=== PATIENT | female | born 1955 | race African-American/Black ===

== ENCOUNTER 2018-04-16 09:30 | Inpatient (IN) ==
[2018-04-16] MEDS ORDERED: 0.9 % SODIUM CHLORIDE 1,000 ML IV ONE ×3 (09:37→15:12)
[2018-04-16] MEDS ORDERED: ONDANSETRON 4 MG/2 ML VIAL IV ONE (10:03)
[2018-04-16] MEDS ORDERED: DIPH,PERTUSS(ACELL),TET VAC/PF 0.5 ML SYRINGE IM ONE (10:03)
--- NOTE | 2018-04-16 10:11 | Emergency Department Note ---
Fall HPI - General Chief Complaint: Fall Stated Complaint: Fall out of bed yesterday morning Time Seen by Provider: 04/16/18 10:03 Source: EMS Mode of arrival: EMS - History of Present Illness HPI Narrative: 62-year-old female presents to ED via ambulance after being picked up from the floor of her residence at. She had apparently fallen yesterday afternoon, laid on the floor all afternoon and all night. She usually has in-home care that visits with her for about an hour or 2 every day, she still lives in her own home. She needs some assistance with shopping and groceries, she is mobile within her own home and does not need a walker normally. Apparently she had fallen yesterday, was complaining of back pain in the ambulance had been called yesterday times one. She refused transport at that time. Apparently she had gone back to bed but then fell getting out of bed on her way to the bathroom. She was laying on the floor, the caregiver as well as the sheriff's officer's office who had to break into the home this morning found her laying face down on the floor. She has significant abrasions to her left elbow, right elbow as well as well as both kneecaps from attempting to crawl to get some help. Caregiver today states it was 50 in the home when they found her. She is complaining mainly of low back pain, denies any hip pain, there is no deformity of her hips noticeable, denies chest pain, denies shortness of breath and she is not hypoxic, not tachycardic, she did soil herself with stool and urine. MD Complaint: fall - Related Data Home Medications Medication Instructions Recorded Confirmed blood-glucose meter See Dose Instructions .ROUTE 09/14/14 03/19/18 .MEDSUPPLY Atorvastatin [Lipitor] 20 mg PO DAILY 04/16/18 04/16/18 LORazepam [Ativan] 1 mg PO DAILYP PRN 04/16/18 04/16/18 Pioglitazone HCl 45 mg PO QDAY 04/16/18 04/16/18 Ziprasidone HCl [Geodon] 60 mg PO DAILY 04/16/18 04/16/18 Previous Rx's Medication Instructions Recorded blood sugar diagnostic strips See Dose Instructions .ROUTE 04/28/15 .MEDSUPPLY #100 each trazodone 50 mg tablet 50 mg PO QHS #30 tab 03/21/17 omeprazole 40 mg capsule,delayed 40 mg PO QAM #90 cap 05/03/17 release memantine 10 mg tablet 10 mg PO BID #60 tab 05/23/17 divalproex 250 mg tablet,delayed 250 mg PO BID #60 tab 05/27/17 release sitagliptin 100 mg tablet 100 mg PO QDAY #90 tab 09/18/17 duloxetine 60 mg capsule,delayed 60 mg PO QDAY #30 cap 10/24/17 release amlodipine 5 mg tablet 5 mg PO QDAY #30 tab 12/31/17 lisinopril 20 mg tablet 20 mg PO QDAY #30 tab 01/06/18 Allergies Allergy/AdvReac Type Severity Reaction Status Date / Time No Known Drug Allergies Allergy Verified 04/16/18 09:30 Review of Systems All systems ED: reviewed and negative except as stated. Constitutional: Reports: weakness. Denies: fever, chills ENT ED: Denies: ear pain, throat pain Cardiovascular: Denies: chest pain, dyspnea on exertion Respiratory: Denies: shortness of breath, cough Gastrointestinal: Denies: abdominal pain, nausea, vomiting Genitourinary: Reports: incontinence Musculoskeletal: Reports: back pain Neurological: Reports: headache, other (slight headache also slight degree of neck pain, she does have a history of cervical spondylosis) Endocrine: Reports: fatigue Fall PMH - Past Medical History Attestation: Yes: The following information was validated with the patient. Medical history: Reports: DM, hyperlipidemia, hypertension, osteoporosis, other Surgical history ED: Reports: non-contributory - Social History smoking status: Current every day smoker Physical Exam Limitations: no limitations General appearance: alert, other (very weak appearing, shivering also rectal temperature of 92.) Head: atraumatic Eye: Present: normal appearance, PERRL ENT: normal exam, normal oropharynx, mucous membranes moist, TM's normal bilaterally, normal external ear exam Neck: Present: trachea midline, tenderness, other (decreased range of motion of the cervical spine.). Absent: meningismus, lymphadenopathy Chest: Present: normal inspection, symmetric chest wall rise. Absent: tenderness Respiratory: Present: normal lung sounds bilaterally. Absent: respiratory distress, rales/crackles, accessory muscle use Cardiovascular: Present: regular rate, normal rhythm, normal heart sounds Abdominal: Present: soft, hypoactive bowel sounds. Absent: distention, t enderness, guarding, hernia Rectal: Present: decreased rectal tone, other (incontinent of stool) External: Present: normal external exam Extremities: Present: full ROM, other (symmetric hips knees and ankles without obvious joint swelling. There is a grinding noise in the right knee which appears to be from [id number], not associated with pain but decreased range of motion and stiffness in both hips and knees. Both lower extremities are symmetrical. She does have abrasions to both elbow regions without obvious defo rmity.). Absent: joint swelling Back: Present: normal inspection, tenderness, L-S tenderness, muscle spasm, paraspinal tenderness, spinous process tenderness, vertebral tenderness. Absent: CVA tenderness (R), CVA tenderness (L), straight leg raise (R), straight leg raise (L) Neurological: Present: alert, oriented X3, other (generalized weakness all throughout.). Absent: motor sensory deficit Psychiatric: Present: normal affect Skin: Present: cyanosis, pallor, mottled, cool. Absent: rash Course - Reevaluation(s) Reevaluation #1: X-rays not showing any acute fracture. She does have moderate atrophy on CT scan the head. Degenerative changes of the C-spine. Also she has a mild degree of mastoiditis on her head CT. Given her white blood cell count was elevated we'll start her on antibiotics for mastoiditis. Her total CK was elevated thus she is at risk for rhabdomyolysis. Given her back pain and other comorbid con ditions she will need to be at admitted to the hospital. Final diagnosis is prolonged downtime, history of low back pain, acute low back pain secondary to fall, rhabdomyolysis Vital Signs Temperature 95.9 F L 04/16/18 09:30 Pulse Rate 87 04/16/18 09:30 Respiratory Rate 16 04/16/18 09:30 Blood Pressure 133/98 04/16/18 09:30 Pulse Oximetry (%) 97 04/16/18 09:30 Temperature 95.1 F L 04/16/18 11:46 Pulse Rate 95 H 04/16/18 13:08 Respiratory Rate 14 04/16/18 13:08 Blood Pressure 102/50 04/16/18 11:46 Pulse Oximetry (%) 96 04/16/18 13:08 Fall - MDM Narrative Medical decision making narrative: Impressions rhabdomyolysis, no acute EKG findings to suspect acute coronary syndrome. Troponin elevated and we will repeat her troponin up. Second troponin was about the same. Twelve-lead EKG not showing any acute ST elevation or suspicion of acute coronary syndrome up. She is not having any chest pain, no shortness of breath main complaint was low back pain. Sodium was elevated, at this point her total CK was over 15,000, she was putting out urine, at least 200 cc here in the ED and this was sent for urinalysis. White blood cell count elevated, she was started on antibiotics and to concerns of mastoiditis on the head CT scan. Discussed hospital admission with Dr. Delgado - Lab Data Result diagrams: 04/16/18 11:03 04/16/18 11:03 Lab Results 04/16/18 04/16/18 04/16/18 Range/Units 11:03 11:03 11:03 WBC 20.4 H (4.5-11.0) K/mcL RBC 4.48 (4.00-5.20) M/mcL Hgb 13.5 (12.0-15.0) g/dL Hct 42.3 (36.0-48.0) % MCV 94.5 (80.0-100.0) fL MCH 30.2 (26.0-34.0) pg MCHC 32.0 (31.0-36.0) g/dL RDW 15.0 H (11.5-14.5) % Plt Count 258 (140-440) K/mcL MPV 9.4 (7.4-10.4) fL Gran % 78.6 H (38.0-78.0) % Lymph % (Auto) 11.4 L (15.5-49.0) % Ford % (Auto) 9.8 (1.0-12.0) % Eos % (Auto) 0 (0.0-7.0) % Baso % (Auto) 0.2 (0.0-2.0) % Gran # 16.0 H (1.8-8.0) K/mcL Lymph # (Auto) 2.3 (1.5-4.8) K/mcL Ford # (Auto) 2.0 H (0.1-0.9) K/mcL Eos # (Auto) 0 (0.0-0.7) K/mcL Baso # (Auto) 0 (0.0-0.3) K/mcL PT 14.9 H (11.9-14.5) sec INR 1.2 H (0.9-1.1) ABG Methemoglobin (0.4-1.5) % VBG pH (7.32-7.42) U VBG pCO2 (41.0-51.0) mmHg VBG pO2 (25-40) mmHg VBG HCO3 (24.0-28.0) mmol/L VBG Total CO2 (25.0-29.0) mmol/L VBG O2 Saturation (40.0-70.0) % VBG Base Excess (-2.0-2.0) VBG Lactic Acid (0.5-2.0) mmol/L Carboxyhemoglobin (0.0-1.5) % THgb Total Hemoglobin (12.0-15.0) gm/dL O2 Delivery Level Sodium 154 H (133-145) mmol/L Potassium 3.3 (3.3-5.1) mmol/L Chloride 112 H (96-108) mmol/L Carbon Dioxide 17 L (22-30) mmol/L Anion Gap 25.0 H (8-16) BUN 35 H (8-23) mg/dl Creatinine 0.6 (0.6-1.1) mg/dl GFR Calculation 96 Glucose 103 (70-105) mg/dL Calcium 9.2 (8.6-10.4) mg/dl Total Bilirubin 0.3 (0.0-1.0) mg/dL AST 484 H (0-37) U/l ALT 137 H (0-40) U/l Alkaline Phosphatase 63 (39-117) U/L Total Creatine Kinase (24-170) IU/L Troponin T (0-0.03) ng/ml C-Reactive Protein (0.0-0.8) mg/dl NT-Pro-B Natriuret Pep (0-125) pg/ml Total Protein 6.0 (5.9-8.4) gm/dL Albumin 3.7 (3.2-5.2) gm/dL Globulin 2.3 (2.2-3.7) gm/dL Albumin/Globulin Ratio 1.6 (1.0-2.3) Procalcitonin (<0.10) ng/mL TSH 1.76 (0.27-5.01) uIU/ml Urine Color Urine Appearance Urine pH (5.0-9.0) Ur Specific [place] (1.000-1.035) Urine Protein (NEG) mg/dL Urine Glucose (UA) (NEG) mg/dL Urine Ketones (NEG) mg/dL Urine Occult Blood (<0.03) mg/dL Urine Nitrate (NEG) Urine Bilirubin (NEG) mg/dL Urine Urobilinogen (NEG) mg/dL Ur Leukocyte Esterase (NEG) /uL Urine RBC (0-1) /hpf Urine WBC (0-4) /hpf Ur Squamous Epith Cells (0-4) /hpf Urine Bacteria (0) /hpf Hyaline Casts (0-2) /lpf Urine Mucus (0) /hpf Ur Culture Indicated? 04/16/18 04/16/18 04/16/18 Range/Units 11:03 11:03 11:03 WBC (4.5-11.0) K/mcL RBC (4.00-5.20) M/mcL Hgb (12.0-15.0) g/dL Hct (36.0-48.0) % MCV (80.0-100.0) fL MCH (26.0-34.0) pg MCHC (31.0-36.0) g/dL RDW (11.5-14.5) % Plt Count (140-440) K/mcL MPV (7.4-10.4) fL Gran % (38.0-78.0) % Lymph % (Auto) (15.5-49.0) % Ford % (Auto) (1.0-12.0) % Eos % (Auto) (0.0-7.0) % Baso % (Auto) (0.0-2.0) % Gran # (1.8-8.0) K/mcL Lymph # (Auto) (1.5-4.8) K/mcL [place] # (Auto) (0.1-0.9) K/mcL Eos # (Auto) (0.0-0.7) K/mcL Baso # (Auto) (0.0-0.3) K/mcL PT (11.9-14.5) sec INR (0.9-1.1) ABG Methemoglobin (0.4-1.5) % VBG pH (7.32-7.42) U VBG pCO2 (41.0-51.0) mmHg VBG pO2 (25-40) mmHg VBG HCO3 (24.0-28.0) mmol/L VBG Total CO2 (25.0-29.0) mmol/L VBG O2 Saturation (40.0-70.0) % VBG Base Excess (-2.0-2.0) VBG Lactic Acid 1.8 (0.5-2.0) mmol/L Carboxyhemoglobin (0.0-1.5) % THgb Total Hemoglobin (12.0-15.0) gm/dL O2 Delivery Level Sodium (133-145) mmol/L Potassium (3.3-5.1) mmol/L Chloride (96-108) mmol/L Carbon Dioxide (22-30) mmol/L Anion Gap (8-16) BUN (8-23) mg/dl Creatinine (0.6-1.1) mg/dl GFR Calculation Glucose (70-105) mg/dL Calcium (8.6-10.4) mg/dl Total Bilirubin (0.0-1.0) mg/dL AST (0-37) U/l ALT (0-40) U/l Alkaline Phosphatase (39-117) U/L Total Creatine Kinase 25381 H (24-170) IU/L Troponin T 0.32 H* (0-0.03) ng/ml C-Reactive Protein (0.0-0.8) mg/dl NT-Pro-B Natriuret Pep (0-125) pg/ml Total Protein (5.9-8.4) gm/dL Albumin (3.2-5.2) gm/dL Globulin (2.2-3.7) gm/dL Albumin/Globulin Ratio (1.0-2.3) Procalcitonin (<0.10) ng/mL TSH (0.27-5.01) uIU/ml Urine Color Urine Appearance Urine pH (5.0-9.0) Ur Specific [place] (1.000-1.035) Urine Protein (NEG) mg/dL Urine Glucose (UA) (NEG) mg/dL Urine Ketones (NEG) mg/dL Urine Occult Blood (<0.03) mg/dL Urine Nitrate (NEG) Urine Bilirubin (NEG) mg/dL Urine Urobilinogen (NEG) mg/dL Ur Leukocyte Esterase (NEG) /uL Urine RBC (0-1) /hpf Urine WBC (0-4) /hpf Ur Squamous Epith Cells (0-4) /hpf Urine Bacteria (0) /hpf Hyaline Casts (0-2) /lpf Urine Mucus (0) /hpf Ur Culture Indicated? 04/16/18 04/16/18 04/16/18 Range/Units 11:03 11:04 12:47 WBC (4.5-11.0) K/mcL RBC (4.00-5.20) M/mcL Hgb (12.0-15.0) g/dL Hct (36.0-48.0) % MCV (80.0-100.0) fL MCH (26.0-34.0) pg MCHC (31.0-36.0) g/dL RDW (11.5-14.5) % Plt Count (140-440) K/mcL MPV (7.4-10.4) fL Gran % (38.0-78.0) % Lymph % (Auto) (15.5-49.0) % Ford % (Auto) (1.0-12.0) % Eos % (Auto) (0.0-7.0) % Baso % (Auto) (0.0-2.0) % Gran # (1.8-8.0) K/mcL Lymph # (Auto) (1.5-4.8) K/mcL [place] # (Auto) (0.1-0.9) K/mcL Eos # (Auto) (0.0-0.7) K/mcL Baso # (Auto) (0.0-0.3) K/mcL PT (11.9-14.5) sec INR (0.9-1.1) ABG Methemoglobin 0.3 L (0.4-1.5) % VBG pH 7.26 L (7.32-7.42) U VBG pCO2 38.0 L (41.0-51.0) mmHg VBG pO2 57 H (25-40) mmHg VBG HCO3 16.7 L (24.0-28.0) mmol/L VBG Total CO2 17.8 L (25.0-29.0) mmol/L VBG O2 Saturation 79.3 H (40.0-70.0) % VBG Base Excess -9.7 L (-2.0-2.0) VBG Lactic Acid 1.3 (0.5-2.0) mmol/L Carboxyhemoglobin 2.5 H (0.0-1.5) % THgb Total Hemoglobin 12.8 (12.0-15.0) gm/dL O2 Delivery Level Not Reportable Sodium (133-145) mmol/L Potassium (3.3-5.1) mmol/L Chloride (96-108) mmol/L Carbon Dioxide (22-30) mmol/L Anion Gap (8-16) BUN (8-23) mg/dl Creatinine (0.6-1.1) mg/dl GFR Calculation Glucose (70-105) mg/dL Calcium (8.6-10.4) mg/dl Total Bilirubin (0.0-1.0) mg/dL AST (0-37) U/l ALT (0-40) U/l Alkaline Phosphatase (39-117) U/L Total Creatine Kinase (24-170) IU/L Troponin T (0-0.03) ng/ml C-Reactive Protein (0.0-0.8) mg/dl NT-Pro-B Natriuret Pep (0-125) pg/ml Total Protein (5.9-8.4) gm/dL Albumin (3.2-5.2) gm/dL Globulin (2.2-3.7) gm/dL Albumin/Globulin Ratio (1.0-2.3) Procalcitonin (<0.10) ng/mL TSH (0.27-5.01) uIU/ml Urine Color Yellow Urine Appearance Hazy Urine pH 5.0 (5.0-9.0) Ur Specific [place] 1.022 (1.000-1.035) Urine Protein Neg (NEG) mg/dL Urine Glucose (UA) >=500 A (NEG) mg/dL Urine Ketones 80 A (NEG) mg/dL Urine Occult Blood 0.03 A (<0.03) mg/dL Urine Nitrate Neg (NEG) Urine Bilirubin Neg (NEG) mg/dL Urine Urobilinogen Neg (NEG) mg/dL Ur Leukocyte Esterase Neg (NEG) /uL Urine RBC < 1 (0-1) /hpf Urine WBC 1 (0-4) /hpf Ur Squamous Epith Cells 0 (0-4) /hpf Urine Bacteria 0 (0) /hpf Hyaline Casts 12 H (0-2) /lpf Urine Mucus Few (0) /hpf Ur Culture Indicated? No 04/16/18 04/16/18 04/16/18 Range/Units 12:47 12:47 12:47 WBC (4.5-11.0) K/mcL RBC (4.00-5.20) M/mcL Hgb (12.0-15.0) g/dL Hct (36.0-48.0) % MCV (80.0-100.0) fL MCH (26.0-34.0) pg MCHC (31.0-36.0) g/dL RDW (11.5-14.5) % Plt Count (140-440) K/mcL MPV (7.4-10.4) fL Gran % (38.0-78.0) % Lymph % (Auto) (15.5-49.0) % [place] % (Auto) (1.0-12.0) % Eos % (Auto) (0.0-7.0) % Baso % (Auto) (0.0-2.0) % Gran # (1.8-8.0) K/mcL Lymph # (Auto) (1.5-4.8) K/mcL [place] # (Auto) (0.1-0.9) K/mcL Eos # (Auto) (0.0-0.7) K/mcL Baso # (Auto) (0.0-0.3) K/mcL PT (11.9-14.5) sec INR (0.9-1.1) ABG Methemoglobin (0.4-1.5) % VBG pH (7.32-7.42) U VBG pCO2 (41.0-51.0) mmHg VBG pO2 (25-40) mmHg VBG HCO3 (24.0-28.0) mmol/L VBG Total CO2 (25.0-29.0) mmol/L VBG O2 Saturation (40.0-70.0) % VBG Base Excess (-2.0-2.0) VBG Lactic Acid (0.5-2.0) mmol/L Carboxyhemoglobin (0.0-1.5) % THgb Total Hemoglobin (12.0-15.0) gm/dL O2 Delivery Level Sodium (133-145) mmol/L Potassium (3.3-5.1) mmol/L Chloride (96-108) mmol/L Carbon Dioxide (22-30) mmol/L Anion Gap (8-16) BUN (8-23) mg/dl Creatinine (0.6-1.1) mg/dl GFR Calculation Glucose (70-105) mg/dL Calcium (8.6-10.4) mg/dl Total Bilirubin (0.0-1.0) mg/dL AST (0-37) U/l ALT (0-40) U/l Alkaline Phosphatase (39-117) U/L Total Creatine Kinase (24-170) IU/L Troponin T 0.37 H* (0-0.03) ng/ml C-Reactive Protein (0.0-0.8) mg/dl NT-Pro-B Natriuret Pep 6811.0 H (0-125) pg/ml Total Protein (5.9-8.4) gm/dL Albumin (3.2-5.2) gm/dL Globulin (2.2-3.7) gm/dL Albumin/Globulin Ratio (1.0-2.3) Procalcitonin 0.59 (<0.10) ng/mL TSH (0.27-5.01) uIU/ml Urine Color Urine Appearance Urine pH (5.0-9.0) Ur Specific [place] (1.000-1.035) Urine Protein (NEG) mg/dL Urine Glucose (UA) (NEG) mg/dL Urine Ketones (NEG) mg/dL Urine Occult Blood (<0.03) mg/dL Urine Nitrate (NEG) Urine Bilirubin (NEG) mg/dL Urine Urobilinogen (NEG) mg/dL Ur Leukocyte Esterase (NEG) /uL Urine RBC (0-1) /hpf Urine WBC (0-4) /hpf Ur Squamous Epith Cells (0-4) /hpf Urine Bacteria (0) /hpf Hyaline Casts (0-2) /lpf Urine Mucus (0) /hpf Ur Culture Indicated? 04/16/18 Range/Units 12:47 WBC (4.5-11.0) K/mcL RBC (4.00-5.20) M/mcL Hgb (12.0-15.0) g/dL Hct (36.0-48.0) % MCV (80.0-100.0) fL MCH (26.0-34.0) pg MCHC (31.0-36.0) g/dL RDW (11.5-14.5) % Plt Count (140-440) K/mcL MPV (7.4-10.4) fL Gran % (38.0-78.0) % Lymph % (Auto) (15.5-49.0) % [place] % (Auto) (1.0-12.0) % Eos % (Auto) (0.0-7.0) % Baso % (Auto) (0.0-2.0) % Gran # (1.8-8.0) K/mcL Lymph # (Auto) (1.5-4.8) K/mcL [place] # (Auto) (0.1-0.9) K/mcL Eos # (Auto) (0.0-0.7) K/mcL Baso # (Auto) (0.0-0.3) K/mcL PT (11.9-14.5) sec INR (0.9-1.1) ABG Methemoglobin (0.4-1.5) % VBG pH (7.32-7.42) U VBG pCO2 (41.0-51.0) mmHg VBG pO2 (25-40) mmHg VBG HCO3 (24.0-28.0) mmol/L VBG Total CO2 (25.0-29.0) mmol/L VBG O2 Saturation (40.0-70.0) % VBG Base Excess (-2.0-2.0) VBG Lactic Acid (0.5-2.0) mmol/L Carboxyhemoglobin (0.0-1.5) % THgb Total Hemoglobin (12.0-15.0) gm/dL O2 Delivery Level Sodium (133-145) mmol/L Potassium (3.3-5.1) mmol/L Chloride (96-108) mmol/L Carbon Dioxide (22-30) mmol/L Anion Gap (8-16) BUN (8-23) mg/dl Creatinine (0.6-1.1) mg/dl GFR Calculation Glucose (70-105) mg/dL Calcium (8.6-10.4) mg/dl Total Bilirubin (0.0-1.0) mg/dL AST (0-37) U/l ALT (0-40) U/l Alkaline Phosphatase (39-117) U/L Total Creatine Kinase (24-170) IU/L Troponin T (0-0.03) ng/ml C-Reactive Protein 1.3 H (0.0-0.8) mg/dl NT-Pro-B Natriuret Pep (0-125) pg/ml Total Protein (5.9-8.4) gm/dL Albumin (3.2-5.2) gm/dL Globulin (2.2-3.7) gm/dL Albumin/Globulin Ratio (1.0-2.3) Procalcitonin (<0.10) ng/mL TSH (0.27-5.01) uIU/ml Urine Color Urine Appearance Urine pH (5.0-9.0) Ur Specific [place] (1.000-1.035) Urine Protein (NEG) mg/dL Urine Glucose (UA) (NEG) mg/dL Urine Ketones (NEG) mg/dL Urine Occult Blood (<0.03) mg/dL Urine Nitrate (NEG) Urine Bilirubin (NEG) mg/dL Urine Urobilinogen (NEG) mg/dL Ur Leukocyte Esterase (NEG) /uL Urine RBC (0-1) /hpf Urine WBC (0-4) /hpf Ur Squamous Epith Cells (0-4) /hpf Urine Bacteria (0) /hpf Hyaline Casts (0-2) /lpf Urine Mucus (0) /hpf Ur Culture Indicated? Disposition Pt seen by [facility] ARCHITECT/PA only: No Clinical Impression: Rhabdomyolysis, Diabetes mellitus, type II, Dehydration Disposition: Xfer As Inpt ([facility]) Condition: Fair Referrals: Manuel Philip MD [Primary Care Provider] -
[2018-04-16 11:27] LABS: ABG Methemoglobin 0.3 % (0.4-1.5); VBG Base Excess -9.7 (-2.0-2.0); VBG HCO3 16.7 mmol/L (24.0-28.0); VBG Oxygen Saturation 79.3 % (40.0-70.0); VBG PH 7.26 U (7.32-7.42); VBG PO2 57 mmHg (25-40); VBG Total CO2 17.8 mmol/L (25.0-29.0)
[2018-04-16 11:36] LABS: Basophils # (Auto) 0 K/mcL (0.0-0.3); Basophils % (Auto) 0.2 % (0.0-2.0); Eosinophils # (Auto) 0 K/mcL (0.0-0.7); Eosinophils % (Auto) 0 % (0.0-7.0); Granulocytes % (Auto) 78.6 % (38.0-78.0); Lymphocytes # (Auto) 2.3 K/mcL (1.5-4.8); Lymphocytes % (Auto) 11.4 % (15.5-49.0); Mean Cell Volume 94.5 fL (80.0-100.0); Monocytes % (Auto) 9.8 % (1.0-12.0); Platelet Count 258 K/mcL (140-440); RBC 4.48 M/mcL (4.00-5.20)
[2018-04-16 12:03] LABS: Appearance,Urine HAZY; Bacteria,Urine 0 /hpf (0); Bilirubin,Urine NEG (NEG); Color,Urine YELLOW; Glucose,Urine (UA) >=500 mg/dL (NEG); Leukocyte Esterase,Urine NEG /uL (NEG); Mucus,Urine FEW /hpf (0); Protein,Urine NEG (NEG); Specific Gravity,Urine 1.022 (1.000-1.035); Urine Blood 0.03 mg/dL (<0.03); Urine Hyaline Cast 12 /lpf (0-2); Urine RBC < 1 /hpf (0-1); Urine Squamous Epithelial Cell 0 /hpf (0-4); Urine WBC 1 /hpf (0-4); Urobilinogen,Urine NEG (NEG)
[2018-04-16 12:08] LABS: ALT/SGPT 137 U/l (0-40); Albumin 3.7 gm/dL (3.2-5.2); Albumin/Globulin Ratio 1.6 (1.0-2.3); Alkaline Phosphatase 63 U/L (39-117); Blood Urea Nitrogen 35 mg/dl (8-23)
--- NOTE | 2018-04-16 12:27 | Cat Scan Report ---
CLINICAL INFORMATION: Trauma COMPARISON: None. TECHNIQUE: 2.5 mm helical slices were obtained in the skull base to vertex. Following reconstruction, axial reformatted images were reviewed at bone and parenchymal windows. The exam was performed using radiation dose optimization techniques including, but not limited to, automated exposure control, adjustment of the mA and/or kV according to patient size and use of iterative reconstruction technique. FINDINGS: The ventricles, sulci, fissures, and cisterns are symmetrically enlarged well mild age-related atrophy - no subdural hemorrhage or extra-axial fluid collection appreciated. Minimal patchy chronic ischemic changes of the inferior white matter shows slight progression. There is no intracerebral hemorrhage, mass effect, edema or other acute posttraumatic change. Two tiny remote lacunar infarcts in the basal ganglia noted. Bone windows show no fracture or other osseous abnormality. IMPRESSION: Moderate atrophy and patchy chronic ischemic changes in the deep cerebral white matter - slightly more than is typically seen in this age group and progressing since 2015. No acute disease Interpreted and Authenticated by: Nicholas Irvin 04/16/18
--- NOTE | 2018-04-16 12:30 | XRay Report ---
CLINICAL INFORMATION: FALL COMPARISON: None. FINDINGS: The lumbar spine is normal in curvature and alignment. No evidence of lumbar fracture. Moderate L2-3 degenerative disc disease noted - the remaining disc are normal. Mild degenerative changes in the SI joints. Soft tissues normal. IMPRESSION: Degenerative change. No fracture or other posttraumatic change change Interpreted and Authenticated by: Nicholas Irvin 04/16/18
--- NOTE | 2018-04-16 12:39 | Cat Scan Report ---
CLINICAL INFORMATION: Trauma COMPARISON: None. TECHNIQUE: 2.5 mm helical slices were obtained from the skull base through the superior T2 end plate. Following reconstruction, 2.5 mm sagittal, coronal and axial reformations , with and without disc space angling, were processed. The exam was reviewed at bone and soft tissue windows. The exam was performed using radiation dose optimization techniques including, but not limited to, automated exposure control, adjustment of the mA and/or kV according to patient size and use of iterative reconstruction technique. FINDINGS: Sagittal and coronal reformatted images show the cervical spine to be anatomically aligned. There is no fracture. Both C2-3 facets are congenitally fused - no other osseous abnormality The cervical cord is normal in contour and caliber without focal lesion. The soft tissues are normal. The C2-3 disc level is normal. At C3-4, mild broad disc spur complex left-sided asymmetry results in mild left lateral recess narrowing. At C4-5, moderate broad disc spur complex results in mild central canal and mild right lateral recess/IV foraminal narrowing. At C5-6, moderate broad disc spur complex with left-sided asymmetry results in mild central canal and mild left lateral recess/IV foraminal narrowing At C6-7, mild broad disc spur complex minimally impinges the thecal sac resulting in mild left lateral recess/IV foraminal narrowing. At C7-T1, the disc level is normal IMPRESSION: 1. No fracture or posttraumatic change 2. Mild multilevel degeneration 3. 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 Fluid in the medial left mastoid air cells compatible with mild mastoiditis 5. Mild degenerative change both TMJs Interpreted and Authenticated by: Nicholas Irvin 04/16/18
--- NOTE | 2018-04-16 12:40 | XRay Report ---
CLINICAL INFORMATION: fall COMPARISON: None. FINDINGS: Thoracic spine is normal in curvature alignment. There is minimal chronic wedging of the mid and lower thoracic vertebral bodies from T5 to T12. No acute fracture appreciated. Mild degenerative disease each level. Soft tissues are normal. IMPRESSION: No acute posttraumatic change - chronic findings as described Interpreted and Authenticated by: Nicholas Irvin 04/16/18
[2018-04-16] MEDS ORDERED: cefTRIAXone 1 GM VIAL IV ONE (12:41)
--- NOTE | 2018-04-16 12:42 | XRay Report ---
CLINICAL INFORMATION: Pelvis pain - trauma COMPARISON: None. FINDINGS: No fracture identified. 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 A 3 cm calcification in the left true pelvis is likely a calcified fibroid. Olmos catheter overlies urinary bladder. Soft tissues are normal. IMPRESSION: No fracture identified. Chronic findings as described Interpreted and Authenticated by: Nicholas Irvin 04/16/18
--- NOTE | 2018-04-16 12:47 | XRay Report ---
CLINICAL INFORMATION: Trauma - fall COMPARISON: 08/02/2014 FINDINGS: The heart size, mediastinum and pulmonary vessels are unremarkable. The lungs are clear. There are no effusions. The bones and soft tissues are within normal limits. IMPRESSION: Normal chest. Interpreted and Authenticated by: Nicholas Irvin 04/16/18
[2018-04-16 14:03] LABS: C-Reactive Protein 1.3 mg/dl (0.0-0.8)
[2018-04-16] MEDS: 0.45 % SODIUM CHLORIDE 1,000 ML IV SCH ×3 (15:22→17:55)
[2018-04-16 16:17] LABS: Amphetamine Screen,Urine NONE DETECTED (NONDETECTED); Benzodiazepines Screen,Urine NONE DETECTED (NONDETECTED); Cocaine Screen,Urine NONE DETECTED (NONDETECTED); Opiate Screen,Urine NONE DETECTED (NONDETECTED); Oxycodone, Urine Screen NONE DETECTED (NONDETECTED)
--- NOTE | 2018-04-16 16:17 | Internal Med History&Physical ---
Medical - H&P: HPI Patient information: Note initiated : 04/16/18 at 4:13 pm Service Date, if different from initiated Date: [] Patient: Chelsea Edwards a 62 y/o F admitted on for Fall Out Of Bed Yesterday Morning. Chief Complaint: [] History of present illness: Ms. Edwards is a 62 year old F Who presents to the ER secondary to severe weakness fall and pain. Patient reports that she was in her normal state of health when she went to bed several nights ago yesterday morning while getting out of bed at 6 she tripped and fell out of bed and landed on the floor. She had a back pain which is acute on chronic and other generalized pains and was unable to get up. Her health care worker came in around 8:00 and helped her into a chair and did some other care prior to leaving at 1030. Patient attempted to get up later in the day was unable to walk so she decided to call. She crawled to her bed and was unable to get up into her bed so she just remained on the floor and slept there that night. I different coworker found her this morning on the floor and found the house to be cold at 50 degrees. Patient is brought to the ED and found to be severely dehydrated with rhabdomyolysis. She had no chest pain coughing or shortness of breath no urinary tract infection symptoms. She felt weak and had pain back pain. She had x-ray of her C-spine and L-spine and T-spine which were all unremarkable. She had a CT brain which showed no acute but moderate atrophy is previously previously known. Chest x-ray was unremarkable. An EKG showed no acute concerning signs. Sodium was 154. And urinalysis showed ketones hyaline casts and glucose. Because her white blood cell count was 20,000 she was given some antibiotics in the ER as well as her pro-calcitonin was elevated. He was afebrile. She denies any recent illnesses no upper respiratory infections no coughing shortness of breath no abdominal pain she did have diarrhea yesterday but does not report any today. She is been a [place] [facility] in the past she has been seen by neurology in the past for dementia and pseudoseizures. She had a history of substance abuse last admitted in 2014 and noted at that time that she had used methamphetamine that year. But denies any recently. Patient is weak denies any fevers or chills. Her headache Review of Systems: Pertinent positives as above. Denies headache/fever/chills/nausea/vomiting/chest or abdominal pain/cough/dyspnea. Remaining 10 point review of systems reviewed negative Medical - H&P: PMH Medical history: Past medical history: Dementia, pseudoseizures, history of possible conversion disorder, diabetes, fatty liver and hepatitis C has followed with outpatient GI in the past, depression, history of substance abuse with methamphetamines 2015 last noted, hypertension, GERD, tobacco abuse Past surgical history: Tonsillectomy breast biopsy Family history: She does not no apparent medical history Social history: Patient smokes half pack per day denies alcohol use or drug use no methamphetamines past few years. She is been in a nursing facility in the past but has been most recently at home with caregivers daily. She states she is able to ambulate without the aid of a walker or a cane in her house. Medical - H&P: Meds Home Medications Medication Instructions Recorded Confirmed Type blood-glucose meter See Dose Instructions .ROUTE 09/14/14 03/19/18 History .MEDSUPPLY blood sugar diagnostic strips See Dose Instructions .ROUTE 04/28/15 03/19/18 Rx .MEDSUPPLY #100 each trazodone 50 mg tablet 50 mg PO QHS #30 tab 03/21/17 04/16/18 Rx omeprazole 40 mg capsule,delayed 40 mg PO QAM #90 cap 05/03/17 04/16/18 Rx release memantine 10 mg tablet 10 mg PO BID #60 tab 05/23/17 04/16/18 Rx divalproex 250 mg tablet,delayed 250 mg PO BID #60 tab 05/27/17 04/16/18 Rx release sitagliptin 100 mg tablet 100 mg PO QDAY #90 tab 09/18/17 04/16/18 Rx duloxetine 60 mg capsule,delayed 60 mg PO QDAY #30 cap 10/24/17 04/16/18 Rx release amlodipine 5 mg tablet 5 mg PO QDAY #30 tab 12/31/17 04/16/18 Rx lisinopril 20 mg tablet 20 mg PO QDAY #30 tab 01/06/18 04/16/18 Rx Atorvastatin [Lipitor] 20 mg PO DAILY 04/16/18 04/16/18 History LORazepam [Ativan] 1 mg PO DAILYP PRN 04/16/18 04/16/18 History Pioglitazone HCl 45 mg PO QDAY 04/16/18 04/16/18 History Ziprasidone HCl [Geodon] 60 mg PO DAILY 04/16/18 04/16/18 History Allergies Allergy/AdvReac Type Severity Reaction Status Date / Time No Known Drug Allergies Allergy Verified 04/16/18 09:30 Medical - H&P: Exam - Constitutional Vitals: Temp Pulse Resp BP Pulse Ox 95.1 F L 96 H 17 102/50 96 04/16/18 11:46 04/16/18 16:10 04/16/18 16:10 04/16/18 11:46 04/16/18 16:10 Exam: General: Alert, Awake, No acute Distress Eyes/N/T: EOMI, PEERL, DMM Head/Neck: neck supple, normocephalic atraumatic CV: RRR, No murmurs, normal s1/s2 Pulm: Clear b/l, no wheezing/rhonchi/rales Abd: soft, nontender, +BS x4 Ext: no clubbing/cyanosis/edema Neuro: Alert, no focal deficits, moves all extremities, CN 2-12 grossly intact, symmetrical strength b/l upper/lower, sensations intact b/l upper/lower Skin: warm/dry Medical - H&P: Reslt - Labs CBC & Chem 7: 04/16/18 11:03 04/16/18 11:03 Labs: Short CBC 04/16/18 Range/Units 11:03 WBC 20.4 H (4.5-11.0) K/mcL Hgb 13.5 (12.0-15.0) g/dL Hct 42.3 (36.0-48.0) % Plt Count 258 (140-440) K/mcL BMP 04/16/18 11:03 Sodium 154 H Potassium 3.3 Chloride 112 H Carbon Dioxide 17 L BUN 35 H Creatinine 0.6 Glucose 103 Calcium 9.2 Cardiac Enzymes 04/16/18 04/16/18 04/16/18 Range/Units 11:03 11:03 12:47 Total Creatine Kinase 19925 H (24-170) IU/L Troponin T 0.32 H* 0.37 H* (0-0.03) ng/ml Liver Function 04/16/18 Range/Units 11:03 Total Bilirubin 0.3 (0.0-1.0) mg/dL AST 484 H (0-37) U/l ALT 137 H (0-40) U/l Alkaline Phosphatase 63 (39-117) U/L Albumin 3.7 (3.2-5.2) gm/dL Urine 04/16/18 Range/Units 11:04 Urine Color Yellow Urine Appearance Hazy Urine pH 5.0 (5.0-9.0) Ur Specific [place] 1.022 (1.000-1.035) Urine Protein Neg (NEG) mg/dL Urine Glucose (UA) >=500 A (NEG) mg/dL - ABG Interpretation ABG results: 04/16/18 11:03 ABG Methemoglobin 0.3 L VBG pH 7.26 L VBG pCO2 38.0 L VBG pO2 57 H VBG HCO3 16.7 L VBG Total CO2 17.8 L VBG O2 Saturation 79.3 H VBG Base Excess -9.7 L - Impressions Chest x-ray no acute pathology X-rays of the C-spine and L-spine and T-spine no acute fractures CT of the brain shows moderate atrophy and patchy chronic ischemic changes slightly more pronounced than 2015 imaging Medical - H&P: A/P - Narrative A/P Narrative: A: *Hyponatremia/dehydration: *Generalized weakness/fall out of bed/Deconditioning: *Rhabdomyolysis: *Leukocytosis: With the mildly elevated pro-calcitonin, afebrile, unable to immediately identify any obvious source of infection, -CXR/UA unrevealing *Anion gap metabolic acidosis: Secondary to Rhabdo/uremia/starvation ketosis *Transaminitis/Fatty Liver/Hep C: Secondary to above + PMH and has seen GI in past regarding hep c *Dementia: *Depression: *Diabetes: *HTN: *Tobacco Abuse: *GERD: *h/o substance abuse P: -IV fluid hydration with hypotonic solution at this time -Follow-up sodium level -Follow-up UA pH, and monitor renal function & CK -Empiric antibiotics, pending BC and f/u PCT -SSI -pt/ot, CM for placement -ppx: heparin
[2018-04-16 16:26] LABS: Band Neutrophils % 4 % (0-10); Basophils % (Manual) 1 % (0-2); Lymphocytes % 16 % (15-49); Monocytes % (Manual) 7 % (1-12); Platelet Estimate NORMAL (NORMAL); RBC Morphology ABNORMAL (NORMAL); Segmented Neutrophils % 72 % (38-78)
[2018-04-16 17:05] LABS: Valproic Acid (Depakene) Test 12.6 ug/mL
[2018-04-16] MEDS ORDERED: PROCHLORPERAZINE 10 MG TABLET PO PRN (17:19)
[2018-04-16] MEDS ORDERED: DEXTROSE 31 GM ORAL.SUSP PO PRN (17:19)
[2018-04-16] MEDS ORDERED: ONDANSETRON 4 MG/2 ML VIAL IV PRN (17:19)
[2018-04-16] MEDS ORDERED: PROCHLORPERAZINE 10 MG/2 ML VIAL IV PRN (17:19)
[2018-04-16] MEDS ORDERED: HEPARIN 5,000 UNIT/ML VIAL SQ ONE (17:19)
[2018-04-16] MEDS ORDERED: SENNOSIDES 1 TABLET PO PRN (17:19)
[2018-04-16] MEDS ORDERED: POTASSIUM CHLORIDE 40 MEQ in DEXTROSE 5% IN WATER 500 ML IV PRN (17:19)
[2018-04-16] MEDS ORDERED: POLYETHYLENE GLYCOL 3350 17 GM PACKET PO PRN (17:19)
[2018-04-16] MEDS ORDERED: LACTULOSE 20 GM/30 ML ORAL.SOL PO PRN (17:19)
[2018-04-16] MEDS ORDERED: DEXTROSE 50% 50 ML VIAL IV PRN (17:19)
[2018-04-16] MEDS ORDERED: IPRATROPIUM/ALBUTEROL 3 ML AMPUL.NEB NEB PRN (17:19)
[2018-04-16] MEDS ORDERED: POTASSIUM CHLORIDE 20 MEQ TABLET PO PRN ×2 (17:19)
[2018-04-16] MEDS ORDERED: LORazepam 1 MG TABLET PO PRN (17:19)
[2018-04-16] MEDS ORDERED: MAGNESIUM SULFATE 2 GM/50 ML BAG IV PRN (17:19)
[2018-04-16 17:51] LABS: Blood Urea Nitrogen 36 mg/dl (8-23)
[2018-04-16] MEDS: PIPERACILLIN SODIUM/TAZOBACTAM 3.375 GM in DEXTROSE 5% IN WATER 50 ML IV SCH (17:56)
[2018-04-16] MEDS: INSULIN LISPRO 1 UNIT/0.01 ML UNIT SQ SCH ×2 (17:58→20:16)
[2018-04-16] MEDS: oxyCODONE HCL 5 MG TABLET PO PRN (19:09)
[2018-04-16] MEDS: DIVALPROEX 125 MG CAP.SPRINK PO SCH (20:06)
[2018-04-16] MEDS: FAMOTIDINE 20 MG TABLET PO SCH (20:06)
[2018-04-16] MEDS: traZODone HCL 50 MG TABLET PO SCH (20:06)
[2018-04-16] MEDS: ATORVASTATIN 20 MG TABLET PO SCH (20:06)
[2018-04-16] MEDS: DOCUSATE SODIUM 100 MG CAPSULE PO SCH (20:06)
[2018-04-16] MEDS ORDERED: MEMANTINE 10 MG TABLET PO SCH (21:00)
[2018-04-16] MEDS ORDERED: 0.9 % SODIUM CHLORIDE 500 ML IV ONE (22:02)
[2018-04-16] MEDS ORDERED: LACTATED RINGERS 1,000 ML IV ONE (23:29)
[2018-04-16] MEDS: 0.9 % SODIUM CHLORIDE 10 ML SYRINGE IV SCH (23:53)
[2018-04-17] MEDS: PIPERACILLIN SODIUM/TAZOBACTAM 3.375 GM in DEXTROSE 5% IN WATER 50 ML IV SCH ×4 (00:22→17:18)
[2018-04-17] MEDS: oxyCODONE HCL 5 MG TABLET PO PRN ×5 (00:34→19:43)
[2018-04-17] MEDS ORDERED: NOREPINEPHRINE BITARTRATE 4 MG/4 ML VIAL IV ONE (00:44)
[2018-04-17] MEDS: 0.9 % SODIUM CHLORIDE 250 ML IV SCH ×2 (01:05→14:18)
[2018-04-17] MEDS: NOREPINEPHRINE BITARTRATE 16 MG in 0.9 % SODIUM CHLORIDE 234 ML IV SCH (01:06)
[2018-04-17] MEDS ORDERED: 0.45 % SODIUM CHLORIDE 1,000 ML IV SCH (01:45)
[2018-04-17] MEDS: 0.45 % SODIUM CHLORIDE 1,000 ML IV SCH (01:46)
[2018-04-17 05:01] LABS: Basophils # (Auto) 0.2 K/mcL (0.0-0.3); Basophils % (Auto) 0.7 % (0.0-2.0); Eosinophils # (Auto) 0 K/mcL (0.0-0.7); Eosinophils % (Auto) 0.1 % (0.0-7.0); Granulocytes % (Auto) 77.8 % (38.0-78.0); Lymphocytes # (Auto) 4.3 K/mcL (1.5-4.8); Lymphocytes % (Auto) 18.3 % (15.5-49.0); Mean Cell Volume 94.2 fL (80.0-100.0); Mean Corpuscular HGB Conc 32.4 g/dL (31.0-36.0); Monocytes # (Auto) 0.7 K/mcL (0.1-0.9); Monocytes % (Auto) 3.1 % (1.0-12.0); Platelet Count 275 K/mcL (140-440); RBC 4.02 M/mcL (4.00-5.20); Red Cell Distribution Width 14.9 % (11.5-14.5)
[2018-04-17 05:14] LABS: ALT/SGPT 142 U/l (0-40); Albumin 3.3 gm/dL (3.2-5.2); Albumin/Globulin Ratio 1.3 (1.0-2.3); Alkaline Phosphatase 63 U/L (39-117); Bilirubin,Direct < 0.2 mg/dL (0.0-0.3); Blood Urea Nitrogen 34 mg/dl (8-23); C-Reactive Protein 0.7 mg/dl (0.0-0.8); Gamma Glutamyl Transpeptidase 120 U/L (5-36); Uric Acid 7.1 mg/dL (2.5-8.0)
[2018-04-17] MEDS: 0.9 % SODIUM CHLORIDE 10 ML SYRINGE IV SCH ×3 (05:36→21:14)
[2018-04-17 05:37] LABS: Creatine Kinase 10657 IU/L (24-170)
[2018-04-17] MEDS ORDERED: VANCOMYCIN PER PHARMACY IV SCH (06:08)
--- NOTE | 2018-04-17 06:24 | Internal Med Progress Note ---
Medical - PN: Subj Patient information: Note initiated : 04/17/18 at 6:06 am Service Date, if different from initiated Date: [] Patient: Chelsea Edwards 62 y/o F admitted on 04/16/18 for Fall Out Of Bed Yesterday Morning. Chief Complaint: [] Interval history: Ms. Edwards is a 62 year old F Who presents to the ER secondary to severe weakness fall and pain. Patient reports that she was in her normal state of health when she went to bed several nights ago yesterday morning while getting out of bed at 6 she tripped a nd fell out of bed and landed on the floor. She had a back pain which is acute on chronic and other generalized pains and was unable to get up. Her health care worker came in around 8:00 and helped her into a chair and did some other care prior to leaving at 1030. Patient attempted to get up later in the day was unable to walk so she decided to call. She crawled to her bed and was unable to get up into her bed so she just remained on the floor and slept there that night. I different coworker found her this morning on the floor and found the house to be cold at 50 degrees. Patient is brought to the ED and found to be severely dehydrated with rhabdomyolysis. She had no chest pain coughing or shortness of breath no urinary tract infection symptoms. She felt weak and had pain back pain. She had x-ray of her C-spine and L-spine and T-spine which were all unremarkable. She had a CT brain which showed no acute but moderate atrophy is previously previously known. Chest x-ray was unremarkable. An EKG showed no acute concerning signs. Sodium was 154. And urinalysis showed ketones hyaline casts and glucose. Because her white blood cell count was 20,000 she was given some antibiotics in the ER as well as her pro-calcitonin was elevated. He was afebrile. She denies any recent illnesses no upper respiratory infections no coughing shortness of breath no abdominal pain she did have diarrhea yesterday but does not report any today. She is been a custodial in the past she has been seen by neurology in the past for dementia and pseudoseizures. She had a history of substance abuse last admitted in 2014 and noted at that time that she had used methamphetamine that year. But denies any recently. Patient is weak denies any fevers or chills. Her headache 04/17 Poor sleep because of interruptions, has occasional headache, tired, has mild stomachache this morning. Otherwise no complaints. No chest pain shortness of breath or coughing. On 5 mics per minute of Levophed. Blood pressure low 100s. Review of Systems: denies headache/fever/chills/nausea/vomiting/chest pain/cough/dyspnea/diarrhea. Otherwise see above. - Constitutional Vitals: Vital Signs Temp Pulse Resp BP Pulse Ox 98.9 F 83 10 L 121/48 100 04/17/18 06:01 04/17/18 06:01 04/17/18 06:01 04/17/18 06:01 04/17/18 06:01 Period Temp Pulse Resp BP Sys/Farris Pulse Ox Last 24 Hr 92.5 F-99.0 F 68-106 6-20 78-149/38-114 94-100 Intake and Output 04/16/18 04/17/18 04/17/18 21:59 05:59 13:59 Intake Total 1323 / 6730 3407 / 6730 Output Total 310 / 663 353 / 663 Balance 1013 / 6067 3054 / 6067 Weight 56.608 kg Intake & Output: Intake & Output 04/16/18 04/17/18 04/17/18 21:59 05:59 13:59 Intake Total 1323 / 6730 3407 / 6730 Output Total 310 / 663 353 / 663 Balance 1013 / 6067 3054 / 6067 Weight 56.608 kg Intake: IV 1083 / 5690 2607 / 5690 Sodium Chloride 0.45% 1,000 ml 1000 / 2000 1000 / 2000 @ 150 mls/hr IV .Q6H40M [facility] Rx# :[id number] Sodium Chloride 0.9% 1,000 ml @ 33 / 33 250 mls/hr IV .Q4H ONE Rx#: [id number] Sodium Chloride 0.9% 500 ml @ 500 / 500 Wide Open IV BOLUS ONE Rx#: [id number] Lactated Ringers 1,000 ml @ 1000 / 1000 Wide Open IV BOLUS ONE Rx#: [id number] Levophed 16 mg In Sodium 57 / 57 Chloride 0.9% 234 ml @ 10 MCG/ MIN 9.38 mls/hr IV Q24H [facility] Rx# :[id number] Zosyn 3.375 gm In Dextrose 5% 50 / 100 50 / 100 in Water 50 ml @ 100 mls/hr IV Q6H [facility] Rx#:[id number] Oral 240 / 1040 800 / 1040 Output: Urine Catheter Amount 310 / 663 353 / 663 Other: Meal Dinner Percent of Meal Consumed snack Feeding Ability Independent Urine Appearance Clear Clear Temp probe [place] Clear Urine Color Straw Straw Temp probe [place] Bright Yellow Exam: General: Alert, Awake, No acute Distress Eyes/N/T: EOMI, Head/Neck: neck supple, CV: RRR, No murmurs, Pulm: Clear b/l, no wheezing/rhonchi/rales Abd: soft, nontender, +BS x4 Ext: no clubbing/cyanosis/edema Neuro: Alert, no focal deficits, moves all extremities, Skin: warm/dry Medical - PN: Obj Da - Labs CBC & Chem 7: 04/17/18 04:04 04/17/18 04:04 Labs: Abnormal Lab Results 04/17/18 04/17/18 04/16/18 04:04 04:04 16:23 WBC 23.3 H RDW 14.9 H Gran % Lymph % (Auto) Gran # 18.1 H Nelson # (Auto) Polychromasia PT INR ABG Methemoglobin VBG pH VBG pCO2 VBG pO2 VBG HCO3 VBG Total CO2 VBG O2 Saturation VBG Base Excess Carboxyhemoglobin Sodium 151 H Potassium 3.2 L Chloride 109 H Carbon Dioxide 19 L 13 L Anion Gap 20.0 H 29.0 H BUN 34 H 36 H Glucose 181 H 122 H Calcium 8.3 L Phosphorus 5.5 H GGT 120 H AST 416 H ALT 142 H Lactate Dehydrogenase 539 H Total Creatine Kinase 36482 H Troponin T C-Reactive Protein NT-Pro-B Natriuret Pep Triglycerides 203 H Urine Glucose (UA) Urine Ketones Urine Occult Blood Hyaline Casts 04/16/18 04/16/18 04/16/18 12:47 12:47 12:47 WBC RDW Gran % Lymph % (Auto) Gran # Nelson # (Auto) Polychromasia PT INR ABG Methemoglobin VBG pH VBG pCO2 VBG pO2 VBG HCO3 VBG Total CO2 VBG O2 Saturation VBG Base Excess Carboxyhemoglobin Sodium Potassium Chloride Carbon Dioxide Anion Gap BUN Glucose Calcium Phosphorus GGT AST ALT Lactate Dehydrogenase Total Creatine Kinase Troponin T 0.37 H* C-Reactive Protein 1.3 H NT-Pro-B Natriuret Pep 6811.0 H Triglycerides Urine Glucose (UA) Urine Ketones Urine Occult Blood Hyaline Casts 04/16/18 04/16/18 04/16/18 11:04 11:03 11:03 WBC RDW Gran % Lymph % (Auto) Gran # Nelson # (Auto) Polychromasia PT INR ABG Methemoglobin 0.3 L VBG pH 7.26 L VBG pCO2 38.0 L VBG pO2 57 H VBG HCO3 16.7 L VBG Total CO2 17.8 L VBG O2 Saturation 79.3 H VBG Base Excess -9.7 L Carboxyhemoglobin 2.5 H Sodium Potassium Chloride Carbon Dioxide Anion Gap BUN Glucose Calcium Phosphorus GGT AST ALT Lactate Dehydrogenase Total Creatine Kinase Troponin T 0.32 H* C-Reactive Protein NT-Pro-B Natriuret Pep Triglycerides Urine Glucose (UA) >=500 A Urine Ketones 80 A Urine Occult Blood 0.03 A Hyaline Casts 12 H 04/16/18 04/16/18 04/16/18 11:03 11:03 11:03 WBC RDW Gran % Lymph % (Auto) Gran # Nelson # (Auto) Polychromasia PT 14.9 H INR 1.2 H ABG Methemoglobin VBG pH VBG pCO2 VBG pO2 VBG HCO3 VBG Total CO2 VBG O2 Saturation VBG Base Excess Carboxyhemoglobin Sodium 154 H Potassium Chloride 112 H Carbon Dioxide 17 L Anion Gap 25.0 H BUN 35 H Glucose Calcium Phosphorus GGT AST 484 H ALT 137 H Lactate Dehydrogenase Total Creatine Kinase 95820 H Troponin T C-Reactive Protein NT-Pro-B Natriuret Pep Triglycerides Urine Glucose (UA) Urine Ketones Urine Occult Blood Hyaline Casts 04/16/18 04/16/18 11:03 10:23 WBC 20.4 H RDW 15.0 H Gran % 78.6 H Lymph % (Auto) 11.4 L Gran # 16.0 H Nelson # (Auto) 2.0 H Polychromasia Rare A PT INR ABG Methemoglobin VBG pH VBG pCO2 VBG pO2 VBG HCO3 VBG Total CO2 VBG O2 Saturation VBG Base Excess Carboxyhemoglobin Sodium Potassium Chloride Carbon Dioxide Anion Gap BUN Glucose Calcium Phosphorus GGT AST ALT Lactate Dehydrogenase Total Creatine Kinase Troponin T C-Reactive Protein NT-Pro-B Natriuret Pep Triglycerides Urine Glucose (UA) Urine Ketones Urine Occult Blood Hyaline Casts Meds: Medications Albuterol/Ipratropium (Duoneb) 3 ml NEB Q4HP PRN PRN Reason: Shortness Of Breath Amlodipine Besylate (Norvasc) 5 mg PO QDAY [facility] Atorvastatin Calcium (Lipitor) 20 mg PO HS [facility] Last Admin: 04/16/18 20:06 Dose: 20 mg Documented by: Dextrose (Dextrose 50%) 0 ml IV UD PRN PRN Reason: Hypoglycemia Diagnostic Test (Pha) (Accu-Chek) 1 each FS ACHS [facility] Last Admin: 04/16/18 20:14 Dose: 1 each Documented by: Divalproex Sodium (Depakote Sprinkles) 250 mg PO BID [facility] Last Admin: 04/16/18 20:06 Dose: 250 mg Documented by: Docusate Sodium (Colace) 100 mg PO BID [facility] Last Admin: 04/16/18 20:06 Dose: 100 mg Documented by: Duloxetine HCl (Cymbalta) 60 mg PO DAILY [facility] Famotidine (Pepcid) 20 mg PO BID [facility] Last Admin: 04/16/18 20:06 Dose: 20 mg Documented by: Glucose (Insta-Glucose) 15 gm PO PRN PRN PRN Reason: Hypoglycemia Heparin Sodium (Porcine) (Heparin) 5,000 unit SQ Q12 [facility] Potassium Chloride 40 meq/ (Dextrose) 520 mls @ 130 mls/hr IV ONCE PRN PRN Reason: Potassium < 3 Magnesium Sulfate (Magnesium Sulfate) 2 gm in 50 mls @ 50 mls/hr IV ONCE PRN PRN Reason: Magnesium </= 1.6 Piperacillin Sod/Tazobactam (Sod 3.375 gm/ Dextrose) 50 mls @ 100 mls/hr IV Q6H [facility] Last Admin: 04/17/18 05:35 Dose: 100 mls/hr Documented by: Sodium Chloride (Sodium Chloride 0.9%) 500 mls @ 0 mls/hr IV BOLUS ONE Stop: 04/16/18 22:03 Last Infusion: 04/17/18 00:34 Dose: Infused Documented by: Lactated Ringer's (Lactated Ringers) 1,000 mls @ 0 mls/hr IV BOLUS ONE Stop: 04/16/18 23:30 Last Infusion: 04/17/18 01:17 Dose: Infused Documented by: Norepinephrine Bitartrate 16 (mg/ Sodium Chloride) 250 mls @ 9.38 mls/hr IV Q24H [facility]; Protocol Last Titration: 04/17/18 05:00 Dose: 15 mcg/min, 14.06 mls/hr Documented by: Sodium Chloride (Sodium Chloride 0.9%) 250 mls @ 20 mls/hr IV .[id number] [facility] Last Admin: 04/17/18 01:05 Dose: 20 mls/hr Documented by: Sodium Chloride (Sodium Chloride 0.45%) 1,000 mls @ 100 mls/hr IV .Q10H [facility] Last Admin: 04/17/18 01:45 Dose: 100 mls/hr Documented by: Insulin Human Lispro (Humalog) 0 unit SQ ACHS [facility]; Protocol Last Admin: 04/16/18 20:16 Dose: 6 units Documented by: Lactulose (Cephulac) 10 gm PO DAILYP PRN PRN Reason: Constipation Lorazepam (Ativan) 1 mg PO DAILYP PRN PRN Reason: Anxiety Memantine (Namenda) 10 mg PO BID [facility] Last Admin: 04/16/18 20:06 Dose: 10 mg Documented by: Ondansetron HCl (Zofran) 4 mg IV Q4HP PRN PRN Reason: Nausea And Vomiting Oxycodone HCl (Roxicodone) 5 mg PO Q4-6HP PRN PRN Reason: PAIN LEVEL 3-6 Last Admin: 04/17/18 05:46 Dose: 5 mg Documented by: Ziprasidone Hcl [ (Geodon] 60 Mg Tab) 1 dose PO DAILY [facility] Polyethylene Glycol (Miralax) 17 gm PO DAILYP PRN PRN Reason: Constipation Potassium Chloride (Kdur) 40 meq PO ONCE PRN PRN Reason: Potssium is 3-3.5 Last Admin: 04/17/18 05:33 Dose: 40 meq Documented by: Potassium Chloride (Kdur) 40 meq PO ONCE PRN PRN Reason: Potassium < 3 Prochlorperazine (Compazine) 10 mg PO Q6HP PRN PRN Reason: Nausea And Vomiting Prochlorperazine (Compazine) 10 mg IV Q6HP PRN PRN Reason: Nausea And Vomiting Senna (Senokot) 2 tab PO HSP PRN PRN Reason: Constipation Sodium Chloride (Saline Flush) 10 ml IV Q8 [facility] Last Admin: 04/17/18 05:36 Dose: 10 ml Documented by: Trazodone HCl (Desyrel) 50 mg PO QHS [facility] Last Admin: 04/16/18 20:06 Dose: 50 mg Documented by: - ABG Interpretation ABG results: 04/16/18 11:03 ABG Methemoglobin 0.3 L VBG pH 7.26 L VBG pCO2 38.0 L VBG pO2 57 H VBG HCO3 16.7 L VBG Total CO2 17.8 L VBG O2 Saturation 79.3 H VBG Base Excess -9.7 L Medical - PN: A/P - Time Spent With Patient Total time spent is greater than 50% in coordination of care (as documented) at patient's floor/unit and/or counseling patient: - Narrative A/P Narrative: A: *Rhabdomyolysis: improving *Hyponatremia/dehydration: improved *Hypovolemic shock vs ?septic: required temporary vasopressors. no lactic acidosis, afebrile *Generalized weakness/fall out of bed/Deconditioning: *Leukocytosis: With the mildly elevated PCT (but his could be from rhabdo), afebrile, unable to immediately identify any obvious source of infection, -CXR/UA unrevealing - *Anion gap metabolic acidosis: Secondary to Rhabdo/uremia/starvation ketosis. improving *Transaminitis/Fatty Liver/Hep C: Secondary to above + PMH and has seen GI in past regarding hep c *Dementia: *Depression: *Diabetes: *HTN: *Tobacco Abuse: *GERD: *h/o substance abuse P: -wean off vasopressors -IV fluid hydration -monitor electrolytes, -Follow-up UA pH, and monitor renal function & CK -Empiric antibiotics, pending BC and trend PCT -SSI -pt/ot, CM for placement -ppx: heparin Medical - PN: Qual - VTE Deep Vein Thrombosis/Pulmonary Embolism Present on Admission: No
[2018-04-17 06:30] LABS: Band Neutrophils % 8 % (0-10); Lymphocytes % 12 % (15-49); Monocytes % (Manual) 10 % (1-12); Platelet Estimate NORMAL (NORMAL); RBC Morphology NORMAL (NORMAL); Segmented Neutrophils % 70 % (38-78)
[2018-04-17] MEDS ORDERED: SODIUM BICARBONATE ADULT 50 MEQ/50 ML SYRINGE IV SCH (06:30)
[2018-04-17] MEDS ORDERED: SODIUM BICARBONATE VIAL 150 MEQ in WATER FOR INJECTION,STERILE 1,000 ML IV ONE (07:15)
[2018-04-17 08:57] LABS: Appearance,Urine CLEAR; Bacteria,Urine 0 /hpf (0); Bilirubin,Urine NEG (NEG); Color,Urine STRAW; Glucose,Urine (UA) >=500 mg/dL (NEG); Leukocyte Esterase,Urine NEG /uL (NEG); Protein,Urine NEG (NEG); Specific Gravity,Urine 1.025 (1.000-1.035); Urine Blood 0.2 mg/dL (<0.03); Urine Budding Yeast FEW /hpf (0); Urine RBC 1 /hpf (0-1); Urine Squamous Epithelial Cell 0 /hpf (0-4); Urine WBC 1 /hpf (0-4); Urobilinogen,Urine NEG (NEG)
[2018-04-17] MEDS ORDERED: ZIPRASIDONE HCL 60 MG PO SCH (09:00)
[2018-04-17] MEDS: INSULIN LISPRO 1 UNIT/0.01 ML UNIT SQ SCH ×4 (09:09→21:13)
[2018-04-17] MEDS: amLODIPine 5 MG TABLET PO SCH (09:10)
[2018-04-17] MEDS: DOCUSATE SODIUM 100 MG CAPSULE PO SCH ×2 (09:36→21:13)
[2018-04-17] MEDS: FAMOTIDINE 20 MG TABLET PO SCH ×2 (09:36→21:12)
[2018-04-17] MEDS: MEMANTINE 10 MG TABLET PO SCH (09:36)
[2018-04-17] MEDS: HEPARIN 5,000 UNIT/ML VIAL SQ SCH ×2 (09:37→21:12)
[2018-04-17] MEDS: DIVALPROEX 125 MG CAP.SPRINK PO SCH ×2 (09:37→21:12)
[2018-04-17] MEDS: DULoxetine 30 MG CAPSULE PO SCH (09:37)
[2018-04-17] MEDS: VANCOMYCIN 1,000 MG in 0.9 % SODIUM CHLORIDE 250 ML IV SCH (09:40)
[2018-04-17] MEDS: SODIUM BICARBONATE VIAL 150 MEQ in WATER FOR INJECTION,STERILE 1,000 ML IV SCH ×3 (12:00→18:01)
[2018-04-17] MEDS: ZIPRASIDONE HCL 60 MG PO SCH (12:04)
[2018-04-17] MEDS: traZODone HCL 50 MG TABLET PO SCH (21:12)
[2018-04-17] MEDS: NICOTINE 14 MG PATCH TOPICAL SCH (21:12)
[2018-04-17] MEDS: ATORVASTATIN 20 MG TABLET PO SCH (21:13)
[2018-04-18] MEDS: oxyCODONE HCL 5 MG TABLET PO PRN ×4 (00:33→19:09)
[2018-04-18] MEDS: PIPERACILLIN SODIUM/TAZOBACTAM 3.375 GM in DEXTROSE 5% IN WATER 50 ML IV SCH ×5 (00:33→23:39)
[2018-04-18] MEDS: SODIUM BICARBONATE VIAL 150 MEQ in WATER FOR INJECTION,STERILE 1,000 ML IV SCH ×2 (02:11→14:19)
[2018-04-18] MEDS: 0.9 % SODIUM CHLORIDE 250 ML IV SCH ×2 (04:32→13:03)
[2018-04-18] MEDS: 0.9 % SODIUM CHLORIDE 10 ML SYRINGE IV SCH ×3 (05:45→23:39)
[2018-04-18 06:10] LABS: Mean Cell Volume 92.9 fL (80.0-100.0); Mean Corpuscular HGB Conc 33.5 g/dL (31.0-36.0); Platelet Count 195 K/mcL (140-440); RBC 3.73 M/mcL (4.00-5.20); Red Cell Distribution Width 15.1 % (11.5-14.5)
[2018-04-18 06:18] LABS: ALT/SGPT 128 U/l (0-40); Albumin 2.8 gm/dL (3.2-5.2); Alkaline Phosphatase 62 U/L (39-117); Bilirubin,Direct < 0.2 mg/dL (0.0-0.3); Blood Urea Nitrogen 16 mg/dl (8-23); Gamma Glutamyl Transpeptidase 105 U/L (5-36)
[2018-04-18 06:24] LABS: Creatine Kinase 8218 IU/L (24-170)
[2018-04-18] MEDS ORDERED: POTASSIUM CHLORIDE 20 MEQ in DEXTROSE 5% IN WATER 250 ML IV ONE (07:17)
[2018-04-18] MEDS ORDERED: POTASSIUM CHLORIDE 20 MEQ TABLET PO ONE ×2 (07:17→08:00)
--- NOTE | 2018-04-18 07:21 | Internal Med Progress Note ---
Medical - PN: Subj Patient information: Note initiated : 04/18/18 at 7:11 am Service Date, if different from initiated Date: [] Patient: Chelsea Edwards 62 y/o F admitted on 04/16/18 for Fall Out Of Bed Yesterday Morning. Chief Complaint: [] Interval history: Ms. Edwards is a 62 year old F Who presents to the ER secondary to severe weakness fall and pain. Patient reports that she was in her normal state of health when she went to bed several nights ago yesterday morning while getting out of bed at 6 she tripped a nd fell out of bed and landed on the floor. She had a back pain which is acute on chronic and other generalized pains and was unable to get up. Her health care worker came in around 8:00 and helped her into a chair and did some other care prior to leaving at 1030. Patient attempted to get up later in the day was unable to walk so she decided to call. She crawled to her bed and was unable to get up into her bed so she just remained on the floor and slept there that night. I different coworker found her this morning on the floor and found the house to be cold at 50 degrees. Patient is brought to the ED and found to be severely dehydrated with rhabdomyolysis. She had no chest pain coughing or shortness of breath no urinary tract infection symptoms. She felt weak and had pain back pain. She had x-ray of her C-spine and L-spine and T-spine which were all unremarkable. She had a CT brain which showed no acute but moderate atrophy is previously previously known. Chest x-ray was unremarkable. An EKG showed no acute concerning signs. Sodium was 154. And urinalysis showed ketones hyaline casts and glucose. Because her white blood cell count was 20,000 she was given some antibiotics in the ER as well as her pro-calcitonin was elevated. He was afebrile. She denies any recent illnesses no upper respiratory infections no coughing shortness of breath no abdominal pain she did have diarrhea yesterday but does not report any today. She is been a fci in the past she has been seen by neurology in the past for dementia and pseudoseizures. She had a history of substance abuse last admitted in 2014 and noted at that time that she had used methamphetamine that year. But denies any recently. Patient is weak denies any fevers or chills. Her headache 04/17 Poor sleep because of interruptions, has occasional headache, tired, has mild stomachache this morning. Otherwise no complaints. No chest pain shortness of breath or coughing. On 5 mics per minute of Levophed. Blood pressure low 100s. 04/18 Sitting up in bed eating breakfast. Feeling better. Levophed been off since 645 this morning. Good urine output and blood pressure stable. No new complaints except for a little bit of nausea from time to time. Review of Systems: denies headache/fever/chills/vomiting/chest pain/cough/dyspnea/diarrhea. Otherwise see above. - Constitutional Vitals: Vital Signs Temp Pulse Resp BP Pulse Ox 98.8 F 81 12 115/59 94 04/18/18 06:00 04/18/18 06:00 04/18/18 06:00 04/18/18 06:00 04/18/18 06:00 Period Temp Pulse Resp BP Sys/Farris Pulse Ox Last 24 Hr 98.8 F-100.2 F 60-104 7-20 85-130/41-99 92-100 Intake and Output 04/17/18 04/18/18 04/18/18 21:59 05:59 13:59 Intake Total 1428 / 4451 1563 / 4451 2 / 2 Output Total 960 / 2290 690 / 2290 Balance 468 / 2161 873 / 2161 2 / 2 Weight 63.185 kg Intake & Output: Intake & Output 04/17/18 04/18/18 04/18/18 21:59 05:59 13:59 Intake Total 1428 / 4451 1563 / 4451 2 / 2 Output Total 960 / 2290 690 / 2290 Balance 468 / 2161 873 / 2161 2 / 2 Weight 63.185 kg Intake: IV 338 / 2474 1163 / 2474 2 / 2 Sodium Chloride 0.9% 250 ml @ 250 / 500 250 / 500 20 mls/hr IV .[id number] [facility] Rx#: [id number] Levophed 16 mg In Sodium 38 / 125 46 / 125 2 / 2 Chloride 0.9% 234 ml @ 10 MCG/ MIN 9.38 mls/hr IV Q24H [facility] Rx# :[id number] Zosyn 3.375 gm In Dextrose 5% 50 / 200 50 / 200 in Water 50 ml @ 100 mls/hr IV Q6H [facility] Rx#:[id number] Sodium Bicarbonate Vial 150 Meq 817 / 817 In Water 1,000 ml @ 100 mls/hr IV .[id number] [facility] Rx#:[id number] Oral 1090 / 1450 GI Tube Flush 400 / 400 Output: Urine Catheter Amount 960 / 2290 690 / 2290 Other: Meal Nourishment/Supplement Percent of Meal Consumed 100% Feeding Ability Needs Supervision Urine Appearance Clear Clear Temp probe [place] Clear Clear Urine Color Pale Pale Temp probe [place] Bright Yellow Bright Yellow Exam: General: Alert, Awake, No acute Distress Eyes/N/T: EOMI, Head/Neck: neck supple, CV: RRR, No murmurs, Pulm: Clear b/l, no wheezing/rhonchi/rales Abd: soft, nontender, +BS x4 Ext: no clubbing/cyanosis/edema Neuro: Alert, no focal deficits, moves all extremities, Skin: warm/dry Medical - PN: Obj Da - Labs CBC & Chem 7: 04/18/18 04:05 04/18/18 04:05 Labs: Abnormal Lab Results 04/18/18 04/18/18 04/18/18 04:05 04:05 04:05 WBC RBC 3.73 L Hgb 11.6 L Hct 34.6 L RDW 15.1 H Gran % Lymph % (Auto) Gran # [place] # (Auto) Lymphocytes % Polychromasia PT INR ABG Methemoglobin VBG pH VBG pCO2 VBG pO2 VBG HCO3 VBG Total CO2 VBG O2 Saturation VBG Base Excess Carboxyhemoglobin Sodium Potassium 2.9 L* Chloride Carbon Dioxide 32 H Anion Gap BUN Glucose 154 H Calcium 8.4 L Phosphorus 2.3 L GGT 105 H AST 367 H ALT 128 H Lactate Dehydrogenase 500 H Total Creatine Kinase 8218 H Troponin T 0.27 H* C-Reactive Protein NT-Pro-B Natriuret Pep Total Protein 5.5 L Albumin 2.8 L Triglycerides 204 H Urine Glucose (UA) Urine Ketones Urine Occult Blood Hyaline Casts Urine Yeast (Budding) 04/17/18 04/17/18 04/17/18 08:12 04:04 04:04 WBC RBC Hgb Hct RDW Gran % Lymph % (Auto) Gran # [place] # (Auto) Lymphocytes % 12 L Polychromasia PT INR ABG Methemoglobin VBG pH VBG pCO2 VBG pO2 VBG HCO3 VBG Total CO2 VBG O2 Saturation VBG Base Excess Carboxyhemoglobin Sodium Potassium Chloride Carbon Dioxide Anion Gap BUN Glucose Calcium Phosphorus GGT AST ALT Lactate Dehydrogenase Total Creatine Kinase Troponin T 0.32 H* C-Reactive Protein NT-Pro-B Natriuret Pep Total Protein Albumin Triglycerides Urine Glucose (UA) >=500 A Urine Ketones 20 A Urine Occult Blood 0.2 A Hyaline Casts Urine Yeast (Budding) Few A 04/17/18 04/17/18 04/16/18 04:04 04:04 16:23 WBC 23.3 H RBC Hgb Hct RDW 14.9 H Gran % Lymph % (Auto) Gran # 18.1 H [place] # (Auto) Lymphocytes % Polychromasia PT INR ABG Methemoglobin VBG pH VBG pCO2 VBG pO2 VBG HCO3 VBG Total CO2 VBG O2 Saturation VBG Base Excess Carboxyhemoglobin Sodium 151 H Potassium 3.2 L Chloride 109 H Carbon Dioxide 19 L 13 L Anion Gap 20.0 H 29.0 H BUN 34 H 36 H Glucose 181 H 122 H Calcium 8.3 L Phosphorus 5.5 H GGT 120 H AST 416 H ALT 142 H Lactate Dehydrogenase 539 H Total Creatine Kinase 69932 H Troponin T C-Reactive Protein NT-Pro-B Natriuret Pep Total Protein Albumin Triglycerides 203 H Urine Glucose (UA) Urine Ketones Urine Occult Blood Hyaline Casts Urine Yeast (Budding) 04/16/18 04/16/18 04/16/18 12:47 12:47 12:47 WBC RBC Hgb Hct RDW Gran % Lymph % (Auto) Gran # [place] # (Auto) Lymphocytes % Polychromasia PT INR ABG Methemoglobin VBG pH VBG pCO2 VBG pO2 VBG HCO3 VBG Total CO2 VBG O2 Saturation VBG Base Excess Carboxyhemoglobin Sodium Potassium Chloride Carbon Dioxide Anion Gap BUN Glucose Calcium Phosphorus GGT AST ALT Lactate Dehydrogenase Total Creatine Kinase Troponin T 0.37 H* C-Reactive Protein 1.3 H NT-Pro-B Natriuret Pep 6811.0 H Total Protein Albumin Triglycerides Urine Glucose (UA) Urine Ketones Urine Occult Blood Hyaline Casts Urine Yeast (Budding) 04/16/18 04/16/18 04/16/18 11:04 11:03 11:03 WBC RBC Hgb Hct RDW Gran % Lymph % (Auto) Gran # [place] # (Auto) Lymphocytes % Polychromasia PT INR ABG Methemoglobin 0.3 L VBG pH 7.26 L VBG pCO2 38.0 L VBG pO2 57 H VBG HCO3 16.7 L VBG Total CO2 17.8 L VBG O2 Saturation 79.3 H VBG Base Excess -9.7 L Carboxyhemoglobin 2.5 H Sodium Potassium Chloride Carbon Dioxide Anion Gap BUN Glucose Calcium Phosphorus GGT AST ALT Lactate Dehydrogenase Total Creatine Kinase Troponin T 0.32 H* C-Reactive Protein NT-Pro-B Natriuret Pep Total Protein Albumin Triglycerides Urine Glucose (UA) >=500 A Urine Ketones 80 A Urine Occult Blood 0.03 A Hyaline Casts 12 H Urine Yeast (Budding) 04/16/18 04/16/18 04/16/18 11:03 11:03 11:03 WBC RBC Hgb Hct RDW Gran % Lymph % (Auto) Gran # [place] # (Auto) Lymphocytes % Polychromasia PT 14.9 H INR 1.2 H ABG Methemoglobin VBG pH VBG pCO2 VBG pO2 VBG HCO3 VBG Total CO2 VBG O2 Saturation VBG Base Excess Carboxyhemoglobin Sodium 154 H Potassium Chloride 112 H Carbon Dioxide 17 L Anion Gap 25.0 H BUN 35 H Glucose Calcium Phosphorus GGT AST 484 H ALT 137 H Lactate Dehydrogenase Total Creatine Kinase 40247 H Troponin T C-Reactive Protein NT-Pro-B Natriuret Pep Total Protein Albumin Triglycerides Urine Glucose (UA) Urine Ketones Urine Occult Blood Hyaline Casts Urine Yeast (Budding) 04/16/18 04/16/18 11:03 10:23 WBC 20.4 H RBC Hgb Hct RDW 15.0 H Gran % 78.6 H Lymph % (Auto) 11.4 L Gran # 16.0 H [place] # (Auto) 2.0 H Lymphocytes % Polychromasia Rare A PT INR ABG Methemoglobin VBG pH VBG pCO2 VBG pO2 VBG HCO3 VBG Total CO2 VBG O2 Saturation VBG Base Excess Carboxyhemoglobin Sodium Potassium Chloride Carbon Dioxide Anion Gap BUN Glucose Calcium Phosphorus GGT AST ALT Lactate Dehydrogenase Total Creatine Kinase Troponin T C-Reactive Protein NT-Pro-B Natriuret Pep Total Protein Albumin Triglycerides Urine Glucose (UA) Urine Ketones Urine Occult Blood Hyaline Casts Urine Yeast (Budding) Meds: Medications Albuterol/Ipratropium (Duoneb) 3 ml NEB Q4HP PRN PRN Reason: Shortness Of Breath Amlodipine Besylate (Norvasc) 5 mg PO QDAY [facility] Last Admin: 04/17/18 09:10 Dose: Not Given Documented by: Atorvastatin Calcium (Lipitor) 20 mg PO HS [facility] Last Admin: 04/17/18 21:13 Dose: 20 mg Documented by: Dextrose (Dextrose 50%) 0 ml IV UD PRN PRN Reason: Hypoglycemia Diagnostic Test (Pha) (Accu-Chek) 1 each FS ACHS [facility] Last Admin: 04/17/18 21:13 Dose: 1 each Documented by: Divalproex Sodium (Depakote Sprinkles) 250 mg PO BID [facility] Last Admin: 04/17/18 21:12 Dose: 250 mg Documented by: Docusate Sodium (Colace) 100 mg PO BID [facility] Last Admin: 04/17/18 21:13 Dose: 100 mg Documented by: Duloxetine HCl (Cymbalta) 60 mg PO DAILY [facility] Last Admin: 04/17/18 09:37 Dose: 60 mg Documented by: Famotidine (Pepcid) 20 mg PO BID [facility] Last Admin: 04/17/18 21:12 Dose: 20 mg Documented by: Glucose (Insta-Glucose) 15 gm PO PRN PRN PRN Reason: Hypoglycemia Heparin Sodium (Porcine) (Heparin) 5,000 unit SQ Q12 [facility] Last Admin: 04/17/18 21:12 Dose: 5,000 unit Documented by: Potassium Chloride 40 meq/ (Dextrose) 520 mls @ 130 mls/hr IV ONCE PRN PRN Reason: Potassium < 3 Magnesium Sulfate (Magnesium Sulfate) 2 gm in 50 mls @ 50 mls/hr IV ONCE PRN PRN Reason: Magnesium </= 1.6 Piperacillin Sod/Tazobactam (Sod 3.375 gm/ Dextrose) 50 mls @ 100 mls/hr IV Q6H [facility] Last Admin: 04/18/18 05:46 Dose: 100 mls/hr Documented by: Norepinephrine Bitartrate 16 (mg/ Sodium Chloride) 250 mls @ 9.38 mls/hr IV Q24H [facility]; Protocol Last Titration: 04/18/18 06:58 Dose: 0 mcg/min, 0 mls/hr Documented by: Sodium Chloride (Sodium Chloride 0.9%) 250 mls @ 20 mls/hr IV .[id number] [facility] Last Admin: 04/18/18 04:32 Dose: 20 mls/hr Documented by: Vancomycin HCl 1,000 mg/ (Sodium Chloride) 250 mls @ 250 mls/hr IV Q24H [facility] Last Infusion: 04/17/18 10:50 Dose: Infused Documented by: Sodium Bicarbonate 150 meq/ (Sterile Water) 1,150 mls @ 100 mls/hr IV .[id number] [facility] Last Admin: 04/18/18 02:11 Dose: 100 mls/hr Documented by: Insulin Human Lispro (Humalog) 0 unit SQ ACHS [facility]; Protocol Last Admin: 04/17/18 21:13 Dose: 6 units Documented by: Lactulose (Cephulac) 10 gm PO DAILYP PRN PRN Reason: Constipation Lorazepam (Ativan) 1 mg PO DAILYP PRN PRN Reason: Anxiety Memantine (Namenda) 5 mg PO DAILY [facility] Last Admin: 04/17/18 09:36 Dose: 5 mg Documented by: Nicotine (Nicoderm) 14 mg TOPICAL DAILY@1000 [facility] Last Admin: 04/17/18 21:12 Dose: 14 mg Documented by: Ziprasidone Hcl [ (Geodon] 60 Mg Cap) 1 dose PO DAILY [facility] Last Admin: 04/17/18 12:04 Dose: 1 dose Documented by: Ondansetron HCl (Zofran) 4 mg IV Q4HP PRN PRN Reason: Nausea And Vomiting Oxycodone HCl (Roxicodone) 5 mg PO Q4-6HP PRN PRN Reason: PAIN LEVEL 3-6 Last Admin: 04/18/18 04:34 Dose: 5 mg Documented by: Polyethylene Glycol (Miralax) 17 gm PO DAILYP PRN PRN Reason: Constipation Potassium Chloride (Kdur) 40 meq PO ONCE PRN PRN Reason: Potssium is 3-3.5 Last Admin: 04/17/18 05:33 Dose: 40 meq Documented by: Potassium Chloride (Kdur) 40 meq PO ONCE PRN PRN Reason: Potassium < 3 Prochlorperazine (Compazine) 10 mg PO Q6HP PRN PRN Reason: Nausea And Vomiting Prochlorperazine (Compazine) 10 mg IV Q6HP PRN PRN Reason: Nausea And Vomiting Senna (Senokot) 2 tab PO HSP PRN PRN Reason: Constipation Sodium Chloride (Saline Flush) 10 ml IV Q8 [facility] Last Admin: 04/18/18 05:45 Dose: Not Given Documented by: Trazodone HCl (Desyrel) 50 mg PO QHS [facility] Last Admin: 04/17/18 21:12 Dose: 50 mg Documented by: Vancomycin HCl (Vancomycin Per Pharmacy) 1 order IV UD [facility] - ABG Interpretation ABG results: 04/16/18 11:03 ABG Methemoglobin 0.3 L VBG pH 7.26 L VBG pCO2 38.0 L VBG pO2 57 H VBG HCO3 16.7 L VBG Total CO2 17.8 L VBG O2 Saturation 79.3 H VBG Base Excess -9.7 L Medical - PN: A/P - Time Spent With Patient Total time spent is greater than 50% in coordination of care (as documented) at patient's floor/unit and/or counseling patient: - Narrative A/P Narrative: A: *Rhabdomyolysis: improving *Hyponatremia/dehydration: resolved *Hypovolemic shock vs ?septic: levophed at low rate o/n and now off, no lactic acidosis, afebrile *Generalized weakness/fall out of bed/Deconditioning: *Leukocytosis: With the mildly elevated PCT (but his could be from rhabdo), afebrile, unable to immediately identify any obvious source of infection, -CXR/UA unrevealing -REsolved *Anion gap metabolic acidosis: Secondary to Rhabdo/uremia/starvation ketosis. improving *Transaminitis/Fatty Liver/Hep C: Secondary to above + PMH and has seen GI in past regarding hep c *troponinemia, mild and trending down: no chest pain/ekg changes, 2/2 above, not sure why it was ordered initially *Dementia: *Depression: *Diabetes: *HTN: *Tobacco Abuse: *GERD: *h/o substance abuse *Hypokalemia P: -vasopressors weaned off -bicarb gtt changed to NS -monitor electrolytes, -Follow-up UA pH, and monitor renal function & CK -Empiric antibiotics, pending BC and trend PCT -monitor and replace electrolytes -SSI -pt/ot, CM for placement -ppx: heparin Medical - PN: Qual - VTE Deep Vein Thrombosis/Pulmonary Embolism Present on Admission: No
[2018-04-18] MEDS ORDERED: POTASSIUM CHLORIDE 20 MEQ in 0.9 % SODIUM CHLORIDE 1,000 ML IV SCH (07:30)
[2018-04-18 07:56] LABS: Basophils % (Manual) 1 % (0-2); Lymphocytes % 34 % (15-49); Monocytes % (Manual) 9 % (1-12); Platelet Estimate NORMAL (NORMAL); RBC Morphology NORMAL (NORMAL); Segmented Neutrophils % 56 % (38-78)
[2018-04-18 08:00] LABS: Cortisol,AM 11.7 ug/dl (6.2-19.4)
[2018-04-18] MEDS ORDERED: NACL 0.9% W/KCL 20MEQ 1,000 ML IV SCH (08:00)
[2018-04-18] MEDS: INSULIN LISPRO 1 UNIT/0.01 ML UNIT SQ SCH ×4 (08:22→20:42)
[2018-04-18] MEDS ORDERED: NOREPINEPHRINE BITARTRATE 16 MG in 0.9 % SODIUM CHLORIDE 234 ML IV PRN (09:00)
[2018-04-18 09:05] LABS: Appearance,Urine CLEAR; Bacteria,Urine 0 /hpf (0); Bilirubin,Urine NEG (NEG); Color,Urine YELLOW; Glucose,Urine (UA) >=500 mg/dL (NEG); Leukocyte Esterase,Urine 25 /uL (NEG); Protein,Urine 30 mg/dL (NEG); Specific Gravity,Urine 1.033 (1.000-1.035); Urine Blood 0.2 mg/dL (<0.03); Urine Budding Yeast FEW /hpf (0); Urine RBC 25 /hpf (0-1); Urine Squamous Epithelial Cell 0 /hpf (0-4); Urine Transitional Epi Cells < 1 /hpf (0-2); Urine WBC 20 /hpf (0-4); Urobilinogen,Urine NEG (NEG)
[2018-04-18] MEDS: NICOTINE 14 MG PATCH TOPICAL SCH (09:20)
[2018-04-18] MEDS: HEPARIN 5,000 UNIT/ML VIAL SQ SCH ×2 (09:20→20:23)
[2018-04-18] MEDS: ZIPRASIDONE HCL 60 MG PO SCH (09:20)
[2018-04-18] MEDS: FAMOTIDINE 20 MG TABLET PO SCH ×2 (09:20→20:23)
[2018-04-18] MEDS: DIVALPROEX 125 MG CAP.SPRINK PO SCH ×2 (09:20→20:27)
[2018-04-18] MEDS: DULoxetine 30 MG CAPSULE PO SCH (09:20)
[2018-04-18] MEDS: DOCUSATE SODIUM 100 MG CAPSULE PO SCH ×2 (09:21→20:28)
[2018-04-18] MEDS: VANCOMYCIN 1,000 MG in 0.9 % SODIUM CHLORIDE 250 ML IV SCH (09:21)
[2018-04-18] MEDS: MEMANTINE 10 MG TABLET PO SCH (09:21)
[2018-04-18] MEDS: amLODIPine 5 MG TABLET PO SCH (09:21)
--- NOTE | 2018-04-18 11:11 | Discharge Summary ---
Medical - DS: Prov Patient information: Note initiated : 04/18/18 at 11:09 am Service Date, if different from initiated Date: [] Patient: Chelsea Edwards 62 y/o F admitted on 04/16/18 for Fall Out Of Bed Yesterday Morning. Chief Complaint: [] Date of admission: 04/16/18 17:10 Discharge date: 04/20/18 Primary care physician: Manuel Philip Consults: 04/16/18 15:10 Consult to Physician [CONS] Stat Comment: Consulting Provider: Mauri Ladd Reason For Exam: Physician to Consult Medical - DS: Meds - Discharge Medications Active and Home Medications: Home Medications blood-glucose meter See Dose Instructions .ROUTE .MEDSUPPLY 09/14/14 [History Confirmed 03/19/18 Last Taken Unknown] blood sugar diagnostic strips See Dose Instructions .ROUTE .MEDSUPPLY #100 each 04/28/15 [Rx Confirmed 03/19/18 Last Taken Unknown] trazodone 50 mg tablet 50 mg PO QHS #30 tab 03/21/17 [Rx Confirmed 04/16/18 Last Taken Unknown] omeprazole 40 mg capsule,delayed release 40 mg PO QAM #90 cap 05/03/17 [Rx Confirmed 04/16/18 Last Taken Unknown] memantine 10 mg tablet 10 mg PO BID #60 tab 05/23/17 [Rx Confirmed 04/16/18 Last Taken Unknown] divalproex 250 mg tablet,delayed release 250 mg PO BID #60 tab 05/27/17 [Rx Confirmed 04/16/18 Last Taken Unknown] sitagliptin 100 mg tablet 100 mg PO QDAY #90 tab 09/18/17 [Rx Confirmed 04/16/18 Last Taken Unknown] duloxetine 60 mg capsule,delayed release 60 mg PO QDAY #30 cap 10/24/17 [Rx Confirmed 04/16/18 Last Taken Unknown] amlodipine 5 mg tablet 5 mg PO QDAY #30 tab 12/31/17 [Rx Confirmed 04/16/18 Last Taken Unknown] lisinopril 20 mg tablet 20 mg PO QDAY #30 tab 01/06/18 [Rx Confirmed 04/16/18 Last Taken Unknown] Atorvastatin [Lipitor] 20 mg PO DAILY 04/16/18 [History Confirmed 04/16/18 Last Taken Unknown] LORazepam [Ativan] 1 mg PO DAILYP PRN 04/16/18 [History Confirmed 04/16/18 Last Taken Unknown] Pioglitazone HCl 45 mg PO QDAY 04/16/18 [History Confirmed 04/16/18 Last Taken Unknown] Ziprasidone HCl [Geodon] 60 mg PO DAILY 04/16/18 [History Confirmed 04/16/18 Last Taken Unknown] Medical - DS: Hosp Hospital course: Ms. Edwards is a 62 year old F Who presents to the ER secondary to severe weakness fall and pain. Patient reports that she was in her normal state of health when she went to bed several nights ago yesterday morning while getting out of bed at 6 she tripped and fell out of bed and landed on the floor. She had a back pain which is acute on chronic and other generalized pains and was unable to get up. Her health care worker came in around 8:00 and helped her into a chair and did some other care prior to leaving at 1030. Patient attempted to get up later in the day was unable to walk so she decided to call. She crawled to her bed and was unable to get up into her bed so she just remained on the floor and slept there that night. I different coworker found her this morning on the floor and found the house to be cold at 50 degrees. Patient is brought to the ED and found to be severely dehydrated with rhabdomyolysis. She had no chest pain coughing or shortness of breath no urinary tract infection symptoms. She felt weak and had pain back pain. She had x-ray of her C-spine and L-spine and T-spine which were all unremarkable. She had a CT brain which showed no acute but moderate atrophy is previously previously known. Chest x-ray was unremarkable. An EKG showed no acute concerning signs. Sodium was 154. And urinalysis showed ketones hyaline casts and glucose. Because her white blood cell count was 20,000 she was given some antibiotics in the ER as well as her pro-calcitonin was elevated. He was afebrile. She denies any recent illnesses no upper respiratory infections no coughing shortness of breath no abdominal pain she did have diarrhea yesterday but does not report any today. She is been a long-term in the past she has been seen by neurology in the past for dementia and pseudoseizures. She had a history of substance abuse last admitted in 2014 and noted at that time that she had used methamphetamine that year. But denies any recently. Patient is weak denies any fevers or chills. Her headache 04/17 Poor sleep because of interruptions, has occasional headache, tired, has mild stomachache this morning. Otherwise no complaints. No chest pain shortness of breath or coughing. On 5 mics per minute of Levophed. Blood pressure low 100s. 04/18 Sitting up in bed eating breakfast. Feeling better. Levophed been off since 645 this morning. Good urine output and blood pressure stable. No new complaints except for a little bit of nausea from time to time. 04/19 New complaints continues to feel improved. Good blood pressures and urinary output. She did well with physical therapy today walked around the unit. 04/20 Doing well no overnight events. And walking in the halls. Stable for discharge Discharge diagnosis: Rhabdomyolysis, debility deconditioning, hypovolemic shock, hypernatremia Secondary discharge diagnosis: Transaminitis dementia depression diabetes hypertension tobacco abuse GERD - Time Spent with Patient Total time spent providing and/or coordinating discharge services: Greater than 30 minutes Medical - DS: Exam - Constitutional Vitals: Vital Signs Temp Pulse Resp BP Pulse Ox 04/18/18 08:01 98.7 F 11 L 112/50 94 04/18/18 07:46 96 04/18/18 07:32 98.8 F 87 7 L 93 04/18/18 07:16 99.0 F 88 11 L 121/52 95 04/18/18 07:01 99.0 F 80 9 L 112/46 95 04/18/18 06:46 99.0 F 77 12 125/50 96 04/18/18 06:31 98.9 F 76 14 118/57 96 04/18/18 06:16 98.9 F 83 12 121/56 97 04/18/18 06:01 98.8 F 88 16 115/59 96 04/18/18 06:00 98.8 F 81 12 115/59 94 04/18/18 05:46 98.9 F 84 12 94/52 96 04/18/18 05:31 98.9 F 83 106/48 95 04/18/18 05:30 98.9 F 79 14 93 04/18/18 05:16 99.0 F 78 103/50 92 04/18/18 05:01 99.0 F 78 20 117/55 96 01/18/19 04:54 99.0 F 76 10 L 95 04/18/18 04:46 99.0 F 78 15 118/54 96 04/18/18 04:31 99.0 F 82 10 L 119/52 95 04/18/18 04:16 99.0 F 60 14 113/79 100 04/18/18 04:01 99.0 F 11 L 124/51 04/18/18 03:46 99.1 F H 83 15 120/49 97 04/18/18 03:31 99.1 F H 85 11 L 107/45 92 04/18/18 03:18 99.1 F H 84 12 94 04/18/18 03:01 99.0 F 15 114/54 04/18/18 02:31 99.1 F H 84 14 124/48 95 04/18/18 02:04 99.2 F H 77 12 94 04/18/18 02:01 99.2 F H 72 11 L 120/48 95 04/18/18 01:31 99.1 F H 80 12 118/47 94 04/18/18 01:12 99.0 F 86 14 94 04/18/18 01:01 99.0 F 91 H 19 115/53 94 04/18/18 00:34 99.2 F H 88 13 96 04/18/18 00:33 99.2 F H 93 H 15 118/59 98 04/18/18 00:31 99.2 F H 89 12 97 04/18/18 00:01 99.3 F H 77 8 L 106/48 96 04/17/18 23:31 99.6 F H 77 8 L 103/44 96 04/17/18 23:01 99.8 F H 81 10 L 105/44 96 04/17/18 22:31 99.9 F H 75 16 108/47 95 04/17/18 22:01 100.0 F H 66 10 L 109/47 95 04/17/18 21:31 99.9 F H 86 13 124/52 94 04/17/18 21:03 100.1 F H 91 H 16 95 04/17/18 21:01 100.2 F H 93 H 16 113/74 96 04/17/18 20:31 100.1 F H 78 9 L 113/48 94 04/17/18 20:01 99.8 F H 9 L 94/72 94 04/17/18 19:48 99.8 F H 18 04/17/18 19:31 99.9 F H 14 112/51 04/17/18 19:01 99.8 F H 87 103/46 92 04/17/18 18:31 99.6 F H 79 9 L 106/45 92 04/17/18 18:01 99.8 F H 93 H 9 L 108/99 93 04/17/18 17:31 99.8 F H 72 7 L 104/46 92 04/17/18 17:01 99.7 F H 82 9 L 104/50 95 04/17/18 16:31 99.7 F H 84 14 91/44 95 04/17/18 16:01 99.5 F H 80 14 91/43 94 04/17/18 15:31 99.4 F H 94 H 13 108/46 96 04/17/18 15:01 99.3 F H 89 16 108/51 97 04/17/18 15:00 99.3 F H 96 H 10 L 92/62 96 04/17/18 14:31 99.3 F H 77 9 L 95/47 96 04/17/18 14:12 99.5 F H 77 18 89/47 96 04/17/18 14:01 99.5 F H 75 16 85/46 95 04/17/18 13:35 99.3 F H 80 14 103/46 98 04/17/18 13:31 99.4 F H 77 12 87/46 95 04/17/18 13:01 99.3 F H 95 H 15 99/47 96 04/17/18 12:31 99.3 F H 99 H 15 102/52 95 04/17/18 12:01 99.3 F H 84 14 93/48 95 04/17/18 11:31 99.2 F H 79 12 94/47 94 04/17/18 11:11 99.3 F H 98 H 14 89/55 98 Intake and Output 04/17/18 04/18/18 04/18/18 21:59 05:59 13:59 Intake Total 1428 / 4451 1563 / 4451 589 / 589 Output Total 960 / 2290 690 / 2290 140 / 140 Balance 468 / 2161 873 / 2161 449 / 449 Intake: IV 338 / 2474 1163 / 2474 149 / 149 Sodium Chloride 0.9% 250 ml @ 250 / 500 250 / 500 97 / 97 20 mls/hr IV .[id number] [facility] Rx#: [id number] Levophed 16 mg In Sodium 38 / 125 46 / 125 2 / 2 Chloride 0.9% 234 ml @ 10 MCG/ MIN 9.38 mls/hr IV Q24H [facility] Rx# :[id number] Zosyn 3.375 gm In Dextrose 5% 50 / 200 50 / 200 50 / 50 in Water 50 ml @ 100 mls/hr IV Q6H [facility] Rx#:[id number] Sodium Bicarbonate Vial 150 Meq 817 / 817 In Water 1,000 ml @ 100 mls/hr IV .[id number] [facility] Rx#:[id number] Oral 1090 / 1450 440 / 440 GI Tube Flush 400 / 400 Output: Urine Catheter Amount 960 / 2290 690 / 2290 140 / 140 Other: Meal Nourishment/Supplement Nourishment/Supplement Percent of Meal Consumed 100% 100% Feeding Ability Needs Supervision Independent Urine Appearance Clear Clear Clear Temp probe [place] Clear Clear Clear Urine Color Pale Pale Pale Temp probe [place] Bright Yellow Bright Yellow Pale Weight 63.185 kg Medical - DS: Data Labs on day of discharge: Labs from last 24 hours 04/18/18 04/18/18 04/18/18 08:16 04:05 04:05 WBC RBC Hgb Hct MCV MCH MCHC RDW Plt Count MPV Total Counted Seg Neutrophils % Band Neutrophils % Lymphocytes % Monocytes % (Manual) Basophils % (Manual) Platelet Estimate RBC Morphology Sodium Potassium Chloride Carbon Dioxide Anion Gap BUN Creatinine GFR Calculation Glucose Uric Acid Calcium Phosphorus Magnesium Total Bilirubin Direct Bilirubin GGT AST ALT Alkaline Phosphatase Lactate Dehydrogenase Total Creatine Kinase Troponin T Total Protein Albumin Globulin Albumin/Globulin Ratio Triglycerides Procalcitonin 0.56 Cortisol AM Sample 11.7 Urine Color Yellow Urine Appearance Clear Urine pH 6.0 Ur Specific [place] 1.033 Urine Protein 30 A Urine Glucose (UA) >=500 A Urine Ketones 20 A Urine Occult Blood 0.2 A Urine Nitrate Neg Urine Bilirubin Neg Urine Urobilinogen Neg Ur Leukocyte Esterase 25 A Urine RBC 25 H Urine WBC 20 H Ur Squamous Epith Cells 0 Ur Transition Epith Cell < 1 Urine Bacteria 0 Urine Yeast (Budding) Few A Ur Culture Indicated? Yes 04/18/18 04/18/18 04/18/18 04:05 04:05 04:05 WBC 10.4 RBC 3.73 L Hgb 11.6 L Hct 34.6 L MCV 92.9 MCH 31.1 MCHC 33.5 RDW 15.1 H Plt Count 195 MPV 9.3 Total Counted 100 Seg Neutrophils % 56 Band Neutrophils % Not Reportable Lymphocytes % 34 Monocytes % (Manual) 9 Basophils % (Manual) 1 Platelet Estimate Normal RBC Morphology Normal Sodium 141 Potassium 2.9 L* Chloride 97 Carbon Dioxide 32 H Anion Gap 12.0 BUN 16 Creatinine 0.6 GFR Calculation 96 Glucose 154 H Uric Acid 4.0 Calcium 8.4 L Phosphorus 2.3 L Magnesium 2.0 Total Bilirubin 0.4 Direct Bilirubin < 0.2 GGT 105 H AST 367 H ALT 128 H Alkaline Phosphatase 62 Lactate Dehydrogenase 500 H Total Creatine Kinase 8218 H Troponin T 0.27 H* Total Protein 5.5 L Albumin 2.8 L Globulin 2.7 Albumin/Globulin Ratio 1.0 Triglycerides 204 H Procalcitonin Cortisol AM Sample Urine Color Urine Appearance Urine pH Ur Specific [place] Urine Protein Urine Glucose (UA) Urine Ketones Urine Occult Blood Urine Nitrate Urine Bilirubin Urine Urobilinogen Ur Leukocyte Esterase Urine RBC Urine WBC Ur Squamous Epith Cells Ur Transition Epith Cell Urine Bacteria Urine Yeast (Budding) Ur Culture Indicated? Preliminary micro results at discharge 04/16/18 12:59 Blood Culture - Preliminary Blood 04/16/18 12:47 Blood Culture - Preliminary Blood Medical - DS: A/P - Patient/Caregiver Discharge Instructions Activity: as per physical therapy, increase activity as tolerated Diet: Consistent Carbohydrate - Follow up Plan Follow up with: Manuel Philip MD [Primary Care Provider] - Disposition: Home Health Service Prognosis: Fair Rehab Potential: Fair Overall status at discharge: patient is progressing back to baseline Medical - DS: Qual - VTE Deep Vein Thrombosis/Pulmonary Embolism Present on Admission: No
[2018-04-18] MEDS ORDERED: 0.9 % SODIUM CHLORIDE 500 ML IV ONE (13:01)
[2018-04-18] MEDS: NOREPINEPHRINE BITARTRATE 16 MG in 0.9 % SODIUM CHLORIDE 234 ML IV SCH (14:20)
[2018-04-18] MEDS: traZODone HCL 50 MG TABLET PO SCH (20:23)
[2018-04-18] MEDS: ATORVASTATIN 20 MG TABLET PO SCH (20:27)
[2018-04-19] MEDS: 0.9 % SODIUM CHLORIDE 250 ML IV SCH ×7 (01:38→20:53)
[2018-04-19] MEDS: oxyCODONE HCL 5 MG TABLET PO PRN ×4 (03:19→22:22)
[2018-04-19] MEDS: PIPERACILLIN SODIUM/TAZOBACTAM 3.375 GM in DEXTROSE 5% IN WATER 50 ML IV SCH ×3 (05:18→17:34)
[2018-04-19] MEDS: 0.9 % SODIUM CHLORIDE 10 ML SYRINGE IV SCH ×3 (05:19→20:51)
[2018-04-19 05:33] LABS: Basophils # (Auto) 0 K/mcL (0.0-0.3); Basophils % (Auto) 0.4 % (0.0-2.0); Eosinophils # (Auto) 0.1 K/mcL (0.0-0.7); Eosinophils % (Auto) 0.7 % (0.0-7.0); Granulocytes % (Auto) 57.4 % (38.0-78.0); Lymphocytes % (Auto) 29.4 % (15.5-49.0); Mean Cell Volume 93.7 fL (80.0-100.0); Mean Corpuscular HGB Conc 32.8 g/dL (31.0-36.0); Monocytes # (Auto) 0.8 K/mcL (0.1-0.9); Monocytes % (Auto) 12.1 % (1.0-12.0); Platelet Count 182 K/mcL (140-440); RBC 3.81 M/mcL (4.00-5.20); Red Cell Distribution Width 14.9 % (11.5-14.5)
[2018-04-19 06:16] LABS: ALT/SGPT 116 U/l (0-40); Albumin 2.8 gm/dL (3.2-5.2); Albumin/Globulin Ratio 1.1 (1.0-2.3); Alkaline Phosphatase 62 U/L (39-117); Bilirubin,Direct < 0.2 mg/dL (0.0-0.3); Blood Urea Nitrogen 11 mg/dl (8-23); Gamma Glutamyl Transpeptidase 101 U/L (5-36); Uric Acid 2.7 mg/dL (2.5-8.0)
[2018-04-19 06:20] LABS: Creatine Kinase 5615 IU/L (24-170)
--- NOTE | 2018-04-19 07:31 | Internal Med Progress Note ---
Medical - PN: Subj Patient information: Note initiated : 04/19/18 at 7:25 am Service Date, if different from initiated Date: [] Patient: Chelsea Edwards 62 y/o F admitted on 04/16/18 for Fall Out Of Bed Yesterday Morning. Chief Complaint: [] Interval history: Ms. Edwards is a 62 year old F Who presents to the ER secondary to severe weakness fall and pain. Patient reports that she was in her normal state of health when she went to bed several nights ago yesterday morning while getting out of bed at 6 she tripped a nd fell out of bed and landed on the floor. She had a back pain which is acute on chronic and other generalized pains and was unable to get up. Her health care worker came in around 8:00 and helped her into a chair and did some other care prior to leaving at 1030. Patient attempted to get up later in the day was unable to walk so she decided to call. She crawled to her bed and was unable to get up into her bed so she just remained on the floor and slept there that night. I different coworker found her this morning on the floor and found the house to be cold at 50 degrees. Patient is brought to the ED and found to be severely dehydrated with rhabdomyolysis. She had no chest pain coughing or shortness of breath no urinary tract infection symptoms. She felt weak and had pain back pain. She had x-ray of her C-spine and L-spine and T-spine which were all unremarkable. She had a CT brain which showed no acute but moderate atrophy is previously previously known. Chest x-ray was unremarkable. An EKG showed no acute concerning signs. Sodium was 154. And urinalysis showed ketones hyaline casts and glucose. Because her white blood cell count was 20,000 she was given some antibiotics in the ER as well as her pro-calcitonin was elevated. He was afebrile. She denies any recent illnesses no upper respiratory infections no coughing shortness of breath no abdominal pain she did have diarrhea yesterday but does not report any today. She is been a snf in the past she has been seen by neurology in the past for dementia and pseudoseizures. She had a history of substance abuse last admitted in 2014 and noted at that time that she had used methamphetamine that year. But denies any recently. Patient is weak denies any fevers or chills. Her headache 04/17 Poor sleep because of interruptions, has occasional headache, tired, has mild stomachache this morning. Otherwise no complaints. No chest pain shortness of breath or coughing. On 5 mics per minute of Levophed. Blood pressure low 100s. 04/18 Sitting up in bed eating breakfast. Feeling better. Levophed been off since 645 this morning. Good urine output and blood pressure stable. No new complaints except for a little bit of nausea from time to time. 04/19 New complaints continues to feel improved. Good blood pressures and urinary output. She did well with physical therapy today walked around the unit. Review of Systems: denies headache/fever/chills/vomiting/chest pain/cough/dyspnea. Otherwise see above. - Constitutional Vitals: Vital Signs Temp Pulse Resp BP Pulse Ox 98.7 F 87 27 H 134/66 98 04/19/18 06:59 04/19/18 06:07 04/19/18 06:59 04/19/18 06:59 04/19/18 06:59 Period Temp Pulse Resp BP Sys/Farris Pulse Ox Last 24 Hr 98.3 F-99.6 F 83-98 7-27 97-134/46-84 93-98 Intake and Output 04/18/18 04/19/18 04/19/18 21:59 05:59 13:59 Intake Total 290 910 Output Total 542 495 Balance -252 415 Weight 65.589 kg Intake & Output: Intake & Output 04/18/18 04/19/18 04/19/18 21:59 05:59 13:59 Intake Total 290 910 Output Total 542 495 Balance -252 415 Weight 65.589 kg Intake: IV 50 550 Zosyn 3.375 gm In Dextrose 5% 50 50 in Water 50 ml @ 100 mls/hr IV Q6H [facility] Rx#:[id number] Oral 240 360 Output: Urine Catheter Amount 542 495 Other: Meal Dinner snack Percent of Meal Consumed 75% 50% Feeding Ability Assist with Tray Set Up Urine Appearance Clear Clear Temp probe austin Clear Urine Color Bright Yellow Bright Yellow Temp probe austin Pale Stool Size Moderate Large Stool Color Brown Brown Stool Consistency Soft Soft # Bowel Movements 1 # of times incontinent of 1 Bowels Exam: General: Alert, Awake, No acute Distress Eyes/N/T: EOMI, Head/Neck: neck supple, CV: RRR, No murmurs, Pulm: Clear b/l, no wheezing/rhonchi/rales Abd: soft, nontender, +BS x4 Ext: no clubbing/cyanosis, 1+ RLE edema Neuro: Alert, no focal deficits, moves all extremities, Skin: warm/dry Medical - PN: Obj Da - Labs CBC & Chem 7: 04/19/18 04:10 04/19/18 04:10 Labs: Abnormal Lab Results 04/19/18 04/19/18 04/18/18 04:10 04:10 08:16 WBC RBC 3.81 L Hgb 11.7 L Hct 35.7 L RDW 14.9 H Gran % Lymph % (Auto) Parker % (Auto) 12.1 H Gran # Parker # (Auto) Lymphocytes % Polychromasia PT INR ABG Methemoglobin VBG pH VBG pCO2 VBG pO2 VBG HCO3 VBG Total CO2 VBG O2 Saturation VBG Base Excess Carboxyhemoglobin Sodium Potassium Chloride Carbon Dioxide 31 H Anion Gap BUN Creatinine 0.5 L Glucose 190 H Calcium Phosphorus 2.0 L GGT 101 H AST 298 H ALT 116 H Lactate Dehydrogenase 462 H Total Creatine Kinase 5615 H Troponin T C-Reactive Protein NT-Pro-B Natriuret Pep Total Protein 5.3 L Albumin 2.8 L Triglycerides 167 H Urine Protein 30 A Urine Glucose (UA) >=500 A Urine Ketones 20 A Urine Occult Blood 0.2 A Ur Leukocyte Esterase 25 A Urine RBC 25 H Urine WBC 20 H Hyaline Casts Urine Yeast (Budding) Few A 04/18/18 04/18/18 04/18/18 04:05 04:05 04:05 WBC RBC 3.73 L Hgb 11.6 L Hct 34.6 L RDW 15.1 H Gran % Lymph % (Auto) Parker % (Auto) Gran # Parker # (Auto) Lymphocytes % Polychromasia PT INR ABG Methemoglobin VBG pH VBG pCO2 VBG pO2 VBG HCO3 VBG Total CO2 VBG O2 Saturation VBG Base Excess Carboxyhemoglobin Sodium Potassium 2.9 L* Chloride Carbon Dioxide 32 H Anion Gap BUN Creatinine Glucose 154 H Calcium 8.4 L Phosphorus 2.3 L GGT 105 H AST 367 H ALT 128 H Lactate Dehydrogenase 500 H Total Creatine Kinase 8218 H Troponin T 0.27 H* C-Reactive Protein NT-Pro-B Natriuret Pep Total Protein 5.5 L Albumin 2.8 L Triglycerides 204 H Urine Protein Urine Glucose (UA) Urine Ketones Urine Occult Blood Ur Leukocyte Esterase Urine RBC Urine WBC Hyaline Casts Urine Yeast (Budding) 04/17/18 04/17/18 04/17/18 08:12 04:04 04:04 WBC RBC Hgb Hct RDW Gran % Lymph % (Auto) Parker % (Auto) Gran # Parker # (Auto) Lymphocytes % 12 L Polychromasia PT INR ABG Methemoglobin VBG pH VBG pCO2 VBG pO2 VBG HCO3 VBG Total CO2 VBG O2 Saturation VBG Base Excess Carboxyhemoglobin Sodium Potassium Chloride Carbon Dioxide Anion Gap BUN Creatinine Glucose Calcium Phosphorus GGT AST ALT Lactate Dehydrogenase Total Creatine Kinase Troponin T 0.32 H* C-Reactive Protein NT-Pro-B Natriuret Pep Total Protein Albumin Triglycerides Urine Protein Urine Glucose (UA) >=500 A Urine Ketones 20 A Urine Occult Blood 0.2 A Ur Leukocyte Esterase Urine RBC Urine WBC Hyaline Casts Urine Yeast (Budding) Few A 04/17/18 04/17/18 04/16/18 04:04 04:04 16:23 WBC 23.3 H RBC Hgb Hct RDW 14.9 H Gran % Lymph % (Auto) Parker % (Auto) Gran # 18.1 H Parker # (Auto) Lymphocytes % Polychromasia PT INR ABG Methemoglobin VBG pH VBG pCO2 VBG pO2 VBG HCO3 VBG Total CO2 VBG O2 Saturation VBG Base Excess Carboxyhemoglobin Sodium 151 H Potassium 3.2 L Chloride 109 H Carbon Dioxide 19 L 13 L Anion Gap 20.0 H 29.0 H BUN 34 H 36 H Creatinine Glucose 181 H 122 H Calcium 8.3 L Phosphorus 5.5 H GGT 120 H AST 416 H ALT 142 H Lactate Dehydrogenase 539 H Total Creatine Kinase 50565 H Troponin T C-Reactive Protein NT-Pro-B Natriuret Pep Total Protein Albumin Triglycerides 203 H Urine Protein Urine Glucose (UA) Urine Ketones Urine Occult Blood Ur Leukocyte Esterase Urine RBC Urine WBC Hyaline Casts Urine Yeast (Budding) 04/16/18 04/16/18 04/16/18 12:47 12:47 12:47 WBC RBC Hgb Hct RDW Gran % Lymph % (Auto) Parker % (Auto) Gran # Parker # (Auto) Lymphocytes % Polychromasia PT INR ABG Methemoglobin VBG pH VBG pCO2 VBG pO2 VBG HCO3 VBG Total CO2 VBG O2 Saturation VBG Base Excess Carboxyhemoglobin Sodium Potassium Chloride Carbon Dioxide Anion Gap BUN Creatinine Glucose Calcium Phosphorus GGT AST ALT Lactate Dehydrogenase Total Creatine Kinase Troponin T 0.37 H* C-Reactive Protein 1.3 H NT-Pro-B Natriuret Pep 6811.0 H Total Protein Albumin Triglycerides Urine Protein Urine Glucose (UA) Urine Ketones Urine Occult Blood Ur Leukocyte Esterase Urine RBC Urine WBC Hyaline Casts Urine Yeast (Budding) 04/16/18 04/16/18 04/16/18 11:04 11:03 11:03 WBC RBC Hgb Hct RDW Gran % Lymph % (Auto) Parker % (Auto) Gran # Parker # (Auto) Lymphocytes % Polychromasia PT INR ABG Methemoglobin 0.3 L VBG pH 7.26 L VBG pCO2 38.0 L VBG pO2 57 H VBG HCO3 16.7 L VBG Total CO2 17.8 L VBG O2 Saturation 79.3 H VBG Base Excess -9.7 L Carboxyhemoglobin 2.5 H Sodium Potassium Chloride Carbon Dioxide Anion Gap BUN Creatinine Glucose Calcium Phosphorus GGT AST ALT Lactate Dehydrogenase Total Creatine Kinase Troponin T 0.32 H* C-Reactive Protein NT-Pro-B Natriuret Pep Total Protein Albumin Triglycerides Urine Protein Urine Glucose (UA) >=500 A Urine Ketones 80 A Urine Occult Blood 0.03 A Ur Leukocyte Esterase Urine RBC Urine WBC Hyaline Casts 12 H Urine Yeast (Budding) 04/16/18 04/16/18 04/16/18 11:03 11:03 11:03 WBC RBC Hgb Hct RDW Gran % Lymph % (Auto) Parker % (Auto) Gran # Parker # (Auto) Lymphocytes % Polychromasia PT 14.9 H INR 1.2 H ABG Methemoglobin VBG pH VBG pCO2 VBG pO2 VBG HCO3 VBG Total CO2 VBG O2 Saturation VBG Base Excess Carboxyhemoglobin Sodium 154 H Potassium Chloride 112 H Carbon Dioxide 17 L Anion Gap 25.0 H BUN 35 H Creatinine Glucose Calcium Phosphorus GGT AST 484 H ALT 137 H Lactate Dehydrogenase Total Creatine Kinase 75110 H Troponin T C-Reactive Protein NT-Pro-B Natriuret Pep Total Protein Albumin Triglycerides Urine Protein Urine Glucose (UA) Urine Ketones Urine Occult Blood Ur Leukocyte Esterase Urine RBC Urine WBC Hyaline Casts Urine Yeast (Budding) 04/16/18 04/16/18 11:03 10:23 WBC 20.4 H RBC Hgb Hct RDW 15.0 H Gran % 78.6 H Lymph % (Auto) 11.4 L Parker % (Auto) Gran # 16.0 H Parker # (Auto) 2.0 H Lymphocytes % Polychromasia Rare A PT INR ABG Methemoglobin VBG pH VBG pCO2 VBG pO2 VBG HCO3 VBG Total CO2 VBG O2 Saturation VBG Base Excess Carboxyhemoglobin Sodium Potassium Chloride Carbon Dioxide Anion Gap BUN Creatinine Glucose Calcium Phosphorus GGT AST ALT Lactate Dehydrogenase Total Creatine Kinase Troponin T C-Reactive Protein NT-Pro-B Natriuret Pep Total Protein Albumin Triglycerides Urine Protein Urine Glucose (UA) Urine Ketones Urine Occult Blood Ur Leukocyte Esterase Urine RBC Urine WBC Hyaline Casts Urine Yeast (Budding) Meds: Medications Albuterol/Ipratropium (Duoneb) 3 ml NEB Q4HP PRN PRN Reason: Shortness Of Breath Amlodipine Besylate (Norvasc) 5 mg PO QDAY [facility] Last Admin: 04/18/18 09:21 Dose: Not Given Documented by: Atorvastatin Calcium (Lipitor) 20 mg PO HS [facility] Last Admin: 04/18/18 20:27 Dose: 20 mg Documented by: Dextrose (Dextrose 50%) 0 ml IV UD PRN PRN Reason: Hypoglycemia Diagnostic Test (Pha) (Accu-Chek) 1 each FS ACHS [facility] Last Admin: 04/18/18 20:42 Dose: 1 each Documented by: Divalproex Sodium (Depakote Sprinkles) 250 mg PO BID [facility] Last Admin: 04/18/18 20:27 Dose: 250 mg Documented by: Docusate Sodium (Colace) 100 mg PO BID [facility] Last Admin: 04/18/18 20:28 Dose: Not Given Documented by: Duloxetine HCl (Cymbalta) 60 mg PO DAILY [facility] Last Admin: 04/18/18 09:20 Dose: 60 mg Documented by: Famotidine (Pepcid) 20 mg PO BID [facility] Last Admin: 04/18/18 20:23 Dose: 20 mg Documented by: Glucose (Insta-Glucose) 15 gm PO PRN PRN PRN Reason: Hypoglycemia Heparin Sodium (Porcine) (Heparin) 5,000 unit SQ Q12 [facility] Last Admin: 04/18/18 20:23 Dose: 5,000 unit Documented by: Potassium Chloride 40 meq/ (Dextrose) 520 mls @ 130 mls/hr IV ONCE PRN PRN Reason: Potassium < 3 Last Infusion: 04/18/18 13:03 Dose: Infused Documented by: Magnesium Sulfate (Magnesium Sulfate) 2 gm in 50 mls @ 50 mls/hr IV ONCE PRN PRN Reason: Magnesium </= 1.6 Piperacillin Sod/Tazobactam (Sod 3.375 gm/ Dextrose) 50 mls @ 100 mls/hr IV Q6H [facility] Last Admin: 04/19/18 05:18 Dose: 100 mls/hr Documented by: Sodium Chloride (Sodium Chloride 0.9%) 250 mls @ 20 mls/hr IV .[id number] [facility] Last Admin: 04/19/18 01:38 Dose: Not Given Documented by: Vancomycin HCl 1,000 mg/ (Sodium Chloride) 250 mls @ 250 mls/hr IV Q24H [facility] Last Infusion: 04/18/18 13:03 Dose: Infused Documented by: Norepinephrine Bitartrate 16 (mg/ Sodium Chloride) 250 mls @ 9.38 mls/hr IV Q24HP PRN; Protocol PRN Reason: TITRATE TO KEEP MAP > 65 Insulin Human Lispro (Humalog) 0 unit SQ ACHS [facility]; Protocol Last Admin: 04/18/18 20:42 Dose: 4 units Documented by: Lactulose (Cephulac) 10 gm PO DAILYP PRN PRN Reason: Constipation Lorazepam (Ativan) 1 mg PO DAILYP PRN PRN Reason: Anxiety Last Admin: 04/18/18 20:23 Dose: 1 mg Documented by: Memantine (Namenda) 5 mg PO DAILY [facility] Last Admin: 04/18/18 09:21 Dose: 5 mg Documented by: Nicotine (Nicoderm) 14 mg TOPICAL DAILY@1000 [facility] Last Admin: 04/18/18 09:20 Dose: 14 mg Documented by: Ziprasidone Hcl [ (Geodon] 60 Mg Cap) 1 dose PO DAILY [facility] Last Admin: 04/18/18 09:20 Dose: 1 dose Documented by: Ondansetron HCl (Zofran) 4 mg IV Q4HP PRN PRN Reason: Nausea And Vomiting Oxycodone HCl (Roxicodone) 5 mg PO Q4-6HP PRN PRN Reason: PAIN LEVEL 3-6 Last Admin: 04/19/18 03:19 Dose: 5 mg Documented by: Polyethylene Glycol (Miralax) 17 gm PO DAILYP PRN PRN Reason: Constipation Potassium Chloride (Kdur) 40 meq PO ONCE PRN PRN Reason: Potssium is 3-3.5 Last Admin: 04/17/18 05:33 Dose: 40 meq Documented by: Potassium Chloride (Kdur) 40 meq PO ONCE PRN PRN Reason: Potassium < 3 Prochlorperazine (Compazine) 10 mg PO Q6HP PRN PRN Reason: Nausea And Vomiting Prochlorperazine (Compazine) 10 mg IV Q6HP PRN PRN Reason: Nausea And Vomiting Senna (Senokot) 2 tab PO HSP PRN PRN Reason: Constipation Sodium Chloride (Saline Flush) 10 ml IV Q8 [facility] Last Admin: 04/19/18 05:19 Dose: 10 ml Documented by: Trazodone HCl (Desyrel) 50 mg PO QHS [facility] Last Admin: 04/18/18 20:23 Dose: 50 mg Documented by: Vancomycin HCl (Vancomycin Per Pharmacy) 1 order IV UD [facility] - ABG Interpretation ABG results: 04/16/18 11:03 ABG Methemoglobin 0.3 L VBG pH 7.26 L VBG pCO2 38.0 L VBG pO2 57 H VBG HCO3 16.7 L VBG Total CO2 17.8 L VBG O2 Saturation 79.3 H VBG Base Excess -9.7 L Medical - PN: A/P - Time Spent With Patient Total time spent is greater than 50% in coordination of care (as documented) at patient's floor/unit and/or counseling patient: - Narrative A/P Narrative: A: *Rhabdomyolysis: improving *Hypernatremia/dehydration: resolved *Hypovolemic shock vs ?septic: levophed at low rate o/n and now off, no lactic acidosis, afebrile *Generalized weakness/fall out of bed/Deconditioning: *Leukocytosis: With the mildly elevated PCT (but his could be from rhabdo), afebrile, unable to immediately identify any obvious source of infection, -CXR/UA unrevealing -REsolved -BC/UC no growth *Anion gap metabolic acidosis: Secondary to Rhabdo/uremia/starvation ketosis. improving *Transaminitis/Fatty Liver/Hep C: Secondary to above + PMH and has seen GI in past regarding hep c *troponinemia, mild and trending down: no chest pain/ekg changes, 2/2 above, not sure why it was ordered initially *Dementia: *Depression: *Diabetes: *HTN: *Tobacco Abuse: *GERD: *h/o substance abuse *Hypokalemia P: -f/u CK - -monitor electrolytes, - -Empiric antibiotics, deescalate - -SSI -pt/ot, CM for placement -ppx: heparin Medical - PN: Qual - VTE Deep Vein Thrombosis/Pulmonary Embolism Present on Admission: No
[2018-04-19] MEDS: INSULIN LISPRO 1 UNIT/0.01 ML UNIT SQ SCH ×4 (08:05→20:50)
[2018-04-19] MEDS: HEPARIN 5,000 UNIT/ML VIAL SQ SCH ×2 (08:11→20:50)
[2018-04-19] MEDS: FAMOTIDINE 20 MG TABLET PO SCH ×2 (08:11→20:51)
[2018-04-19] MEDS: DIVALPROEX 125 MG CAP.SPRINK PO SCH ×2 (08:12→20:49)
[2018-04-19] MEDS: DULoxetine 30 MG CAPSULE PO SCH (08:12)
[2018-04-19] MEDS: MEMANTINE 10 MG TABLET PO SCH (08:12)
[2018-04-19] MEDS: ZIPRASIDONE HCL 60 MG PO SCH (08:13)
[2018-04-19] MEDS: DOCUSATE SODIUM 100 MG CAPSULE PO SCH ×2 (08:13→20:49)
[2018-04-19] MEDS: amLODIPine 5 MG TABLET PO SCH (08:14)
[2018-04-19] MEDS: NICOTINE 14 MG PATCH TOPICAL SCH (08:16)
[2018-04-19] MEDS ORDERED: FUROSEMIDE 20 MG/2 ML VIAL IV ONE (08:46)
[2018-04-19] MEDS ORDERED: 0.9 % SODIUM CHLORIDE 250 ML IV ONE (08:46)
[2018-04-19] MEDS: VANCOMYCIN 1,000 MG in 0.9 % SODIUM CHLORIDE 250 ML IV SCH ×3 (09:55→20:51)
[2018-04-19] MEDS ORDERED: ONDANSETRON 4 MG/2 ML VIAL IV PRN (10:11)
[2018-04-19] MEDS ORDERED: LACTULOSE 20 GM/30 ML ORAL.SOL PO PRN (10:11)
[2018-04-19] MEDS ORDERED: DEXTROSE 31 GM ORAL.SUSP PO PRN (10:11)
[2018-04-19] MEDS ORDERED: SENNOSIDES 1 TABLET PO PRN (10:11)
[2018-04-19] MEDS ORDERED: LORazepam 1 MG TABLET PO PRN (10:11)
[2018-04-19] MEDS ORDERED: DEXTROSE 50% 50 ML VIAL IV PRN (10:11)
[2018-04-19] MEDS ORDERED: PROCHLORPERAZINE 10 MG TABLET PO PRN (10:11)
[2018-04-19] MEDS ORDERED: POTASSIUM CHLORIDE 40 MEQ in DEXTROSE 5% IN WATER 500 ML IV PRN (10:11)
[2018-04-19] MEDS ORDERED: IPRATROPIUM/ALBUTEROL 3 ML AMPUL.NEB NEB PRN (10:11)
[2018-04-19] MEDS ORDERED: MAGNESIUM SULFATE 2 GM/50 ML BAG IV PRN (10:11)
[2018-04-19] MEDS ORDERED: POTASSIUM CHLORIDE 20 MEQ in DEXTROSE 5% IN WATER 250 ML IV ONE (10:11)
[2018-04-19] MEDS ORDERED: POTASSIUM CHLORIDE 20 MEQ TABLET PO PRN ×2 (10:11)
[2018-04-19] MEDS ORDERED: VANCOMYCIN PER PHARMACY IV SCH (10:11)
[2018-04-19] MEDS ORDERED: PROCHLORPERAZINE 10 MG/2 ML VIAL IV PRN (10:11)
[2018-04-19] MEDS ORDERED: POLYETHYLENE GLYCOL 3350 17 GM PACKET PO PRN (10:11)
[2018-04-19] MEDS: traZODone HCL 50 MG TABLET PO SCH (20:49)
[2018-04-19] MEDS: ATORVASTATIN 20 MG TABLET PO SCH (20:51)
[2018-04-20] MEDS: PIPERACILLIN SODIUM/TAZOBACTAM 3.375 GM in DEXTROSE 5% IN WATER 50 ML IV SCH ×3 (00:19→12:27)
[2018-04-20] MEDS: 0.9 % SODIUM CHLORIDE 10 ML SYRINGE IV SCH ×3 (05:51→22:00)
[2018-04-20] MEDS: oxyCODONE HCL 5 MG TABLET PO PRN ×3 (05:57→19:05)
[2018-04-20 05:58] LABS: Blood Urea Nitrogen 9 mg/dl (8-23)
[2018-04-20 06:20] LABS: Creatine Kinase 2670 IU/L (24-170)
[2018-04-20] MEDS ORDERED: POTASSIUM CHLORIDE 20 MEQ TABLET PO ONE (06:47)
--- NOTE | 2018-04-20 06:49 | Internal Med Progress Note ---
Medical - PN: Subj Patient information: Note initiated : 04/20/18 at 6:46 am Service Date, if different from initiated Date: [] Patient: Chelsea Edwards 62 y/o F admitted on 04/16/18 for Fall Out Of Bed Yesterday Morning. Chief Complaint: [] Interval history: Ms. Edwards is a 62 year old F Who presents to the ER secondary to severe weakness fall and pain. Patient reports that she was in her normal state of health when she went to bed several nights ago yesterday morning while getting out of bed at 6 she tripped a nd fell out of bed and landed on the floor. She had a back pain which is acute on chronic and other generalized pains and was unable to get up. Her health care worker came in around 8:00 and helped her into a chair and did some other care prior to leaving at 1030. Patient attempted to get up later in the day was unable to walk so she decided to call. She crawled to her bed and was unable to get up into her bed so she just remained on the floor and slept there that night. I different coworker found her this morning on the floor and found the house to be cold at 50 degrees. Patient is brought to the ED and found to be severely dehydrated with rhabdomyolysis. She had no chest pain coughing or shortness of breath no urinary tract infection symptoms. She felt weak and had pain back pain. She had x-ray of her C-spine and L-spine and T-spine which were all unremarkable. She had a CT brain which showed no acute but moderate atrophy is previously previously known. Chest x-ray was unremarkable. An EKG showed no acute concerning signs. Sodium was 154. And urinalysis showed ketones hyaline casts and glucose. Because her white blood cell count was 20,000 she was given some antibiotics in the ER as well as her pro-calcitonin was elevated. He was afebrile. She denies any recent illnesses no upper respiratory infections no coughing shortness of breath no abdominal pain she did have diarrhea yesterday but does not report any today. She is been a [facility]p in the past she has been seen by neurology in the past for dementia and pseudoseizures. She had a history of substance abuse last admitted in 2014 and noted at that time that she had used methamphetamine that year. But denies any recently. Patient is weak denies any fevers or chills. Her headache 04/17 Poor sleep because of interruptions, has occasional headache, tired, has mild stomachache this morning. Otherwise no complaints. No chest pain shortness of breath or coughing. On 5 mics per minute of Levophed. Blood pressure low 100s. 04/18 Sitting up in bed eating breakfast. Feeling better. Levophed been off since 645 this morning. Good urine output and blood pressure stable. No new complaints except for a little bit of nausea from time to time. 04/19 New complaints continues to feel improved. Good blood pressures and urinary output. She did well with physical therapy today walked around the unit. 04/20 Feeling stronger. Walked in [place] today but still feels weak on her feet. No other new complaints or overnight events. Review of Systems: denies headache/fever/chills/vomiting/chest pain/cough/dyspnea. Otherwise see above. - Constitutional Vitals: Vital Signs Temp Pulse Resp BP Pulse Ox 98.6 F 86 18 118/60 94 04/20/18 03:25 04/20/18 03:25 04/20/18 03:25 04/20/18 03:25 04/20/18 03:25 Period Temp Pulse Resp BP Sys/Farris Pulse Ox Last 24 Hr 98.2 F-99.4 F 83-87 16-27 112-157/49-72 94-99 Intake and Output 04/19/18 04/20/18 04/20/18 21:59 05:59 13:59 Intake Total 2830 230 Output Total 825 600 Balance 2004 Weight 66.678 kg Intake & Output: Intake & Output 04/19/18 04/20/18 04/20/18 21:59 05:59 13:59 Intake Total 2830 230 Output Total 825 600 Balance 2004 Weight 66.678 kg Intake: IV 650 50 Zosyn 3.375 gm In Dextrose 5% 100 50 in Water 50 ml @ 100 mls/hr IV Q6H [facility] Rx#:[id number] Vancomycin 1,000 mg In Sodium 250 Chloride 0.9% 250 ml @ 250 mls/ hr IV Q12H [facility] Rx#:[id number] Oral 2180 180 Output: Urine Catheter Amount 825 600 Other: Meal Dinner Percent of Meal Consumed 75% Urine Appearance Cloudy Temp probe austin Cloudy Urine Color Dark Yellow Temp probe austin Dark Yellow Urine Odor Normal Stool Size Moderate Stool Color Brown Stool Consistency Soft Liquid # Bowel Movements 1 # of times incontinent of 1 Bowels Exam: General: Alert, Awake, No acute Distress Eyes/N/T: EOMI, Head/Neck: neck supple, CV: RRR, No murmurs, Pulm: Clear b/l, no wheezing/rhonchi/rales Abd: soft, nontender, +BS x4 Ext: no clubbing/cyanosis, mild LE edema Neuro: Alert, no focal deficits, moves all extremities, Skin: warm/dry Medical - PN: Obj Da - Labs CBC & Chem 7: 04/19/18 04:10 04/20/18 04:32 Labs: Abnormal Lab Results 04/20/18 04/19/18 04/19/18 04:32 04:10 04:10 RBC 3.81 L Hgb 11.7 L Hct 35.7 L RDW 14.9 H [place] % (Auto) 12.1 H Potassium 3.2 L Carbon Dioxide 31 H Creatinine 0.5 L 0.5 L Glucose 166 H 190 H Calcium Phosphorus 2.0 L GGT 101 H AST 298 H ALT 116 H Lactate Dehydrogenase 462 H Total Creatine Kinase 2670 H 5615 H Troponin T Total Protein 5.3 L Albumin 2.8 L Triglycerides 167 H Urine Protein Urine Glucose (UA) Urine Ketones Urine Occult Blood Ur Leukocyte Esterase Urine RBC Urine WBC Urine Yeast (Budding) 04/18/18 04/18/18 04/18/18 08:16 04:05 04:05 RBC Hgb Hct RDW [place] % (Auto) Potassium 2.9 L* Carbon Dioxide 32 H Creatinine Glucose 154 H Calcium 8.4 L Phosphorus 2.3 L GGT 105 H AST 367 H ALT 128 H Lactate Dehydrogenase 500 H Total Creatine Kinase 8218 H Troponin T 0.27 H* Total Protein 5.5 L Albumin 2.8 L Triglycerides 204 H Urine Protein 30 A Urine Glucose (UA) >=500 A Urine Ketones 20 A Urine Occult Blood 0.2 A Ur Leukocyte Esterase 25 A Urine RBC 25 H Urine WBC 20 H Urine Yeast (Budding) Few A 04/18/18 04/17/18 04/17/18 04:05 08:12 04:04 RBC 3.73 L Hgb 11.6 L Hct 34.6 L RDW 15.1 H [place] % (Auto) Potassium Carbon Dioxide Creatinine Glucose Calcium Phosphorus GGT AST ALT Lactate Dehydrogenase Total Creatine Kinase Troponin T 0.32 H* Total Protein Albumin Triglycerides Urine Protein Urine Glucose (UA) >=500 A Urine Ketones 20 A Urine Occult Blood 0.2 A Ur Leukocyte Esterase Urine RBC Urine WBC Urine Yeast (Budding) Few A Meds: Medications Albuterol/Ipratropium (Duoneb) 3 ml NEB Q4HP PRN PRN Reason: Shortness Of Breath Amlodipine Besylate (Norvasc) 5 mg PO QDAY [facility] Atorvastatin Calcium (Lipitor) 20 mg PO HS [facility] Last Admin: 04/19/18 20:51 Dose: 20 mg Documented by: Dextrose (Dextrose 50%) 0 ml IV UD PRN PRN Reason: Hypoglycemia Diagnostic Test (Pha) (Accu-Chek) 1 each FS ACHS [facility] Last Admin: 04/19/18 20:39 Dose: 1 each Documented by: Divalproex Sodium (Depakote Sprinkles) 250 mg PO BID [facility] Last Admin: 04/19/18 20:49 Dose: 250 mg Documented by: Docusate Sodium (Colace) 100 mg PO BID [facility] Last Admin: 04/19/18 20:49 Dose: 100 mg Documented by: Duloxetine HCl (Cymbalta) 60 mg PO DAILY [facility] Famotidine (Pepcid) 20 mg PO BID [facility] Last Admin: 04/19/18 20:51 Dose: 20 mg Documented by: Glucose (Insta-Glucose) 15 gm PO PRN PRN PRN Reason: Hypoglycemia Heparin Sodium (Porcine) (Heparin) 5,000 unit SQ Q12 [facility] Last Admin: 04/19/18 20:50 Dose: 5,000 unit Documented by: Vancomycin HCl 1,000 mg/ (Sodium Chloride) 250 mls @ 250 mls/hr IV Q12H [facility] Last Admin: 04/19/18 20:51 Dose: 250 mls/hr Documented by: Potassium Chloride 40 meq/ (Dextrose) 520 mls @ 130 mls/hr IV ONCE PRN PRN Reason: Potassium < 3 Magnesium Sulfate (Magnesium Sulfate) 2 gm in 50 mls @ 50 mls/hr IV ONCE PRN PRN Reason: Magnesium </= 1.6 Sodium Chloride (Sodium Chloride 0.9%) 250 mls @ 20 mls/hr IV .[id number] [facility] Last Admin: 04/19/18 20:53 Dose: 20 mls/hr Documented by: Piperacillin Sod/Tazobactam (Sod 3.375 gm/ Dextrose) 50 mls @ 100 mls/hr IV Q6H [facility] Last Admin: 04/20/18 05:50 Dose: 100 mls/hr Documented by: Insulin Human Lispro (Humalog) 0 unit SQ ACHS [facility]; Protocol Last Admin: 04/19/18 20:50 Dose: 6 unit Documented by: Lactulose (Cephulac) 10 gm PO DAILYP PRN PRN Reason: Constipation Lorazepam (Ativan) 1 mg PO DAILYP PRN PRN Reason: Anxiety Memantine (Namenda) 5 mg PO DAILY [facility] Nicotine (Nicoderm) 14 mg TOPICAL DAILY@1000 [facility] Ziprasidone Hcl [ (Geodon] 60 Mg Cap) 1 dose PO DAILY [facility] Ondansetron HCl (Zofran) 4 mg IV Q4HP PRN PRN Reason: Nausea And Vomiting Oxycodone HCl (Roxicodone) 5 mg PO Q4-6HP PRN PRN Reason: PAIN LEVEL 3-6 Last Admin: 04/20/18 05:57 Dose: 5 mg Documented by: Polyethylene Glycol (Miralax) 17 gm PO DAILYP PRN PRN Reason: Constipation Potassium Chloride (Kdur) 40 meq PO ONCE PRN PRN Reason: Potssium is 3-3.5 Potassium Chloride (Kdur) 40 meq PO ONCE PRN PRN Reason: Potassium < 3 Prochlorperazine (Compazine) 10 mg PO Q6HP PRN PRN Reason: Nausea And Vomiting Prochlorperazine (Compazine) 10 mg IV Q6HP PRN PRN Reason: Nausea And Vomiting Senna (Senokot) 2 tab PO HSP PRN PRN Reason: Constipation Sodium Chloride (Saline Flush) 10 ml IV Q8 [facility] Last Admin: 04/20/18 05:51 Dose: Not Given Documented by: Trazodone HCl (Desyrel) 50 mg PO QHS [facility] Last Admin: 04/19/18 20:49 Dose: 50 mg Documented by: Vancomycin HCl (Vancomycin Per Pharmacy) 1 order IV UD [facility] - ABG Interpretation ABG results: 04/16/18 11:03 ABG Methemoglobin 0.3 L VBG pH 7.26 L VBG pCO2 38.0 L VBG pO2 57 H VBG HCO3 16.7 L VBG Total CO2 17.8 L VBG O2 Saturation 79.3 H VBG Base Excess -9.7 L Medical - PN: A/P - Time Spent With Patient Total time spent is greater than 50% in coordination of care (as documented) at patient's floor/unit and/or counseling patient: - Narrative A/P Narrative: A: *Rhabdomyolysis: improving *Hypernatremia/dehydration: resolved *Hypovolemic shock vs ?septic: levophed at low rate o/n and now off, no lactic acidosis, afebrile *Generalized weakness/fall out of bed/Deconditioning: improving *Leukocytosis: With the mildly elevated PCT (but his could be from rhabdo), afebrile, unable to immediately identify any obvious source of infection, -CXR/UA unrevealing -REsolved -BC/UC no growth *Anion gap metabolic acidosis: Secondary to Rhabdo/uremia/starvation ketosis. improving *Transaminitis/Fatty Liver/Hep C: Secondary to above + PMH and has seen GI in past regarding hep c *troponinemia, mild and trending down: no chest pain/ekg changes, 2/2 above, not sure why it was ordered initially *Dementia: *Depression: *Diabetes: *HTN: *Tobacco Abuse: *GERD: *h/o substance abuse *Hypokalemia P: -f/u CK -monitor electrolytes and replace -Empiric antibiotics, stop - -SSI -pt/ot, CM for placement -ppx: heparin d/c planning [facility] vs SNF Medical - PN: Qual - VTE Deep Vein Thrombosis/Pulmonary Embolism Present on Admission: No
[2018-04-20] MEDS: INSULIN LISPRO 1 UNIT/0.01 ML UNIT SQ SCH ×4 (08:10→21:41)
[2018-04-20] MEDS: DULoxetine 30 MG CAPSULE PO SCH (09:17)
[2018-04-20] MEDS: ZIPRASIDONE HCL 60 MG PO SCH (09:17)
[2018-04-20] MEDS: DIVALPROEX 125 MG CAP.SPRINK PO SCH ×2 (09:17→21:41)
[2018-04-20] MEDS: FAMOTIDINE 20 MG TABLET PO SCH ×2 (09:18→21:41)
[2018-04-20] MEDS: MEMANTINE 10 MG TABLET PO SCH (09:18)
[2018-04-20] MEDS: HEPARIN 5,000 UNIT/ML VIAL SQ SCH ×2 (09:19→21:41)
[2018-04-20] MEDS: DOCUSATE SODIUM 100 MG CAPSULE PO SCH (09:19)
[2018-04-20] MEDS: amLODIPine 5 MG TABLET PO SCH (09:19)
[2018-04-20] MEDS: NICOTINE 14 MG PATCH TOPICAL SCH (11:32)
[2018-04-20] MEDS: 0.9 % SODIUM CHLORIDE 250 ML IV SCH (12:27)
[2018-04-20] MEDS: ATORVASTATIN 20 MG TABLET PO SCH (21:41)
[2018-04-20] MEDS: traZODone HCL 50 MG TABLET PO SCH (21:41)
[2018-04-21 06:10] LABS: Basophils # (Auto) 0 K/mcL (0.0-0.3); Basophils % (Auto) 0.4 % (0.0-2.0); Eosinophils # (Auto) 0.2 K/mcL (0.0-0.7); Eosinophils % (Auto) 1.9 % (0.0-7.0); Granulocytes % (Auto) 55.8 % (38.0-78.0); Lymphocytes # (Auto) 2.3 K/mcL (1.5-4.8); Lymphocytes % (Auto) 23.6 % (15.5-49.0); Mean Cell Volume 93.2 fL (80.0-100.0); Mean Corpuscular HGB Conc 33.4 g/dL (31.0-36.0); Monocytes # (Auto) 1.8 K/mcL (0.1-0.9); Monocytes % (Auto) 18.3 % (1.0-12.0); Platelet Count 192 K/mcL (140-440); RBC 3.58 M/mcL (4.00-5.20); Red Cell Distribution Width 15.1 % (11.5-14.5)
[2018-04-21 06:41] LABS: ALT/SGPT 93 U/l (0-40); Albumin 2.7 gm/dL (3.2-5.2); Albumin/Globulin Ratio 1.1 (1.0-2.3); Alkaline Phosphatase 64 U/L (39-117); Bilirubin,Direct < 0.2 mg/dL (0.0-0.3); Blood Urea Nitrogen 9 mg/dl (8-23); Gamma Glutamyl Transpeptidase 129 U/L (5-36)
[2018-04-21] MEDS: oxyCODONE HCL 5 MG TABLET PO PRN ×3 (06:55→20:55)
[2018-04-21] MEDS: INSULIN LISPRO 1 UNIT/0.01 ML UNIT SQ SCH ×4 (07:21→20:52)
[2018-04-21] MEDS: 0.9 % SODIUM CHLORIDE 10 ML SYRINGE IV SCH ×3 (07:22→20:56)
[2018-04-21] MEDS: HEPARIN 5,000 UNIT/ML VIAL SQ SCH ×2 (09:10→20:54)
[2018-04-21] MEDS: ZIPRASIDONE HCL 60 MG PO SCH (09:10)
[2018-04-21] MEDS: amLODIPine 5 MG TABLET PO SCH (09:11)
[2018-04-21] MEDS: FAMOTIDINE 20 MG TABLET PO SCH ×2 (09:11→20:55)
[2018-04-21] MEDS: DIVALPROEX 125 MG CAP.SPRINK PO SCH ×2 (09:11→20:54)
[2018-04-21] MEDS: DULoxetine 30 MG CAPSULE PO SCH (09:11)
[2018-04-21] MEDS: MEMANTINE 10 MG TABLET PO SCH (09:11)
[2018-04-21] MEDS: 0.9 % SODIUM CHLORIDE 250 ML IV SCH ×2 (10:01→14:31)
[2018-04-21] MEDS: NICOTINE 14 MG PATCH TOPICAL SCH (10:37)
--- NOTE | 2018-04-21 17:23 | Internal Med Progress Note ---
Medical - PN: Subj Patient information: Note initiated : 04/21/18 at 5:21 pm Service Date, if different from initiated Date: [] Patient: Chelsea Edwards a 62 y/o F admitted on 04/16/18 for Fall Out Of Bed Yesterday Morning. Chief Complaint: [] Interval history: Ms. Edwards is a 62 year old F Who presents to the ER secondary to severe weakness fall and pain. Patient reports that she was in her normal state of health when she went to bed several nights ago yesterday morning while getting out of bed at 6 she tripped and fell out of bed and landed on the floor. She had a back pain which is acute on chronic and other generalized pains and was unable to get up. Her health care worker came in around 8:00 and helped her into a chair and did some other care prior to leaving at 1030. Patient attempted to get up later in the day was unable to walk so she decided to call. She crawled to her bed and was unable to get up into her bed so she just remained on the floor and slept there that night. I different coworker found her this morning on the floor and found the house to be cold at 50 degrees. Patient is brought to the ED and found to be severely dehydrated with rhabdomyolysis. She had no chest pain coughing or shortness of breath no urinary tract infection symptoms. She felt weak and had pain back pain. She had x-ray of her C-spine and L-spine and T-spine which were all unremarkable. She had a CT brain which showed no acute but moderate atrophy is previously previously known. Chest x-ray was unremarkable. An EKG showed no acute concerning signs. Sodium was 154. And urinalysis showed ketones hyaline casts and glucose. Because her white blood cell count was 20,000 she was given some antibiotics in the ER as well as her pro-calcitonin was elevated. He was afebrile. She denies any recent illnesses no upper respiratory infections no coughing shortness of breath no abdominal pain she did have diarrhea yesterday but does not report any today. She is been a [facility] in the past she has been seen by neurology in the past for dementia and pseudoseizures. She had a history of substance abuse last admitted in 2014 and noted at that time that she had used methamphetamine that year. But denies any recently. Patient is weak denies any fevers or chills. Her headache 04/17 Poor sleep because of interruptions, has occasional headache, tired, has mild stomachache this morning. Otherwise no complaints. No chest pain shortness of breath or coughing. On 5 mics per minute of Levophed. Blood pressure low 100s. 04/18 Sitting up in bed eating breakfast. Feeling better. Levophed been off since 645 this morning. Good urine output and blood pressure stable. No new complaints except for a little bit of nausea from time to time. 04/19 New complaints continues to feel improved. Good blood pressures and urinary output. She did well with physical therapy today walked around the unit. 04/20 Feeling stronger. Walked in [place] today but still feels weak on her feet. No other new complaints or overnight events. 04/21 Patient seen examined, no acute overnight events. Feels strong wants to go home. CK is 1500, continue to monitor for now if continues to trend down will discharge home tomorrow. continue with rehab Pertinent ROS: Denies headache, dizziness Denies chest pain, palpitations Denies cough or shortness of breath Denies abdominal pain, nausea or vomiting. - Constitutional Vitals: Vital Signs Temp Pulse Resp BP Pulse Ox 97.9 F 94 H 18 131/72 96 04/21/18 15:18 04/21/18 15:18 04/21/18 15:18 04/21/18 15:18 04/21/18 15:18 Period Temp Pulse Resp BP Sys/Farris Pulse Ox Last 24 Hr 96.5 F-99.5 F 93-101 16-18 121-144/62-76 92-97 Intake and Output 04/21/18 04/21/18 04/21/18 05:59 13:59 21:59 Intake Total 819 765 2966 Output Total 3 276 Balance 497 -26 1320 Intake & Output: Intake & Output 04/21/18 04/21/18 04/21/18 05:59 13:59 21:59 Intake Total 671 775 8976 Output Total 3 276 Balance 497 -26 1320 Intake: IV 250 Sodium Chloride 0.9% 250 ml @ 250 20 mls/hr IV .[id number] [facility] Rx#: [id number] Oral 500 1320 Output: Void Amount 275 # of times incontinent of urine 3 1 Other: Meal Lunch Percent of Meal Consumed 100% Feeding Ability Assist with Tray Set Up Stool Size Small Small Stool Color Brown Brown Stool Consistency Formed Loose # of times incontinent of 3 Bowels Exam: Constitutional; Afebrile, cooperative, alert, not in distress. RS air entry equal on both sides, No crackles or wheezing, no rhonchi. CVS- Rate rhythm regular, S1,S2 heard, no gallop, no rub. Abdomen- Soft nontender abdomen, no organomegaly, no tenderness, no guarding or rigidity, [employer]- AOOx3, moving all extremities, no gross focal deficit noted. Medical - PN: Obj Da - Labs CBC & Chem 7: 04/21/18 04:23 04/21/18 04:23 Labs: Abnormal Lab Results 04/21/18 04/21/18 04/21/18 04:23 04:23 04:23 RBC 3.58 L Hgb 11.1 L Hct 33.4 L RDW 15.1 H [place] % (Auto) 18.3 H [place] # (Auto) 1.8 H Potassium Carbon Dioxide Creatinine 0.4 L Glucose 153 H Phosphorus GGT 129 H AST 156 H ALT 93 H Lactate Dehydrogenase 423 H Total Creatine Kinase 1572 H Total Protein 5.1 L Albumin 2.7 L Triglycerides 187 H 04/20/18 04/19/18 04/19/18 04:32 04:10 04:10 RBC 3.81 L Hgb 11.7 L Hct 35.7 L RDW 14.9 H [place] % (Auto) 12.1 H [place] # (Auto) Potassium 3.2 L Carbon Dioxide 31 H Creatinine 0.5 L 0.5 L Glucose 166 H 190 H Phosphorus 2.0 L GGT 101 H AST 298 H ALT 116 H Lactate Dehydrogenase 462 H Total Creatine Kinase 2670 H 5615 H Total Protein 5.3 L Albumin 2.8 L Triglycerides 167 H Meds: Medications Albuterol/Ipratropium (Duoneb) 3 ml NEB Q4HP PRN PRN Reason: Shortness Of Breath Amlodipine Besylate (Norvasc) 5 mg PO QDAY [facility] Last Admin: 04/21/18 09:11 Dose: 5 mg Documented by: Atorvastatin Calcium (Lipitor) 20 mg PO [facility] Last Admin: 04/20/18 21:41 Dose: 20 mg Documented by: Dextrose (Dextrose 50%) 0 ml IV UD PRN PRN Reason: Hypoglycemia Diagnostic Test (Pha) (Accu-Chek) 1 each FS ACHS [facility] Last Admin: 04/21/18 17:05 Dose: 1 each Documented by: Divalproex Sodium (Depakote Sprinkles) 250 mg PO BID [facility] Last Admin: 04/21/18 09:11 Dose: 250 mg Documented by: Duloxetine HCl (Cymbalta) 60 mg PO DAILY [facility] Last Admin: 04/21/18 09:11 Dose: 60 mg Documented by: Famotidine (Pepcid) 20 mg PO BID [facility] Last Admin: 04/21/18 09:11 Dose: 20 mg Documented by: Glucose (Insta-Glucose) 15 gm PO PRN PRN PRN Reason: Hypoglycemia Heparin Sodium (Porcine) (Heparin) 5,000 unit SQ Q12 [facility] Last Admin: 04/21/18 09:10 Dose: 5,000 unit Documented by: Potassium Chloride 40 meq/ (Dextrose) 520 mls @ 130 mls/hr IV ONCE PRN PRN Reason: Potassium < 3 Magnesium Sulfate (Magnesium Sulfate) 2 gm in 50 mls @ 50 mls/hr IV ONCE PRN PRN Reason: Magnesium </= 1.6 Sodium Chloride (Sodium Chloride 0.9%) 250 mls @ 20 mls/hr IV .[id number] [facility] Last Admin: 04/21/18 14:31 Dose: Not Given Documented by: Insulin Human Lispro (Humalog) 0 unit SQ [facility]; Protocol Last Admin: 04/21/18 17:12 Dose: 2 unit Documented by: Lactulose (Cephulac) 10 gm PO DAILYP PRN PRN Reason: Constipation Lorazepam (Ativan) 1 mg PO DAILYP PRN PRN Reason: Anxiety Memantine (Namenda) 5 mg PO DAILY [facility] Last Admin: 04/21/18 09:11 Dose: 5 mg Documented by: Nicotine (Nicoderm) 14 mg TOPICAL DAILY@1000 [facility] Last Admin: 04/21/18 10:37 Dose: 14 mg Documented by: Ziprasidone Hcl [ (Geodon] 60 Mg Cap) 1 dose PO DAILY [facility] Last Admin: 04/21/18 09:10 Dose: 1 dose Documented by: Ondansetron HCl (Zofran) 4 mg IV Q4HP PRN PRN Reason: Nausea And Vomiting Oxycodone HCl (Roxicodone) 5 mg PO Q4-6HP PRN PRN Reason: PAIN LEVEL 3-6 Last Admin: 04/21/18 16:25 Dose: 5 mg Documented by: Polyethylene Glycol (Miralax) 17 gm PO DAILYP PRN PRN Reason: Constipation Potassium Chloride (Kdur) 40 meq PO ONCE PRN PRN Reason: Potssium is 3-3.5 Potassium Chloride (Kdur) 40 meq PO ONCE PRN PRN Reason: Potassium < 3 Prochlorperazine (Compazine) 10 mg PO Q6HP PRN PRN Reason: Nausea And Vomiting Prochlorperazine (Compazine) 10 mg IV Q6HP PRN PRN Reason: Nausea And Vomiting Senna (Senokot) 2 tab PO HSP PRN PRN Reason: Constipation Sodium Chloride (Saline Flush) 10 ml IV Q8 [facility] Last Admin: 04/21/18 16:26 Dose: 10 ml Documented by: Trazodone HCl (Desyrel) 50 mg PO QHS [facility] Last Admin: 04/20/18 21:41 Dose: 50 mg Documented by: - ABG Interpretation ABG results: 04/16/18 11:03 ABG Methemoglobin 0.3 L VBG pH 7.26 L VBG pCO2 38.0 L VBG pO2 57 H VBG HCO3 16.7 L VBG Total CO2 17.8 L VBG O2 Saturation 79.3 H VBG Base Excess -9.7 L Medical - PN: A/P - Time Spent With Patient Total time spent is greater than 50% in coordination of care (as documented) at patient's floor/unit and/or counseling patient: - Narrative A/P Narrative: A: *Rhabdomyolysis: improving *Hypernatremia/dehydration: resolved *Hypovolemic shock vs ?septic: levophed at low rate o/n and now off, no lactic acidosis, afebrile *Generalized weakness/fall out of bed/Deconditioning: improving *Leukocytosis: With the mildly elevated PCT (but his could be from rhabdo), afebrile, unable to immediately identify any obvious source of infection, -CXR/UA unrevealing -REsolved -BC/UC no growth *Anion gap metabolic acidosis: Secondary to Rhabdo/uremia/starvation ketosis. improving *Transaminitis/Fatty Liver/Hep C: Secondary to above + PMH and has seen GI in past regarding hep c *troponinemia, mild and trending down: no chest pain/ekg changes, 2/2 above, not sure why it was ordered initially *Dementia: *Depression: *Diabetes: *HTN: *Tobacco Abuse: *GERD: *h/o substance abuse *Hypokalemia P: -f/u CK, trend one more day -monitor electrolytes and replace -Empiric antibiotics, stoped - -SSI -pt/ot, CM for placement -ppx: heparin anticipate d/c home in AM Medical - PN: Qual - VTE Deep Vein Thrombosis/Pulmonary Embolism Present on Admission: No
[2018-04-21] MEDS: traZODone HCL 50 MG TABLET PO SCH (20:54)
[2018-04-21] MEDS: ATORVASTATIN 20 MG TABLET PO SCH (20:54)
[2018-04-22] MEDS: 0.9 % SODIUM CHLORIDE 250 ML IV SCH (01:04)
[2018-04-22] MEDS: oxyCODONE HCL 5 MG TABLET PO PRN ×3 (05:32→13:49)
[2018-04-22] MEDS: 0.9 % SODIUM CHLORIDE 10 ML SYRINGE IV SCH (05:33)
[2018-04-22 06:52] LABS: ALT/SGPT 90 U/l (0-40); Albumin 2.9 gm/dL (3.2-5.2); Albumin/Globulin Ratio 1.1 (1.0-2.3); Alkaline Phosphatase 84 U/L (39-117); Bilirubin,Direct < 0.2 mg/dL (0.0-0.3); Blood Urea Nitrogen 8 mg/dl (8-23); Gamma Glutamyl Transpeptidase 211 U/L (5-36); Uric Acid 3.9 mg/dL (2.5-8.0)
[2018-04-22 08:03] LABS: Basophils # (Auto) 0 K/mcL (0.0-0.3); Basophils % (Auto) 0.3 % (0.0-2.0); Eosinophils # (Auto) 0.2 K/mcL (0.0-0.7); Eosinophils % (Auto) 1.6 % (0.0-7.0); Granulocytes % (Auto) 51.3 % (38.0-78.0); Lymphocytes # (Auto) 2.6 K/mcL (1.5-4.8); Lymphocytes % (Auto) 26.7 % (15.5-49.0); Mean Cell Volume 93.5 fL (80.0-100.0); Mean Corpuscular HGB Conc 33.1 g/dL (31.0-36.0); Monocytes % (Auto) 20.1 % (1.0-12.0); Platelet Count 210 K/mcL (140-440); RBC 3.63 M/mcL (4.00-5.20); Red Cell Distribution Width 15.4 % (11.5-14.5)
[2018-04-22] MEDS: INSULIN LISPRO 1 UNIT/0.01 ML UNIT SQ SCH ×2 (08:03→11:53)
[2018-04-22] MEDS: DIVALPROEX 125 MG CAP.SPRINK PO SCH (09:20)
[2018-04-22] MEDS: MEMANTINE 10 MG TABLET PO SCH (09:20)
[2018-04-22] MEDS: FAMOTIDINE 20 MG TABLET PO SCH (09:20)
[2018-04-22] MEDS: amLODIPine 5 MG TABLET PO SCH (09:20)
[2018-04-22] MEDS: ZIPRASIDONE HCL 60 MG PO SCH (09:21)
[2018-04-22] MEDS: DULoxetine 30 MG CAPSULE PO SCH (09:21)
[2018-04-22] MEDS: HEPARIN 5,000 UNIT/ML VIAL SQ SCH (09:21)
[2018-04-22] MEDS: NICOTINE 14 MG PATCH TOPICAL SCH (09:22)
--- NOTE | 2018-04-22 12:07 | Discharge Summary ---
Medical - DS: Prov Patient information: Note initiated : 04/22/18 at 12:05 pm Service Date, if different from initiated Date: [] Patient: Chelsea Edwards 62 y/o F admitted on 04/16/18 for Fall Out Of Bed Yesterday Morning. Chief Complaint: [] Date of admission: 04/16/18 17:10 Discharge date: 04/22/18 Primary care physician: Manuel Philip Consults: 04/16/18 15:10 Consult to Physician [CONS] Stat Comment: Consulting Provider: Mauri Ladd Reason For Exam: Physician to Consult Discharging clinician: Minh Ramos Medical - DS: Meds - Discharge Medications Active and Home Medications: Home Medications blood-glucose meter See Dose Instructions .ROUTE .MEDSUPPLY 09/14/14 [History Confirmed 03/19/18 Last Taken Unknown] blood sugar diagnostic strips See Dose Instructions .ROUTE .MEDSUPPLY #100 each 04/28/15 [Rx Confirmed 03/19/18 Last Taken Unknown] trazodone 50 mg tablet 50 mg PO QHS #30 tab 03/21/17 [Rx Confirmed 04/16/18 Last Taken Unknown] omeprazole 40 mg capsule,delayed release 40 mg PO QAM #90 cap 05/03/17 [Rx Confirmed 04/16/18 Last Taken Unknown] memantine 10 mg tablet 10 mg PO BID #60 tab 05/23/17 [Rx Confirmed 04/16/18 Last Taken Unknown] divalproex 250 mg tablet,delayed release 250 mg PO BID #60 tab 05/27/17 [Rx Confirmed 04/16/18 Last Taken Unknown] sitagliptin 100 mg tablet 100 mg PO QDAY #90 tab 09/18/17 [Rx Confirmed 04/16/18 Last Taken Unknown] duloxetine 60 mg capsule,delayed release 60 mg PO QDAY #30 cap 10/24/17 [Rx Confirmed 04/16/18 Last Taken Unknown] amlodipine 5 mg tablet 5 mg PO QDAY #30 tab 12/31/17 [Rx Confirmed 04/16/18 Last Taken Unknown] lisinopril 20 mg tablet 20 mg PO QDAY #30 tab 01/06/18 [Rx Confirmed 04/16/18 Last Taken Unknown] Atorvastatin [Lipitor] 20 mg PO DAILY 04/16/18 [History Confirmed 04/16/18 Last Taken Unknown] LORazepam [Ativan] 1 mg PO DAILYP PRN 04/16/18 [History Confirmed 04/16/18 Last Taken Unknown] Pioglitazone HCl 45 mg PO QDAY 04/16/18 [History Confirmed 04/16/18 Last Taken Unknown] Ziprasidone HCl [Geodon] 60 mg PO DAILY 04/16/18 [History Confirmed 04/16/18 Last Taken Unknown] Medical - DS: Hosp Hospital course: Ms. Edwards is a 62 year old F Who presents to the ER secondary to severe weakness fall and pain. Patient reports that she was in her normal state of health when she went to bed several nights ago yesterday morning while getting out of bed at 6 she tripped and fell out of bed and landed on the floor. She had a back pain which is acute on chronic and other generalized pains and was unable to get up. Her health care worker came in around 8:00 and helped her into a chair and did some other care prior to leaving at 1030. Patient attempted to get up later in the day was unable to walk so she decided to call. She crawled to her bed and was unable to get up into her bed so she just remained on the floor and slept there that night. I different coworker found her this morning on the floor and found the house to be cold at 50 degrees. Patient is brought to the ED and found to be severely dehydrated with rhabdomyolysis. She had no chest pain coughing or shortness of breath no urinary tract infection symptoms. She felt weak and had pain back pain. She had x-ray of her C-spine and L-spine and T-spine which were all unremarkable. She had a CT brain which showed no acute but moderate atrophy is previously previously known. Chest x-ray was unremarkable. An EKG showed no acute concerning signs. Sodium was 154. And urinalysis showed ketones hyaline casts and glucose. Because her white blood cell count was 20,000 she was given some antibiotics in the ER as well as her pro-calcitonin was elevated. He was afebrile. She denies any recent illnesses no upper respiratory infections no coughing shortness of breath no abdominal pain she did have diarrhea yesterday but does not report any today. She is been a long-term in the past she has been seen by neurology in the past for dementia and pseudoseizures. She had a history of substance abuse last admitted in 2014 and noted at that time that she had used methamphetamine that year. But denies any recently. Patient is weak denies any fevers or chills. Her headache 04/17 Poor sleep because of interruptions, has occasional headache, tired, has mild stomachache this morning. Otherwise no complaints. No chest pain shortness of breath or coughing. On 5 mics per minute of Levophed. Blood pressure low 100s. 04/18 Sitting up in bed eating breakfast. Feeling better. Levophed been off since 645 this morning. Good urine output and blood pressure stable. No new complaints except for a little bit of nausea from time to time. 04/19 New complaints continues to feel improved. Good blood pressures and urinary output. She did well with physical therapy today walked around the unit. 04/20 Feeling stronger. Walked in condon today but still feels weak on her feet. No other new complaints or overnight events. 04/21 Patient seen examined, no acute overnight events. Feels strong wants to go home. CK is 1500, continue to monitor for now if continues to trend down will discharge home tomorrow. continue with rehab 04/22 Pt seen examined, not a candidate for SNF, doing well with PT, CK now less than 1000, pt able to tolerate po diet well will be discharged home with home health Discharge diagnosis: Rhabdomyolysis - Time Spent with Patient Total time spent providing and/or coordinating discharge services: Less than 30 minutes Medical - DS: Exam - Constitutional Vitals: Vital Signs Temp Pulse Resp BP Pulse Ox 04/22/18 08:00 99.7 F H 93 H 12 135/59 96 04/22/18 04:27 98.8 F 102 H 12 131/63 97 04/21/18 23:57 98.5 F 99 H 12 129/65 97 04/21/18 19:05 99.2 F H 102 H 12 133/62 96 04/21/18 15:18 97.9 F 94 H 18 131/72 96 Intake and Output 04/21/18 04/22/18 04/22/18 21:59 05:59 13:59 Intake Total 1680 150 Output Total 201 1 450 Balance 1479 149 -450 Intake: Oral 1680 150 Output: Void Amount 200 450 # of times incontinent of urine 1 1 Other: Meal Dinner Percent of Meal Consumed 100% Feeding Ability Independent Urine Appearance Clear Urine Color Pale Urine Odor Normal Stool Size Moderate Smear Moderate Stool Color Brown Stool Consistency Soft # Voids 1 1 2 # Bowel Movements 1 1 1 Weight 148 lb Additional comments: Constitutional; Afebrile, cooperative, alert, not in distress. Eyes- No icterus, , No periorbital swelling Ears- Ext ear normal, hearing normal to conversation. Neck- Midline trachea, supple Respiratory system: Air Entry equal on both sides, No crackles or wheezing, no rhonchi. CVS- Rate rhythm regular, S1,S2 heard, no gallop, no rub. Abdomen- Soft nontender abdomen, no organomegaly, no tenderness, no guarding or rigidity, TWISTER TENDER- AOOx3, moving all extremities, no gross focal deficit noted. Medical - DS: Data Labs on day of discharge: Labs from last 24 hours 04/22/18 04/22/18 04/22/18 05:20 05:20 05:20 WBC 9.7 RBC 3.63 L Hgb 11.3 L Hct 34.0 L MCV 93.5 MCH 31.0 MCHC 33.1 RDW 15.4 H Plt Count 210 MPV 8.9 Gran % 51.3 Lymph % (Auto) 26.7 [place] % (Auto) 20.1 H Eos % (Auto) 1.6 Baso % (Auto) 0.3 Gran # 5.0 Lymph # (Auto) 2.6 [place] # (Auto) 2.0 H Eos # (Auto) 0.2 Baso # (Auto) 0 Differential Comment Rare nrbcs on scan Sodium 142 Potassium 3.4 Chloride 102 Carbon Dioxide 26 Anion Gap 14.0 BUN 8 Creatinine 0.4 L GFR Calculation 110 Glucose 158 H Uric Acid 3.9 Calcium 8.7 Phosphorus 4.0 Magnesium 1.6 Total Bilirubin 0.3 Direct Bilirubin < 0.2 GGT 211 H AST 123 H ALT 90 H Alkaline Phosphatase 84 Lactate Dehydrogenase 382 H Total Creatine Kinase 975 H Total Protein 5.5 L Albumin 2.9 L Globulin 2.6 Albumin/Globulin Ratio 1.1 Triglycerides 154 H Medical - DS: A/P - Patient/Caregiver Discharge Instructions Activity: increase activity as tolerated Diet: Consistent Carbohydrate Additional Instructions: Wound Care: If wounds to elbows and knees do not continue to heal, call wound center at [phone] and make appt. No physician referral will be needed. Continue with Rehab / Home health Follow up with PCP in 1 week go to the ER if fever, chest magan, - Follow up Plan Follow up with: Manuel Philip MD [Primary Care Provider] - Disposition: Home Health Service Prognosis: Fair Rehab Potential: Fair I certify that the patient requires SNF services: No Overall status at discharge: patient is progressing back to baseline Medical - DS: Qual - VTE Deep Vein Thrombosis/Pulmonary Embolism Present on Admission: No
== END 2018-04-22 14:27 | disposition home health service (06) | DRG 557 ==
LOC: ED 09:30 → ICU 17:10 → MEDSUR 04-19 16:00
PROVIDERS: ADMIT Internal Medicine; ATTEND Internal Medicine

== ENCOUNTER 2018-04-24 13:04 | Inpatient (IN) ==
[2018-04-24] MEDS ORDERED: 0.9 % SODIUM CHLORIDE 1,000 ML IV ONE ×2 (13:18→13:37)
--- NOTE | 2018-04-24 13:43 | Emergency Department Note ---
Fall HPI - General Chief Complaint: Fall Stated Complaint: FALL Time Seen by Provider: 04/24/18 13:17 Source: patient, family, old records reviewed Mode of arrival: EMS Limitations: altered mental status - History of Present Illness HPI Narrative: Somnolent week 62-year-old female is brought in by EMS because she fell out of bed twice. Currently she had episode of large amount of bowel incontinence as well as possible bladder incontinence. This morning her caregiver found her on the floor and then when her caregiver left her [id number] found her again on the floor. There were feces smeared all over the bathroom as well as on her sheets etc. Low blood pressure 94/46. She has known chronic dementia as well as multiple other medical problems and has daily caregivers. Apparently she was in the hospital here from 04/15/2018 to 04/22/2018 for similar episode with complications of rhabdomyolysis - Related Data Home Medications Medication Instructions Recorded Confirmed blood-glucose meter See Dose Instructions .ROUTE 09/14/14 03/19/18 .MEDSUPPLY Atorvastatin [Lipitor] 20 mg PO DAILY 04/16/18 04/24/18 LORazepam [Ativan] 1 mg PO DAILYP PRN 04/16/18 04/24/18 Pioglitazone HCl 45 mg PO QDAY 04/16/18 04/24/18 Ziprasidone HCl [Geodon] 60 mg PO DAILY 04/16/18 04/24/18 Canagliflozin/Metformin HCl 1 each PO BID 04/24/18 04/24/18 [Invokamet 150-1,000 mg Tablet] Previous Rx's Medication Instructions Recorded blood sugar diagnostic strips See Dose Instructions .ROUTE 04/28/15 .MEDSUPPLY #100 each trazodone 50 mg tablet 50 mg PO QHS #30 tab 03/21/17 omeprazole 40 mg capsule,delayed 40 mg PO QAM #90 cap 05/03/17 release memantine 10 mg tablet 10 mg PO BID #60 tab 05/23/17 divalproex 250 mg tablet,delayed 250 mg PO BID #60 tab 05/27/17 release sitagliptin 100 mg tablet 100 mg PO QDAY #90 tab 09/18/17 duloxetine 60 mg capsule,delayed 60 mg PO QDAY #30 cap 10/24/17 release amlodipine 5 mg tablet 5 mg PO QDAY #30 tab 10/02/18 lisinopril 20 mg tablet 20 mg PO QDAY #30 tab 01/06/18 Allergies Allergy/AdvReac Type Severity Reaction Status Date / Time No Known Drug Allergies Allergy Verified 04/24/18 13:08 Review of Systems Limitations: ROS unobtainable due to patients medical condition Fall PMH - Past Medical History [facility] Narrative: Family History (Last Reviewed 12/21/16 @ 10:17 by Manuel Philip MD) Brother Primary malignant neoplasm of bone marrow, Onset Age: 56 Father Type 2 diabetes mellitus Grandmother (paternal) Family history of malignant neoplasm of breast Sister Hyperthyroidism Medical History (Last Reviewed 12/21/16 @ 10:17 by Maneul Philip MD) Cervical radiculopathy at C6 (Acute) Diabetes mellitus (Chronic) Encounter for Health Maintenance Examination in Adult (Chronic) Osteopenia (Chronic) Opioid type drug dependence (Chronic) Diabetes mellitus, type II (Chronic) Depressive disorder (Chronic) Chronic hepatitis C (Chronic) Past Surgical History (Last Updated 05/30/17 @ 10:25 by Selena Giraldo) History of colonoscopy (Chronic 05/23/17) History of left breast biopsy (Resolved) History of right breast biopsy (Resolved) History of tonsillectomy (Resolved) Medical history: Reports: DM, hyperlipidemia, hypertension, osteoporosis, other - Social History smoking status: Current every day smoker Physical Exam Patient is somnolent and globally weak. Not moving around much or really even answering questions except very short and direct ones. She is unable to give me much in the way of history or review of systems I have to continue to arouse her. She cannot even sit up so I can listen to her heart and lungs. She is normocephalic atraumatic. Conjunctive are clear sclerae nonicteric. No nasal discharge or congestion. Oropharynx is pink and moist. Neck is supple without lymphadenopathy or thyromegaly. Heart is regular rate and rhythm no murmur appreciated. Lungs are clear to auscultation bilaterally without wheezes rales rhonchi or respiratory distress. Abdomen soft nontender nondistended. No pedal edema. +2 radial pulse. Skin exam shows healing wounds on bilateral elbows and knees. None of them appear to be festering purulent or draining anything but there is certainly mildly edematous and erythematous Limitations: no limitations Course Vital Signs Temperature 98.0 F 04/24/18 13:05 Pulse Rate 97 H 04/24/18 13:05 Respiratory Rate 15 04/24/18 13:05 Blood Pressure 117/56 04/24/18 13:05 Pulse Oximetry (%) 98 04/24/18 13:05 Temperature 98.0 F 04/24/18 13:05 Pulse Rate 97 H 04/24/18 19:22 Respiratory Rate 20 04/24/18 19:22 Blood Pressure 122/51 04/24/18 19:16 Pulse Oximetry (%) 98 04/24/18 19:22 Fall - Lab Data Result diagrams: 04/24/18 13:20 04/24/18 13:20 Lab Results 04/24/18 04/24/18 04/24/18 Range/Units 13:20 13:20 13:20 WBC 13.6 H (4.5-11.0) K/mcL RBC 3.84 L (4.00-5.20) M/mcL Hgb 12.0 (12.0-15.0) g/dL Hct 36.2 (36.0-48.0) % MCV 94.3 (80.0-100.0) fL MCH 31.2 (26.0-34.0) pg MCHC 33.1 (31.0-36.0) g/dL RDW 15.3 H (11.5-14.5) % Plt Count 283 (140-440) K/mcL MPV 8.4 (7.4-10.4) fL Gran % 64.6 (38.0-78.0) % Lymph % (Auto) 18.7 (15.5-49.0) % [place] % (Auto) 15.6 H (1.0-12.0) % Eos % (Auto) 1.0 (0.0-7.0) % Baso % (Auto) 0.1 (0.0-2.0) % Gran # 8.8 H (1.8-8.0) K/mcL Lymph # (Auto) 2.5 (1.5-4.8) K/mcL [place] # (Auto) 2.1 H (0.1-0.9) K/mcL Eos # (Auto) 0.1 (0.0-0.7) K/mcL Baso # (Auto) 0 (0.0-0.3) K/mcL VBG Lactic Acid (0.5-2.0) mmol/L Sodium 142 (133-145) mmol/L Potassium 3.5 (3.3-5.1) mmol/L Chloride 102 (96-108) mmol/L Carbon Dioxide 25 (22-30) mmol/L Anion Gap 15.0 (8-16) BUN 8 (8-23) mg/dl Creatinine 0.7 (0.6-1.1) mg/dl GFR Calculation 92 Glucose 120 H (70-105) mg/dL Calcium 9.9 (8.6-10.4) mg/dl Magnesium 1.6 (1.6-2.5) mg/dL Total Bilirubin 0.3 (0.0-1.0) mg/dL AST 101 H (0-37) U/l ALT 95 H (0-40) U/l Alkaline Phosphatase 108 (39-117) U/L Ammonia Total Creatine Kinase 598 H (24-170) IU/L Total Protein 6.6 (5.9-8.4) gm/dL Albumin 3.6 (3.2-5.2) gm/dL Globulin 3.0 (2.2-3.7) gm/dL Albumin/Globulin Ratio 1.2 (1.0-2.3) Urine Color Urine Appearance Urine pH (5.0-9.0) Ur Specific [place] (1.000-1.035) Urine Protein (NEG) mg/dL Urine Glucose (UA) (NEG) mg/dL Urine Ketones (NEG) mg/dL Urine Occult Blood (<0.03) mg/dL Urine Nitrate (NEG) Urine Bilirubin (NEG) mg/dL Urine Urobilinogen (NEG) mg/dL Ur Leukocyte Esterase (NEG) /uL Urine RBC (0-1) /hpf Urine WBC (0-4) /hpf Ur Squamous Epith Cells (0-4) /hpf Urine Bacteria (0) /hpf Ur Culture Indicated? Urine Opiates Screen (NONDETECTED) Ur Oxycodone Screen (NONDETECTED) Urine Methadone Screen (NONDETECTED) Ur Barbiturates Screen (NONDETECTED) Ur Phencyclidine Scrn (NONDETECTED) Ur Amphetamines Screen (NONDETECTED) U Benzodiazepines Scrn (NONDETECTED) Urine Cocaine Screen (NONDETECTED) U Marijuana (THC) Screen (NONDETECTED) 04/24/18 04/24/18 04/24/18 Range/Units 13:20 14:04 14:48 WBC (4.5-11.0) K/mcL RBC (4.00-5.20) M/mcL Hgb (12.0-15.0) g/dL Hct (36.0-48.0) % MCV (80.0-100.0) fL MCH (26.0-34.0) pg MCHC (31.0-36.0) g/dL RDW (11.5-14.5) % Plt Count (140-440) K/mcL MPV (7.4-10.4) fL Gran % (38.0-78.0) % Lymph % (Auto) (15.5-49.0) % [place] % (Auto) (1.0-12.0) % Eos % (Auto) (0.0-7.0) % Baso % (Auto) (0.0-2.0) % Gran # (1.8-8.0) K/mcL Lymph # (Auto) (1.5-4.8) K/mcL [place] # (Auto) (0.1-0.9) K/mcL Eos # (Auto) (0.0-0.7) K/mcL Baso # (Auto) (0.0-0.3) K/mcL VBG Lactic Acid 2.8 H (0.5-2.0) mmol/L Sodium (133-145) mmol/L Potassium (3.3-5.1) mmol/L Chloride (96-108) mmol/L Carbon Dioxide (22-30) mmol/L Anion Gap (8-16) BUN (8-23) mg/dl Creatinine (0.6-1.1) mg/dl GFR Calculation Glucose (70-105) mg/dL Calcium (8.6-10.4) mg/dl Magnesium (1.6-2.5) mg/dL Total Bilirubin (0.0-1.0) mg/dL AST (0-37) U/l ALT (0-40) U/l Alkaline Phosphatase (39-117) U/L Ammonia TNP 27 Total Creatine Kinase (24-170) IU/L Total Protein (5.9-8.4) gm/dL Albumin (3.2-5.2) gm/dL Globulin (2.2-3.7) gm/dL Albumin/Globulin Ratio (1.0-2.3) Urine Color Urine Appearance Urine pH (5.0-9.0) Ur Specific [place] (1.000-1.035) Urine Protein (NEG) mg/dL Urine Glucose (UA) (NEG) mg/dL Urine Ketones (NEG) mg/dL Urine Occult Blood (<0.03) mg/dL Urine Nitrate (NEG) Urine Bilirubin (NEG) mg/dL Urine Urobilinogen (NEG) mg/dL Ur Leukocyte Esterase (NEG) /uL Urine RBC (0-1) /hpf Urine WBC (0-4) /hpf Ur Squamous Epith Cells (0-4) /hpf Urine Bacteria (0) /hpf Ur Culture Indicated? Urine Opiates Screen (NONDETECTED) Ur Oxycodone Screen (NONDETECTED) Urine Methadone Screen (NONDETECTED) Ur Barbiturates Screen (NONDETECTED) Ur Phencyclidine Scrn (NONDETECTED) Ur Amphetamines Screen (NONDETECTED) U Benzodiazepines Scrn (NONDETECTED) Urine Cocaine Screen (NONDETECTED) U Marijuana (THC) Screen (NONDETECTED) 04/24/18 04/24/18 Range/Units 15:05 15:05 WBC (4.5-11.0) K/mcL RBC (4.00-5.20) M/mcL Hgb (12.0-15.0) g/dL Hct (36.0-48.0) % MCV (80.0-100.0) fL MCH (26.0-34.0) pg MCHC (31.0-36.0) g/dL RDW (11.5-14.5) % Plt Count (140-440) K/mcL MPV (7.4-10.4) fL Gran % (38.0-78.0) % Lymph % (Auto) (15.5-49.0) % [place] % (Auto) (1.0-12.0) % Eos % (Auto) (0.0-7.0) % Baso % (Auto) (0.0-2.0) % Gran # (1.8-8.0) K/mcL Lymph # (Auto) (1.5-4.8) K/mcL [place] # (Auto) (0.1-0.9) K/mcL Eos # (Auto) (0.0-0.7) K/mcL Baso # (Auto) (0.0-0.3) K/mcL VBG Lactic Acid (0.5-2.0) mmol/L Sodium (133-145) mmol/L Potassium (3.3-5.1) mmol/L Chloride (96-108) mmol/L Carbon Dioxide (22-30) mmol/L Anion Gap (8-16) BUN (8-23) mg/dl Creatinine (0.6-1.1) mg/dl GFR Calculation Glucose (70-105) mg/dL Calcium (8.6-10.4) mg/dl Magnesium (1.6-2.5) mg/dL Total Bilirubin (0.0-1.0) mg/dL AST (0-37) U/l ALT (0-40) U/l Alkaline Phosphatase (39-117) U/L Ammonia Total Creatine Kinase (24-170) IU/L Total Protein (5.9-8.4) gm/dL Albumin (3.2-5.2) gm/dL Globulin (2.2-3.7) gm/dL Albumin/Globulin Ratio (1.0-2.3) Urine Color Straw Urine Appearance Hazy Urine pH 6.0 (5.0-9.0) Ur Specific [place] 1.013 (1.000-1.035) Urine Protein Neg (NEG) mg/dL Urine Glucose (UA) >=500 A (NEG) mg/dL Urine Ketones 5/tr A (NEG) mg/dL Urine Occult Blood Neg (<0.03) mg/dL Urine Nitrate Neg (NEG) Urine Bilirubin Neg (NEG) mg/dL Urine Urobilinogen Neg (NEG) mg/dL Ur Leukocyte Esterase Neg (NEG) /uL Urine RBC 2 H (0-1) /hpf Urine WBC 5 H (0-4) /hpf Ur Squamous Epith Cells < 1 (0-4) /hpf Urine Bacteria 0 (0) /hpf Ur Culture Indicated? Yes Urine Opiates Screen None detected (NONDETECTED) Ur Oxycodone Screen None detected (NONDETECTED) Urine Methadone Screen None detected (NONDETECTED) Ur Barbiturates Screen None detected (NONDETECTED) Ur Phencyclidine Scrn None detected (NONDETECTED) Ur Amphetamines Screen None detected (NONDETECTED) U Benzodiazepines Scrn None detected (NONDETECTED) Urine Cocaine Screen None detected (NONDETECTED) U Marijuana (THC) Screen None detected (NONDETECTED) Blood gas shows a pH of 7.45 PCO2 of 39 PO2 of 73 on room air - Radiology Data Radiology results reviewed: Yes I reviewed the patient's radiology results. Chest x-ray is read as normal. CT of the head shows no acute changes-no acute infarct Disposition Pt seen by [facility]/PA only: No Clinical Impression: Weakness Altered mental status Qualifiers: Altered mental status type: somnolence Qualified Code(s): R40.0 - Somnolence Fall at home Qualifiers: Encounter type: initial encounter Qualified Code(s): W19.XXXA - Unspecified fall, initial encounter UTI (urinary tract infection) Qualifiers: Urinary tract infection type: acute cystitis Hematuria presence: with hematuria Qualified Code(s): N30.01 - Acute cystitis with hematuria Summary: Workup ordered with laboratory CT of the head x-ray of the chest. Imaging is unremarkable Laboratory shows elevated white blood cell count and lactic acid. ABG was close to normal Rocephin was given for likely UTI on urinalysis On reevaluating the patient she was still generally weak. She does not know if she can go home and take care of herself. She has already fallen twice today. While her mentation improved her overall condition did not Discussed case with Dr. Mauri Ladd, he accepted patient for further care and evaluation in the hospital Disposition: Xfer As Inpt ([facility]) Condition: Fair Referrals: Manuel Philip MD [Primary Care Provider] -
[2018-04-24 13:59] LABS: Basophils # (Auto) 0 K/mcL (0.0-0.3); Basophils % (Auto) 0.1 % (0.0-2.0); Eosinophils # (Auto) 0.1 K/mcL (0.0-0.7); Granulocytes % (Auto) 64.6 % (38.0-78.0); Lymphocytes # (Auto) 2.5 K/mcL (1.5-4.8); Lymphocytes % (Auto) 18.7 % (15.5-49.0); Mean Cell Volume 94.3 fL (80.0-100.0); Mean Corpuscular HGB Conc 33.1 g/dL (31.0-36.0); Monocytes # (Auto) 2.1 K/mcL (0.1-0.9); Monocytes % (Auto) 15.6 % (1.0-12.0); Platelet Count 283 K/mcL (140-440); RBC 3.84 M/mcL (4.00-5.20); Red Cell Distribution Width 15.3 % (11.5-14.5)
--- NOTE | 2018-04-24 14:06 | XRay Report ---
HISTORY: Fell and chest injury FINDINGS: The lungs are clear and well expanded. There is no pneumothorax or pleural effusion. The heart size mediastinum and kyree are normal. No fracture is identified. There has been no significant change since 04/16/18. IMPRESSION: Normal chest Interpreted and Authenticated by: Mario Gaines 04/24/18
[2018-04-24 14:15] LABS: ALT/SGPT 95 U/l (0-40); Albumin 3.6 gm/dL (3.2-5.2); Albumin/Globulin Ratio 1.2 (1.0-2.3); Alkaline Phosphatase 108 U/L (39-117); Blood Urea Nitrogen 8 mg/dl (8-23)
[2018-04-24 15:47] LABS: Appearance,Urine HAZY; Bacteria,Urine 0 /hpf (0); Bilirubin,Urine NEG (NEG); Color,Urine STRAW; Glucose,Urine (UA) >=500 mg/dL (NEG); Leukocyte Esterase,Urine NEG /uL (NEG); Protein,Urine NEG (NEG); Specific Gravity,Urine 1.013 (1.000-1.035); Urine Blood NEG mg/dL (<0.03); Urine RBC 2 /hpf (0-1); Urine Squamous Epithelial Cell < 1 /hpf (0-4); Urine WBC 5 /hpf (0-4); Urobilinogen,Urine NEG (NEG)
[2018-04-24] MEDS ORDERED: cefTRIAXone 1 GM VIAL IV ONE (17:49)
[2018-04-24 19:10] LABS: Amphetamine Screen,Urine NONE DETECTED (NONDETECTED); Benzodiazepines Screen,Urine NONE DETECTED (NONDETECTED); Cocaine Screen,Urine NONE DETECTED (NONDETECTED); Opiate Screen,Urine NONE DETECTED (NONDETECTED); Oxycodone, Urine Screen NONE DETECTED (NONDETECTED)
--- NOTE | 2018-04-24 20:02 | Internal Med History&Physical ---
Medical - H&P: HPI Patient information: Note initiated : 04/24/18 at 7:57 pm Service Date, if different from initiated Date: [] Patient: Chelsea Edwards a 62 y/o F admitted on for fall. Chief Complaint: [] History of present illness: Ms. Edwards is a 62 year old F Who was recently admitted for generalized weakness inability to care for self falling out of bed with rhabdomyolysis and was subsequently discharged several days ago. She states she had been doing fine and that she was able to make herself or microwave dinners as usual and that she sleeps on the floor by her bed because her jenn-size bed is too high to get into. However the report given when she first arrived to the ED was that of her falling out of bed and also she was covered in urine and feces. The caregiver found her on the floor and thought she had fallen out of the bed and then later on her [id number] found her on the floor. There was feces in the bathroom. Blood pressure was 94/46 patient brought to the ED. In the ED workup included a CT brain and chest x-ray both unremarkable. She was seemed to be still quite somnolent and an ABG was ordered which had a normal pH normal CO2 oxygen which is little low 73. Labs were unimpressive except for a white blood cell count was little elevated at 13 and lactate was 2.8. By the time I saw the patient she was more awake and she was sitting in bed eating. When asked her how she was doing when she left she says as previously mentioned that she felt like she was doing fine but very tired still. And then reported that she slept on the floor by her bed purposefully. She denies any respiratory symptoms. No fevers or chills no chest pain or abdominal pain coughing or shortness of breath. Urinalysis with some ketones, only 5 WBCs and no nitrates or leukocyte esterase. She does report, however, to be having diarrhea, she says last episode was today. Review of Systems: Pertinent positives as above. Denies headache/fever/chills/nausea/vomiting/chest or abdominal pain/cough/dyspnea. Remaining 10 point review of system review negative Medical - H&P: PMH Medical history: Past medical history: Dementia, pseudoseizures, history of possible conversion disorder, diabetes, fatty liver and hepatitis C has followed with outpatient GI in the past, depression, history of substance abuse with methamphetamines 2015 last noted, hypertension, GERD, tobacco abuse Past surgical history: Tonsillectomy breast biopsy Family history: She does not no apparent medical history Social history: Patient smokes half pack per day denies alcohol use or drug use no methamphetamines past few years. She is been in a nursing facility in the past but has been most recently at home with caregivers daily. She states she is able to ambulate without the aid of a walker or a cane in her house. Medical - H&P: Meds Home Medications Medication Instructions Recorded Confirmed Type blood-glucose meter See Dose Instructions .ROUTE 09/14/14 03/19/18 History .MEDSUPPLY blood sugar diagnostic strips See Dose Instructions .ROUTE 04/28/15 03/19/18 Rx .MEDSUPPLY #100 each trazodone 50 mg tablet 50 mg PO QHS #30 tab 03/21/17 04/24/18 Rx omeprazole 40 mg capsule,delayed 40 mg PO QAM #90 cap 05/03/17 04/24/18 Rx release memantine 10 mg tablet 10 mg PO BID #60 tab 05/23/17 04/24/18 Rx divalproex 250 mg tablet,delayed 250 mg PO BID #60 tab 05/27/17 04/24/18 Rx release sitagliptin 100 mg tablet 100 mg PO QDAY #90 tab 09/18/17 04/24/18 Rx duloxetine 60 mg capsule,delayed 60 mg PO QDAY #30 cap 10/24/17 04/24/18 Rx release amlodipine 5 mg tablet 5 mg PO QDAY #30 tab 12/31/17 04/24/18 Rx lisinopril 20 mg tablet 20 mg PO QDAY #30 tab 01/06/18 04/24/18 Rx Atorvastatin [Lipitor] 20 mg PO DAILY 04/16/18 04/24/18 History LORazepam [Ativan] 1 mg PO DAILYP PRN 04/16/18 04/24/18 History Pioglitazone HCl 45 mg PO QDAY 04/16/18 04/24/18 History Ziprasidone HCl [Geodon] 60 mg PO DAILY 04/16/18 04/24/18 History Canagliflozin/Metformin HCl 1 each PO BID 04/24/18 04/24/18 History [Invokamet 150-1,000 mg Tablet] Allergies Allergy/AdvReac Type Severity Reaction Status Date / Time No Known Drug Allergies Allergy Verified 04/24/18 13:08 Medical - H&P: Exam - Constitutional Vitals: Temp Pulse Resp BP Pulse Ox 98.0 F 97 H 20 122/51 98 04/24/18 13:05 04/24/18 19:22 04/24/18 19:22 04/24/18 19:16 04/24/18 19:22 Exam: General: Alert, Awake, No acute Distress Eyes/N/T: EOMI, PEERL, DMM Head/Neck: neck supple, normocephalic atraumatic CV: RRR, No murmurs, normal s1/s2 Pulm: Clear b/l, no wheezing/rhonchi/rales Abd: soft, nontender, +BS x4 Ext: no clubbing/cyanosis, 2+ b/l LE edema Neuro: Alert, no focal deficits, moves all extremities, CN 2-12 grossly intact, symmetrical strength b/l upper/lower, sensations intact b/l upper/lower Skin: warm/dry Medical - H&P: Reslt - Labs CBC & Chem 7: 04/24/18 13:20 04/24/18 13:20 Labs: Short CBC 04/24/18 Range/Units 13:20 WBC 13.6 H (4.5-11.0) K/mcL Hgb 12.0 (12.0-15.0) g/dL Hct 36.2 (36.0-48.0) % Plt Count 283 (140-440) K/mcL BMP 04/24/18 13:20 Sodium 142 Potassium 3.5 Chloride 102 Carbon Dioxide 25 BUN 8 Creatinine 0.7 Glucose 120 H Calcium 9.9 Cardiac Enzymes 04/24/18 Range/Units 13:20 Total Creatine Kinase 598 H (24-170) IU/L Liver Function 04/24/18 Range/Units 13:20 Total Bilirubin 0.3 (0.0-1.0) mg/dL AST 101 H (0-37) U/l ALT 95 H (0-40) U/l Alkaline Phosphatase 108 (39-117) U/L Albumin 3.6 (3.2-5.2) gm/dL Urine 04/24/18 Range/Units 15:05 Urine Color Straw Urine Appearance Hazy Urine pH 6.0 (5.0-9.0) Ur Specific [place] 1.013 (1.000-1.035) Urine Protein Neg (NEG) mg/dL Urine Glucose (UA) >=500 A (NEG) mg/dL - Impressions Chest x-ray and CT brain unremarkable for acute pathology Medical - H&P: A/P - Narrative A/P Narrative: A: *AMS (decrease LOC), acute on chronic: -CT brain and ABG unremarkable *Diarrhea: *Generalized weakness//Deconditioning: *Elevated lactate: afebrile, UA/CXR unremarkable no source of infection found at this time *mild leukocytosis: ?reactive -see above *mild Transaminitis 2/2 to Fatty Liver/Hep C: Secondary to above + PMH and has seen GI in past regarding hep c -improved from last admit *Dementia: *Depression: *Diabetes: *HTN: *Tobacco Abuse: *GERD: *h/o substance abuse P: -IVF -f/u lactate -check PCT and BC -stool studies -SSI -pt/ot, CM for placement to SNF -ppx: [facility]
[2018-04-24] MEDS ORDERED: IPRATROPIUM/ALBUTEROL 3 ML AMPUL.NEB NEB PRN (21:26)
[2018-04-24] MEDS ORDERED: POTASSIUM CHLORIDE 40 MEQ in DEXTROSE 5% IN WATER 500 ML IV PRN (21:26)
[2018-04-24] MEDS ORDERED: MAGNESIUM SULFATE 2 GM/50 ML BAG IV PRN (21:26)
[2018-04-24] MEDS ORDERED: ONDANSETRON 4 MG/2 ML VIAL IV PRN (21:26)
[2018-04-24] MEDS ORDERED: PROCHLORPERAZINE 10 MG/2 ML VIAL IV PRN (21:26)
[2018-04-24] MEDS ORDERED: POTASSIUM CHLORIDE 20 MEQ TABLET PO PRN ×2 (21:26)
[2018-04-24 22:11] LABS: Eosinophils % (Manual) 2 % (0-7); Lymphocytes % 20 % (15-49); Monocytes % (Manual) 11 % (1-12); Platelet Estimate NORMAL (NORMAL); RBC Morphology ABNORM (NORMAL); Segmented Neutrophils % 67 % (38-78)
[2018-04-24] MEDS: ACETAMINOPHEN 325 MG TABLET PO PRN (22:51)
[2018-04-24] MEDS: FAMOTIDINE 20 MG TABLET PO SCH (22:52)
[2018-04-24] MEDS: LORazepam 1 MG TABLET PO PRN (22:52)
[2018-04-24] MEDS: MEMANTINE 10 MG TABLET PO SCH (22:52)
[2018-04-24] MEDS: 0.9 % SODIUM CHLORIDE 10 ML SYRINGE IV SCH (22:54)
[2018-04-25 06:40] LABS: Basophils # (Auto) 0 K/mcL (0.0-0.3); Basophils % (Auto) 0.4 % (0.0-2.0); Eosinophils # (Auto) 0.1 K/mcL (0.0-0.7); Granulocytes % (Auto) 61.1 % (38.0-78.0); Lymphocytes # (Auto) 2.2 K/mcL (1.5-4.8); Lymphocytes % (Auto) 21.3 % (15.5-49.0); Mean Cell Volume 95.4 fL (80.0-100.0); Mean Corpuscular HGB Conc 32.8 g/dL (31.0-36.0); Monocytes # (Auto) 1.6 K/mcL (0.1-0.9); Monocytes % (Auto) 16.2 % (1.0-12.0); Platelet Count 263 K/mcL (140-440); RBC 3.55 M/mcL (4.00-5.20); Red Cell Distribution Width 15.4 % (11.5-14.5)
[2018-04-25 07:01] LABS: ALT/SGPT 71 U/l (0-40); Albumin/Globulin Ratio 1.2 (1.0-2.3); Alkaline Phosphatase 105 U/L (39-117); Bilirubin,Direct < 0.2 mg/dL (0.0-0.3); Blood Urea Nitrogen 8 mg/dl (8-23); Gamma Glutamyl Transpeptidase 226 U/L (5-36); Uric Acid 5.1 mg/dL (2.5-8.0)
[2018-04-25] MEDS ORDERED: LOPERAMIDE 2 MG CAPSULE PO PRN (08:15)
--- NOTE | 2018-04-25 08:17 | Internal Med Progress Note ---
Medical - PN: Subj Patient information: Note initiated : 04/25/18 at 8:13 am Service Date, if different from initiated Date: [] Patient: Chelsea Edwards 62 y/o F admitted on 04/24/18 for fall. Chief Complaint: [] Interval history: Ms. Edwards is a 62 year old F Who was recently admitted for generalized weakness inability to care for self falling out of bed with rhabdomyolysis and was subsequently discharged several days ago. She states she had been doing fine and that she was able to make herself or microwave dinners as usual and that she sleeps on the floor by her bed because her jenn-size bed is too high to get into. However the report given when she first arrived to the ED was that of her falling out of bed and also she was covered in urine and feces. The caregiver found her on the floor and thought she had fallen out of the bed and then later on her [id number] found her on the floor. There was feces in the bathroom. Blood pressure was 94/46 patient brought to the ED. In the ED workup included a CT brain and chest x-ray both unremarkable. She was seemed to be still quite somnolent and an ABG was ordered which had a normal pH normal CO2 oxygen which is little low 73. Labs were unimpressive except for a white blood cell count was little elevated at 13 and lactate was 2.8. By the time I saw the patient she was more awake and she was sitting in bed eating. When asked her how she was doing when she left she says as previously mentioned that she felt like she was doing fine but very tired still. And then reported that she slept on the floor by her bed purposefully. She denies any respiratory symptoms. No fevers or chills no chest pain or abdominal pain coughing or shortness of breath. Urinalysis with some ketones, only 5 WBCs and no nitrates or leukocyte esterase. She does report, however, to be having diarrhea, she says last episode was today. 04/25 Left okay, no overnight events. No reports of diarrhea overnight. Review of Systems: denies headache/fever/chills/nausea/vomiting/chest or abdominal pain/cough/dyspnea. Otherwise see above. - Constitutional Vitals: Vital Signs Temp Pulse Resp BP Pulse Ox 97.6 F 106 H 18 116/60 96 04/25/18 06:47 04/25/18 04:00 04/25/18 06:47 04/25/18 06:47 04/25/18 06:47 Period Temp Pulse Resp BP Sys/Farris Pulse Ox Last 24 Hr 97.4 F-98.8 F 16-108 15-20 94-136/39-93 92-100 Intake and Output 04/24/18 04/25/18 04/25/18 21:59 05:59 13:59 Intake Total 1700 100 Output Total 875 Balance 1700 -775 Weight 63.503 kg Intake & Output: Intake & Output 04/24/18 04/25/18 04/25/18 21:59 05:59 13:59 Intake Total 1700 100 Output Total 875 Balance 1700 -775 Weight 63.503 kg Intake: IV 1700 Sodium Chloride 0.9% 1,000 ml @ 1700 Wide Open IV BOLUS ONE Rx#: [id number] Oral 100 Output: Urine Catheter Amount 875 Other: Urine Appearance [place] ([place]) Clear Urine Color Uretheral ([place]) Bright Yellow Exam: General: Alert, Awake, No acute Distress Eyes/N/T: EOMI, Head/Neck: neck supple, CV: RRR, No murmurs, Pulm: Clear b/l, no wheezing/rhonchi/rales Abd: soft, nontender, +BS x4 Ext: no clubbing/cyanosis, 2+ b/l LE edema Neuro: Alert, no focal deficits, moves all extremities, Skin: warm/dry Medical - PN: Obj Da - Labs CBC & Chem 7: 04/25/18 04:20 04/25/18 04:20 Labs: Abnormal Lab Results 04/25/18 04/25/18 04/24/18 04:20 04:20 20:36 WBC RBC 3.55 L Hgb 11.1 L Hct 33.9 L RDW 15.4 H [place] % (Auto) 16.2 H Gran # [place] # (Auto) 1.6 H RBC Morphology Polychromasia VBG Lactic Acid 2.6 H Glucose 143 H GGT 226 H AST 64 H ALT 71 H Lactate Dehydrogenase 327 H Total Creatine Kinase Total Protein 5.6 L Albumin 3.0 L Triglycerides 165 H Urine Glucose (UA) Urine Ketones Urine RBC Urine WBC 01/04/24/18 04/24/18 20:36 15:05 13:20 WBC RBC Hgb Hct RDW [place] % (Auto) Gran # [place] # (Auto) RBC Morphology Abnorm A Polychromasia 1+ A VBG Lactic Acid 2.8 H Glucose GGT AST ALT Lactate Dehydrogenase Total Creatine Kinase Total Protein Albumin Triglycerides Urine Glucose (UA) >=500 A Urine Ketones 5/tr A Urine RBC 2 H Urine WBC 5 H 04/24/18 04/24/18 04/24/18 13:20 13:20 13:20 WBC 13.6 H RBC 3.84 L Hgb Hct RDW 15.3 H [place] % (Auto) 15.6 H Gran # 8.8 H [place] # (Auto) 2.1 H RBC Morphology Polychromasia VBG Lactic Acid Glucose 120 H GGT AST 101 H ALT 95 H Lactate Dehydrogenase Total Creatine Kinase 598 H Total Protein Albumin Triglycerides Urine Glucose (UA) Urine Ketones Urine RBC Urine WBC Meds: Medications Acetaminophen (Tylenol) 650 mg PO Q8HP PRN PRN Reason: PAIN/FEVER > 101 Last Admin: 04/24/18 22:51 Dose: 650 mg Documented by: Albuterol/Ipratropium (Duoneb) 3 ml NEB Q4HP PRN PRN Reason: Shortness Of Breath Amlodipine Besylate (Norvasc) 5 mg PO QDAY [facility] Atorvastatin Calcium (Lipitor) 20 mg PO DAILY [facility] Divalproex Sodium (Depakote Sprinkles) 250 mg PO BID [facility] Duloxetine HCl (Cymbalta) 60 mg PO DAILY [facility] Enoxaparin Sodium (Lovenox) 40 mg SQ DAILY [facility] Famotidine (Pepcid) 20 mg PO BID [facility] Last Admin: 04/24/18 22:52 Dose: 20 mg Documented by: Potassium Chloride 40 meq/ (Dextrose) 520 mls @ 130 mls/hr IV ONCE PRN PRN Reason: Potassium < 3 Magnesium Sulfate (Magnesium Sulfate) 2 gm in 50 mls @ 50 mls/hr IV ONCE PRN PRN Reason: Magnesium </= 1.6 Lisinopril (Zestril) 20 mg PO QDAY [facility] Lorazepam (Ativan) 1 mg PO DAILYP PRN PRN Reason: Anxiety Last Admin: 04/24/18 22:52 Dose: 1 mg Documented by: Memantine (Namenda) 10 mg PO BID [facility] Last Admin: 04/24/18 22:52 Dose: 10 mg Documented by: Ziprasidone Hcl [ (Geodon] 60 Mg Cap) 60 mg PO DAILY [facility] Ondansetron HCl (Zofran) 4 mg IV Q4HP PRN PRN Reason: Nausea And Vomiting Potassium Chloride (Kdur) 40 meq PO ONCE PRN PRN Reason: Potssium is 3-3.5 Potassium Chloride (Kdur) 40 meq PO ONCE PRN PRN Reason: Potassium < 3 Prochlorperazine (Compazine) 10 mg IV Q6HP PRN PRN Reason: Nausea And Vomiting Sodium Chloride (Saline Flush) 10 ml IV Q8 [facility] Last Admin: 04/24/18 22:54 Dose: 10 ml Documented by: Trazodone HCl (Desyrel) 50 mg PO QHS [facility] Medical - PN: A/P - Time Spent With Patient Total time spent is greater than 50% in coordination of care (as documented) at patient's floor/unit and/or counseling patient: - Narrative A/P Narrative: A: *AMS (decrease LOC), acute on chronic: improved -CT brain and ABG unremarkable -UDS neg *Diarrhea: c. diff neg, no fecal WBC *Generalized weakness//Deconditioning: *Elevated lactate: afebrile, UA/CXR unremarkable no source of infection found at this time *mild leukocytosis: ?reactive -see above -Resolved *mild Transaminitis 2/2 to Fatty Liver/Hep C: Secondary to above + PMH and has seen GI in past regarding hep c -improved from last admit *Dementia: *Depression: *Diabetes: *HTN: *Tobacco Abuse: *GERD: *h/o substance abuse P: -IVF -f/u lactate -pending final stool studies -imodium -SSI -pt/ot -CM for placement to SNF -ppx: [facility] Medical - PN: Qual - Stroke Symptom Onset Unknown: No - VTE Deep Vein Thrombosis/Pulmonary Embolism Present on Admission: No
[2018-04-25] MEDS: 0.9 % SODIUM CHLORIDE 10 ML SYRINGE IV SCH ×3 (09:13→21:08)
[2018-04-25] MEDS: ZIPRASIDONE HCL 60 MG PO SCH (09:13)
[2018-04-25] MEDS: ATORVASTATIN 20 MG TABLET PO SCH (09:14)
[2018-04-25] MEDS: ENOXAPARIN 40 MG/0.4 ML SYRINGE SQ SCH (09:14)
[2018-04-25] MEDS: MEMANTINE 10 MG TABLET PO SCH ×2 (09:14→21:08)
[2018-04-25] MEDS: FAMOTIDINE 20 MG TABLET PO SCH ×2 (09:14→21:08)
[2018-04-25] MEDS: LISINOPRIL 20 MG TABLET PO SCH (09:14)
[2018-04-25] MEDS: DIVALPROEX 125 MG CAP.SPRINK PO SCH ×2 (09:14→21:08)
[2018-04-25] MEDS: DULoxetine 30 MG CAPSULE PO SCH (09:14)
[2018-04-25] MEDS: amLODIPine 5 MG TABLET PO SCH (09:14)
[2018-04-25] MEDS: ACETAMINOPHEN 325 MG TABLET PO PRN ×2 (10:04→17:46)
[2018-04-25] MEDS: traZODone HCL 50 MG TABLET PO SCH (21:07)
[2018-04-26] MEDS: ACETAMINOPHEN 325 MG TABLET PO PRN ×2 (06:49→21:30)
--- NOTE | 2018-04-26 08:00 | Internal Med Progress Note ---
Medical - PN: Subj Patient information: Note initiated : 04/26/18 at 7:56 am Service Date, if different from initiated Date: [] Patient: Chelsea Edwards 62 y/o F admitted on 04/24/18 for fall. Chief Complaint: [] Interval history: Ms. Edwards is a 62 year old F Who was recently admitted for generalized weakness inability to care for self falling out of bed with rhabdomyolysis and was subsequently discharged several days ago. She states she had been doing fine and that she was able to make herself or microwave dinners as usual and that she sleeps on the floor by her bed because her jenn-size bed is too high to get into. However the report given when she first arrived to the ED was that of her falling out of bed and also she was covered in urine and feces. The caregiver found her on the floor and thought she had fallen out of the bed and then later on her [id number] found her on the floor. There was feces in the bathroom. Blood pressure was 94/46 patient brought to the ED. In the ED workup included a CT brain and chest x-ray both unremarkable. She was seemed to be still quite somnolent and an ABG was ordered which had a normal pH normal CO2 oxygen which is little low 73. Labs were unimpressive except for a white blood cell count was little elevated at 13 and lactate was 2.8. By the time I saw the patient she was more awake and she was sitting in bed eating. When asked her how she was doing when she left she says as previously mentioned that she felt like she was doing fine but very tired still. And then reported that she slept on the floor by her bed purposefully. She denies any respiratory symptoms. No fevers or chills no chest pain or abdominal pain coughing or shortness of breath. Urinalysis with some ketones, only 5 WBCs and no nitrates or leukocyte esterase. She does report, however, to be having diarrhea, she says last episode was today. 04/25 Left okay, no overnight events. No reports of diarrhea overnight. 04/26 Slept well and denies diarrhea last night, feeling better. Good appetite this morning. Review of Systems: denies headache/fever/chills/nausea/vomiting/chest or abdominal pain/cough/dyspnea. Otherwise see above. - Constitutional Vitals: Vital Signs Temp Pulse Resp BP Pulse Ox 98.1 F 92 H 16 121/61 94 04/26/18 07:44 04/26/18 04:00 04/26/18 07:44 04/26/18 07:44 04/26/18 07:44 Period Temp Pulse Resp BP Sys/Farris Pulse Ox Last 24 Hr 98.0 F-99.3 F 60-97 12-18 107-132/50-64 94-96 Intake and Output 04/25/18 04/26/18 04/26/18 21:59 05:59 13:59 Intake Total 1630 600 Output Total 1525 500 Balance 105 100 Weight 63.957 kg Intake & Output: Intake & Output 04/25/18 04/26/18 04/26/18 21:59 05:59 13:59 Intake Total 1630 600 Output Total 1525 500 Balance 105 100 Weight 63.957 kg Intake: Oral 1630 600 Output: Urine Catheter Amount 1275 Void Amount 250 500 Other: Meal Dinner Percent of Meal Consumed 100% Feeding Ability Independent Urine Appearance Clear Urine Color Light Michelle Urine Odor Normal Stool Size Small Stool Color Brown Stool Consistency Loose # Voids 1 # Bowel Movements 1 Exam: General: Alert, Awake, No acute Distress Eyes/N/T: EOMI, Head/Neck: neck supple, CV: RRR, No murmurs, Pulm: Clear b/l, no wheezing/rhonchi/rales Abd: soft, nontender, +BS x4 Ext: no clubbing/cyanosis, 1-2+ b/l LE edema Neuro: Alert, no focal deficits, moves all extremities, Skin: warm/dry Medical - PN: Obj Da - Labs CBC & Chem 7: 04/25/18 04:20 04/25/18 04:20 Labs: Abnormal Lab Results 04/25/18 04/25/18 04/25/18 08:35 04:20 04:20 WBC RBC 3.55 L Hgb 11.1 L Hct 33.9 L RDW 15.4 H [place] % (Auto) 16.2 H Gran # [place] # (Auto) 1.6 H RBC Morphology Polychromasia VBG Lactic Acid 2.3 H Glucose 143 H GGT 226 H AST 64 H ALT 71 H Lactate Dehydrogenase 327 H Total Creatine Kinase Total Protein 5.6 L Albumin 3.0 L Triglycerides 165 H Urine Glucose (UA) Urine Ketones Urine RBC Urine WBC 04/24/18 04/24/18 04/24/18 20:36 20:36 15:05 WBC RBC Hgb Hct RDW [place] % (Auto) Gran # [place] # (Auto) RBC Morphology Abnorm A Polychromasia 1+ A VBG Lactic Acid 2.6 H Glucose GGT AST ALT Lactate Dehydrogenase Total Creatine Kinase Total Protein Albumin Triglycerides Urine Glucose (UA) >=500 A Urine Ketones 5/tr A Urine RBC 2 H Urine WBC 5 H 04/24/18 04/24/18 04/24/18 13:20 13:20 13:20 WBC RBC Hgb Hct RDW [place] % (Auto) Gran # [place] # (Auto) RBC Morphology Polychromasia VBG Lactic Acid 2.8 H Glucose 120 H GGT AST 101 H ALT 95 H Lactate Dehydrogenase Total Creatine Kinase 598 H Total Protein Albumin Triglycerides Urine Glucose (UA) Urine Ketones Urine RBC Urine WBC 04/24/18 13:20 WBC 13.6 H RBC 3.84 L Hgb Hct RDW 15.3 H [place] % (Auto) 15.6 H Gran # 8.8 H [place] # (Auto) 2.1 H RBC Morphology Polychromasia VBG Lactic Acid Glucose GGT AST ALT Lactate Dehydrogenase Total Creatine Kinase Total Protein Albumin Triglycerides Urine Glucose (UA) Urine Ketones Urine RBC Urine WBC Meds: Medications Acetaminophen (Tylenol) 650 mg PO Q8HP PRN PRN Reason: PAIN/FEVER > 101 Last Admin: 04/26/18 06:49 Dose: 650 mg Documented by: Albuterol/Ipratropium (Duoneb) 3 ml NEB Q4HP PRN PRN Reason: Shortness Of Breath Amlodipine Besylate (Norvasc) 5 mg PO QDAY [facility] Last Admin: 04/25/18 09:14 Dose: 5 mg Documented by: Atorvastatin Calcium (Lipitor) 20 mg PO DAILY [facility] Last Admin: 04/25/18 09:14 Dose: 20 mg Documented by: Divalproex Sodium (Depakote Sprinkles) 250 mg PO BID [facility] Last Admin: 04/25/18 21:08 Dose: 250 mg Documented by: Duloxetine HCl (Cymbalta) 60 mg PO DAILY [facility] Last Admin: 04/25/18 09:14 Dose: 60 mg Documented by: Enoxaparin Sodium (Lovenox) 40 mg SQ DAILY [facility] Last Admin: 04/25/18 09:14 Dose: 40 mg Documented by: Famotidine (Pepcid) 20 mg PO BID [facility] Last Admin: 04/25/18 21:08 Dose: 20 mg Documented by: Potassium Chloride 40 meq/ (Dextrose) 520 mls @ 130 mls/hr IV ONCE PRN PRN Reason: Potassium < 3 Magnesium Sulfate (Magnesium Sulfate) 2 gm in 50 mls @ 50 mls/hr IV ONCE PRN PRN Reason: Magnesium </= 1.6 Lisinopril (Zestril) 20 mg PO QDAY [facility] Last Admin: 04/25/18 09:14 Dose: 20 mg Documented by: Loperamide HCl (Imodium) 2 mg PO PRN PRN PRN Reason: Diarrhea Last Admin: 04/25/18 10:29 Dose: 2 mg Documented by: Lorazepam (Ativan) 1 mg PO DAILYP PRN PRN Reason: Anxiety Last Admin: 04/24/18 22:52 Dose: 1 mg Documented by: Memantine (Namenda) 10 mg PO BID [facility] Last Admin: 04/25/18 21:08 Dose: 10 mg Documented by: Ziprasidone Hcl [ (Geodon] 60 Mg Cap) 60 mg PO DAILY [facility] Last Admin: 04/25/18 09:13 Dose: 60 mg Documented by: Ondansetron HCl (Zofran) 4 mg IV Q4HP PRN PRN Reason: Nausea And Vomiting Potassium Chloride (Kdur) 40 meq PO ONCE PRN PRN Reason: Potssium is 3-3.5 Potassium Chloride (Kdur) 40 meq PO ONCE PRN PRN Reason: Potassium < 3 Prochlorperazine (Compazine) 10 mg IV Q6HP PRN PRN Reason: Nausea And Vomiting Sodium Chloride (Saline Flush) 10 ml IV Q8 [facility] Last Admin: 04/25/18 21:08 Dose: 10 ml Documented by: Trazodone HCl (Desyrel) 50 mg PO QHS [facility] Last Admin: 04/25/18 21:07 Dose: 50 mg Documented by: Medical - PN: A/P - Time Spent With Patient Total time spent is greater than 50% in coordination of care (as documented) at patient's floor/unit and/or counseling patient: - Narrative A/P Narrative: A: *AMS (decrease LOC), acute on chronic: improved -CT brain and ABG unremarkable -UDS neg *Diarrhea: c. diff neg, no fecal WBC *Generalized weakness//Deconditioning: *Elevated lactate: afebrile, UA/CXR unremarkable no source of infection found at this time. REsolved *mild leukocytosis: ?reactive, no source of infection unless viral gastroenteritis culprit -see above -Resolved *mild Transaminitis 2/2 to Fatty Liver/Hep C: Secondary to above + PMH and has seen GI in past regarding hep c -improved from last admit *Dementia: *Depression: *Diabetes: *HTN: home ACEI/CCB *Tobacco Abuse: *GERD: *h/o substance abuse P: - -pending final stool studies -[facility] -SSI -pt/ot -CM for placement to SNF -ppx: [facility] Medical - PN: Qual - Stroke Symptom Onset Unknown: No - VTE Deep Vein Thrombosis/Pulmonary Embolism Present on Admission: No
[2018-04-26] MEDS: ZIPRASIDONE HCL 60 MG PO SCH (10:14)
[2018-04-26] MEDS: DULoxetine 30 MG CAPSULE PO SCH (10:14)
[2018-04-26] MEDS: ATORVASTATIN 20 MG TABLET PO SCH (10:15)
[2018-04-26] MEDS: ENOXAPARIN 40 MG/0.4 ML SYRINGE SQ SCH (10:15)
[2018-04-26] MEDS: DIVALPROEX 125 MG CAP.SPRINK PO SCH ×2 (10:15→21:31)
[2018-04-26] MEDS: amLODIPine 5 MG TABLET PO SCH (10:15)
[2018-04-26] MEDS: MEMANTINE 10 MG TABLET PO SCH ×2 (10:15→21:31)
[2018-04-26] MEDS: LISINOPRIL 20 MG TABLET PO SCH (10:15)
[2018-04-26] MEDS: 0.9 % SODIUM CHLORIDE 10 ML SYRINGE IV SCH ×3 (10:26→21:37)
[2018-04-26] MEDS: FAMOTIDINE 20 MG TABLET PO SCH ×2 (10:26→21:31)
[2018-04-26] MEDS: INSULIN LISPRO 1 UNIT/0.01 ML UNIT SQ SCH (21:29)
[2018-04-26] MEDS: traZODone HCL 50 MG TABLET PO SCH (21:31)
--- NOTE | 2018-04-27 07:58 | Internal Med Progress Note ---
Medical - PN: Subj Patient information: Note initiated : 04/27/18 at 7:56 am Service Date, if different from initiated Date: [] Patient: Chelsea Edwards 62 y/o F admitted on 04/24/18 for fall. Chief Complaint: [] Interval history: Ms. Edwards is a 62 year old F Who was recently admitted for generalized weakness inability to care for self falling out of bed with rhabdomyolysis and was subsequently discharged several days ago. She states she had been doing fine and that she was able to make herself or microwave dinners as usual and that she sleeps on the floor by her bed because her jenn-size bed is too high to get into. However the report given when she first arrived to the ED was that of her falling out of bed and also she was covered in urine and feces. The caregiver found her on the floor and thought she had fallen out of the bed and then later on her [id number] found her on the floor. There was feces in the bathroom. Blood pressure was 94/46 patient brought to the ED. In the ED workup included a CT brain and chest x-ray both unremarkable. She was seemed to be still quite somnolent and an ABG was ordered which had a normal pH normal CO2 oxygen which is little low 73. Labs were unimpressive except for a white blood cell count was little elevated at 13 and lactate was 2.8. By the time I saw the patient she was more awake and she was sitting in bed eating. When asked her how she was doing when she left she says as previously mentioned that she felt like she was doing fine but very tired still. And then reported that she slept on the floor by her bed purposefully. She denies any respiratory symptoms. No fevers or chills no chest pain or abdominal pain coughing or shortness of breath. Urinalysis with some ketones, only 5 WBCs and no nitrates or leukocyte esterase. She does report, however, to be having diarrhea, she says last episode was today. 04/25 Left okay, no overnight events. No reports of diarrhea overnight. 04/26 Slept well and denies diarrhea last night, feeling better. Good appetite this morning. 04/27 States has headache this morning. Otherwise improving regarding weakness. She said she had diarrhea this morning, nurses notes report formed stool this morning. Review of Systems: denies fever/chills/nausea/vomiting/chest or abdominal pain/cough/dyspnea. Otherwise see above. - Constitutional Vitals: Vital Signs Temp Pulse Resp BP Pulse Ox 98.1 F 89 20 128/68 98 04/27/18 07:22 04/27/18 04:00 04/27/18 07:22 04/27/18 07:22 04/27/18 07:22 Period Temp Pulse Resp BP Sys/Farris Pulse Ox Last 24 Hr 98.0 F-98.6 F 84-89 14-20 123-135/61-70 94-98 Intake and Output 04/26/18 04/27/18 04/27/18 21:59 05:59 13:59 Intake Total 1600 Output Total 0 Balance 0 1600 Weight 63.276 kg Intake & Output: Intake & Output 04/26/18 04/27/18 04/27/18 21:59 05:59 13:59 Intake Total 1600 Output Total 0 Balance 0 1600 Weight 63.276 kg Intake: Oral 1600 Output: # of times incontinent of urine 0 Other: Urine Appearance Clear Urine Color Pale Straw Urine Odor Normal # Voids 1 1 1 Exam: General: Alert, Awake, No acute Distress Eyes/N/T: EOMI, Head/Neck: neck supple, CV: RRR, No murmurs, Pulm: Clear b/l, no wheezing/rhonchi/rales Abd: soft, nontender, +BS x4 Ext: no clubbing/cyanosis, 1-2+ b/l LE edema Neuro: Alert, no focal deficits, moves all extremities, Skin: warm/dry Medical - PN: Obj Da - Labs CBC & Chem 7: 04/25/18 04:20 04/25/18 04:20 Labs: Abnormal Lab Results 04/25/18 04/25/18 04/25/18 08:35 04:20 04:20 WBC RBC 3.55 L Hgb 11.1 L Hct 33.9 L RDW 15.4 H Atlantic % (Auto) 16.2 H Gran # [place] # (Auto) 1.6 H RBC Morphology Polychromasia VBG Lactic Acid 2.3 H Glucose 143 H GGT 226 H AST 64 H ALT 71 H Lactate Dehydrogenase 327 H Total Creatine Kinase Total Protein 5.6 L Albumin 3.0 L Triglycerides 165 H Urine Glucose (UA) Urine Ketones Urine RBC Urine WBC 04/24/18 04/24/18 04/24/18 20:36 20:36 15:05 WBC RBC Hgb Hct RDW [place] % (Auto) Gran # [place] # (Auto) RBC Morphology Abnorm A Polychromasia 1+ A VBG Lactic Acid 2.6 H Glucose GGT AST ALT Lactate Dehydrogenase Total Creatine Kinase Total Protein Albumin Triglycerides Urine Glucose (UA) >=500 A Urine Ketones 5/tr A Urine RBC 2 H Urine WBC 5 H 04/24/18 04/24/18 04/24/18 13:20 13:20 13:20 WBC RBC Hgb Hct RDW [place] % (Auto) Gran # [place] # (Auto) RBC Morphology Polychromasia VBG Lactic Acid 2.8 H Glucose 120 H GGT AST 101 H ALT 95 H Lactate Dehydrogenase Total Creatine Kinase 598 H Total Protein Albumin Triglycerides Urine Glucose (UA) Urine Ketones Urine RBC Urine WBC 04/24/18 13:20 WBC 13.6 H RBC 3.84 L Hgb Hct RDW 15.3 H Atlantic % (Auto) 15.6 H Gran # 8.8 H [place] # (Auto) 2.1 H RBC Morphology Polychromasia VBG Lactic Acid Glucose GGT AST ALT Lactate Dehydrogenase Total Creatine Kinase Total Protein Albumin Triglycerides Urine Glucose (UA) Urine Ketones Urine RBC Urine WBC Meds: Medications Acetaminophen (Tylenol) 650 mg PO Q8HP PRN PRN Reason: PAIN/FEVER > 101 Last Admin: 04/26/18 21:30 Dose: 650 mg Documented by: Albuterol/Ipratropium (Duoneb) 3 ml NEB Q4HP PRN PRN Reason: Shortness Of Breath Amlodipine Besylate (Norvasc) 5 mg PO QDAY [facility] Last Admin: 04/26/18 10:15 Dose: 5 mg Documented by: Atorvastatin Calcium (Lipitor) 20 mg PO DAILY [facility] Last Admin: 04/26/18 10:15 Dose: 20 mg Documented by: Diagnostic Test (Pha) (Accu-Chek) 1 each FS ACHS [facility] Last Admin: 04/26/18 21:29 Dose: 1 each Documented by: Divalproex Sodium (Depakote Sprinkles) 250 mg PO BID [facility] Last Admin: 04/26/18 21:31 Dose: 250 mg Documented by: Duloxetine HCl (Cymbalta) 60 mg PO DAILY [facility] Last Admin: 04/26/18 10:14 Dose: 60 mg Documented by: Enoxaparin Sodium (Lovenox) 40 mg SQ DAILY [facility] Last Admin: 04/26/18 10:15 Dose: 40 mg Documented by: Famotidine (Pepcid) 20 mg PO BID [facility] Last Admin: 04/26/18 21:31 Dose: 20 mg Documented by: Potassium Chloride 40 meq/ (Dextrose) 520 mls @ 130 mls/hr IV ONCE PRN PRN Reason: Potassium < 3 Magnesium Sulfate (Magnesium Sulfate) 2 gm in 50 mls @ 50 mls/hr IV ONCE PRN PRN Reason: Magnesium </= 1.6 Insulin Human Lispro (Humalog) 0 unit SQ ACHS [facility]; Protocol Last Admin: 04/26/18 21:29 Dose: 4 units Documented by: Lisinopril (Zestril) 20 mg PO QDAY [facility] Last Admin: 04/26/18 10:15 Dose: 20 mg Documented by: Loperamide HCl (Imodium) 2 mg PO PRN PRN PRN Reason: Diarrhea Last Admin: 04/25/18 10:29 Dose: 2 mg Documented by: Lorazepam (Ativan) 1 mg PO DAILYP PRN PRN Reason: Anxiety Last Admin: 04/24/18 22:52 Dose: 1 mg Documented by: Memantine (Namenda) 10 mg PO BID [facility] Last Admin: 04/26/18 21:31 Dose: 10 mg Documented by: Ziprasidone Hcl [ (Geodon] 60 Mg Cap) 60 mg PO DAILY [facility] Last Admin: 04/26/18 10:14 Dose: 60 mg Documented by: Ondansetron HCl (Zofran) 4 mg IV Q4HP PRN PRN Reason: Nausea And Vomiting Potassium Chloride (Kdur) 40 meq PO ONCE PRN PRN Reason: Potssium is 3-3.5 Potassium Chloride (Kdur) 40 meq PO ONCE PRN PRN Reason: Potassium < 3 Prochlorperazine (Compazine) 10 mg IV Q6HP PRN PRN Reason: Nausea And Vomiting Sodium Chloride (Saline Flush) 10 ml IV Q8 [facility] Last Admin: 04/26/18 21:37 Dose: 10 ml Documented by: Trazodone HCl (Desyrel) 50 mg PO QHS [facility] Last Admin: 04/26/18 21:31 Dose: 50 mg Documented by: Medical - PN: A/P - Time Spent With Patient Total time spent is greater than 50% in coordination of care (as documented) at patient's floor/unit and/or counseling patient: - Narrative A/P Narrative: A: *AMS (decrease LOC), acute on chronic: improved -CT brain and ABG unremarkable -UDS neg *Diarrhea: c. diff neg, no fecal WBC, stool cx prelim unremarkable *Generalized weakness//Deconditioning: *Elevated lactate: afebrile, UA/CXR unremarkable no source of infection found at this time. REsolved *mild leukocytosis: ?reactive, no source of infection unless viral gastroenteritis culprit -see above -Resolved *mild Transaminitis 2/2 to Fatty Liver/Hep C: Secondary to above + PMH and has seen GI in past regarding hep c -improved from last admit *FTT at home: inability to care for self *Dementia: *Depression: *Diabetes: *HTN: home ACEI/CCB *Tobacco Abuse: *GERD: *h/o substance abuse P: - -imodium prn -SSI -pt/ot -CM for placement to SNF -ppx: [facility] - PN: Qual - Stroke Symptom Onset Unknown: No - VTE Deep Vein Thrombosis/Pulmonary Embolism Present on Admission: No
[2018-04-27] MEDS: MEMANTINE 10 MG TABLET PO SCH ×2 (09:39→21:55)
[2018-04-27] MEDS: ENOXAPARIN 40 MG/0.4 ML SYRINGE SQ SCH (09:39)
[2018-04-27] MEDS: INSULIN LISPRO 1 UNIT/0.01 ML UNIT SQ SCH ×4 (09:39→21:54)
[2018-04-27] MEDS: DULoxetine 30 MG CAPSULE PO SCH (09:40)
[2018-04-27] MEDS: DIVALPROEX 125 MG CAP.SPRINK PO SCH ×2 (09:40→21:55)
[2018-04-27] MEDS: ATORVASTATIN 20 MG TABLET PO SCH (09:40)
[2018-04-27] MEDS: FAMOTIDINE 20 MG TABLET PO SCH ×2 (09:40→21:55)
[2018-04-27] MEDS: amLODIPine 5 MG TABLET PO SCH (09:40)
[2018-04-27] MEDS: ACETAMINOPHEN 325 MG TABLET PO PRN ×2 (09:40→15:16)
[2018-04-27] MEDS: LISINOPRIL 20 MG TABLET PO SCH (09:40)
[2018-04-27] MEDS: 0.9 % SODIUM CHLORIDE 10 ML SYRINGE IV SCH ×3 (09:41→22:00)
--- NOTE | 2018-04-27 10:45 | Discharge Summary ---
Medical - DS: Prov Patient information: Note initiated : 04/27/18 at 10:43 am Service Date, if different from initiated Date: [] Patient: Chelsea Edwards 62 y/o F admitted on 04/24/18 for fall. Chief Complaint: [] Date of admission: 04/24/18 21:12 Primary care physician: Manuel Philip Consults: 04/24/18 Consult to Physician [CONS] Stat Comment: Consulting Provider: Mauri Ladd Reason For Exam: Physician to Consult Medical - DS: Meds - Discharge Medications Prescriptions: Loperamide [Imodium] 2 mg PO PRN PRN #40 capsule PRN Reason: Diarrhea Active and Home Medications: Home Medications trazodone 50 mg tablet 50 mg PO QHS #30 tab 03/21/17 [Rx Confirmed 04/24/18 Last Taken 04/22/18 22:00] omeprazole 40 mg capsule,delayed release 40 mg PO QAM #90 cap 05/03/17 [Rx Confirmed 04/24/18 Last Taken 04/24/18 10:00] memantine 10 mg tablet 10 mg PO BID #60 tab 05/23/17 [Rx Confirmed 04/24/18 Last Taken 04/24/18 10:00] divalproex 250 mg tablet,delayed release 250 mg PO BID #60 tab 05/27/17 [Rx Confirmed 04/24/18 Last Taken 04/24/18 10:00] sitagliptin 100 mg tablet 100 mg PO QDAY #90 tab 09/18/17 [Rx Confirmed 04/24/18 Last Taken 04/24/18 10:00] duloxetine 60 mg capsule,delayed release 60 mg PO QDAY #30 cap 10/24/17 [Rx Confirmed 04/24/18 Last Taken 04/24/18 10:00] amlodipine 5 mg tablet 5 mg PO QDAY #30 tab 12/31/17 [Rx Confirmed 04/24/18 Last Taken 04/24/18 10:00] lisinopril 20 mg tablet 20 mg PO QDAY #30 tab 01/06/18 [Rx Confirmed 04/24/18 Last Taken 04/24/18 10:00] Atorvastatin [Lipitor] 20 mg PO DAILY 04/16/18 [History Confirmed 04/24/18 Last Taken 04/24/18 10:00] LORazepam [Ativan] 1 mg PO DAILYP PRN 04/16/18 [History Confirmed 04/24/18 Last Taken 04/24/18 10:00] Pioglitazone HCl 45 mg PO QDAY 04/16/18 [History Confirmed 04/24/18 Last Taken 04/24/18 10:00] Ziprasidone HCl [Geodon] 60 mg PO DAILY 04/16/18 [History Confirmed 04/24/18 Last Taken 04/22/18 22:00] Canagliflozin/Metformin HCl [Invokamet 150-1,000 mg Tablet] 1 each PO BID 04/24/18 [History Confirmed 04/24/18 Last Taken 04/24/18 10:00] Home Medications trazodone 50 mg tablet 50 mg PO QHS #30 tab 03/21/17 [Rx Confirmed 04/24/18 Last Taken 04/22/18 22:00] omeprazole 40 mg capsule,delayed release 40 mg PO QAM #90 cap 05/03/17 [Rx Confirmed 04/24/18 Last Taken 04/24/18 10:00] memantine 10 mg tablet 10 mg PO BID #60 tab 05/23/17 [Rx Confirmed 04/24/18 Last Taken 04/24/18 10:00] divalproex 250 mg tablet,delayed release 250 mg PO BID #60 tab 05/27/17 [Rx Confirmed 04/24/18 Last Taken 04/24/18 10:00] sitagliptin 100 mg tablet 100 mg PO QDAY #90 tab 09/18/17 [Rx Confirmed 04/24/18 Last Taken 04/24/18 10:00] duloxetine 60 mg capsule,delayed release 60 mg PO QDAY #30 cap 10/24/17 [Rx Confirmed 04/24/18 Last Taken 04/24/18 10:00] amlodipine 5 mg tablet 5 mg PO QDAY #30 tab 12/31/17 [Rx Confirmed 04/24/18 Last Taken 04/24/18 10:00] lisinopril 20 mg tablet 20 mg PO QDAY #30 tab 01/06/18 [Rx Confirmed 04/24/18 Last Taken 04/24/18 10:00] Atorvastatin [Lipitor] 20 mg PO DAILY 04/16/18 [History Confirmed 04/24/18 Last Taken 04/24/18 10:00] LORazepam [Ativan] 1 mg PO DAILYP PRN 04/16/18 [History Confirmed 04/24/18 Last Taken 04/24/18 10:00] Pioglitazone HCl 45 mg PO QDAY 04/16/18 [History Confirmed 04/24/18 Last Taken 04/24/18 10:00] Ziprasidone HCl [Geodon] 60 mg PO DAILY 04/16/18 [History Confirmed 04/24/18 Last Taken 04/22/18 22:00] Canagliflozin/Metformin HCl [Invokamet 150-1,000 mg Tablet] 1 each PO BID 04/24/18 [History Confirmed 04/24/18 Last Taken 04/24/18 10:00] Loperamide [Imodium] 2 mg PO PRN PRN #40 capsule 04/27/18 [Rx Last Taken Unknown] Medical - DS: Hosp Hospital course: Ms. Edwards is a 62 year old F Who was recently admitted for generalized weakness inability to care for self falling out of bed with rhabdomyolysis and was subsequently discharged several days ago. She states she had been doing fine and that she was able to make herself or microwave dinners as usual and that she sleeps on the floor by her bed because her jenn-size bed is too high to get into. However the report given when she first arrived to the ED was that of her falling out of bed and also she was covered in urine and feces. The caregiver found her on the floor and thought she had fallen out of the bed and then later on her [id number] found her on the floor. There was feces in the bathroom. Blood pressure was 94/46 patient brought to the ED. In the ED workup included a CT brain and chest x-ray both unremarkable. She was seemed to be still quite somnolent and an ABG was ordered which had a normal pH normal CO2 oxygen which is little low 73. Labs were unimpressive except for a white blood cell count was little elevated at 13 and lactate was 2.8. By the time I saw the patient she was more awake and she was sitting in bed eating. When asked her how she was doing when she left she says as previously mentioned that she felt like she was doing fine but very tired still. And then reported that she slept on the floor by her bed purposefully. She denies any respiratory symptoms. No fevers or chills no chest pain or abdominal pain coughing or shortness of breath. Urinalysis with some ketones, only 5 WBCs and no nitrates or leukocyte esterase. She does report, however, to be having diarrhea, she says last episode was today. 04/25 Left okay, no overnight events. No reports of diarrhea overnight. 04/26 Slept well and denies diarrhea last night, feeling better. Good appetite this morning. 04/27 States has headache this morning. Otherwise improving regarding weakness. She said she had diarrhea this morning, nurses notes report formed stool this morning. Discharge diagnosis: AMS, lethargy. Diarrhea generalized weakness failure to thrive dementia de Secondary discharge diagnosis: Depression diabetes hypertension tobacco abuse GERD - Time Spent with Patient Total time spent providing and/or coordinating discharge services: Greater than 30 minutes Medical - DS: Exam - Constitutional Vitals: Vital Signs Temp Pulse Resp BP Pulse Ox 04/27/18 07:22 98.1 F 20 128/68 98 04/27/18 04:00 98.6 F 89 18 131/67 98 04/27/18 00:00 98.1 F 89 14 134/62 97 04/26/18 20:00 98.0 F 84 16 125/61 94 04/26/18 15:58 98.4 F 20 123/61 96 04/26/18 12:00 98.6 F 20 135/70 95 Intake and Output 04/26/18 04/27/18 04/27/18 21:59 05:59 13:59 Intake Total 1600 Output Total 0 Balance 0 1600 Intake: Oral 1600 Output: # of times incontinent of urine 0 Other: Urine Appearance Clear Urine Color Pale Straw Urine Odor Normal # Voids 1 1 1 Weight 63.276 kg Medical - DS: Data Labs on day of discharge: Preliminary micro results at discharge 04/24/18 20:36 Blood Culture - Preliminary Blood 04/24/18 20:40 Blood Culture - Preliminary Blood Medical - DS: A/P - Patient/Caregiver Discharge Instructions Activity: as per physical therapy Diet: Consistent Carbohydrate - Follow up Plan Follow up with: Manuel Philip MD [Primary Care Provider] - Disposition: Xfer SNF Prognosis: Fair Rehab Potential: Fair I certify that the patient requires SNF services: Yes Medical - DS: Qual - VTE Deep Vein Thrombosis/Pulmonary Embolism Present on Admission: No
[2018-04-27] MEDS: ZIPRASIDONE HCL 60 MG PO SCH (12:24)
[2018-04-27] MEDS: traZODone HCL 50 MG TABLET PO SCH (21:55)
[2018-04-27] MEDS: LORazepam 1 MG TABLET PO PRN (21:55)
[2018-04-28] MEDS: 0.9 % SODIUM CHLORIDE 10 ML SYRINGE IV SCH ×2 (06:38→13:39)
--- NOTE | 2018-04-28 06:46 | Internal Med Progress Note ---
Medical - PN: Subj Patient information: Note initiated : 04/28/18 at 6:45 am Service Date, if different from initiated Date: [] Patient: Chelsea Edwards 62 y/o F admitted on 04/24/18 for fall. Chief Complaint: [] Interval history: Ms. Edwards is a 62 year old F Who was recently admitted for generalized weakness inability to care for self falling out of bed with rhabdomyolysis and was subsequently discharged several days ago. She states she had been doing fine and that she was able to make herself or microwave dinners as usual and that she sleeps on the floor by her bed because her jenn-size bed is too high to get into. However the report given when she first arrived to the ED was that of her falling out of bed and also she was covered in urine and feces. The caregiver found her on the floor and thought she had fallen out of the bed and then later on her [id number] found her on the floor. There was feces in the bathroom. Blood pressure was 94/46 patient brought to the ED. In the ED workup included a CT brain and chest x-ray both unremarkable. She was seemed to be still quite somnolent and an ABG was ordered which had a normal pH normal CO2 oxygen which is little low 73. Labs were unimpressive except for a white blood cell count was little elevated at 13 and lactate was 2.8. By the time I saw the patient she was more awake and she was sitting in bed eating. When asked her how she was doing when she left she says as previously mentioned that she felt like she was doing fine but very tired still. And then reported that she slept on the floor by her bed purposefully. She denies any respiratory symptoms. No fevers or chills no chest pain or abdominal pain coughing or shortness of breath. Urinalysis with some ketones, only 5 WBCs and no nitrates or leukocyte esterase. She does report, however, to be having diarrhea, she says last episode was today. 04/25 Left okay, no overnight events. No reports of diarrhea overnight. 04/26 Slept well and denies diarrhea last night, feeling better. Good appetite this morning. 04/27 States has headache this morning. Otherwise improving regarding weakness. She said she had diarrhea this morning, nurses notes report formed stool this morning. 04/28 Feeling stronger. Diarrhea improving. No new complaints. Review of Systems: denies fever/chills/nausea/vomiting/chest or abdominal pain/cough/dyspnea. Otherwise see above. - Constitutional Vitals: Vital Signs Temp Pulse Resp BP Pulse Ox 98.2 F 83 18 137/71 97 04/28/18 04:00 04/28/18 04:00 04/28/18 04:00 04/28/18 04:00 04/28/18 04:00 Period Temp Pulse Resp BP Sys/Farris Pulse Ox Last 24 Hr 98.0 F-98.5 F 75-83 16-20 123-137/57-71 95-98 Intake and Output 04/27/18 04/28/18 04/28/18 21:59 05:59 13:59 Intake Total 1360 320 Balance 1360 320 Weight 63.73 kg Intake & Output: Intake & Output 04/27/18 04/28/18 04/28/18 21:59 05:59 13:59 Intake Total 1360 320 Balance 1360 320 Weight 63.73 kg Intake: Oral 1360 320 Other: Meal Dinner [place] sherbert cup Percent of Meal Consumed 75% 100% Feeding Ability Independent Independent # Voids 1 1 Exam: General: Alert, Awake, No acute Distress Eyes/N/T: EOMI, Head/Neck: neck supple, CV: RRR, No murmurs, Pulm: Clear b/l, no wheezing/rhonchi/rales Abd: soft, nontender, +BS x4 Ext: no clubbing/cyanosis, 1+ b/l LE edema improved Neuro: Alert, no focal deficits, moves all extremities, Skin: warm/dry Medical - PN: Obj Da - Labs CBC & Chem 7: 04/25/18 04:20 04/25/18 04:20 Labs: Abnormal Lab Results 04/25/18 04/25/18 08:35 04:20 VBG Lactic Acid 2.3 H Glucose 143 H GGT 226 H AST 64 H ALT 71 H Lactate Dehydrogenase 327 H Total Protein 5.6 L Albumin 3.0 L Triglycerides 165 H Meds: Medications Acetaminophen (Tylenol) 650 mg PO Q8HP PRN PRN Reason: PAIN/FEVER > 101 Last Admin: 04/27/18 15:16 Dose: 650 mg Documented by: Albuterol/Ipratropium (Duoneb) 3 ml NEB Q4HP PRN PRN Reason: Shortness Of Breath Amlodipine Besylate (Norvasc) 5 mg PO QDAY [facility] Last Admin: 04/27/18 09:40 Dose: 5 mg Documented by: Atorvastatin Calcium (Lipitor) 20 mg PO DAILY [facility] Last Admin: 04/27/18 09:40 Dose: 20 mg Documented by: Diagnostic Test (Pha) (Accu-Chek) 1 each FS ACHS [facility] Last Admin: 04/27/18 21:54 Dose: 1 each Documented by: Divalproex Sodium (Depakote Sprinkles) 250 mg PO BID [facility] Last Admin: 04/27/18 21:55 Dose: 250 mg Documented by: Duloxetine HCl (Cymbalta) 60 mg PO DAILY [facility] Last Admin: 04/27/18 09:40 Dose: 60 mg Documented by: Enoxaparin Sodium (Lovenox) 40 mg SQ DAILY [facility] Last Admin: 04/27/18 09:39 Dose: 40 mg Documented by: Famotidine (Pepcid) 20 mg PO BID [facility] Last Admin: 04/27/18 21:55 Dose: 20 mg Documented by: Potassium Chloride 40 meq/ (Dextrose) 520 mls @ 130 mls/hr IV ONCE PRN PRN Reason: Potassium < 3 Magnesium Sulfate (Magnesium Sulfate) 2 gm in 50 mls @ 50 mls/hr IV ONCE PRN PRN Reason: Magnesium </= 1.6 Insulin Human Lispro (Humalog) 0 unit SQ [facility]; Protocol Last Admin: 04/27/18 21:54 Dose: 4 units Documented by: Lisinopril (Zestril) 20 mg PO QDAY [facility] Last Admin: 04/27/18 09:40 Dose: 20 mg Documented by: Loperamide HCl (Imodium) 2 mg PO PRN PRN PRN Reason: Diarrhea Last Admin: 04/25/18 10:29 Dose: 2 mg Documented by: Lorazepam (Ativan) 1 mg PO DAILYP PRN PRN Reason: Anxiety Last Admin: 04/27/18 21:55 Dose: 1 mg Documented by: Memantine (Namenda) 10 mg PO BID [facility] Last Admin: 04/27/18 21:55 Dose: 10 mg Documented by: Ziprasidone Hcl [ (Geodon] 60 Mg Cap) 60 mg PO DAILY [facility] Last Admin: 04/27/18 12:24 Dose: 60 mg Documented by: Ondansetron HCl (Zofran) 4 mg IV Q4HP PRN PRN Reason: Nausea And Vomiting Potassium Chloride (Kdur) 40 meq PO ONCE PRN PRN Reason: Potssium is 3-3.5 Potassium Chloride (Kdur) 40 meq PO ONCE PRN PRN Reason: Potassium < 3 Prochlorperazine (Compazine) 10 mg IV Q6HP PRN PRN Reason: Nausea And Vomiting Sodium Chloride (Saline Flush) 10 ml IV Q8 [facility] Last Admin: 04/28/18 06:38 Dose: 10 ml Documented by: Trazodone HCl (Desyrel) 50 mg PO QHS [facility] Last Admin: 04/27/18 21:55 Dose: 50 mg Documented by: Medical - PN: A/P - Time Spent With Patient Total time spent is greater than 50% in coordination of care (as documented) at patient's floor/unit and/or counseling patient: - Narrative A/P Narrative: A: *AMS (decrease LOC), acute on chronic: improved -CT brain and ABG unremarkable -UDS neg *Diarrhea: c. diff neg, no fecal WBC, stool cx prelim unremarkable *Generalized weakness//Deconditioning: *Elevated lactate: afebrile, UA/CXR unremarkable no source of infection found at this time. REsolved *mild leukocytosis: ?reactive, no source of infection unless viral gastroenterit is culprit -see above -Resolved *mild Transaminitis 2/2 to Fatty Liver/Hep C: Secondary to above + PMH and has seen GI in past regarding hep c -improved from last admit *FTT at home: inability to care for self *Dementia: *Depression: *Diabetes: *HTN: home ACEI/CCB *Tobacco Abuse: *GERD: *h/o substance abuse P: - -imodium prn -SSI -pt/ot -CM for placement to SNF -ppx: [facility] - PN: Qual - Stroke Symptom Onset Unknown: No - VTE Deep Vein Thrombosis/Pulmonary Embolism Present on Admission: No
[2018-04-28] MEDS: INSULIN LISPRO 1 UNIT/0.01 ML UNIT SQ SCH ×2 (07:01→11:26)
[2018-04-28] MEDS: ENOXAPARIN 40 MG/0.4 ML SYRINGE SQ SCH (08:23)
[2018-04-28] MEDS: ZIPRASIDONE HCL 60 MG PO SCH (08:24)
[2018-04-28] MEDS: FAMOTIDINE 20 MG TABLET PO SCH (08:25)
[2018-04-28] MEDS: ATORVASTATIN 20 MG TABLET PO SCH (08:25)
[2018-04-28] MEDS: DIVALPROEX 125 MG CAP.SPRINK PO SCH (08:25)
[2018-04-28] MEDS: LISINOPRIL 20 MG TABLET PO SCH (08:25)
[2018-04-28] MEDS: amLODIPine 5 MG TABLET PO SCH (08:27)
[2018-04-28] MEDS: MEMANTINE 10 MG TABLET PO SCH (08:27)
[2018-04-28] MEDS: DULoxetine 30 MG CAPSULE PO SCH (08:29)
[2018-04-28] MEDS: ACETAMINOPHEN 325 MG TABLET PO PRN (10:22)
--- NOTE | 2018-04-28 11:43 | Cat Scan Report ---
History: Fell out of bed twice today with decreased level of consciousness TECHNIQUE: The brain was imaged without contrast at 2.5 mm intervals. The radiation exposure was limited using dose reduction technology. FINDINGS: There is mild to moderate atrophy predominantly around the sylvian fissures. This involves frontal and temporal lobes. There is no intracranial hemorrhage or abnormal extra-axial fluid collection. Patchy areas of decreased attenuation are present in the white matter in the frontal and parietal lobes bilaterally. There is no evidence of an infarct or mass. The ventricles are prominent but proportionate to the atrophy. The bone windows show no skull fracture. There has been no significant change from the recent head CT done on 04/16/18. IMPRESSION: Cerebral atrophy with white matter ischemia or degeneration. No acute abnormality has developed. Dr. Sahu was called with the results Interpreted and Authenticated by: Mario Gaines 04/24/18
--- NOTE | 2018-04-28 15:31 | Discharge Summary ---
Medical - DS: Prov Patient information: Note initiated : 04/28/18 at 3:29 pm Service Date, if different from initiated Date: [] Patient: Chelsea Edwards 62 y/o F admitted on 04/24/18 for fall. Chief Complaint: [] Date of admission: 04/24/18 21:12 Discharge date: 04/28/18 Primary care physician: Manuel Philip Consults: 04/24/18 Consult to Physician [CONS] Stat Comment: Consulting Provider: Mauri Ladd Reason For Exam: Physician to Consult Medical - DS: Meds - Discharge Medications Prescriptions: RX: Loperamide [Imodium] 2 mg PO PRN PRN #40 cap PRN Reason: Diarrhea Active and Home Medications: Home Medications trazodone 50 mg tablet 50 mg PO QHS #30 tab 03/21/17 [Rx Confirmed 04/24/18 Last Taken 04/22/18 22:00] omeprazole 40 mg capsule,delayed release 40 mg PO QAM #90 cap 05/03/17 [Rx Confirmed 04/24/18 Last Taken 04/24/18 10:00] memantine 10 mg tablet 10 mg PO BID #60 tab 05/23/17 [Rx Confirmed 04/24/18 Last Taken 04/24/18 10:00] divalproex 250 mg tablet,delayed release 250 mg PO BID #60 tab 05/27/17 [Rx Confirmed 04/24/18 Last Taken 04/24/18 10:00] sitagliptin 100 mg tablet 100 mg PO QDAY #90 tab 09/18/17 [Rx Confirmed 04/24/18 Last Taken 04/24/18 10:00] duloxetine 60 mg capsule,delayed release 60 mg PO QDAY #30 cap 10/24/17 [Rx Confirmed 04/24/18 Last Taken 04/24/18 10:00] amlodipine 5 mg tablet 5 mg PO QDAY #30 tab 12/31/17 [Rx Confirmed 04/24/18 Last Taken 04/24/18 10:00] lisinopril 20 mg tablet 20 mg PO QDAY #30 tab 01/06/18 [Rx Confirmed 04/24/18 Last Taken 04/24/18 10:00] Atorvastatin [Lipitor] 20 mg PO DAILY 04/16/18 [History Confirmed 04/24/18 Last Taken 04/24/18 10:00] LORazepam [Ativan] 1 mg PO DAILYP PRN 04/16/18 [History Confirmed 04/24/18 Last Taken 04/24/18 10:00] Pioglitazone HCl 45 mg PO QDAY 04/16/18 [History Confirmed 04/24/18 Last Taken 04/24/18 10:00] Ziprasidone HCl [Geodon] 60 mg PO DAILY 04/16/18 [History Confirmed 04/24/18 Last Taken 04/22/18 22:00] Canagliflozin/Metformin HCl [Invokamet 150-1,000 mg Tablet] 1 each PO BID 04/24/18 [History Confirmed 04/24/18 Last Taken 04/24/18 10:00] Loperamide [Imodium] 2 mg PO PRN PRN #40 cap 04/27/18 [Rx Last Taken Unknown] Medical - DS: Hosp Hospital course: DISCHARGE DIAGNOSIS *AMS (decrease LOC), acute on chronic: improved -CT brain and ABG unremarkable -UDS neg *Diarrhea: c. diff neg, no fecal WBC, stool cx prelim unremarkable *Generalized weakness//Deconditioning: *Elevated lactate: afebrile, UA/CXR unremarkable no source of infection found at this time. REsolved *mild leukocytosis: ?reactive, no source of infection unless viral gastroenteritis culprit -see above -Resolved *mild Transaminitis 2/2 to Fatty Liver/Hep C: Secondary to above + PMH and has seen GI in past regarding hep c -improved from last admit *FTT at home: inability to care for self *Dementia: *Depression: *Diabetes: *HTN: home ACEI/CCB *Tobacco Abuse: *GERD: *h/o substance abuse [employer] [employer] Ms. Edwards is a 62 year old F Who was recently admitted for generalized weakness inability to care for self falling out of bed with rhabdomyolysis and was subsequently discharged several days ago. She states she had been doing fine and that she was able to make herself or microwave dinners as usual and that she sleeps on the floor by her bed because her jenn-size bed is too high to get into. However the report given when she first arrived to the ED was that of her falling out of bed and also she was covered in urine and feces. The caregiver found her on the floor and th ought she had fallen out of the bed and then later on her [id number] found her on the floor. There was feces in the bathroom. Blood pressure was 94/46 patient brought to the ED. In the ED workup included a CT brain and chest x-ray both unremarkable. She was seemed to be still quite somnolent and an ABG was ordered which had a normal pH normal CO2 oxygen which is little low 73. Labs were unimpressive except for a white blood cell count was little elevated at 13 and lactate was 2.8. By the time I saw the patient she was more awake and she was sitting in bed eating. When asked her how she was doing when she left she says as previously mentioned that she felt like she was doing fine but very tired still. And then reported that she slept on the floor by her bed purposefully. She denies any respiratory symptoms. No fevers or chills no chest pain or abdominal pain coughing or shortness of breath. Urinalysis with some ketones, only 5 WBCs and no nitrates or leukocyte esterase. She does report, however, to be having diarrhea, she says last episode was today. 04/25 Left okay, no overnight events. No reports of diarrhea overnight. 04/26 Slept well and denies diarrhea last night, feeling better. Good appetite this morning. 04/27 States has headache this morning. Otherwise improving regarding weakness. She said she had diarrhea this morning, nurses notes report formed stool this morning. 04/28 Feeling stronger. Diarrhea improving. No new complaints. DC to swing bed today Discharge diagnosis: . - Time Spent with Patient Total time spent providing and/or coordinating discharge services: Medical - DS: Exam - Constitutional Vitals: Vital Signs Temp Pulse Resp BP BP Pulse Ox 04/28/18 11:49 97.9 F 89 18 125/69 96 04/28/18 06:49 98.1 F 16 129/67 95 04/28/18 04:00 98.2 F 83 18 137/71 97 04/27/18 23:38 98.0 F 75 16 123/57 95 04/27/18 18:55 98.5 F 76 16 128/63 98 04/27/18 16:00 98.4 F 20 133/62 98 Intake and Output 04/28/18 04/28/18 04/28/18 05:59 13:59 21:59 Intake Total 320 1400 Balance 320 1400 Intake: Oral 320 1400 Other: Meal [place] sherbert cup Breakfast Percent of Meal Consumed 100% 100% Feeding Ability Independent Independent # Voids 1 1 # Bowel Movements 1 Medical - DS: Data Labs on day of discharge: Preliminary micro results at discharge 04/24/18 20:36 Blood Culture - Preliminary Blood 04/24/18 20:40 Blood Culture - Preliminary Blood Medical - DS: A/P - Patient/Caregiver Discharge Instructions Activity: ambulate only with your walker, resume usual activities as tolerated, other Diet: Consistent Carbohydrate Prescriptions: RX: Loperamide [Imodium] 2 mg PO PRN PRN #40 cap PRN Reason: Diarrhea - Follow up Plan Follow up with: Manuel Philip MD [Primary Care Provider] - Disposition: [facility] Swing Bed Prognosis: Fair Rehab Potential: Fair I certify that the patient requires SNF services: Yes Overall status at discharge: patient is progressing back to baseline Medical - DS: Qual - VTE Deep Vein Thrombosis/Pulmonary Embolism Present on Admission: No
== END 2018-04-28 15:55 | disposition swing bed (61) | DRG 948 ==
LOC: ED 13:04 → MEDSUR 21:12
PROVIDERS: ADMIT Internal Medicine; ATTEND Internal Medicine

== ENCOUNTER 2020-04-20 10:34 | Inpatient (IN) ==
[2020-04-20] MEDS ORDERED: IOPAMIDOL 100 ML BOTTLE IV ONE (10:35)
[2020-04-20] MEDS ORDERED: cefTRIAXone 2 GM in DEXTROSE 5% IN WATER 50 ML IV ONE (10:56)
[2020-04-20] MEDS ORDERED: VANCOMYCIN 1,000 MG in 0.9 % SODIUM CHLORIDE 250 ML IV ONE (10:56)
[2020-04-20] MEDS ORDERED: ACETAMINOPHEN 325 MG TABLET PO ONE (10:56)
[2020-04-20] MEDS ORDERED: 0.9 % SODIUM CHLORIDE 1,000 ML IV ONE ×3 (10:56→13:22)
--- NOTE | 2020-04-20 11:12 | Emergency Department Note ---
Weakness HPI General Chief complaint: Weakness Stated complaint: weakness Time Seen by Provider: 04/20/20 10:39 Source: patient and EMS Mode of arrival: EMS Limitations: no limitations History of Present Illness HPI Narrative: Narrative: 64-year-old female patient brought back to the emergency department via ambulance after being found at home on the floor. Patient was seen yesterday by a colleague for developing weakness and diagnosed with dehydration. She had an extensive work-up done that did show a mildly elevated WBC count and LFTs. She had both blood cultures and urine culture done yesterday but those results are not back yet. She was gently rehydrated and discharged home. Unfortunately, caregiver mentions she found the patient on the floor. When questioned directly, patient mentions she "tripped in the dark" last night. She is unsure how long she remained on the ground after falling. She mentions that the weakness has been developing over the last 2 weeks. Upon arrival, patient is tachycardic and febrile which is new from yesterday's visit. She admits to pain to both knees associated with abrasions. She denies any other sites of injury. She denies loss of consciousness or hitting her head. ROS: Denies systemic illness, fever, sweats, chills. Denies headaches, tinnitus, or vision changes. Admits to chronic runny nose. Denies sinus congestion or cough. Denies shortness of breath. Denies retrosternal chest pain or palpitations. Admits to abdominal pain only during palpation. Denies nausea, vomiting, or diarrhea. Denies dysuria, hematuria, urinary frequency, or urinary urgency. Admits to generalized weakness. Related Data Home Medications Medication Instructions Recorded Confirmed atorvastatin 20 mg PO DAILY 04/16/18 04/20/20 lorazepam 1 mg PO DAILYP PRN 04/16/18 04/20/20 pioglitazone 45 mg PO QDAY 04/16/18 04/20/20 ziprasidone HCl 60 mg PO DAILY 04/16/18 04/20/20 calcium carbonate [Calcium 600] 600 mg PO BID 04/20/20 04/20/20 canagliflozin [Invokana] 300 mg PO QDAY 04/20/20 04/20/20 lisinopril 20 mg PO QAM 04/20/20 04/20/20 sitagliptin [Januvia] 100 mg PO QDAY 04/20/20 04/20/20 Previous Rx's Medication Instructions Recorded trazodone 50 mg tablet 50 mg PO QHS #30 tab 03/21/17 omeprazole 40 mg capsule,delayed 40 mg PO QAM #90 cap 05/03/17 release memantine 10 mg tablet 10 mg PO BID #60 tab 05/23/17 divalproex 250 mg tablet,delayed 250 mg PO BID #60 tab 05/27/17 release duloxetine 60 mg capsule,delayed 60 mg PO QDAY #30 cap 10/24/17 release amlodipine 5 mg tablet 5 mg PO QDAY #30 tab 12/31/17 loperamide 2 mg PO PRN PRN #40 cap 04/27/18 Allergies Allergy/AdvReac Type Severity Reaction Status Date / Time No Known Drug Allergies Allergy Verified 04/20/20 10:43 Review of Systems ROS ROS Narrative: Narrative: All systems ED: reviewed and negative except as stated. PFSH Narrative Patient History Narrative: Narrative: Medical/Surgical/Family History All Active Problems (Updated 04/20/20 @ 13:51 by Ye Gates PA-C) Acute dehydration (Acute) Weakness generalized (Acute) Rhabdomyolysis (Acute) Sepsis (Acute) Abnormal LFTs (liver function tests) (Chronic) Opioid type drug dependence (Chronic) Diabetes mellitus, type II (Chronic) Cervical radiculopathy at C6 (Chronic) Osteopenia (Chronic) Depressive disorder (Chronic) Chronic hepatitis C (Chronic) Medical History Abnormal LFTs (liver function tests) (Chronic) chronic (hx chronic hep c although pt denied previously) Adenomatous polyp of colon (Inactive) Altered mental status (Resolved) Cervical radiculopathy at C6 (Chronic) Chronic hepatitis C (Chronic) Recorded 06/15/05; denies 05/05/2019 Concussion (Resolved) Dehydration (Resolved) Depressive disorder (Chronic) Diabetes mellitus, type II (Chronic) Encounter for Health Maintenance Examination in Adult (Inactive) Fall (Inactive) Fall at home (Resolved) Head injury (Resolved) Hypercalcemia (Inactive) Opioid type drug dependence (Chronic) Osteopenia (Chronic) 12/2011 Rhabdomyolysis (Resolved) UTI (urinary tract infection) (Resolved) Weakness (Resolved) Surgical History History of colonoscopy (Chronic 05/23/17) History of left breast biopsy (Resolved) History of right breast biopsy (Resolved) History of tonsillectomy (Resolved) age 16 Family History Brother Primary malignant neoplasm of bone marrow, Onset Age: 56 lung cancer, metastasized Father Type 2 diabetes mellitus Grandmother (paternal) Family history of malignant neoplasm of breast paternal grandmother when patient's father was 5 years old Sister Hyperthyroidism Social History Smoking Status: Current every day smoker Alcohol Intake Frequency: 0-2 drinks per day Exam Narrative Narrative: Narrative: General Limitations: no limitations General appearance: Present other (Well-developed, well-nourished, frail and acutely ill-appearing 64-year-old female patient laying semirecumbent on the emergency room gurney in no acute respiratory distress. Patient does meet SIRS criteria. She is febrile with a temperature of 101.5, tachycardic with a heart rate of 125, other vital signs normal.) Head Head: Present normocephalic Eye Eye: Present normal appearance, PERRL and EOMI; Absent scleral icterus and conjunctival injection ENT ENT: Present normal oropharynx and mucous membranes dry Neck Neck: Present trachea midline; Absent lymphadenopathy Chest Chest: Present symmetric chest wall rise Respiratory Respiratory: Present normal lung sounds bilaterally; Absent respiratory distress, rales/crackles, wheezes, stridor, accessory muscle use, prolonged expiratory phase and decreased breath sounds Cardiovascular Cardiovascular: Present regular rate and normal rhythm; Absent systolic murmur and diastolic murmur Adbominal Abdominal: Present soft, tenderness and normal bowel sounds; Absent distention, guarding, rebound, rigidity, organomegaly and mass Expanded Abdominal Abdominal Tenderness: Present LLQ and mild Extremities Extremities: Present normal inspection, full ROM and normal capillary refill; Absent pedal edema Expanded Neurological Patient oriented to: Present person, place and time Speech: Present fluid speech CRANIAL NERVES: EOM function (II, III, IV, ): Normal, facial sensation (V): Normal, facial palsy (VII): Normal, gag reflex (IX): Normal, spinal accessory function (XI): Normal and tongue deviation (XII): Normal Motor strength - LUE: 5/5 Motor strength - RUE: 5/5 Motor strength - LLE: 5/5 Motor strength - RLE: 5/5 UPPER MOTOR NEURON EXAM: pronator drift: Normal SENSORY EXAM UPPER EXTREMITY: Normal: light touch SENSORY EXAM LOWER EXTREMITY: Normal: light touch DTR: 2+: biceps (L), biceps (R), patellar (L) and patellar (R) Coma Scale Eye Opening: Spontaneous Coma Scale Motor Response: Obeys Commands Coma Scale Verbal Response: Oriented Coma Scale Total: 15 Psychiatric Psychiatric: Present normal affect and normal mood Skin Skin: Present warm (WNL), dry, normal color and other (Significant abrasion to the right knee without active bleeding. Smaller abrasion to the left knee with no considerable skin breakdown.) Course Course Course Narrative: The differential diagnosis of acute weakness in the adult patient is rather extensive and can be broken down into the following categories: Life-threatening central causes of unilateral weakness: Ischemic stroke, intracerebral hemorrhage, subarachnoid hemorrhage. Other life-threatening causes of bilateral weakness: Brainstem stroke, spinal cord diseases, peripheral nerve diseases (Guillain-Bess syndrome), myasthenia gravis, botulism, alcoholic myopathy. Life-threatening medical causes: Hypoglycemia and electrolyte disorders (potassium, calcium, and magnesium). Life-threatening causes of generalized weakness: Sepsis, ACS, CO2 poisoning, adrenal insufficiency. Other neurologic causes: Multiple sclerosis, hemiplegic migraine, and postictal paralysis. Other medical causes of generalized weakness: Hypothyroidism, infections, anemia, dehydration, presyncope, multiple medications (beta-blockers, diuretics, chemotherapy, opioids, and alcohol), and rheumatologic diseases. Patient sustained a fall sometime either earlier this morning or last night and has been on the ground for an unknown amount of time. Rhabdomyolysis should be considered in her work-up. She has had progressively worsening weakness over the last 2 weeks. She is now febrile and tachycardic and meets SIRS criteria. We are going to broaden her work-up with CT scan of her chest, abdomen, and pelvis with contrast. We are going to order repeat blood cultures and urine culture. We will also get screening laboratory studies. Patient was given normal saline 1000 mL a bolus. She was given both Rocephin 2 g and vancomycin 1000 mg IV. She was given acetaminophen understanding 5 mg p.o. for her fever. Reevaluation(s) Reevaluation #1: WBC 17.8 (increased from 12.2 yesterday), all others normal limits. Lactic acid 2.2. CMP sodium 152, chloride 112, CO2 9, anion gap 31, BUN 35, creatinine 1.4, glucose 191, AST 426, ALT 97, globulin 4.0, all others normal limits. Total CK greater than 20,000. Troponin 0 0.13. Procalcitonin 0.84. Urinalysis showing hazy yellow urine specific gravity 1.021, positive proteinuria, positive glucosuria, positive ketones, positive blood, negative for bacteria. Contrast-enhanced CT scan of the chest, abdomen, and pelvis showing mild emphysema and mild inflammation anteriorly medially to both upper lobes which could be due to pneumonia or noninfectious inflammatory process related to COPD. There is mention fecal impaction and small nonobstructing stone left k idney. Upon reevaluation patient says is feeling a bit more dizzy. She is also complaining of a bit more discomfort in her abdomen. When asked to clarify, she is unable to do this. After reviewing all the data patient is suffering from rhabdomyolysis and pneumonia based on imaging. She is showing evidence of sepsis with endorgan damage I have reached out to our hospitalist (Dr. Ladd) to discuss admission. Time: 13:41 Reevaluation #2: At this time the hospitalist mentions that the patient should be admitted here to our facility. He is going to admit her to our ICU. At this time she is excepted care and all further treatment decisions, modalities, and ultimate patient disposition of be carried out by the hospitalist. Vital Signs Vital signs: Vital Signs Temperature 101.5 F H 04/20/20 10:39 Pulse Rate 125 H 04/20/20 10:39 Respiratory Rate 16 04/20/20 10:39 Blood Pressure 154/79 04/20/20 10:39 Pulse Oximetry (%) 98 04/20/20 10:39 Temperature 96.0 F L 04/20/20 15:01 Pulse Rate 93 H 04/20/20 15:01 Respiratory Rate 18 04/20/20 15:01 Blood Pressure 136/63 04/20/20 15:01 Pulse Oximetry (%) 100 04/20/20 15:01 [facility] MDM Narrative Medical decision making narrative: Narrative: Lab Data Lab results reviewed: Yes I reviewed the patient's lab results. Result diagrams: 04/20/20 11:16 04/20/20 11:16 Labs: Lab Results 04/20/20 04/20/20 04/20/20 Range/Units 10:55 11:16 11:16 WBC 17.8 H (4.5-11.0) K/mcL RBC 4.49 (4.00-5.20) M/mcL Hgb 14.0 (12.0-15.0) g/dL Hct 44.4 (36.0-48.0) % POC Hct (36-48) % MCV 98.9 (80.0-100.0) fL MCH 31.2 (26.0-34.0) pg MCHC 31.5 (31.0-36.0) g/dL RDW 13.7 (11.5-14.5) % Plt Count 231 (140-440) K/mcL MPV 11.4 H (7.4-10.4) fL Neut % (Auto) 65.8 (38.0-78.0) % Lymph % (Auto) 16.0 (15.0-49.0) % [place] % (Auto) 17.4 H (1.0-12.0) % Eos % (Auto) 0.1 (0.0-7.0) % Baso % (Auto) 0.7 (0.0-2.0) % Lymph # (Auto) 2.86 (1.50-4.80) K/mcL [place] # (Auto) 3.10 H (0.10-0.90) K/mcL Eos # (Auto) 0.01 (0.00-0.70) K/mcL Baso # (Auto) 0.12 (0.00-0.20) K/mcL Seg Neutrophils % (38-78) % Band Neutrophils % (0-10) % Lymphocytes % (15-49) % Monocytes % (Manual) (1-12) % Myelocytes % % Absolute Neutrophils 11.73 H (1.80-8.00) K/mcL Reactive Lymphocytes (0-2) % Platelet Estimate (Normal) RBC Morphology (Normal) Macrocytosis (None Seen) VBG Lactic Acid (0.5-2.0) mmol/L POC Sodium (133-145) mEq/L Sodium 152 H (133-145) mmol/L POC Potassium (3.3-5.1) mEql/L Potassium 3.6 (3.3-5.1) mmol/L POC Chloride (96-108) mEq/L Chloride 112 H (96-108) mmol/L Carbon Dioxide 9 L* (22-30) mmol/L POC Total CO2 (22-30) mmol/L Anion Gap 31.0 H (8.0-16.0) POC BUN (6-20) mg/dL BUN 35 H (8-23) mg/dL Creatinine 1.4 H (0.6-1.1) mg/dL POC Creatinine 1.1 (0.6-1.2) mg/dL GFR Calculation 39 Glucose 191 H (70-105) mg/dL POC Glucose (70-105) mg/dL Calcium 9.9 (8.6-10.4) mg/dL POC WB Ioniz Calcium (1.16-1.32) mmEq/L Total Bilirubin 0.4 (0.1-1.0) mg/dL AST 426 H (<32) U/L ALT 97 H (<40) U/L Alkaline Phosphatase 79 (39-117) U/L Total Creatine Kinase > 76230 H (24-170) U/L Troponin T (<0.03) ng/mL Total Protein 8.1 (5.9-8.4) gm/dL Albumin 4.1 (3.2-5.2) gm/dL Globulin 4.0 H (2.2-3.7) gm/dL Albumin/Globulin Ratio 1.0 (1.0-2.3) Procalcitonin (<0.10) ng/mL Urine Color Yellow Urine Appearance Hazy A (Clear) Urine pH 5.0 (5.0-9.0) Ur Specific [place] 1.021 (1.000-1.035) Urine Protein 100 A (Negative) mg/dL Urine Glucose (UA) >=500 A (Negative) mg/dL Urine Ketones 80 A (Negative) mg/dL Urine Occult Blood >=1.0 A (Negative) mg/dL Urine Nitrate Negative (Negative) Urine Bilirubin Negative (Negative) mg/dL Urine Urobilinogen Negative mg/dL Ur Leukocyte Esterase Negative (Negative) /ug Urine RBC 2 (0-3) /hpf Urine WBC 2 (0-4) /hpf Ur Squamous Epith Cells 0 (0-4) /hpf Amorphous Crystals Few A (None) /hpf Urine Bacteria None (0) /hpf Hyaline Casts 8 H (0-2) /lph Urine Mucus Few A (None) /hpf Ur Culture Indicated? No 04/20/20 04/20/20 04/20/20 Range/Units 11:16 11:16 11:16 WBC (4.5-11.0) K/mcL RBC (4.00-5.20) M/mcL Hgb (12.0-15.0) g/dL Hct (36.0-48.0) % POC Hct (36-48) % MCV (80.0-100.0) fL MCH (26.0-34.0) pg MCHC (31.0-36.0) g/dL RDW (11.5-14.5) % Plt Count (140-440) K/mcL MPV (7.4-10.4) fL Neut % (Auto) (38.0-78.0) % Lymph % (Auto) (15.0-49.0) % [place] % (Auto) (1.0-12.0) % Eos % (Auto) (0.0-7.0) % Baso % (Auto) (0.0-2.0) % Lymph # (Auto) (1.50-4.80) K/mcL [place] # (Auto) (0.10-0.90) K/mcL Eos # (Auto) (0.00-0.70) K/mcL Baso # (Auto) (0.00-0.20) K/mcL Seg Neutrophils % (38-78) % Band Neutrophils % (0-10) % Lymphocytes % (15-49) % Monocytes % (Manual) (1-12) % Myelocytes % % Absolute Neutrophils (1.80-8.00) K/mcL Reactive Lymphocytes (0-2) % Platelet Estimate (Normal) RBC Morphology (Normal) Macrocytosis (None Seen) VBG Lactic Acid 2.2 H (0.5-2.0) mmol/L POC Sodium (133-145) mEq/L Sodium (133-145) mmol/L POC Potassium (3.3-5.1) mEql/L Potassium (3.3-5.1) mmol/L POC Chloride (96-108) mEq/L Chloride (96-108) mmol/L Carbon Dioxide (22-30) mmol/L POC Total CO2 (22-30) mmol/L Anion Gap (8.0-16.0) POC BUN (6-20) mg/dL BUN (8-23) mg/dL Creatinine (0.6-1.1) mg/dL POC Creatinine (0.6-1.2) mg/dL GFR Calculation Glucose (70-105) mg/dL POC Glucose (70-105) mg/dL Calcium (8.6-10.4) mg/dL POC WB Ioniz Calcium (1.16-1.32) mmEq/L Total Bilirubin (0.1-1.0) mg/dL AST (<32) U/L ALT (<40) U/L Alkaline Phosphatase (39-117) U/L Total Creatine Kinase (24-170) U/L Troponin T 0.13 H* (<0.03) ng/mL Total Protein (5.9-8.4) gm/dL Albumin (3.2-5.2) gm/dL Globulin (2.2-3.7) gm/dL Albumin/Globulin Ratio (1.0-2.3) Procalcitonin 0.84 H (<0.10) ng/mL Urine Color Urine Appearance (Clear) Urine pH (5.0-9.0) Ur Specific [place] (1.000-1.035) Urine Protein (Negative) mg/dL Urine Glucose (UA) (Negative) mg/dL Urine Ketones (Negative) mg/dL Urine Occult Blood (Negative) mg/dL Urine Nitrate (Negative) Urine Bilirubin (Negative) mg/dL Urine Urobilinogen mg/dL Ur Leukocyte Esterase (Negative) /ug Urine RBC (0-3) /hpf Urine WBC (0-4) /hpf Ur Squamous Epith Cells (0-4) /hpf Amorphous Crystals (None) /hpf Urine Bacteria (0) /hpf Hyaline Casts (0-2) /lph Urine Mucus (None) /hpf Ur Culture Indicated? 04/20/20 04/20/20 Range/Units 11:16 13:57 WBC (4.5-11.0) K/mcL RBC (4.00-5.20) M/mcL Hgb (12.0-15.0) g/dL Hct (36.0-48.0) % POC Hct 38 (36-48) % MCV (80.0-100.0) fL MCH (26.0-34.0) pg MCHC (31.0-36.0) g/dL RDW (11.5-14.5) % Plt Count (140-440) K/mcL MPV (7.4-10.4) fL Neut % (Auto) (38.0-78.0) % Lymph % (Auto) (15.0-49.0) % [place] % (Auto) (1.0-12.0) % Eos % (Auto) (0.0-7.0) % Baso % (Auto) (0.0-2.0) % Lymph # (Auto) (1.50-4.80) K/mcL [place] # (Auto) (0.10-0.90) K/mcL Eos # (Auto) (0.00-0.70) K/mcL Baso # (Auto) (0.00-0.20) K/mcL Seg Neutrophils % 60 (38-78) % Band Neutrophils % 7 (0-10) % Lymphocytes % 13 L (15-49) % Monocytes % (Manual) 16 H (1-12) % Myelocytes % 3 % Absolute Neutrophils (1.80-8.00) K/mcL Reactive Lymphocytes 1 (0-2) % Platelet Estimate Normal (Normal) RBC Morphology Abnormal A (Normal) Macrocytosis Few A (None Seen) VBG Lactic Acid (0.5-2.0) mmol/L POC Sodium 148 H (133-145) mEq/L Sodium (133-145) mmol/L POC Potassium 3.6 (3.3-5.1) mEql/L Potassium (3.3-5.1) mmol/L POC Chloride 117 H (96-108) mEq/L Chloride (96-108) mmol/L Carbon Dioxide (22-30) mmol/L POC Total CO2 13 L (22-30) mmol/L Anion Gap (8.0-16.0) POC BUN 27 H (6-20) mg/dL BUN (8-23) mg/dL Creatinine (0.6-1.1) mg/dL POC Creatinine 0.7 (0.6-1.2) mg/dL GFR Calculation Glucose (70-105) mg/dL POC Glucose 137 H (70-105) mg/dL Calcium (8.6-10.4) mg/dL POC WB Ioniz Calcium 1.10 L (1.16-1.32) mmEq/L Total Bilirubin (0.1-1.0) mg/dL AST (<32) U/L ALT (<40) U/L Alkaline Phosphatase (39-117) U/L Total Creatine Kinase (24-170) U/L Troponin T (<0.03) ng/mL Total Protein (5.9-8.4) gm/dL Albumin (3.2-5.2) gm/dL Globulin (2.2-3.7) gm/dL Albumin/Globulin Ratio (1.0-2.3) Procalcitonin (<0.10) ng/mL Urine Color Urine Appearance (Clear) Urine pH (5.0-9.0) Ur Specific [place] (1.000-1.035) Urine Protein (Negative) mg/dL Urine Glucose (UA) (Negative) mg/dL Urine Ketones (Negative) mg/dL Urine Occult Blood (Negative) mg/dL Urine Nitrate (Negative) Urine Bilirubin (Negative) mg/dL Urine Urobilinogen mg/dL Ur Leukocyte Esterase (Negative) /ug Urine RBC (0-3) /hpf Urine WBC (0-4) /hpf Ur Squamous Epith Cells (0-4) /hpf Amorphous Crystals (None) /hpf Urine Bacteria (0) /hpf Hyaline Casts (0-2) /lph Urine Mucus (None) /hpf Ur Culture Indicated? Radiology Data Radiology results reviewed: Yes I reviewed the patient's radiology results. Radiology results narrative: Ordering Physician: Ye Gates PA-C Date of Service: 04/20/20 Procedure(s): CT chest abdomen pelvis w con Accession Number(s): [id number] History: Fever, weakness, pulmonary nodule seen on chest x-ray, abdominal pain technique: Patient was imaged following intravenous and oral contrast scanning during the portal venous phase from the thoracic inlet through the symphysis pubis. Sagittal, coronal and axial MIPS images were created. The radiation exposure was limited using using dose reduction technology. FINDINGS: CHEST: Patient has mild centrilobular emphysema both upper lobes and superior segments of both lower lobes. Adjacent to the anterior mediastinum there is a collection of multiple small subpleural bulla in both upper lobes. Adjacent to the subpleural bulla there are small groundglass alveolar infiltrates affecting the right side greater than left. There is no evidence of a pulmonary mass. The suspected nodule seen in the left lower thorax on the recent chest x-ray represents a densely calcified fibroadenoma in the medial portion of the left breast. The other nodular density seen on the chest x-ray at the left apex is a large spur at the costochondral junction of the left first rib. The heart size is normal. There are few calcified plaques in the coronary arteries and several calcified plaques along the wall normal caliber thoracic aorta. No adenopathy is present. Abdomen and pelvis: The liver and spleen are normal in size and homogeneous. There are couple stones within the lumen of the gallbladder. The larger measures 4 mm. The gan not thickened or inflamed and the bile ducts are nondilated. The pancreas and adrenals are normal. Medially in the central portion left kidney there is a nonobstructing 3 mm calculus. No stone is present in the right kidney. There are several small parapelvic cysts in both kidneys. No solid mass is present. Moderate amount calcified plaque is present along the wall of normal caliber normal aorta and iliac arteries. Oral contrast has passed through stomach and small bowel to the rectum without obstruction. Small bowel is decompressed. The appendix is noninflamed. There is some fecal impaction in the distal sigmoid colon and rectum. There is no evidence of diverticulitis or inflammatory bowel disease. Urinary bladder is decompressed by Olmos catheter. A densely calcified 1.7 x 2.1 cm fibroid is present in the left side of the upper uterine fundus. The ovaries are atrophic. There is no adenopathy or ascites are present. There is degenerative disc disease and arthritis in the spine with the greatest degeneration at L2-3. IMPRESSION: Mild emphysema Mild inflammation anteriorly and medially in both upper lobes which could be due to pneumonia or noninfectious inflammatory process related to the COPD. No evidence of pulmonary mass Fecal impaction Small nonobstructing stone in the left kidney Calcified uterine fibroid Gallstone Ye Gates was called with the results Interpreted and Authenticated by: Mario Gaines 04/20/20 EKG Data EKG #1: EKG attestation: Yes I reviewed and interpreted this EKG. EKG results narrative: Twelve-lead EKG obtained showing sinus tachycardia with a rate of 113, no ectopy. No ST segment changes. Normal intervals. Discharge Plan Patient/Caregiver Discharge Instructions Pt seen by FRONT OFFICE DIRECTOR/PA only: Yes Clinical Impression: Weakness generalized Rhabdomyolysis Qualifiers: Rhabdomyolysis type: non-traumatic Qualified Code(s): M62.82 - Rhabdomyolysis Sepsis Qualifiers: Sepsis type: sepsis due to unspecified organism Sepsis acute organ dysfunction status: with acute organ dysfunction Severe sepsis acute organ dysfunction type: unspecified Severe sepsis shock status: without septic shock Qualified Code(s): A41.9 - Sepsis, unspecified organism Patient Disposition: Xfer As Inpt ([facility]) Condition: Fair
[2020-04-20 11:24] LABS: POC Creatinine 1.1 mg/dL (0.6-1.2)
[2020-04-20 12:00] LABS: Basophils # (Auto) 0.12 K/mcL (0.00-0.20); Basophils % (Auto) 0.7 % (0.0-2.0); Eosinophils # (Auto) 0.01 K/mcL (0.00-0.70); Eosinophils % (Auto) 0.1 % (0.0-7.0); Hematocrit 44.4 % (36.0-48.0); Lymphocytes # (Auto) 2.86 K/mcL (1.50-4.80); Mean Cell Volume 98.9 fL (80.0-100.0); Mean Corpuscular HGB Conc 31.5 g/dL (31.0-36.0); Mean Platelet Volume 11.4 fL (7.4-10.4); Monocytes % (Auto) 17.4 % (1.0-12.0); Neutrophils % (Auto) 65.8 % (38.0-78.0); Platelet Count 231 K/mcL (140-440); RBC 4.49 M/mcL (4.00-5.20); Red Cell Distribution Width 13.7 % (11.5-14.5); WBC 17.8 K/mcL (4.5-11.0)
[2020-04-20 12:49] LABS: Creatine Kinase > 20000 U/L (24-170)
[2020-04-20 12:50] LABS: ALT/SGPT 97 U/L (<40); AST/SGOT 426 U/L (<32); Albumin 4.1 gm/dL (3.2-5.2); Alkaline Phosphatase 79 U/L (39-117); Bilirubin,Total 0.4 mg/dL (0.1-1.0); Blood Urea Nitrogen 35 mg/dL (8-23); Calcium 9.9 mg/dL (8.6-10.4); Carbon Dioxide 9 mmol/L (22-30); Chloride 112 mmol/L (96-108); Glomerular Filtration Rate 39; Glucose 191 mg/dL (70-105)
--- NOTE | 2020-04-20 13:21 | Cat Scan Report ---
History: Fever, weakness, pulmonary nodule seen on chest x-ray, abdominal pain technique: Patient was imaged following intravenous and oral contrast scanning during the portal venous phase from the thoracic inlet through the symphysis pubis. Sagittal, coronal and axial MIPS images were created. The radiation exposure was limited using using dose reduction technology. FINDINGS: CHEST: Patient has mild centrilobular emphysema both upper lobes and superior segments of both lower lobes. Adjacent to the anterior mediastinum there is a collection of multiple small subpleural bulla in both upper lobes. Adjacent to the subpleural bulla there are small groundglass alveolar infiltrates affecting the right side greater than left. There is no evidence of a pulmonary mass. The suspected nodule seen in the left lower thorax on the recent chest x-ray represents a densely calcified fibroadenoma in the medial portion of the left breast. The other nodular density seen on the chest x-ray at the left apex is a large spur at the costochondral junction of the left first rib. The heart size is normal. There are few calcified plaques in the coronary arteries and several calcified plaques along the wall normal caliber thoracic aorta. No adenopathy is present. Abdomen and pelvis: The liver and spleen are normal in size and homogeneous. There are couple stones within the lumen of the gallbladder. The larger measures 4 mm. The gan not thickened or inflamed and the bile ducts are nondilated. The pancreas and adrenals are normal. Medially in the central portion left kidney there is a nonobstructing 3 mm calculus. No stone is present in the right kidney. There are several small parapelvic cysts in both kidneys. No solid mass is present. Moderate amount calcified plaque is present along the wall of normal caliber normal aorta and iliac arteries. Oral contrast has passed through stomach and small bowel to the rectum without obstruction. Small bowel is decompressed. The appendix is noninflamed. There is some fecal impaction in the distal sigmoid colon and rectum. There is no evidence of diverticulitis or inflammatory bowel disease. Urinary bladder is decompressed by Olmos catheter. A densely calcified 1.7 x 2.1 cm fibroid is present in the left side of the upper uterine fundus. The ovaries are atrophic. There is no adenopathy or ascites are present. There is degenerative disc disease and arthritis in the spine with the greatest degeneration at L2-3. IMPRESSION: Mild emphysema Mild inflammation anteriorly and medially in both upper lobes which could be due to pneumonia or noninfectious inflammatory process related to the COPD. No evidence of pulmonary mass Fecal impaction Small nonobstructing stone in the left kidney Calcified uterine fibroid Gallstone Ye Gates was called with the results Interpreted and Authenticated by: Mario Gaines 04/20/20
[2020-04-20 13:24] LABS: Appearance,Urine HAZY (Clear); Bilirubin,Urine Negative (Negative); Color,Urine YELLOW; Culture Indicated,Urine No; Glucose,Urine (UA) >=500 mg/dL (Negative); Ketones,Urine 80 mg/dL (Negative); Leukocyte Esterase,Urine Negative /ug (Negative); Mucus,Urine FEW /hpf; Nitrate,Urine Negative (Negative); Protein,Urine 100 mg/dL (Negative); Specific Gravity,Urine 1.021 (1.000-1.035); Urine Amorphous Crystals FEW /hpf; Urine Blood >=1.0 mg/dL (Negative); Urine Hyaline Cast 8 /lph (0-2); Urine RBC 2 /hpf (0-3); Urine Squamous Epithelial Cell 0 /hpf (0-4); Urine WBC 2 /hpf (0-4); Urobilinogen,Urine Negative
[2020-04-20] MEDS ORDERED: DEXTROSE 5% IN WATER 1,000 ML IV ONE (14:04)
[2020-04-20 14:06] LABS: POC Blood Urea Nitrogen 27 mg/dL (6-20); POC CO2 13 mmol/L (22-30); POC Chloride 117 mEq/L (96-108); POC Creatinine 0.7 mg/dL (0.6-1.2); POC Glucose, Random 137 mg/dL (70-105); POC Hematocrit 38 % (36-48); POC Potassium 3.6 mEql/L (3.3-5.1); POC Sodium 148 mEq/L (133-145)
--- NOTE | 2020-04-20 14:10 | Internal Med History&Physical ---
HPI History of Present Illness Patient information: Note initiated : 04/20/20 at 2:05 pm Service Date, if different from initiated Date: [] Patient: Chelsea Edwards 64 y/o F admitted on for Weakness. Chief Complaint: [] History of present illness: Ms. Edwards is a 64 year old F Patient presents the ED after her machinist 2nd shift found her on the floor in the bathroom this morning. Patient was seen in the ED recently and appear to be volume depleted and patient was hydrated up with IV fluids. Work-up was unremarkable other than dehydration and infectious work-up unremarkable. Patient went home she says she woke up in the middle the night went to the ba throom to urinate and after getting up off the toilet she fell onto the bathroom floor. She felt too weak and tired to get up to go to the bed and so she fell asleep on the floor and was found by her machinist 2nd shift. She says she has been weak for a few days, she say she has had some diarrhea with her machinist 2nd shift (per notes) says they were soft stools, not watery. She denies any coughing or shortness of breath. She denies chest pain or stomach pain. Denies any dysuria. No open wounds. She denies any recent illnesses. In the ED she was found to have a severely elevated CK with fever and elevated white blood cell count with elevated procalcitonin. She had acute kidney injury. She was hyponatremic 152. EKG unremarkable. Urinalysis showed hyaline casts but unremarkable for infection and chest CT showed some mild inflammation in the anterior medially of both upper lobes which is felt that could possibly due to pneumonia or noninfectious inflammation process from COPD. Review of Systems: Pertinent positives as above. Denies headache/fever/chills/nausea/vomiting/chest or abdominal pain/cough/dyspnea/diarrhea. Remaining 10 point review of system reviewed negative PFSH PFSH All Active Problems (Updated 04/20/20 @ 13:51 by Ye Gates PA-C) Acute dehydration (Acute) Weakness generalized (Acute) Rhabdomyolysis (Acute) Sepsis (Acute) Abnormal LFTs (liver function tests) (Chronic) Opioid type drug dependence (Chronic) Diabetes mellitus, type II (Chronic) Cervical radiculopathy at C6 (Chronic) Osteopenia (Chronic) Depressive disorder (Chronic) Chronic hepatitis C (Chronic) Medical History Abnormal LFTs (liver function tests) (Chronic) chronic (hx chronic hep c although pt denied previously) Adenomatous polyp of colon (Inactive) Altered mental status (Resolved) Cervical radiculopathy at C6 (Chronic) Chronic hepatitis C (Chronic) Recorded 06/15/05; denies 05/05/2019 Concussion (Resolved) Dehydration (Resolved) Depressive disorder (Chronic) Diabetes mellitus, type II (Chronic) Encounter for Health Maintenance Examination in Adult (Inactive) Fall (Inactive) Fall at home (Resolved) Head injury (Resolved) Hypercalcemia (Inactive) Opioid type drug dependence (Chronic) Osteopenia (Chronic) 12/2011 Rhabdomyolysis (Resolved) UTI (urinary tract infection) (Resolved) Weakness (Resolved) Surgical History History of colonoscopy (Chronic 05/23/17) History of left breast biopsy (Resolved) History of right breast biopsy (Resolved) History of tonsillectomy (Resolved) age 16 Family History Brother Primary malignant neoplasm of bone marrow, Onset Age: 56 lung cancer, metastasized Father Type 2 diabetes mellitus Grandmother (paternal) Family history of malignant neoplasm of breast paternal grandmother when patient's father was 5 years old Sister Hyperthyroidism Social History (Updated 05/26/18 @ 10:20 by Joy Garcia DO) marital status: occupational status: disabled physical activity: other smoking status: Current every day smoker alcohol intake frequency: 0-2 drinks per day MEDS/ALLERGIES Home Medications and Allergies Home Medications Medication Instructions Recorded Confirmed Type trazodone 50 mg tablet 50 mg PO QHS #30 tab 03/21/17 04/20/20 Rx omeprazole 40 mg capsule,delayed 40 mg PO QAM #90 cap 05/03/17 04/20/20 Rx release memantine 10 mg tablet 10 mg PO BID #60 tab 05/23/17 04/20/20 Rx divalproex 250 mg tablet,delayed 250 mg PO BID #60 tab 05/27/17 04/20/20 Rx release duloxetine 60 mg capsule,delayed 60 mg PO QDAY #30 cap 10/24/17 04/20/20 Rx release amlodipine 5 mg tablet 5 mg PO QDAY #30 tab 12/31/17 04/20/20 Rx atorvastatin 20 mg PO DAILY 04/16/18 04/20/20 History lorazepam 1 mg PO DAILYP PRN 04/16/18 04/20/20 History pioglitazone 45 mg PO QDAY 04/16/18 04/20/20 History ziprasidone HCl 60 mg PO DAILY 04/16/18 04/20/20 History loperamide 2 mg PO PRN PRN #40 cap 04/27/18 05/05/19 Rx calcium carbonate [Calcium 600] 600 mg PO BID 04/20/20 04/20/20 History canagliflozin [Invokana] 300 mg PO QDAY 04/20/20 04/20/20 History lisinopril 20 mg PO QAM 04/20/20 04/20/20 History sitagliptin [Januvia] 100 mg PO QDAY 04/20/20 04/20/20 History Allergies Allergy/AdvReac Type Severity Reaction Status Date / Time No Known Drug Allergies Allergy Verified 04/20/20 10:43 EXAM Constitutional Vitals: Temp Pulse Resp BP Pulse Ox 97.5 F 96 H 20 139/62 99 04/20/20 13:31 04/20/20 13:31 04/20/20 13:31 04/20/20 13:31 04/20/20 13:31 Exam: General: Alert, Awake, No acute Distress Eyes/N/T: EOMI, PERRL, dry MM Head/Neck: neck supple, normocephalic atraumatic CV: RRR, No murmurs, normal s1/s2 Pulm: Clear b/l, no wheezing/rhonchi/rales Abd: soft, nontender, +BS x4 Ext: no clubbing/cyanosis. LLE 1+ LE edema Neuro: A&Ox3, no focal deficits, moves all extremities, CN 2-12 grossly intact, symmetrical strength b/l upper/lower, sensations intact b/l upper/lower Skin: warm/dry DATA Data Completed and Pending Labs: Labs from last 24 hours 04/20/20 04/20/20 04/20/20 13:57 11:16 11:16 WBC RBC Hgb Hct POC Hct Pending MCV MCH MCHC RDW Plt Count MPV Neut % (Auto) Lymph % (Auto) [place] % (Auto) Eos % (Auto) Baso % (Auto) Lymph # (Auto) [place] # (Auto) Eos # (Auto) Baso # (Auto) Absolute Neutrophils Platelet Estimate Pending RBC Morphology Pending VBG Lactic Acid POC Sodium Pending Sodium POC Potassium Pending Potassium POC Chloride Pending Chloride Carbon Dioxide POC Total CO2 Pending Anion Gap POC BUN Pending BUN Creatinine POC Creatinine Pending GFR Calculation Glucose POC Glucose Pending Calcium POC WB Ioniz Calcium Pending Total Bilirubin AST ALT Alkaline Phosphatase Total Creatine Kinase Troponin T Total Protein Albumin Globulin Albumin/Globulin Ratio Procalcitonin 0.84 H Urine Color Urine Appearance Urine pH Ur Specific [place] Urine Protein Urine Glucose (UA) Urine Ketones Urine Occult Blood Urine Nitrate Urine Bilirubin Urine Urobilinogen Ur Leukocyte Esterase Urine RBC Urine WBC Ur Squamous Epith Cells Amorphous Crystals Urine Bacteria Hyaline Casts Urine Mucus Ur Culture Indicated? 04/20/20 04/20/20 04/20/20 11:16 11:16 11:16 WBC RBC Hgb Hct POC Hct MCV MCH MCHC RDW Plt Count MPV Neut % (Auto) Lymph % (Auto) [place] % (Auto) Eos % (Auto) Baso % (Auto) Lymph # (Auto) [place] # (Auto) Eos # (Auto) Baso # (Auto) Absolute Neutrophils Platelet Estimate RBC Morphology VBG Lactic Acid 2.2 H POC Sodium Sodium 152 H POC Potassium Potassium 3.6 POC Chloride Chloride 112 H Carbon Dioxide 9 L* POC Total CO2 Anion Gap 31.0 H POC BUN BUN 35 H Creatinine 1.4 H POC Creatinine 1.1 GFR Calculation 39 Glucose 191 H POC Glucose Calcium 9.9 POC WB Ioniz Calcium Total Bilirubin 0.4 AST 426 H ALT 97 H Alkaline Phosphatase 79 Total Creatine Kinase > 35551 H Troponin T 0.13 H* Total Protein 8.1 Albumin 4.1 Globulin 4.0 H Albumin/Globulin Ratio 1.0 Procalcitonin Urine Color Urine Appearance Urine pH Ur Specific [place] Urine Protein Urine Glucose (UA) Urine Ketones Urine Occult Blood Urine Nitrate Urine Bilirubin Urine Urobilinogen Ur Leukocyte Esterase Urine RBC Urine WBC Ur Squamous Epith Cells Amorphous Crystals Urine Bacteria Hyaline Casts Urine Mucus Ur Culture Indicated? 04/20/20 04/20/20 11:16 10:55 WBC 17.8 H RBC 4.49 Hgb 14.0 Hct 44.4 POC Hct MCV 98.9 MCH 31.2 MCHC 31.5 RDW 13.7 Plt Count 231 MPV 11.4 H Neut % (Auto) 65.8 Lymph % (Auto) 16.0 [place] % (Auto) 17.4 H Eos % (Auto) 0.1 Baso % (Auto) 0.7 Lymph # (Auto) 2.86 [place] # (Auto) 3.10 H Eos # (Auto) 0.01 Baso # (Auto) 0.12 Absolute Neutrophils 11.73 H Platelet Estimate RBC Morphology VBG Lactic Acid POC Sodium Sodium POC Potassium Potassium POC Chloride Chloride Carbon Dioxide POC Total CO2 Anion Gap POC BUN BUN Creatinine POC Creatinine GFR Calculation Glucose POC Glucose Calcium POC WB Ioniz Calcium Total Bilirubin AST ALT Alkaline Phosphatase Total Creatine Kinase Troponin T Total Protein Albumin Globulin Albumin/Globulin Ratio Procalcitonin Urine Color Yellow Urine Appearance Hazy A Urine pH 5.0 Ur Specific [place] 1.021 Urine Protein 100 A Urine Glucose (UA) >=500 A Urine Ketones 80 A Urine Occult Blood >=1.0 A Urine Nitrate Negative Urine Bilirubin Negative Urine Urobilinogen Negative Ur Leukocyte Esterase Negative Urine RBC 2 Urine WBC 2 Ur Squamous Epith Cells 0 Amorphous Crystals Few A Urine Bacteria None Hyaline Casts 8 H Urine Mucus Few A Ur Culture Indicated? No A/P Narrative A/P Narrative: A: *Hypernatremia/Dehydration: *Rhabdomyolysis: 2/2 prolonged downtime in bathroom worsened by dehydration *SHAMAR: *Generalized weakness/Fall/Deconditioning: *SIRS/?Sepsis(uknown source): -leukocytosis(infectious vs reactive)/tachy/febrile - could all be rhabdo related -elevated PCT likely from Rhabdomyolysis & fall/trauma -CXR/UA unrevealing. CT chest mild inflammation but no cough/respiratory s ymptoms *Anion gap metabolic acidosis: 2/2 Rhabdo/uremia/starvation ketosis *Transaminitis(h/o Fatty Liver/Hep C): 2/2 above, and has seen GI in past regarding hep c *h/o Dementia, mild: *Depression: *Diabetes: *HTN: *COPD/Tobacco Abuse: *GERD: *h/o substance abuse (none documented since 2014) *Fecal impaction/diarrhea: P: -Hypotonic soln then bicarb gtt -f/u UA pH -monitor CPK -empiric abx, f/u PCT, pending BC, stool studies -monitor uop/sodium -SSI, hold oral hypoglycemics -cont home norvasc, hold ACEI for shamar -Smoking cessation counseling -ppx: lovenox/home ppi DNR Time Spent With Patient Time: Total time spent is greater than 50% in coordination of care (as documented) at patient's floor/unit and/or counseling patient:
[2020-04-20 15:04] LABS: Band Neutrophils % 7 % (0-10); Lymphocytes % 13 % (15-49); Macrocytosis FEW (None Seen); Monocytes % (Manual) 16 % (1-12); Myelocytes % 3 %; Platelet Estimate NORMAL (Normal); RBC Morphology ABNORMAL (Normal); Reactive Lymphocytes 1 % (0-2); Segmented Neutrophils % 60 % (38-78)
[2020-04-20] MEDS ORDERED: DEXTROSE 50% 50 ML VIAL IV PRN (15:42)
[2020-04-20] MEDS ORDERED: POTASSIUM CHLORIDE 20 MEQ TABLET PO PRN ×2 (15:42)
[2020-04-20] MEDS ORDERED: POTASSIUM CHLORIDE 40 MEQ in DEXTROSE 5% IN WATER 500 ML IV PRN (15:42)
[2020-04-20] MEDS ORDERED: DEXTROSE 31 GM ORAL.SUSP PO PRN (15:42)
[2020-04-20] MEDS ORDERED: ONDANSETRON 4 MG/2 ML VIAL IV PRN (15:42)
[2020-04-20] MEDS ORDERED: IPRATROPIUM/ALBUTEROL 3 ML AMPUL.NEB NEB PRN (15:42)
[2020-04-20] MEDS ORDERED: SODIUM BICARBONATE VIAL 150 MEQ in DEXTROSE 5% IN WATER 850 ML IV SCH (15:42)
[2020-04-20] MEDS ORDERED: PIPERACILLIN SODIUM/TAZOBACTAM 3.375 GM in DEXTROSE 5% IN WATER 50 ML IV SCH (15:42)
[2020-04-20] MEDS ORDERED: MAGNESIUM SULFATE 2 GM/50 ML BAG IV PRN (15:42)
[2020-04-20] MEDS ORDERED: LORazepam 1 MG TABLET PO PRN (15:46)
[2020-04-20] MEDS: SODIUM BICARBONATE VIAL 150 MEQ in WATER FOR INJECTION,STERILE 850 ML IV SCH (16:48)
[2020-04-20] MEDS: PIPERACILLIN SODIUM/TAZOBACTAM 2.25 GM in DEXTROSE 5% IN WATER 50 ML IV SCH ×2 (16:48→23:54)
[2020-04-20] MEDS: INSULIN LISPRO 1 UNIT/0.01 ML UNIT SQ SCH ×2 (16:50→20:56)
[2020-04-20] MEDS: ACETAMINOPHEN 325 MG TABLET PO PRN (17:16)
[2020-04-20 19:41] LABS: POC Blood Urea Nitrogen 23 mg/dL (6-20); POC CO2 15 mmol/L (22-30); POC Calcium, Ionized 1.09 mmEq/L (1.16-1.32); POC Chloride 113 mEq/L (96-108); POC Creatinine 0.7 mg/dL (0.6-1.2); POC Glucose, Random 297 mg/dL (70-105); POC Hematocrit 40 % (36-48); POC Potassium 4.3 mEql/L (3.3-5.1); POC Sodium 144 mEq/L (133-145)
[2020-04-20] MEDS: traZODone HCL 50 MG TABLET PO SCH (20:56)
[2020-04-20] MEDS: MEMANTINE 10 MG TABLET PO SCH (20:56)
[2020-04-20] MEDS: DIVALPROEX SODIUM 250 MG TABLET PO SCH (20:56)
[2020-04-20] MEDS: 0.9 % SODIUM CHLORIDE 10 ML SYRINGE IV SCH (20:58)
[2020-04-21] MEDS: 0.9 % SODIUM CHLORIDE 10 ML SYRINGE IV SCH ×3 (05:41→21:45)
[2020-04-21] MEDS: PIPERACILLIN SODIUM/TAZOBACTAM 2.25 GM in DEXTROSE 5% IN WATER 50 ML IV SCH ×3 (05:45→17:39)
[2020-04-21 06:30] LABS: Basophils # (Auto) 0.04 K/mcL (0.00-0.20); Basophils % (Auto) 0.3 % (0.0-2.0); Eosinophils # (Auto) 0.01 K/mcL (0.00-0.70); Eosinophils % (Auto) 0.1 % (0.0-7.0); Hemoglobin 11.8 g/dL (12.0-15.0); Lymphocytes # (Auto) 2.69 K/mcL (1.50-4.80); Lymphocytes % (Auto) 21.4 % (15.0-49.0); Mean Corpuscular HGB Conc 32.8 g/dL (31.0-36.0); Mean Platelet Volume 11.2 fL (7.4-10.4); Monocytes # (Auto) 1.89 K/mcL (0.10-0.90); Neutrophils % (Auto) 63.2 % (38.0-78.0); Platelet Count 166 K/mcL (140-440); RBC 3.79 M/mcL (4.00-5.20); Red Cell Distribution Width 13.6 % (11.5-14.5); WBC 12.6 K/mcL (4.5-11.0)
[2020-04-21] MEDS: SODIUM BICARBONATE VIAL 150 MEQ in WATER FOR INJECTION,STERILE 850 ML IV SCH (07:01)
[2020-04-21 07:06] LABS: ALT/SGPT 142 U/L (<40); AST/SGOT 662 U/L (<32); Albumin 3.1 gm/dL (3.2-5.2); Alkaline Phosphatase 58 U/L (39-117); Bilirubin,Direct < 0.2 mg/dL (<0.3); Bilirubin,Total 0.4 mg/dL (0.1-1.0); Blood Urea Nitrogen 22 mg/dL (8-23); Carbon Dioxide 24 mmol/L (22-30); Chloride 100 mmol/L (96-108); Globulin 3.1 gm/dL (2.2-3.7); Glomerular Filtration Rate 66; Glucose 105 mg/dL (70-105); Lactate Dehydrogenase 800 U/L (135-225); Phosphorous 2.8 mg/dL (2.5-4.5); Triglycerides 129 mg/dL (<150); Uric Acid 6.6 mg/dL (2.5-8.0)
--- NOTE | 2020-04-21 07:51 | Internal Med Progress Note ---
SUBJECTIVE Subjective Patient information: Note initiated : 04/21/20 at 7:46 am Service Date, if different from initiated Date: [] Patient: Chelsea Edwards 64 y/o F admitted on 04/20/20 for Weakness. Chief Complaint: [] Interval history: History of present illness: Ms. Edwards is a 64 year old F Patient presents the ED after her grain elevator operator found her on the floor in the bathroom this morning. Patient was seen in the ED recently and appear to be volume depleted and patient was hydrated up with IV fluids. Work-up was unremarkable other than dehydrati on and infectious work-up unremarkable. Patient went home she says she woke up in the middle the night went to the bathroom to urinate and after getting up off the toilet she fell onto the bathroom floor. She felt too weak and tired to get up to go to the bed and so she fell asleep on the floor and was found by her grain elevator operator. She says she has been weak for a few days, she say she has had some diarrhea with her grain elevator operator (per notes) says they were soft stools, not watery. She denies any coughing or shortness of breath. She denies chest pain or stomach pain. Denies any dysuria. No open wounds. She denies any recent illnesses. In the ED she was found to have a severely elevated CK with fever and elevated white blood cell count with elevated procalcitonin. She had acute kidney injury. She was hyponatremic 152. EKG unremarkable. Urinalysis showed hyaline casts but unremarkable for infection and chest CT showed some mild inflammation in the anterior medially of both upper lobes which is felt that could possibly due to pneumonia or noninfectious inflammation process from COPD. 04/21 Feeling better today. Leukocytosis improved. Chemistry panel much improved. No muscle/body aches. 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 Review of Systems: denies headache/fever/chills/nausea/vomiting/chest or abdominal pain/cough/dyspn ea. Otherwise see above. Constitutional Vitals: Vital Signs Temp Pulse Resp BP Pulse Ox 98.2 F 93 H 15 123/61 96 04/21/20 05:57 04/20/20 15:01 04/21/20 05:57 04/21/20 05:01 04/21/20 05:57 Period Temp Pulse Resp BP Sys/Farris Pulse Ox Last 24 Hr 94.3 F-101.5 F 93-125 14-25 103-174/47-112 96-100 Intake and Output 04/20/20 04/21/20 04/21/20 21:59 05:59 13:59 Intake Total 7299 423 3547 Output Total 1100 1000 Balance -14 -630 1050 Weight 67.086 kg Intake & Output: Intake & Output 04/20/20 04/21/20 04/21/20 21:59 05:59 13:59 Intake Total 1006 578 2842 Output Total 1100 1000 Balance -14 -630 1050 Weight 67.086 kg Intake: IV 160 00 3351 Sodium Chloride 0.9% 1,000 ml @ 533 Wide Open IV BOLUS ONE Rx#: [id number] Dextrose 5% in Water 1,000 ml @ 263 125 mls/hr IV .Q8H ONE Rx#: [id number] Zosyn 2.25 gm In Dextrose 5% in 50 50 50 Water 50 ml @ 100 mls/hr IV Q6H [facility] Rx#:[id number] Sodium Bicarbonate Vial 150 Meq 1000 In Water 850 ml @ 75 mls/hr IV Q10H [facility] Rx#:[id number] Oral 240 320 Output: Urine Catheter Amount 1100 1000 Other: Meal Dinner Percent of Meal Consumed 75% Urine Appearance Clear Clear Uretheral ([place]) Clear Urine Color Dark Yellow Light Michelle Uretheral ([place]) Dark Yellow Urine Odor Normal Uretheral ([place]) Normal Stool Size Moderate Stool Color Brown Stool Consistency Loose # Bowel Movements 1 Exam: Alert, Awake, No acute Distress Eyes/N/T: EOMI, Head/Neck: neck supple, CV: RRR, No murmurs, Pulm: Clear b/l, no wheezing/rhonchi/rales Abd: soft, nontender, +BS x4 Ext: no clubbing/cyanosis. LLE 1+ LE edema Neuro: A&Ox3, no focal deficits, moves all extremities, Skin: warm/dry OBJ DATA Labs CBC & Chem 7: 04/21/20 05:02 04/21/20 05:02 Labs: Abnormal Lab Results 04/21/20 04/21/20 04/21/20 05:02 05:02 05:02 WBC 12.6 H RBC 3.79 L Hgb 11.8 L MPV 11.2 H [place] % (Auto) 15.0 H [place] # (Auto) 1.89 H Lymphocytes % Monocytes % (Manual) Absolute Neutrophils RBC Morphology Macrocytosis VBG Lactic Acid POC Sodium Sodium POC Chloride Chloride Carbon Dioxide POC Total CO2 Anion Gap POC BUN BUN Creatinine Glucose POC Glucose Calcium 8.0 L POC WB Ioniz Calcium GGT 163 H AST 662 H ALT 142 H Lactate Dehydrogenase 800 H Total Creatine Kinase Troponin T C-Reactive Protein 1.50 H Albumin 3.1 L Globulin Procalcitonin 0.76 H Urine Appearance Urine Protein Urine Glucose (UA) Urine Ketones Urine Occult Blood Amorphous Crystals Hyaline Casts Urine Mucus 04/20/20 04/20/20 04/20/20 19:35 13:57 11:16 WBC RBC Hgb MPV [place] % (Auto) [place] # (Auto) Lymphocytes % Monocytes % (Manual) Absolute Neutrophils RBC Morphology Macrocytosis VBG Lactic Acid POC Sodium 148 H Sodium POC Chloride 113 H 117 H Chloride Carbon Dioxide POC Total CO2 15 L 13 L Anion Gap POC BUN 23 H 27 H BUN Creatinine Glucose POC Glucose 297 H 137 H Calcium POC WB Ioniz Calcium 1.09 L 1.10 L GGT AST ALT Lactate Dehydrogenase Total Creatine Kinase Troponin T C-Reactive Protein 1.90 H Albumin Globulin Procalcitonin Urine Appearance Urine Protein Urine Glucose (UA) Urine Ketones Urine Occult Blood Amorphous Crystals Hyaline Casts Urine Mucus 04/20/20 04/20/20 04/20/20 11:16 11:16 11:16 WBC RBC Hgb MPV [place] % (Auto) [place] # (Auto) Lymphocytes % 13 L Monocytes % (Manual) 16 H Absolute Neutrophils RBC Morphology Abnormal A Macrocytosis Few A VBG Lactic Acid POC Sodium Sodium POC Chloride Chloride Carbon Dioxide POC Total CO2 Anion Gap POC BUN BUN Creatinine Glucose POC Glucose Calcium POC WB Ioniz Calcium GGT AST ALT Lactate Dehydrogenase Total Creatine Kinase Troponin T 0.13 H* C-Reactive Protein Albumin Globulin Procalcitonin 0.84 H Urine Appearance Urine Protein Urine Glucose (UA) Urine Ketones Urine Occult Blood Amorphous Crystals Hyaline Casts Urine Mucus 04/20/20 04/20/20 04/20/20 11:16 11:16 11:16 WBC 17.8 H RBC Hgb MPV 11.4 H [place] % (Auto) 17.4 H [place] # (Auto) 3.10 H Lymphocytes % Monocytes % (Manual) Absolute Neutrophils 11.73 H RBC Morphology Macrocytosis VBG Lactic Acid 2.2 H POC Sodium Sodium 152 H POC Chloride Chloride 112 H Carbon Dioxide 9 L* POC Total CO2 Anion Gap 31.0 H POC BUN BUN 35 H Creatinine 1.4 H Glucose 191 H POC Glucose Calcium POC WB Ioniz Calcium GGT AST 426 H ALT 97 H Lactate Dehydrogenase Total Creatine Kinase > 61088 H Troponin T C-Reactive Protein Albumin Globulin 4.0 H Procalcitonin Urine Appearance Urine Protein Urine Glucose (UA) Urine Ketones Urine Occult Blood Amorphous Crystals Hyaline Casts Urine Mucus 04/20/20 10:55 WBC RBC Hgb MPV [place] % (Auto) [place] # (Auto) Lymphocytes % Monocytes % (Manual) Absolute Neutrophils RBC Morphology Macrocytosis VBG Lactic Acid POC Sodium Sodium POC Chloride Chloride Carbon Dioxide POC Total CO2 Anion Gap POC BUN BUN Creatinine Glucose POC Glucose Calcium POC WB Ioniz Calcium GGT AST ALT Lactate Dehydrogenase Total Creatine Kinase Troponin T C-Reactive Protein Albumin Globulin Procalcitonin Urine Appearance Hazy A Urine Protein 100 A Urine Glucose (UA) >=500 A Urine Ketones 80 A Urine Occult Blood >=1.0 A Amorphous Crystals Few A Hyaline Casts 8 H Urine Mucus Few A Meds: Medications Acetaminophen (Tylenol) 650 mg PO Q6HP PRN PRN Reason: PAIN/FEVER > 101 Last Admin: 04/20/20 17:16 Dose: 650 mg Documented by: Albuterol/Ipratropium (Duoneb) 3 ml NEB Q4HP PRN PRN Reason: Shortness Of Breath Amlodipine Besylate (Norvasc) 5 mg PO QDAY [facility] Atorvastatin Calcium (Lipitor) 20 mg PO DAILY [facility] Dextrose (Dextrose 50%) 0 ml IV UD PRN PRN Reason: Hypoglycemia Diagnostic Test (Pha) (Accu-Chek) 1 each FS ACHS [facility] Last Admin: 04/20/20 20:56 Dose: 1 each Documented by: Divalproex Sodium (Depakote Delayed Release) 250 mg PO BID [facility] Last Admin: 04/20/20 20:56 Dose: 250 mg Documented by: Duloxetine HCl (Cymbalta) 60 mg PO DAILY [facility] Enoxaparin Sodium (Lovenox) 40 mg SQ DAILY [facility] Glucose (Insta-Glucose) 15 gm PO PRN PRN PRN Reason: Hypoglycemia Potassium Chloride 40 meq/ (Dextrose) 520 mls @ 130 mls/hr IV UD PRN PRN Reason: Potassium < 3 Magnesium Sulfate (Magnesium Sulfate) 2 gm in 50 mls @ 50 mls/hr IV UD PRN PRN Reason: Magnesium </= 1.6 Piperacillin Sod/Tazobactam (Sod 2.25 gm/ Dextrose) 50 mls @ 100 mls/hr IV Q6H [facility] Last Infusion: 04/21/20 06:15 Dose: Infused Documented by: Sodium Bicarbonate 150 meq/ (Sterile Water) 1,000 mls @ 75 mls/hr IV Q10H [facility] Stop: 04/21/20 11:59 Last Admin: 04/21/20 07:01 Dose: 75 mls/hr Documented by: Insulin Human Lispro (Humalog) 0 unit SQ ACHS [facility]; Protocol Last Admin: 04/20/20 20:56 Dose: 6 unit Documented by: Lorazepam (Ativan) 1 mg PO DAILYP PRN PRN Reason: ANXIETY/SEDATION Memantine (Namenda) 10 mg PO BID [facility] Last Admin: 04/20/20 20:56 Dose: 10 mg Documented by: Omeprazole (Prilosec) 40 mg PO ACB [facility] Ondansetron HCl (Zofran) 4 mg IV Q4HP PRN PRN Reason: Nausea And Vomiting Ziprasidone Hcl 60 (Mg Capsule) 1 dose PO QAMCC [facility] Potassium Chloride (Kdur) 40 meq PO UD PRN PRN Reason: Potssium is 3-3.5 Potassium Chloride (Kdur) 40 meq PO UD PRN PRN Reason: Potassium < 3 Sodium Chloride (Saline Flush) 10 ml IV Q8 [facility] Last Admin: 04/21/20 05:41 Dose: Not Given Documented by: Trazodone HCl (Desyrel) 50 mg PO QHS [facility] Last Admin: 04/20/20 20:56 Dose: 50 mg Documented by: A/P Narrative A/P Narrative: A: *Hypernatremia/Dehydration: improved *Rhabdomyolysis: 2/2 prolonged downtime in bathroom worsened by dehydration *BRONSON: resolved *Generalized weakness/Fall/Deconditioning: *SIRS/?Sepsis(uknown source): -leukocytosis(infectious vs reactive)/tachy/febrile - could all be rhabdo related -elevated PCT could be from Rhabdomyolysis & fall/trauma -CXR/UA unrevealing. CT chest mild inflammation but no cough/respiratory symptoms *Anion gap metabolic acidosis: 2/2 Rhabdo/uremia/starvation ketosis -resolved *Transaminitis(h/o Fatty Liver/Hep C): 2/2 above, and has seen GI in past regarding hep c *h/o Dementia, mild: *Depression: *Diabetes: *HTN: *COPD/Tobacco Abuse: *GERD: *h/o substance abuse (none documented since 2014) *Fecal impaction/diarrhea: no more diarrhea, fecal wbc neg P: -bicarb gtt finish today -f/u UA pH -monitor CPK -empiric abx, f/u PCT, pending BC, stool studies -SSI, hold oral hypoglycemics -cont home norvasc, hold ACEI for bronson -Smoking cessation counseling -ppx: lovenox/home ppi DNR Time Spent With Patient Time: Total time spent is greater than 50% in coordination of care (as documented) at patient's floor/unit and/or counseling patient: QUALITY VTE Deep Vein Thrombosis/Pulmonary Embolism Present on Admission: No
[2020-04-21] MEDS: INSULIN LISPRO 1 UNIT/0.01 ML UNIT SQ SCH ×5 (08:04→19:50)
[2020-04-21] MEDS: amLODIPine 5 MG TABLET PO SCH (08:49)
[2020-04-21] MEDS: DIVALPROEX SODIUM 250 MG TABLET PO SCH ×2 (08:49→21:08)
[2020-04-21] MEDS: DULoxetine 30 MG CAPSULE PO SCH (08:49)
[2020-04-21] MEDS: MEMANTINE 10 MG TABLET PO SCH ×2 (08:49→21:07)
[2020-04-21] MEDS: ATORVASTATIN 20 MG TABLET PO SCH (08:49)
[2020-04-21] MEDS: ENOXAPARIN 40 MG/0.4 ML SYRINGE SQ SCH (08:50)
[2020-04-21] MEDS: OMEPRAZOLE 20 MG CAPSULE PO SCH (10:10)
[2020-04-21 12:43] LABS: Appearance,Urine CLEAR (Clear); Bilirubin,Urine Negative (Negative); Color,Urine YELLOW; Culture Indicated,Urine Yes; Glucose,Urine (UA) >=500 mg/dL (Negative); Ketones,Urine 20 mg/dL (Negative); Leukocyte Esterase,Urine Negative /ug (Negative); Nitrate,Urine Negative (Negative); Protein,Urine 30 mg/dL (Negative); Specific Gravity,Urine 1.033 (1.000-1.035); Urine Blood >=1.0 mg/dL (Negative); Urine Budding Yeast MANY /hpf; Urine RBC 10 /hpf (0-3); Urine Squamous Epithelial Cell 1 /hpf (0-4); Urine Transitional Epi Cells 1 /hpf (0-2); Urine WBC 7 /hpf (0-4); Urobilinogen,Urine Negative
[2020-04-21] MEDS: ACETAMINOPHEN 325 MG TABLET PO PRN ×2 (12:54→19:14)
[2020-04-21] MEDS: LOPERAMIDE 2 MG CAPSULE PO PRN ×3 (15:06→19:55)
[2020-04-21] MEDS: traZODone HCL 50 MG TABLET PO SCH (21:07)
[2020-04-22] MEDS: 0.9 % SODIUM CHLORIDE 10 ML SYRINGE IV SCH ×8 (00:10→21:42)
[2020-04-22] MEDS: PIPERACILLIN SODIUM/TAZOBACTAM 2.25 GM in DEXTROSE 5% IN WATER 50 ML IV SCH ×3 (00:10→17:15)
[2020-04-22] MEDS: INSULIN LISPRO 1 UNIT/0.01 ML UNIT SQ SCH ×6 (00:20→19:18)
[2020-04-22 06:55] LABS: Basophils # (Auto) 0.07 K/mcL (0.00-0.20); Basophils % (Auto) 0.9 % (0.0-2.0); Eosinophils # (Auto) 0.03 K/mcL (0.00-0.70); Eosinophils % (Auto) 0.4 % (0.0-7.0); Hematocrit 37.9 % (36.0-48.0); Hemoglobin 12.3 g/dL (12.0-15.0); Lymphocytes # (Auto) 2.89 K/mcL (1.50-4.80); Lymphocytes % (Auto) 35.3 % (15.0-49.0); Mean Cell Volume 96.4 fL (80.0-100.0); Mean Corpuscular HGB Conc 32.5 g/dL (31.0-36.0); Mean Platelet Volume 10.8 fL (7.4-10.4); Monocytes # (Auto) 0.83 K/mcL (0.10-0.90); Monocytes % (Auto) 10.1 % (1.0-12.0); Neutrophils % (Auto) 53.3 % (38.0-78.0); Platelet Count 168 K/mcL (140-440); RBC 3.93 M/mcL (4.00-5.20); Red Cell Distribution Width 13.4 % (11.5-14.5); WBC 8.2 K/mcL (4.5-11.0)
[2020-04-22 07:12] LABS: ALT/SGPT 149 U/L (<40); AST/SGOT 578 U/L (<32); Albumin 2.9 gm/dL (3.2-5.2); Alkaline Phosphatase 65 U/L (39-117); Bilirubin,Direct < 0.2 mg/dL (<0.3); Bilirubin,Total 0.4 mg/dL (0.1-1.0); Blood Urea Nitrogen 16 mg/dL (8-23); Calcium 8.6 mg/dL (8.6-10.4); Carbon Dioxide 28 mmol/L (22-30); Chloride 100 mmol/L (96-108); Globulin 2.8 gm/dL (2.2-3.7); Glomerular Filtration Rate 90; Glucose 147 mg/dL (70-105); Lactate Dehydrogenase 736 U/L (135-225); Phosphorous 1.8 mg/dL (2.5-4.5); Triglycerides 257 mg/dL (<150); Uric Acid 4.1 mg/dL (2.5-8.0)
[2020-04-22 07:17] LABS: Creatine Kinase 9928 U/L (24-170)
--- NOTE | 2020-04-22 07:25 | Internal Med Progress Note ---
SUBJECTIVE Subjective Patient information: Note initiated : 04/22/20 at 7:20 am Service Date, if different from initiated Date: [] Patient: Chelsea Edwards 64 y/o F admitted on 04/20/20 for Weakness. Chief Complaint: [] Interval history: History of present illness: Ms. Edwards is a 64 year old F Patient presents the ED after her forensic nurse found her on the floor in the bathroom this morning. Patient was seen in the ED recently and appear to be volume depleted and patient was hydrated up with IV fluids. Work-up was unremarkable other than dehydrati on and infectious work-up unremarkable. Patient went home she says she woke up in the middle the night went to the bathroom to urinate and after getting up off the toilet she fell onto the bathroom floor. She felt too weak and tired to get up to go to the bed and so she fell asleep on the floor and was found by her forensic nurse. She says she has been weak for a few days, she say she has had some diarrhea with her forensic nurse (per notes) says they were soft stools, not watery. She denies any coughing or shortness of breath. She denies chest pain or stomach pain. Denies any dysuria. No open wounds. She denies any recent illnesses. In the ED she was found to have a severely elevated CK with fever and elevated white blood cell count with elevated procalcitonin. She had acute kidney injury. She was hyponatremic 152. EKG unremarkable. Urinalysis showed hyaline casts but unremarkable for infection and chest CT showed some mild inflammation in the anterior medially of both upper lobes which is felt that could possibly due to pneumonia or noninfectious inflammation process from COPD. 04/21 Feeling better today. Leukocytosis improved. Chemistry panel much improved. No muscle/body aches. 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 04/22 Doing well. No overnight event or new complaints. She does have some diarrhea. C. difficile and fecal WBCs negative. CPK improving. Review of Systems: denies headache/fever/chills/nausea/vomiting/chest or abdominal pain/cough/dyspnea. Otherwise see above. Constitutional Vitals: Vital Signs Temp Pulse Resp BP Pulse Ox 97.6 F 93 H 14 111/57 99 04/22/20 04:01 04/20/20 15:01 04/22/20 06:01 04/22/20 06:01 04/22/20 06:01 Period Temp Pulse Resp BP Sys/Farris Pulse Ox Last 24 Hr 97.6 F-99.0 F 12- 103-156/45-134 95-100 Intake and Output 04/21/20 04/22/20 04/22/20 21:59 05:59 13:59 Intake Total 2190 290 50 Output Total 700 1200 Balance 1490 -910 50 Weight 70.216 kg Intake & Output: Intake & Output 04/21/20 04/22/20 04/22/20 21:59 05:59 13:59 Intake Total 2190 290 50 Output Total 700 1200 Balance 1490 -910 50 Weight 70.216 kg Intake: IV 1050 50 50 Zosyn 2.25 gm In Dextrose 5% in 50 50 50 Water 50 ml @ 100 mls/hr IV Q6H [facility] Rx#:[id number] Sodium Bicarbonate Vial 150 Meq 1000 In Water 850 ml @ 75 mls/hr IV Q10H [facility] Rx#:[id number] Oral 1140 240 Output: Urine Catheter Amount 700 1200 Other: Meal Dinner Percent of Meal Consumed 75% Urine Appearance Clear Clear Uretheral ([place]) Clear Clear Urine Color Bright Yellow Bright Yellow Uretheral ([place]) Bright Yellow Bright Yellow Urine Odor Normal Stool Color Brown Stool Consistency Liquid # Bowel Movements 1 # of times incontinent of 1 Bowels Exam: Alert, Awake, No acute Distress Eyes/N/T: EOMI, Head/Neck: neck supple, CV: RRR, No murmurs, Pulm: Clear b/l, no wheezing/rhonchi/rales Abd: soft, nontender, +BS x4 Ext: no clubbing/cyanosis. LLE 1+ LE edema Neuro: A&Ox3, no focal deficits, moves all extremities, Skin: warm/dry OBJ DATA Labs CBC & Chem 7: 04/22/20 05:03 04/22/20 05:03 Labs: Abnormal Lab Results 04/22/20 04/22/20 04/21/20 05:03 05:03 09:16 WBC RBC 3.93 L Hgb MPV 10.8 H [place] % (Auto) [place] # (Auto) Lymphocytes % Monocytes % (Manual) Absolute Neutrophils RBC Morphology Macrocytosis VBG Lactic Acid POC Sodium Sodium POC Chloride Chloride Carbon Dioxide POC Total CO2 Anion Gap POC BUN BUN Creatinine Glucose 147 H POC Glucose Calcium POC WB Ioniz Calcium Phosphorus 1.8 L GGT 150 H AST 578 H ALT 149 H Lactate Dehydrogenase 736 H Total Creatine Kinase 9928 H Troponin T C-Reactive Protein Total Protein 5.7 L Albumin 2.9 L Globulin Triglycerides 257 H Procalcitonin Urine Appearance Urine Protein 30 A Urine Glucose (UA) >=500 A Urine Ketones 20 A Urine Occult Blood >=1.0 A Urine RBC 10 H Urine WBC 7 H Amorphous Crystals Hyaline Casts Urine Mucus Urine Yeast ([place]) Many A 04/21/20 04/21/20 04/21/20 05:02 05:02 05:02 WBC 12.6 H RBC 3.79 L Hgb 11.8 L MPV 11.2 H [place] % (Auto) 15.0 H [place] # (Auto) 1.89 H Lymphocytes % Monocytes % (Manual) Absolute Neutrophils RBC Morphology Macrocytosis VBG Lactic Acid POC Sodium Sodium POC Chloride Chloride Carbon Dioxide POC Total CO2 Anion Gap POC BUN BUN Creatinine Glucose POC Glucose Calcium 8.0 L POC WB Ioniz Calcium Phosphorus GGT 163 H AST 662 H ALT 142 H Lactate Dehydrogenase 800 H Total Creatine Kinase Troponin T C-Reactive Protein 1.50 H Total Protein Albumin 3.1 L Globulin Triglycerides Procalcitonin 0.76 H Urine Appearance Urine Protein Urine Glucose (UA) Urine Ketones Urine Occult Blood Urine RBC Urine WBC Amorphous Crystals Hyaline Casts Urine Mucus Urine Yeast (Budding) 04/21/20 04/20/20 04/20/20 05:02 19:35 13:57 WBC RBC Hgb MPV [place] % (Auto) [place] # (Auto) Lymphocytes % Monocytes % (Manual) Absolute Neutrophils RBC Morphology Macrocytosis VBG Lactic Acid POC Sodium 148 H Sodium POC Chloride 113 H 117 H Chloride Carbon Dioxide POC Total CO2 15 L 13 L Anion Gap POC BUN 23 H 27 H BUN Creatinine Glucose POC Glucose 297 H 137 H Calcium POC WB Ioniz Calcium 1.09 L 1.10 L Phosphorus GGT AST ALT Lactate Dehydrogenase Total Creatine Kinase > 73946 H Troponin T C-Reactive Protein Total Protein Albumin Globulin Triglycerides Procalcitonin Urine Appearance Urine Protein Urine Glucose (UA) Urine Ketones Urine Occult Blood Urine RBC Urine WBC Amorphous Crystals Hyaline Casts Urine Mucus Urine Yeast (Budding) 04/20/20 04/20/20 04/20/20 11:16 11:16 11:16 WBC RBC Hgb MPV [place] % (Auto) [place] # (Auto) Lymphocytes % 13 L Monocytes % (Manual) 16 H Absolute Neutrophils RBC Morphology Abnormal A Macrocytosis Few A VBG Lactic Acid POC Sodium Sodium POC Chloride Chloride Carbon Dioxide POC Total CO2 Anion Gap POC BUN BUN Creatinine Glucose POC Glucose Calcium POC WB Ioniz Calcium Phosphorus GGT AST ALT Lactate Dehydrogenase Total Creatine Kinase Troponin T C-Reactive Protein 1.90 H Total Protein Albumin Globulin Triglycerides Procalcitonin 0.84 H Urine Appearance Urine Protein Urine Glucose (UA) Urine Ketones Urine Occult Blood Urine RBC Urine WBC Amorphous Crystals Hyaline Casts Urine Mucus Urine Yeast (Budding) 04/20/20 04/20/20 04/20/20 11:16 11:16 11:16 WBC RBC Hgb MPV [place] % (Auto) [place] # (Auto) Lymphocytes % Monocytes % (Manual) Absolute Neutrophils RBC Morphology Macrocytosis VBG Lactic Acid 2.2 H POC Sodium Sodium 152 H POC Chloride Chloride 112 H Carbon Dioxide 9 L* POC Total CO2 Anion Gap 31.0 H POC BUN BUN 35 H Creatinine 1.4 H Glucose 191 H POC Glucose Calcium POC WB Ioniz Calcium Phosphorus GGT AST 426 H ALT 97 H Lactate Dehydrogenase Total Creatine Kinase > 49961 H Troponin T 0.13 H* C-Reactive Protein Total Protein Albumin Globulin 4.0 H Triglycerides Procalcitonin Urine Appearance Urine Protein Urine Glucose (UA) Urine Ketones Urine Occult Blood Urine RBC Urine WBC Amorphous Crystals Hyaline Casts Urine Mucus Urine Yeast (Budding) 04/20/20 04/20/20 11:16 10:55 WBC 17.8 H RBC Hgb MPV 11.4 H [place] % (Auto) 17.4 H [place] # (Auto) 3.10 H Lymphocytes % Monocytes % (Manual) Absolute Neutrophils 11.73 H RBC Morphology Macrocytosis VBG Lactic Acid POC Sodium Sodium POC Chloride Chloride Carbon Dioxide POC Total CO2 Anion Gap POC BUN BUN Creatinine Glucose POC Glucose Calcium POC WB Ioniz Calcium Phosphorus GGT AST ALT Lactate Dehydrogenase Total Creatine Kinase Troponin T C-Reactive Protein Total Protein Albumin Globulin Triglycerides Procalcitonin Urine Appearance Hazy A Urine Protein 100 A Urine Glucose (UA) >=500 A Urine Ketones 80 A Urine Occult Blood >=1.0 A Urine RBC Urine WBC Amorphous Crystals Few A Hyaline Casts 8 H Urine Mucus Few A Urine Yeast (Budding) Meds: Medications Acetaminophen (Tylenol) 650 mg PO Q6HP PRN PRN Reason: PAIN/FEVER > 101 Last Admin: 04/21/20 19:14 Dose: 650 mg Documented by: Albuterol/Ipratropium (Duoneb) 3 ml NEB Q4HP PRN PRN Reason: Shortness Of Breath Amlodipine Besylate (Norvasc) 5 mg PO QDAY [facility] Last Admin: 04/21/20 08:49 Dose: 5 mg Documented by: Atorvastatin Calcium (Lipitor) 20 mg PO DAILY [facility] Last Admin: 04/21/20 08:49 Dose: 20 mg Documented by: Dextrose (Dextrose 50%) 0 ml IV UD PRN PRN Reason: Hypoglycemia Diagnostic Test (Pha) (Accu-Chek) 1 each FS Q4 [facility] Last Admin: 04/22/20 04:20 Dose: 1 each Documented by: Divalproex Sodium (Depakote Delayed Release) 250 mg PO BID [facility] Last Admin: 04/21/20 21:08 Dose: 250 mg Documented by: Duloxetine HCl (Cymbalta) 60 mg PO DAILY [facility] Last Admin: 04/21/20 08:49 Dose: 60 mg Documented by: Enoxaparin Sodium (Lovenox) 40 mg SQ DAILY [facility] Last Admin: 04/21/20 08:50 Dose: 40 mg Documented by: Glucose (Insta-Glucose) 15 gm PO PRN PRN PRN Reason: Hypoglycemia Potassium Chloride 40 meq/ (Dextrose) 520 mls @ 130 mls/hr IV UD PRN PRN Reason: Potassium < 3 Magnesium Sulfate (Magnesium Sulfate) 2 gm in 50 mls @ 50 mls/hr IV UD PRN PRN Reason: Magnesium </= 1.6 Piperacillin Sod/Tazobactam (Sod 2.25 gm/ Dextrose) 50 mls @ 100 mls/hr IV Q6H [facility] Last Infusion: 04/22/20 06:08 Dose: Infused Documented by: Insulin Human Lispro (Humalog) 0 unit SQ Q4 [facility]; Protocol Last Admin: 04/22/20 04:26 Dose: 2 unit Documented by: Loperamide HCl (Imodium) 2 mg PO DAILYP PRN PRN Reason: Diarrhea Last Admin: 04/21/20 19:55 Dose: 2 mg Documented by: Lorazepam (Ativan) 1 mg PO DAILYP PRN PRN Reason: ANXIETY/SEDATION Memantine (Namenda) 10 mg PO BID [facility] Last Admin: 04/21/20 21:07 Dose: 10 mg Documented by: Ziprasidone Hcl 60 (Mg Capsule) 1 dose PO QAMCC [facility] Last Admin: 04/21/20 14:45 Dose: 1 dose Documented by: Omeprazole (Prilosec) 40 mg PO ACB [facility] Last Admin: 04/21/20 10:10 Dose: 40 mg Documented by: Ondansetron HCl (Zofran) 4 mg IV Q4HP PRN PRN Reason: Nausea And Vomiting Potassium Chloride (Kdur) 40 meq PO UD PRN PRN Reason: Potssium is 3-3.5 Last Admin: 04/21/20 12:53 Dose: 40 meq Documented by: Potassium Chloride (Kdur) 40 meq PO UD PRN PRN Reason: Potassium < 3 Sodium Chloride (Saline Flush) 10 ml IV Q8 [facility] Last Admin: 04/22/20 06:09 Dose: 10 ml Documented by: Trazodone HCl (Desyrel) 50 mg PO QHS [facility] Last Admin: 04/21/20 21:07 Dose: 50 mg Documented by: A/P Narrative A/P Narrative: A: *Hypernatremia/Dehydration: improved *Rhabdomyolysis: 2/2 prolonged downtime in bathroom worsened by dehydration -CPK down to 10k *SHAMAR: resolved *Generalized weakness/Fall-trauma/Deconditioning: *SIRS/?Sepsis(uknown source): no source found yet, likely 2/2 above -leukocytosis(infectious vs reactive)/tachy/febrile - could all be rhabdo related -elevated PCT could be from Rhabdomyolysis & fall/trauma -CXR/UA unrevealing. CT chest mild inflammation but no cough/respiratory symptoms *Anion gap metabolic acidosis: 2/2 Rhabdo/uremia/starvation ketosis -resolved *Transaminitis(h/o Hep C): 2/2 above, and has seen GI in past regarding hep c *h/o Dementia, mild: *Depression: *Diabetes: *HTN: *COPD/Tobacco Abuse: *GERD: *h/o substance abuse (none documented since 2014) *diarrhea: fecal wbc neg and c.diff neg P: -monitor CPK -empiric abx d/c if BC neg, f/u PCT, pending BC -SSI, hold oral hypoglycemics -cont home norvasc, hold ACEI for shamar -imodium -Smoking cessation counseling -ppx: lovenox/home ppi DNR Time Spent With Patient Time: Total time spent is greater than 50% in coordination of care (as documented) at patient's floor/unit and/or counseling patient: QUALITY VTE Deep Vein Thrombosis/Pulmonary Embolism Present on Admission: No
[2020-04-22] MEDS: OMEPRAZOLE 20 MG CAPSULE PO SCH (07:46)
[2020-04-22] MEDS: ATORVASTATIN 20 MG TABLET PO SCH (08:07)
[2020-04-22] MEDS: MEMANTINE 10 MG TABLET PO SCH ×2 (08:08→21:42)
[2020-04-22] MEDS: amLODIPine 5 MG TABLET PO SCH (08:08)
[2020-04-22] MEDS: DULoxetine 30 MG CAPSULE PO SCH (08:09)
[2020-04-22] MEDS: DIVALPROEX SODIUM 250 MG TABLET PO SCH ×2 (08:09→21:41)
[2020-04-22] MEDS: ENOXAPARIN 40 MG/0.4 ML SYRINGE SQ SCH (08:10)
[2020-04-22] MEDS: LOPERAMIDE 2 MG CAPSULE PO PRN (08:57)
[2020-04-22] MEDS ORDERED: PHOSPHORUS 250 MG TABLET PO SCH (09:00)
[2020-04-22] MEDS ORDERED: traMADol 50 MG TABLET PO ONE (09:45)
[2020-04-22] MEDS ORDERED: IPRATROPIUM/ALBUTEROL 3 ML AMPUL.NEB NEB PRN (11:14)
[2020-04-22] MEDS ORDERED: POTASSIUM CHLORIDE 20 MEQ TABLET PO PRN (11:14)
[2020-04-22] MEDS ORDERED: ONDANSETRON 4 MG/2 ML VIAL IV PRN (11:14)
[2020-04-22] MEDS ORDERED: LOPERAMIDE 2 MG CAPSULE PO PRN (11:14)
[2020-04-22] MEDS ORDERED: POTASSIUM CHLORIDE 40 MEQ in DEXTROSE 5% IN WATER 500 ML IV PRN (11:14)
[2020-04-22] MEDS ORDERED: DEXTROSE 31 GM ORAL.SUSP PO PRN (11:14)
[2020-04-22] MEDS ORDERED: MAGNESIUM SULFATE 2 GM/50 ML BAG IV PRN (11:14)
[2020-04-22] MEDS ORDERED: DEXTROSE 50% 50 ML VIAL IV PRN (11:14)
[2020-04-22] MEDS ORDERED: LORazepam 1 MG TABLET PO PRN (11:14)
[2020-04-22] MEDS: ACETAMINOPHEN 325 MG TABLET PO PRN ×4 (12:53→22:51)
[2020-04-22] MEDS: PHOSPHORUS 250 MG TABLET PO SCH ×3 (12:57→21:41)
[2020-04-22] MEDS: traZODone HCL 50 MG TABLET PO SCH (21:42)
[2020-04-23] MEDS: PIPERACILLIN SODIUM/TAZOBACTAM 2.25 GM in DEXTROSE 5% IN WATER 50 ML IV SCH ×3 (00:04→11:48)
[2020-04-23] MEDS: INSULIN LISPRO 1 UNIT/0.01 ML UNIT SQ SCH ×7 (00:09→23:57)
[2020-04-23] MEDS: 0.9 % SODIUM CHLORIDE 10 ML SYRINGE IV SCH ×3 (05:59→20:12)
[2020-04-23] MEDS: ACETAMINOPHEN 325 MG TABLET PO PRN ×3 (05:59→20:10)
[2020-04-23] MEDS: OMEPRAZOLE 20 MG CAPSULE PO SCH (07:06)
[2020-04-23 07:16] LABS: ALT/SGPT 137 U/L (<40); AST/SGOT 414 U/L (<32); Albumin 2.8 gm/dL (3.2-5.2); Albumin/Globulin Ratio 0.9 (1.0-2.3); Alkaline Phosphatase 65 U/L (39-117); Bilirubin,Direct < 0.2 mg/dL (<0.3); Bilirubin,Total 0.4 mg/dL (0.1-1.0); Blood Urea Nitrogen 11 mg/dL (8-23); Calcium 8.7 mg/dL (8.6-10.4); Carbon Dioxide 32 mmol/L (22-30); Chloride 99 mmol/L (96-108); Glomerular Filtration Rate 94; Glucose 149 mg/dL (70-105); Lactate Dehydrogenase 632 U/L (135-225); Triglycerides 193 mg/dL (<150); Uric Acid 3.1 mg/dL (2.5-8.0)
[2020-04-23 07:17] LABS: Creatine Kinase 8163 U/L (24-170)
[2020-04-23] MEDS ORDERED: LABETALOL 5 MG/ML ML IV PRN (07:25)
--- NOTE | 2020-04-23 07:26 | Internal Med Progress Note ---
SUBJECTIVE Subjective Patient information: Note initiated : 04/23/20 at 7:21 am Service Date, if different from initiated Date: [] Patient: Chelsea Edwards a 64 y/o F admitted on 04/20/20 for Weakness. Chief Complaint: [] Interval history: History of present illness: Ms. Edwards is a 64 year old F Patient presents the ED after her quality assurance tech found her on the floor in the bathroom this morning. Patient was seen in the ED recently and appear to be volume depleted and patient was hydrated up with IV fluids. Work-up was unremarkable other than dehydrati on and infectious work-up unremarkable. Patient went home she says she woke up in the middle the night went to the bathroom to urinate and after getting up off the toilet she fell onto the bathroom floor. She felt too weak and tired to get up to go to the bed and so she fell asleep on the floor and was found by her quality assurance tech. She says she has been weak for a few days, she say she has had some diarrhea with her quality assurance tech (per notes) says they were soft stools, not watery. She denies any coughing or shortness of breath. She denies chest pain or stomach pain. Denies any dysuria. No open wounds. She denies any recent illnesses. In the ED she was found to have a severely elevated CK with fever and elevated white blood cell count with elevated procalcitonin. She had acute kidney injury. She was hyponatremic 152. EKG unremarkable. Urinalysis showed hyaline casts but unremarkable for infection and chest CT showed some mild inflammation in the anterior medially of both upper lobes which is felt that could possibly due to pneumonia or noninfectious inflammation process from COPD. 04/21 Feeling better today. Leukocytosis improved. Chemistry panel much improved. No muscle/body aches. 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 04/22 Doing well. No overnight event or new complaints. She does have some diarrhea. C. difficile and fecal WBCs negative. CPK improving. 04/23 Feeling better. Diarrhea improved. No new complaints. CPK improving. Review of Systems: denies headache/fever/chills/nausea/vomiting/chest or abdominal pain/cough/dyspnea. Otherwise see above. Constitutional Vitals: Vital Signs Temp Pulse Resp BP Pulse Ox 98 F 95 H 14 151/67 97 04/23/20 07:19 04/23/20 07:19 04/23/20 07:19 04/23/20 07:19 04/23/20 07:19 Period Temp Pulse Resp BP Sys/Farris Pulse Ox Last 24 Hr 97.4 F-98.4 F 88-95 13-20 111-151/58-74 95-100 Intake and Output 04/22/20 04/23/20 04/23/20 21:59 05:59 13:59 Intake Total 490 600 50 Output Total 350 900 Balance 140 -300 50 Weight 71.753 kg Intake & Output: Intake & Output 04/22/20 04/23/20 04/23/20 21:59 05:59 13:59 Intake Total 490 600 50 Output Total 350 900 Balance 140 -300 50 Weight 71.753 kg Intake: IV 50 50 50 Zosyn 2.25 gm In Dextrose 5% in 50 50 50 Water 50 ml @ 100 mls/hr IV Q6H [facility] Rx#:[id number] Oral 440 550 Output: Urine Catheter Amount 350 900 Other: Meal Dinner Percent of Meal Consumed 100% Feeding Ability Independent Urine Appearance Clear Clear Uretheral ([place]) Clear Urine Color Dark Yellow Dark Yellow Uretheral ([place]) Dark Yellow Urine Odor Normal Normal Uretheral ([place]) Normal Stool Size Moderate Moderate Stool Color Brown Brown Stool Consistency Liquid Loose Loose Exam: Alert, Awake, No acute Distress Eyes/N/T: EOMI, Head/Neck: neck supple, CV: RRR, No murmurs, Pulm: Clear b/l, no wheezing/rhonchi/rales Abd: soft, nontender, +BS x4 Ext: no clubbing/cyanosis. trace b/l LE edema Neuro: A&Ox3, no focal deficits, moves all extremities, Skin: warm/dry OBJ DATA Labs CBC & Chem 7: 04/22/20 05:03 04/23/20 05:37 Labs: Abnormal Lab Results 04/23/20 04/22/20 04/22/20 05:37 05:03 05:03 WBC RBC 3.93 L Hgb MPV 10.8 H [place] % (Auto) [place] # (Auto) Lymphocytes % Monocytes % (Manual) Absolute Neutrophils RBC Morphology Macrocytosis VBG Lactic Acid POC Sodium Sodium POC Chloride Chloride Carbon Dioxide 32 H POC Total CO2 Anion Gap POC BUN BUN Creatinine Glucose 149 H POC Glucose Calcium POC WB Ioniz Calcium Phosphorus GGT 137 H AST 414 H ALT 137 H Lactate Dehydrogenase 632 H Total Creatine Kinase 8163 H Troponin T C-Reactive Protein Total Protein 5.8 L Albumin 2.8 L Globulin Albumin/Globulin Ratio 0.9 L Triglycerides 193 H Procalcitonin 0.51 H Urine Appearance Urine Protein Urine Glucose (UA) Urine Ketones Urine Occult Blood Urine RBC Urine WBC Amorphous Crystals Hyaline Casts Urine Mucus Urine Yeast (Budding) 04/22/20 04/21/20 04/21/20 05:03 09:16 05:02 WBC RBC Hgb MPV [place] % (Auto) [place] # (Auto) Lymphocytes % Monocytes % (Manual) Absolute Neutrophils RBC Morphology Macrocytosis VBG Lactic Acid POC Sodium Sodium POC Chloride Chloride Carbon Dioxide POC Total CO2 Anion Gap POC BUN BUN Creatinine Glucose 147 H POC Glucose Calcium POC WB Ioniz Calcium Phosphorus 1.8 L GGT 150 H AST 578 H ALT 149 H Lactate Dehydrogenase 736 H Total Creatine Kinase 9928 H Troponin T C-Reactive Protein Total Protein 5.7 L Albumin 2.9 L Globulin Albumin/Globulin Ratio Triglycerides 257 H Procalcitonin 0.76 H Urine Appearance Urine Protein 30 A Urine Glucose (UA) >=500 A Urine Ketones 20 A Urine Occult Blood >=1.0 A Urine RBC 10 H Urine WBC 7 H Amorphous Crystals Hyaline Casts Urine Mucus Urine Yeast (Budding) Many A 04/21/20 04/21/20 04/21/20 05:02 05:02 05:02 WBC 12.6 H RBC 3.79 L Hgb 11.8 L MPV 11.2 H [place] % (Auto) 15.0 H [place] # (Auto) 1.89 H Lymphocytes % Monocytes % (Manual) Absolute Neutrophils RBC Morphology Macrocytosis VBG Lactic Acid POC Sodium Sodium POC Chloride Chloride Carbon Dioxide POC Total CO2 Anion Gap POC BUN BUN Creatinine Glucose POC Glucose Calcium 8.0 L POC WB Ioniz Calcium Phosphorus GGT 163 H AST 662 H ALT 142 H Lactate Dehydrogenase 800 H Total Creatine Kinase > 08084 H Troponin T C-Reactive Protein 1.50 H Total Protein Albumin 3.1 L Globulin Albumin/Globulin Ratio Triglycerides Procalcitonin Urine Appearance Urine Protein Urine Glucose (UA) Urine Ketones Urine Occult Blood Urine RBC Urine WBC Amorphous Crystals Hyaline Casts Urine Mucus Urine Yeast (Budding) 04/20/20 04/20/20 04/20/20 19:35 13:57 11:16 WBC RBC Hgb MPV [place] % (Auto) [place] # (Auto) Lymphocytes % Monocytes % (Manual) Absolute Neutrophils RBC Morphology Macrocytosis VBG Lactic Acid POC Sodium 148 H Sodium POC Chloride 113 H 117 H Chloride Carbon Dioxide POC Total CO2 15 L 13 L Anion Gap POC BUN 23 H 27 H BUN Creatinine Glucose POC Glucose 297 H 137 H Calcium POC WB Ioniz Calcium 1.09 L 1.10 L Phosphorus GGT AST ALT Lactate Dehydrogenase Total Creatine Kinase Troponin T C-Reactive Protein 1.90 H Total Protein Albumin Globulin Albumin/Globulin Ratio Triglycerides Procalcitonin Urine Appearance Urine Protein Urine Glucose (UA) Urine Ketones Urine Occult Blood Urine RBC Urine WBC Amorphous Crystals Hyaline Casts Urine Mucus Urine Yeast (Budding) 04/20/20 04/20/20 04/20/20 11:16 11:16 11:16 WBC RBC Hgb MPV [place] % (Auto) [place] # (Auto) Lymphocytes % 13 L Monocytes % (Manual) 16 H Absolute Neutrophils RBC Morphology Abnormal A Macrocytosis Few A VBG Lactic Acid POC Sodium Sodium POC Chloride Chloride Carbon Dioxide POC Total CO2 Anion Gap POC BUN BUN Creatinine Glucose POC Glucose Calcium POC WB Ioniz Calcium Phosphorus GGT AST ALT Lactate Dehydrogenase Total Creatine Kinase Troponin T 0.13 H* C-Reactive Protein Total Protein Albumin Globulin Albumin/Globulin Ratio Triglycerides Procalcitonin 0.84 H Urine Appearance Urine Protein Urine Glucose (UA) Urine Ketones Urine Occult Blood Urine RBC Urine WBC Amorphous Crystals Hyaline Casts Urine Mucus Urine Yeast (Budding) 04/20/20 04/20/20 04/20/20 11:16 11:16 11:16 WBC 17.8 H RBC Hgb MPV 11.4 H [place] % (Auto) 17.4 H [place] # (Auto) 3.10 H Lymphocytes % Monocytes % (Manual) Absolute Neutrophils 11.73 H RBC Morphology Macrocytosis VBG Lactic Acid 2.2 H POC Sodium Sodium 152 H POC Chloride Chloride 112 H Carbon Dioxide 9 L* POC Total CO2 Anion Gap 31.0 H POC BUN BUN 35 H Creatinine 1.4 H Glucose 191 H POC Glucose Calcium POC WB Ioniz Calcium Phosphorus GGT AST 426 H ALT 97 H Lactate Dehydrogenase Total Creatine Kinase > 62875 H Troponin T C-Reactive Protein Total Protein Albumin Globulin 4.0 H Albumin/Globulin Ratio Triglycerides Procalcitonin Urine Appearance Urine Protein Urine Glucose (UA) Urine Ketones Urine Occult Blood Urine RBC Urine WBC Amorphous Crystals Hyaline Casts Urine Mucus Urine Yeast (Budding) 04/20/20 10:55 WBC RBC Hgb MPV [place] % (Auto) [place] # (Auto) Lymphocytes % Monocytes % (Manual) Absolute Neutrophils RBC Morphology Macrocytosis VBG Lactic Acid POC Sodium Sodium POC Chloride Chloride Carbon Dioxide POC Total CO2 Anion Gap POC BUN BUN Creatinine Glucose POC Glucose Calcium POC WB Ioniz Calcium Phosphorus GGT AST ALT Lactate Dehydrogenase Total Creatine Kinase Troponin T C-Reactive Protein Total Protein Albumin Globulin Albumin/Globulin Ratio Triglycerides Procalcitonin Urine Appearance Hazy A Urine Protein 100 A Urine Glucose (UA) >=500 A Urine Ketones 80 A Urine Occult Blood >=1.0 A Urine RBC Urine WBC Amorphous Crystals Few A Hyaline Casts 8 H Urine Mucus Few A Urine Yeast (Budding) Meds: Medications Acetaminophen (Tylenol) 650 mg PO Q6HP PRN PRN Reason: PAIN/FEVER > 101 Last Admin: 04/23/20 05:59 Dose: 650 mg Documented by: Albuterol/Ipratropium (Duoneb) 3 ml NEB Q4HP PRN PRN Reason: Shortness Of Breath Amlodipine Besylate (Norvasc) 5 mg PO QDAY [facility] Atorvastatin Calcium (Lipitor) 20 mg PO DAILY [facility] Dextrose (Dextrose 50%) 0 ml IV UD PRN PRN Reason: Hypoglycemia Diagnostic Test (Pha) (Accu-Chek) 1 each FS Q4 [facility] Last Admin: 04/23/20 03:37 Dose: 1 each Documented by: Divalproex Sodium (Depakote Delayed Release) 250 mg PO BID [facility] Last Admin: 04/22/20 21:41 Dose: 250 mg Documented by: Duloxetine HCl (Cymbalta) 60 mg PO DAILY [facility] Enoxaparin Sodium (Lovenox) 40 mg SQ DAILY [facility] Glucose (Insta-Glucose) 15 gm PO PRN PRN PRN Reason: Hypoglycemia Magnesium Sulfate (Magnesium Sulfate) 2 gm in 50 mls @ 50 mls/hr IV UD PRN PRN Reason: Magnesium </= 1.6 Potassium Chloride 40 meq/ (Dextrose) 520 mls @ 130 mls/hr IV UD PRN PRN Reason: Potassium < 3 Piperacillin Sod/Tazobactam (Sod 2.25 gm/ Dextrose) 50 mls @ 100 mls/hr IV Q6H [facility] Last Infusion: 04/23/20 07:08 Dose: Infused Documented by: Insulin Human Lispro (Humalog) 0 unit SQ Q4 [facility]; Protocol Last Admin: 04/23/20 03:42 Dose: 2 unit Documented by: Loperamide HCl (Imodium) 2 mg PO DAILYP PRN PRN Reason: Diarrhea Lorazepam (Ativan) 1 mg PO DAILYP PRN PRN Reason: ANXIETY/SEDATION Memantine (Namenda) 10 mg PO BID [facility] Last Admin: 04/22/20 21:42 Dose: 10 mg Documented by: Ziprasidone Hcl 60 ([facility]apsule) [facility] Omepraz[facility] (Prilosec) 40 mg PO ACB [facility] Last Admin: 04/23/20 07:06 Dose: 40 mg Documented by: Ondansetron HCl (Zofran) 4 mg IV Q4HP PRN PRN Reason: Nausea And Vomiting Potassium Chloride (Kdur) 40 meq PO UD PRN PRN Reason: Potssium is 3-3.5 Potassium Chloride (Kdur) 40 meq PO UD PRN PRN Reason: Potassium < 3 Sodium Chloride (Saline Flush) 10 ml IV Q8 [facility] Last Admin: 04/23/20 05:59 Dose: 10 ml Documented by: Trazodone HCl (Desyrel) 50 mg PO QHS [facility] Last Admin: 04/22/20 21:42 Dose: 50 mg Documented by: A/P Narrative A/P Narrative: A: *Hypernatremia/Dehydration: improved *Rhabdomyolysis: 2/2 prolonged downtime in bathroom worsened by dehydration -CPK down to 8k *SHAMAR: resolved *Generalized weakness/Fall-trauma/Deconditioning: *SIRS/?Sepsis(uknown source): no source found yet, likely 2/2 above -leukocytosis(infectious vs reactive)/tachy/febrile - could all be rhabdo related -elevated PCT could be from Rhabdomyolysis & fall/trauma -CXR/UA unrevealing. CT chest mild inflammation but no cough/respiratory symptoms *Anion gap metabolic acidosis: 2/2 Rhabdo/uremia/starvation ketosis -resolved *Transaminitis(h/o Hep C): 2/2 above, and has seen GI in past regarding hep c *h/o Dementia, mild: *Depression: *Diabetes: *HTN: *COPD/Tobacco Abuse: *GERD: *h/o substance abuse (none documented since 2014) *diarrhea: fecal wbc neg and c.diff neg, improved P: -trending CPK -will d/c empiric abx -SSI, oral hypoglycemic held initially -cont home norvasc, restart ACEI in AM -imodium -Smoking cessation counseling -CM working on placement, HHC vs SNF -ppx: lovenox/home ppi DNR Time Spent With Patient Time: Total time spent is greater than 50% in coordination of care (as documented) at patient's floor/unit and/or counseling patient: QUALITY VTE Deep Vein Thrombosis/Pulmonary Embolism Present on Admission: No
[2020-04-23] MEDS: ENOXAPARIN 40 MG/0.4 ML SYRINGE SQ SCH (08:39)
[2020-04-23] MEDS: MEMANTINE 10 MG TABLET PO SCH ×2 (08:40→20:10)
[2020-04-23] MEDS: DIVALPROEX SODIUM 250 MG TABLET PO SCH ×2 (08:40→20:10)
[2020-04-23] MEDS: ATORVASTATIN 20 MG TABLET PO SCH (08:41)
[2020-04-23] MEDS: amLODIPine 5 MG TABLET PO SCH (08:41)
[2020-04-23] MEDS: DULoxetine 30 MG CAPSULE PO SCH (08:41)
[2020-04-23] MEDS: traMADol 50 MG TABLET PO PRN ×3 (10:24→23:51)
--- NOTE | 2020-04-23 12:59 | Internal Med Progress Note ---
SUBJECTIVE Subjective Patient information: Note initiated : 04/24/20 at 12:33 pm Service Date, if different from initiated Date: [] Patient: Chelsea Edwards a 64 y/o F admitted on 04/20/20 for Weakness. Chief Complaint: [] Interval history: History of present illness: Ms. Edwards is a 64 year old F Patient presents the ED after her pool attendant found her on the floor in the bathroom this morning. Patient was seen in the ED recently and appear to be volume depleted and patient was hydrated up with IV fluids. Work-up was unremarkable other than dehydrat ion and infectious work-up unremarkable. Patient went home she says she woke up in the middle the night went to the bathroom to urinate and after getting up off the toilet she fell onto the bathroom floor. She felt too weak and tired to get up to go to the bed and so she fell asleep on the floor and was found by her pool attendant. She says she has been weak for a few days, she say she has had some diarrhea with her pool attendant (per notes) says they were soft stools, not watery. She denies any coughing or shortness of breath. She denies chest pain or stomach pain. Denies any dysuria. No open wounds. She denies any recent illnesses. In the ED she was found to have a severely elevated CK with fever and elevated white blood cell count with elevated procalcitonin. She had acute kidney injury. She was hyponatremic 152. EKG unremarkable. Urinalysis showed hyaline casts but unremarkable for infection and chest CT showed some mild inflammation in the anterior medially of both upper lobes which is felt that could possibly due to pneumonia or noninfectious inflammation process from COPD. 04/21 Feeling better today. Leukocytosis improved. Chemistry panel much improved. No muscle/body aches. 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 04/22 Doing well. No overnight event or new complaints. She does have some diarrhea. C. difficile and fecal WBCs negative. CPK improving. 04/23 Feeling better. Diarrhea improved. No new complaints. CPK improving. 04/24 No new complaints, feels ok overall. CK downtrending. Potential discharge tomorrow but the patient does not want to go to SNF. Review of Systems: denies headache/fever/chills/nausea/vomiting/chest or abdominal pain/cough/dyspnea. Otherwise see above. Constitutional Vitals: Vital Signs Temp Pulse Resp BP Pulse Ox 98.2 F 90 16 149/74 96 04/23/20 11:48 04/23/20 11:48 04/23/20 11:48 04/23/20 11:48 04/23/20 11:48 Period Temp Pulse Resp BP Sys/Farris Pulse Ox Last 24 Hr 97.4 F-98.4 F 88-95 13-20 115-151/64-74 95-100 Intake and Output 04/22/20 04/23/20 04/23/20 21:59 05:59 13:59 Intake Total 490 600 290 Output Total 350 900 Balance 140 -300 290 Weight 71.753 kg Intake & Output: Intake & Output 04/22/20 04/23/20 04/23/20 21:59 05:59 13:59 Intake Total 490 600 290 Output Total 350 900 Balance 140 -300 290 Weight 71.753 kg Intake: IV 50 50 50 Zosyn 2.25 gm In Dextrose 5% in 50 50 50 Water 50 ml @ 100 mls/hr IV Q6H [facility] Rx#:[id number] Oral 440 550 240 Output: Urine Catheter Amount 350 900 Other: Meal Dinner Percent of Meal Consumed 100% 100% Feeding Ability Independent Urine Appearance Clear Clear Uretheral (Olmos) Clear Clear Urine Color Dark Yellow Dark Yellow Uretheral (Olmos) Dark Yellow Dark Yellow Urine Odor Normal Normal Uretheral ([place]) Normal Normal Stool Size Moderate Moderate Stool Color Brown Brown Stool Consistency Liquid Loose Loose Exam: Alert, Awake, No acute Distress Eyes/N/T: EOMI, Head/Neck: neck supple, CV: RRR, No murmurs, Pulm: Clear b/l, no wheezing/rhonchi/rales Abd: soft, nontender, +BS x4 Ext: no clubbing/cyanosis. trace b/l LE edema Neuro: A&Ox3, no focal deficits, moves all extremities, Skin: warm/dry Head Head exam: Present atraumatic and normal inspection Eye Eye exam: Present normal appearance; Absent scleral icterus Neck Neck exam: Present full ROM Respiratory Respiratory exam: Absent accessory muscle use, rales, respiratory distress and wheezes Cardiovascular Cardiovascular exam: Present normal rate and rhythm GI/Abdominal GI/Abdominal exam: Present soft; Absent guarding Extremities Exam Extremities exam: Present full ROM and normal inspection Neurological Exam Neurological exam: Present alert and CN II-XII intact Psychiatric Psychiatric exam: Absent agitated and anxious Skin Skin exam: Present normal color OBJ DATA Labs CBC & Chem 7: 04/22/20 05:03 04/24/20 05:34 Labs: Abnormal Lab Results 04/23/20 04/22/20 04/22/20 05:37 05:03 05:03 WBC RBC 3.93 L Hgb MPV 10.8 H Crowley % (Auto) Crowley # (Auto) Lymphocytes % Monocytes % (Manual) RBC Morphology Macrocytosis POC Sodium Sodium POC Chloride Chloride Carbon Dioxide 32 H POC Total CO2 Anion Gap POC BUN BUN Creatinine Glucose 149 H POC Glucose Calcium POC WB Ioniz Calcium Phosphorus GGT 137 H AST 414 H ALT 137 H Lactate Dehydrogenase 632 H Total Creatine Kinase 8163 H C-Reactive Protein Total Protein 5.8 L Albumin 2.8 L Globulin Albumin/Globulin Ratio 0.9 L Triglycerides 193 H Procalcitonin 0.51 H Urine Appearance Urine Protein Urine Glucose (UA) Urine Ketones Urine Occult Blood Urine RBC Urine WBC Amorphous Crystals Hyaline Casts Urine Mucus Urine Yeast (Budding) 04/22/20 04/21/20 04/21/20 05:03 09:16 05:02 WBC RBC Hgb MPV Crowley % (Auto) Crowley # (Auto) Lymphocytes % Monocytes % (Manual) RBC Morphology Macrocytosis POC Sodium Sodium POC Chloride Chloride Carbon Dioxide POC Total CO2 Anion Gap POC BUN BUN Creatinine Glucose 147 H POC Glucose Calcium POC WB Ioniz Calcium Phosphorus 1.8 L GGT 150 H AST 578 H ALT 149 H Lactate Dehydrogenase 736 H Total Creatine Kinase 9928 H C-Reactive Protein Total Protein 5.7 L Albumin 2.9 L Globulin Albumin/Globulin Ratio Triglycerides 257 H Procalcitonin 0.76 H Urine Appearance Urine Protein 30 A Urine Glucose (UA) >=500 A Urine Ketones 20 A Urine Occult Blood >=1.0 A Urine RBC 10 H Urine WBC 7 H Amorphous Crystals Hyaline Casts Urine Mucus Urine Yeast (Budding) Many A 04/21/20 04/21/20 04/21/20 05:02 05:02 05:02 WBC 12.6 H RBC 3.79 L Hgb 11.8 L MPV 11.2 H Crowley % (Auto) 15.0 H Crowley # (Auto) 1.89 H Lymphocytes % Monocytes % (Manual) RBC Morphology Macrocytosis POC Sodium Sodium POC Chloride Chloride Carbon Dioxide POC Total CO2 Anion Gap POC BUN BUN Creatinine Glucose POC Glucose Calcium 8.0 L POC WB Ioniz Calcium Phosphorus GGT 163 H AST 662 H ALT 142 H Lactate Dehydrogenase 800 H Total Creatine Kinase > 37621 H C-Reactive Protein 1.50 H Total Protein Albumin 3.1 L Globulin Albumin/Globulin Ratio Triglycerides Procalcitonin Urine Appearance Urine Protein Urine Glucose (UA) Urine Ketones Urine Occult Blood Urine RBC Urine WBC Amorphous Crystals Hyaline Casts Urine Mucus Urine Yeast (Budding) 04/20/20 04/20/20 04/20/20 19:35 13:57 11:16 WBC RBC Hgb MPV Crowley % (Auto) Crowley # (Auto) Lymphocytes % Monocytes % (Manual) RBC Morphology Macrocytosis POC Sodium 148 H Sodium POC Chloride 113 H 117 H Chloride Carbon Dioxide POC Total CO2 15 L 13 L Anion Gap POC BUN 23 H 27 H BUN Creatinine Glucose POC Glucose 297 H 137 H Calcium POC WB Ioniz Calcium 1.09 L 1.10 L Phosphorus GGT AST ALT Lactate Dehydrogenase Total Creatine Kinase C-Reactive Protein 1.90 H Total Protein Albumin Globulin Albumin/Globulin Ratio Triglycerides Procalcitonin Urine Appearance Urine Protein Urine Glucose (UA) Urine Ketones Urine Occult Blood Urine RBC Urine WBC Amorphous Crystals Hyaline Casts Urine Mucus Urine Yeast (Budding) 04/20/20 04/20/20 04/20/20 11:16 11:16 11:16 WBC RBC Hgb MPV Crowley % (Auto) Crowley # (Auto) Lymphocytes % 13 L Monocytes % (Manual) 16 H RBC Morphology Abnormal A Macrocytosis Few A POC Sodium Sodium 152 H POC Chloride Chloride 112 H Carbon Dioxide 9 L* POC Total CO2 Anion Gap 31.0 H POC BUN BUN 35 H Creatinine 1.4 H Glucose 191 H POC Glucose Calcium POC WB Ioniz Calcium Phosphorus GGT AST 426 H ALT 97 H Lactate Dehydrogenase Total Creatine Kinase > 26034 H C-Reactive Protein Total Protein Albumin Globulin 4.0 H Albumin/Globulin Ratio Triglycerides Procalcitonin 0.84 H Urine Appearance Urine Protein Urine Glucose (UA) Urine Ketones Urine Occult Blood Urine RBC Urine WBC Amorphous Crystals Hyaline Casts Urine Mucus Urine Yeast (Budding) 04/20/20 10:55 WBC RBC Hgb MPV Crowley % (Auto) Crowley # (Auto) Lymphocytes % Monocytes % (Manual) RBC Morphology Macrocytosis POC Sodium Sodium POC Chloride Chloride Carbon Dioxide POC Total CO2 Anion Gap POC BUN BUN Creatinine Glucose POC Glucose Calcium POC WB Ioniz Calcium Phosphorus GGT AST ALT Lactate Dehydrogenase Total Creatine Kinase C-Reactive Protein Total Protein Albumin Globulin Albumin/Globulin Ratio Triglycerides Procalcitonin Urine Appearance Hazy A Urine Protein 100 A Urine Glucose (UA) >=500 A Urine Ketones 80 A Urine Occult Blood >=1.0 A Urine RBC Urine WBC Amorphous Crystals Few A Hyaline Casts 8 H Urine Mucus Few A Urine Yeast (Budding) Meds: Medications Acetaminophen (Tylenol) 650 mg PO Q6HP PRN PRN Reason: PAIN/FEVER > 101 Last Admin: 04/23/20 05:59 Dose: 650 mg Documented by: Albuterol/Ipratropium (Duoneb) 3 ml NEB Q4HP PRN PRN Reason: Shortness Of Breath Amlodipine Besylate (Norvasc) 5 mg PO QDAY [facility] Last Admin: 04/23/20 08:41 Dose: 5 mg Documented by: Atorvastatin Calcium (Lipitor) 20 mg PO DAILY [facility] Last Admin: 04/23/20 08:41 Dose: 20 mg Documented by: Dextrose (Dextrose 50%) 0 ml IV UD PRN PRN Reason: Hypoglycemia Diagnostic Test (Pha) (Accu-Chek) 1 each FS Q4 [facility] Last Admin: 04/23/20 11:30 Dose: 1 each Documented by: Divalproex Sodium (Depakote Delayed Release) 250 mg PO BID [facility] Last Admin: 04/23/20 08:40 Dose: 250 mg Documented by: Duloxetine HCl (Cymbalta) 60 mg PO DAILY [facility] Last Admin: 04/23/20 08:41 Dose: 60 mg Documented by: Enoxaparin Sodium (Lovenox) 40 mg SQ DAILY [facility] Last Admin: 04/23/20 08:39 Dose: 40 mg Documented by: Glucose (Insta-Glucose) 15 gm PO PRN PRN PRN Reason: Hypoglycemia Magnesium Sulfate (Magnesium Sulfate) 2 gm in 50 mls @ 50 mls/hr IV UD PRN PRN Reason: Magnesium </= 1.6 Potassium Chloride 40 meq/ (Dextrose) 520 mls @ 130 mls/hr IV UD PRN PRN Reason: Potassium < 3 Piperacillin Sod/Tazobactam (Sod 2.25 gm/ Dextrose) 50 mls @ 100 mls/hr IV Q6H [facility] Stop: 04/23/20 14:00 Last Admin: 04/23/20 11:48 Dose: 100 mls/hr Documented by: Insulin Human Lispro (Humalog) 0 unit SQ Q4 [facility]; Protocol Last Admin: 04/23/20 11:48 Dose: 6 unit Documented by: Labetalol HCl (Trandate) 0 mg IV Q2HP PRN PRN Reason: Hypertension [facility]inop[facility]) [facility] [place] Loperamide HCl (Imodium) 2 mg PO DAILYP PRN PRN Reason: Diarrhea Lorazepam (Ativan) 1 mg PO DAILYP PRN PRN Reason: ANXIETY/SEDATION Memantine (Namenda) 10 mg PO BID [facility] Last Admin: 04/23/20 08:40 Dose: 10 mg Documented by: Ziprasidone Hcl 60 (Mg Capsule) 1 dose PO QAC [facility] Last Admin: 04/23/20 08:03 Dose: 1 dose Documented by: Omeprazole (Prilosec) 40 mg PO ACB [facility] Last Admin: 04/23/20 07:06 Dose: 40 mg Documented by: Ondansetron HCl (Zofran) 4 mg IV Q4HP PRN PRN Reason: Nausea And Vomiting Potassium Chloride (Kdur) 40 meq PO UD PRN PRN Reason: Potssium is 3-3.5 Potassium Chloride (Kdur) 40 meq PO UD PRN PRN Reason: Potassium < 3 Sodium Chloride (Saline Flush) 10 ml IV Q8 [facility] Last Admin: 04/23/20 05:59 Dose: 10 ml Documented by: Tramadol HCl (Ultram) 50 mg PO Q6HP PRN; Protocol PRN Reason: Pain Last Admin: 04/23/20 10:24 Dose: 50 mg Documented by: Trazodone HCl (Desyrel) 50 mg PO QHS [facility] Last Admin: 04/22/20 21:42 Dose: 50 mg Documented by: A/P Narrative A/P Narrative: ASSESSMENT:64 year old female with HTN, DM II, COPD, GERD, hx of Hep C, depression, mild dementia previously living alone with caregiver support presented to the ED after her pool attendant found her down on the bathroom floor. The patient recalled going to the bathroom to urinate then falling on the floor after getting off the toilet. She felt too weak to get up so fell asleep on the floor where she was found. She endorsed recent loose stools. Workup in the ED was remarkable for SIRS, SHAMAR, hypernatremia, and elevated CK. Infectious workup not clearly indicating an infectious culprit, included UA, blood cultures, stool WBC, pathogens panel with C diff screen. The most notable findings was a CT chest that showed mild inflammation in bilateral anterior lobes of uncertain cause. The patient received IV fluid and empiric antibiotics. SIRS, SHAMAR, hypernatremia, and elevated CK all improved. Antibiotics where discontinued. The patient was found to be physically deconditioned and the focused turned to rehabilitation. Therapies recommended a SNF but the patient would like to go home. #Generalized weakness/Fall #SIRS of uncertain cause-resolved #Rhabdomyolisis d/t prolonged down time #Hypernatremia-resolved #SHAMAR-resolved #Anion gap metabolic acidosis-resolved #Transaminitis-improving #Diarrhea-improving #Dementia-mild #Diabetes mellitus II #HTN #COPD #GERD #Depression #hx of Hep C #hx of substance use P: -trending improving CPK -lantus and SSI, holding home DM meds while inpatient -cont home norvasc and lisinopril -imodium prn -Smoking cessation counseling -CM working on placement, HHC vs SNF -ppx: lovenox/home ppi DNR Time Spent With Patient Time: Total time spent is greater than 50% in coordination of care (as documented) at patient's floor/unit and/or counseling patient: 25 QUALITY VTE Deep Vein Thrombosis/Pulmonary Embolism Present on Admission: No
[2020-04-23] MEDS: traZODone HCL 50 MG TABLET PO SCH (20:10)
[2020-04-24] MEDS: POTASSIUM CHLORIDE 20 MEQ TABLET PO PRN ×2 (01:39→11:54)
[2020-04-24] MEDS: 0.9 % SODIUM CHLORIDE 10 ML SYRINGE IV SCH ×3 (04:15→20:41)
[2020-04-24] MEDS: ACETAMINOPHEN 325 MG TABLET PO PRN ×2 (04:15→16:25)
[2020-04-24] MEDS: INSULIN LISPRO 1 UNIT/0.01 ML UNIT SQ SCH ×6 (04:25→23:53)
[2020-04-24] MEDS: OMEPRAZOLE 20 MG CAPSULE PO SCH (07:08)
[2020-04-24 07:16] LABS: ALT/SGPT 107 U/L (<40); AST/SGOT 262 U/L (<32); Albumin 3.1 gm/dL (3.2-5.2); Albumin/Globulin Ratio 1.1 (1.0-2.3); Alkaline Phosphatase 60 U/L (39-117); Bilirubin,Direct < 0.2 mg/dL (<0.3); Bilirubin,Total 0.3 mg/dL (0.1-1.0); Blood Urea Nitrogen 8 mg/dL (8-23); Carbon Dioxide 31 mmol/L (22-30); Chloride 99 mmol/L (96-108); Globulin 2.7 gm/dL (2.2-3.7); Glomerular Filtration Rate 100; Glucose 151 mg/dL (70-105); Lactate Dehydrogenase 504 U/L (135-225); Phosphorous 2.8 mg/dL (2.5-4.5); Triglycerides 219 mg/dL (<150); Uric Acid 2.9 mg/dL (2.5-8.0)
[2020-04-24 07:34] LABS: Creatine Kinase 5488 U/L (24-170)
[2020-04-24] MEDS: LISINOPRIL 20 MG TABLET PO SCH (08:35)
[2020-04-24] MEDS: ATORVASTATIN 20 MG TABLET PO SCH (08:35)
[2020-04-24] MEDS: MEMANTINE 10 MG TABLET PO SCH ×2 (08:35→20:41)
[2020-04-24] MEDS: DULoxetine 30 MG CAPSULE PO SCH (08:35)
[2020-04-24] MEDS: amLODIPine 5 MG TABLET PO SCH (08:35)
[2020-04-24] MEDS: DIVALPROEX SODIUM 250 MG TABLET PO SCH ×2 (08:35→20:41)
[2020-04-24] MEDS: ENOXAPARIN 40 MG/0.4 ML SYRINGE SQ SCH (08:37)
[2020-04-24] MEDS: traMADol 50 MG TABLET PO PRN (17:57)
[2020-04-24] MEDS: traZODone HCL 50 MG TABLET PO SCH (20:41)
[2020-04-24] MEDS ORDERED: INSULIN GLARGINE, HUMAN 1 UNIT/0.01 ML SQ SCH (21:00)
[2020-04-25] MEDS: 0.9 % SODIUM CHLORIDE 10 ML SYRINGE IV SCH ×2 (04:23→16:55)
[2020-04-25] MEDS: ACETAMINOPHEN 325 MG TABLET PO PRN ×2 (04:30→10:02)
[2020-04-25] MEDS: INSULIN LISPRO 1 UNIT/0.01 ML UNIT SQ SCH ×3 (04:31→12:36)
[2020-04-25] MEDS: OMEPRAZOLE 20 MG CAPSULE PO SCH (06:58)
[2020-04-25 07:06] LABS: Creatine Kinase 2843 U/L (24-170)
[2020-04-25] MEDS: traMADol 50 MG TABLET PO PRN (07:46)
[2020-04-25] MEDS: DIVALPROEX SODIUM 250 MG TABLET PO SCH (10:02)
[2020-04-25] MEDS: ENOXAPARIN 40 MG/0.4 ML SYRINGE SQ SCH (10:02)
[2020-04-25] MEDS: DULoxetine 30 MG CAPSULE PO SCH (10:03)
[2020-04-25] MEDS: LISINOPRIL 20 MG TABLET PO SCH (10:03)
[2020-04-25] MEDS: MEMANTINE 10 MG TABLET PO SCH (10:03)
[2020-04-25] MEDS: ATORVASTATIN 20 MG TABLET PO SCH (10:03)
[2020-04-25] MEDS: amLODIPine 5 MG TABLET PO SCH (10:03)
--- NOTE | 2020-04-25 11:41 | Discharge Summary ---
Discharge Provider Provider Patient information: Note initiated : 04/25/20 at 11:39 am Service Date, if different from initiated Date: [] Patient: Chelsea Edwards 64 y/o F admitted on 04/20/20 for Weakness. Chief Complaint: [Found down, Rhabdomyolysis and SHAMAR] Date of admission: 04/20/20 15:13 Discharge date: 04/25/20 Primary care physician: Manuel Philip Consults: 04/20/20 Consult to Physician [CONS] Stat Comment: Consulting Provider: Mauri Ladd Reason For Exam: Physician to Consult Discharge Meds Discharge Medications Home Medications trazodone 50 mg tablet 50 mg PO QHS #30 tab 03/21/17 [Rx Confirmed 04/20/20 Last Taken 04/19/20] omeprazole 40 mg capsule,delayed release 40 mg PO QAM #90 cap 05/03/17 [Rx Confirmed 04/20/20 Last Taken 04/19/20] memantine 10 mg tablet 10 mg PO BID #60 tab 05/23/17 [Rx Confirmed 04/20/20 Last Taken 04/19/20] divalproex 250 mg tablet,delayed release 250 mg PO BID #60 tab 05/27/17 [Rx Confirmed 04/20/20 Last Taken 04/19/20] duloxetine 60 mg capsule,delayed release 60 mg PO QDAY #30 cap 10/24/17 [Rx Confirmed 04/20/20 Last Taken 04/19/20] amlodipine 5 mg tablet 5 mg PO QDAY #30 tab 12/31/17 [Rx Confirmed 04/20/20 Last Taken 04/19/20] atorvastatin 20 mg PO DAILY 04/16/18 [History Confirmed 04/20/20 Last Taken 04/19/20] lorazepam 1 mg PO DAILYP PRN 04/16/18 [History Confirmed 04/20/20 Last Taken 04/19/20] pioglitazone 45 mg PO QDAY 04/16/18 [History Confirmed 04/20/20 Last Taken 04/19/20] ziprasidone HCl 60 mg PO DAILY 04/16/18 [History Confirmed 04/20/20 Last Taken 04/19/20] Januvia 100 mg PO QDAY 04/20/20 [History Confirmed 04/20/20 Last Taken 04/19/20] calcium carbonate [Calcium 600] 600 mg PO BID 04/20/20 [History Confirmed 04/20/20 Last Taken 04/19/20] canagliflozin [Invokana] 300 mg PO QDAY 04/20/20 [History Confirmed 04/20/20 Last Taken 04/19/20] lisinopril 20 mg PO QAM 04/20/20 [History Confirmed 04/20/20 Last Taken 04/19/20] COURSE Hospital Course Hospital course: 64 year old female with HTN, DM II, COPD, GERD, hx of Hep C, depression, mild dementia previously living alone with caregiver support presented to the ED after her predictive maintenance technician found her down on the bathroom floor. The patient recalled going to the bathroom to urinate then falling on the floor. She felt too weak to get up so fell asleep on the floor where she was found down. She endorsed recent loose stools. Workup in the ED was remarkable for SIRS, SHAMAR, hypernatremia, and elevated CK. Infectious workup not clearly indicating an infectious culprit except possible fungal UTI, urine culture grew Vargas glabrata and Vargas Albicans. Notably, the patient was taking an SGLT-2 inhibitor prior to admission. Negative additional infectious workup included blood cultures, stool WBC, pathogens panel with C diff screen. CT chest that showed mild inflammation in bilateral anterior lobes of uncertain cause. The patient received IV fluid and empiric antibiotics, SIRS, SHAMAR, hypernatremia, and elevated CK all improved. Antibiotics where discontinued when no source of infection was found in the workup. Repeat urine culture was ordered and pending at discharge. the SGLT-2 inhibitor was not resumed at discharge. The focus then turned toward rehabilitation as the patient was generally weak. Therapies recommended a SNF but the patient declined and decided to discharge to home with home health services and predictive maintenance technician support. Her last progress note is below for reference. #Generalized weakness/Fall #SIRS of uncertain cause-resolved #Rhabdomyolysis-resolving (d/t prolonged down time) #Hypernatremia-resolved #SHAMAR-resolved #Anion gap metabolic acidosis-resolved #Transaminitis-improving #Diarrhea-improving #Dementia-mild #Diabetes mellitus II #HTN #COPD #GERD #Depression #hx of Hep C #hx of substance use P: -trending improving CPK -lantus and SSI, holding home DM meds while inpatient -cont home norvasc and lisinopril -imodium prn -Smoking cessation counseling -CM working on placement, [facility] vs SNF -ppx: lovenox/home ppi -DNR Follow up -Renal function post SHAMAR and rhabdomyolysis. -Liver function tests to follow improving trend. -Glycemic control-held SGLT-2 inhibitor at discharge for urine culture that grew vargas species. -Follow up repeat urine culture to see if vargas grows again and treat if still present. -Periodic cognitive evaluations as the patient has dementia. Discharge diagnosis: rhabdomyolysis Time Spent with Patient Time attestation: Total time spent providing and/or coordinating discharge services: 35 EXAM Constitutional Vitals: Temp Pulse Resp BP Pulse Ox 97.5 F 89 18 118/61 96 04/25/20 08:00 04/25/20 08:00 04/25/20 08:00 04/25/20 08:00 04/25/20 08:00 Head Head exam: Present atraumatic and normal inspection Neck Neck exam: Present full ROM Respiratory Respiratory exam: Present normal respiratory exam Cardiovascular Cardiovascular exam: Present normal rate and rhythm GI/Abdominal GI/Abdominal exam: Present soft; Absent distended and tenderness Extremities Exam Extremities exam: Present full ROM Neurological Exam Neurological exam: Present alert and CN II-XII intact Psychiatric Psychiatric exam: Present normal affect and normal mood Skin Skin exam: Present normal color and warm Discharge Data Data Completed and Pending Labs on day of discharge: Labs from last 24 hours 04/25/20 05:37 Total Creatine Kinase 2843 H Discharge Plan Patient/Caregiver Discharge Instructions Activity: increase activity as tolerated Diet: Consistent Carbohydrate Prescriptions: Continued omeprazole 40 mg capsule,delayed release(DR/EC) 40 mg PO QAM Qty: 90 RF: 3 memantine 10 mg tablet 10 mg PO BID Qty: 60 RF: 12 divalproex 500 mg tablet,delayed release (DR/EC) 250 mg PO BID Qty: 60 RF: 12 duloxetine 60 mg capsule,delayed release(DR/EC) 60 mg PO QDAY Qty: 30 RF: 12 amlodipine 5 mg tablet 5 mg PO QDAY Qty: 30 RF: 12 trazodone 50 mg tablet 50 mg PO QHS Qty: 30 RF: 12 atorvastatin 20 MG tablet 20 mg PO DAILY RF: 0 lorazepam 1 MG tablet 1 mg PO DAILYP PRN (Reason: Anxiety) RF: 0 ziprasidone HCl 60 MG capsule 60 mg PO DAILY RF: 0 pioglitazone 30 MG tablet 45 mg PO QDAY RF: 0 calcium carbonate [Calcium 600] 600 mg calcium (1,500 mg) Tablet 600 mg PO BID RF: 0 Januvia 100 mg Tablet 100 mg PO QDAY RF: 0 lisinopril 20 mg tablet 20 mg PO QAM RF: 0 No Action Invokana 300 mg Tablet 300 mg PO QDAY RF: 0 Follow Up Plan Follow up with: Manuel Philip MD [Primary Care Provider] - Patient Disposition: Home Health Service Prognosis: Fair Overall status at discharge: patient is progressing back to baseline Discharge Orders: Discharge Order (Routine); Ordered 04/25/20 Ordered By: Jordan GRIMES VTE Deep Vein Thrombosis/Pulmonary Embolism Present on Admission: No
[2020-04-25 13:01] LABS: Blood Urea Nitrogen 12 mg/dL (8-23); Calcium 9.1 mg/dL (8.6-10.4); Carbon Dioxide 28 mmol/L (22-30); Chloride 99 mmol/L (96-108); Glomerular Filtration Rate 94; Glucose 206 mg/dL (70-105)
[2020-04-25 15:24] LABS: Appearance,Urine CLEAR (Clear); Bilirubin,Urine Negative (Negative); Color,Urine YELLOW; Culture Indicated,Urine yes; Glucose,Urine (UA) 50 mg/dL (Negative); Ketones,Urine Negative (Negative); Leukocyte Esterase,Urine 500 /ug (Negative); Nitrate,Urine Negative (Negative); Protein,Urine Negative (Negative); Specific Gravity,Urine 1.008 (1.000-1.035); Urine Blood >=1.0 mg/dL (Negative); Urine Budding Yeast FEW /hpf; Urine RBC 0 /hpf (0-3); Urine Squamous Epithelial Cell 4 /hpf (0-4); Urine WBC 37 /hpf (0-4); Urobilinogen,Urine Negative
== END 2020-04-25 16:05 | disposition home health service (06) | DRG 558 ==
LOC: ED 10:34 → ICU 15:13 → MEDSUR 04-22 11:26
PROVIDERS: ADMIT Internal Medicine; ATTEND Internal Medicine

== ENCOUNTER 2022-10-13 13:29 | Inpatient (IN) ==
[2022-10-13 13:45] LABS: POC Calcium, Ionized 1.19 (1.16-1.32); POC Creatinine 0.4 (0.6-1.2); POC Potassium 3.8 (3.3-5.1)
[2022-10-13] MEDS ORDERED: 0.9 % SODIUM CHLORIDE 1,000 ML IV ONE ×2 (13:46→15:45)
[2022-10-13] MEDS ORDERED: ONDANSETRON 4 MG/2 ML VIAL IV ONE (13:54)
[2022-10-13] MEDS ORDERED: morphine 4 MG/ML VIAL IV ONE ×2 (13:54→16:32)
--- NOTE | 2022-10-13 13:54 | Emergency Department Note ---
Fall HPI General Chief Complaint: Recheck/Abnormal Lab/Rx Stated Complaint: Fall 2 weeks ago, knee pain Time Seen by Provider: 10/13/22 13:31 Source: EMS Mode of arrival: EMS History of Present Illness HPI Narrative: The patient is a 67-year-old female who presents to the ED with left leg pain after falling. Patient states that she accidentally tripped and fell to the ground, hitting her left hip and knee. She was seen in the ED 2 weeks ago with a similar presentation. This fall occurred this morning. She states that she cannot stand up or put weight on her left leg secondary to pain. She did not hit her head or lose consciousness. She denies a headache. No nausea, vomiting, chest pain, shortness of breath, abdominal pain, dysuria, or back or neck pain. No dizziness or lightheadedness. She denies any illicit substance a buse or alcohol use. Related Data Home Medications Medication Instructions Recorded Confirmed atorvastatin 20 mg tablet 20 mg PO DAILY 04/16/18 04/20/20 lorazepam 1 mg tablet 1 mg PO DAILYP PRN Anxiety 04/16/18 04/20/20 pioglitazone 30 mg tablet 45 mg PO QDAY 04/16/18 04/20/20 ziprasidone HCl 60 mg capsule 60 mg PO DAILY 04/16/18 04/20/20 calcium carbonate 600 mg calcium 600 mg PO BID 04/20/20 04/20/20 (1,500 mg) tablet (Calcium) canagliflozin 300 mg tablet 300 mg PO QDAY 04/20/20 04/20/20 (Invokana) lisinopril 20 mg tablet 20 mg PO QAM 04/20/20 04/20/20 sitagliptin phosphate 100 mg 100 mg PO QDAY 04/20/20 04/20/20 tablet (Januvia) Previous Rx's Medication Instructions Recorded trazodone 50 mg tablet 50 mg PO QHS insomnia #30 tabs 03/21/17 omeprazole 40 mg capsule,delayed 40 mg PO QAM #90 caps 05/03/17 release memantine 10 mg tablet 10 mg PO BID #60 tabs 05/23/17 divalproex 250 mg tablet,delayed 250 mg PO BID #60 tabs 05/27/17 release duloxetine 60 mg capsule,delayed 60 mg PO QDAY #30 caps 10/24/17 release amlodipine 5 mg tablet 5 mg PO QDAY #30 tabs 12/31/17 Allergies Allergy/AdvReac Type Severity Reaction Status Date / Time No Known Drug Allergies Allergy Verified 04/20/20 10:43 Review of Systems ROS ROS Narrative: Narrative: All systems ED: reviewed and negative except as stated. [facility] Narrative Patient History Narrative: Narrative: Medical/Surgical/Family History All Active Problems (Updated 10/13/22 @ 18:52 by Wilmar Ferrara MD) Acute dehydration (Acute) Weakness generalized (Acute) Rhabdomyolysis (Acute) Sepsis (Acute) Fall (Acute) Abrasion (Acute) Acidosis, lactic (Acute) Closed displaced fracture of left femoral neck (Acute) Dehydration (Acute) Sepsis (Acute) UTI (urinary tract infection) (Acute) Abnormal LFTs (liver function tests) (Chronic) Opioid type drug dependence (Chronic) Diabetes mellitus, type II (Chronic) Cervical radiculopathy at C6 (Chronic) Osteopenia (Chronic) Depressive disorder (Chronic) Chronic hepatitis C (Chronic) Medical History (Updated 10/13/22 @ 18:52 by Wilmar Ferrara MD) Abnormal LFTs (liver function tests) chronic (hx chronic hep c although pt denied previously) Adenomatous polyp of colon Altered mental status Cervical radiculopathy at C6 Chronic hepatitis C Recorded 06/15/05; denies 05/05/2019 Concussion Dehydration Depressive disorder Diabetes mellitus, type II Encounter for Health Maintenance Examination in Adult Fall Fall at home Head injury Hypercalcemia Opioid type drug dependence Osteopenia 12/2011 Rhabdomyolysis UTI (urinary tract infection) Weakness Surgical History History of colonoscopy (05/23/17) History of left breast biopsy History of right breast biopsy History of tonsillectomy age 16 Family History Brother Primary malignant neoplasm of bone marrow, Onset Age: 56 lung cancer, metastasized Father Type 2 diabetes mellitus Grandmother (paternal) Family history of malignant neoplasm of breast paternal grandmother when patient's father was 5 years old Sister Hyperthyroidism Social History Smoking Status: Current every day smoker Alcohol Intake Frequency: 0-2 drinks per day Exam Narrative Narrative: Constitutional: Well-nourished, well-developed. Appears anxious. HEENT: Normocephalic. Atraumatic. EOMI. Conjunctive are clear bilaterally. OP clear. Uvula midline. Dry and tacky mucous membranes. Throat supple without adenopathy. Cardiovascular: Rapid rate. Regular rhythm. No murmurs, rubs, gallops. Pulmonary: No increased work of breathing. Lung sounds clear to auscultation bilaterally. No wheezing, rales, or rhonchi. Abdomen: Soft, nondistended, nontender. No HSM. Musculoskeletal: Normal muscular development. No obvious deformities. No lower extremity edema. Patient reports tenderness with palpation of the lateral and medial joint line of the left knee. No joint effusion appreciated. She reports significant pain with flexion of the with flexion limited to approximately 20 degrees. Patient is also tender with palpation of the left lateral hip. No tenderness with palpation of the cervical, thoracic, or lumbar spine. She has full neck range of motion without eliciting pain. No step-offs. Skin: Warm, dry. Contusion appreciated over the left anterior knee. Neurologic: Awake, alert, and oriented. Motor function grossly intact though examination of the left lower extremity limited secondary to patient's pain. Tremulous. Course Course Course Narrative: Patient anxious, tremulous, tachycardic on arrival to the ED. she appears dry. Lactic acid is elevated at 4.1. WBC is 14.3. CK WNL at 180. Creatinine is also within normal limits. Patient given 1 L NS. CXR shows no acute pathology. She does have an acute moderately displaced transcervical fracture of the left hip with extensive bone loss suggesting the possibility of a pathologic fracture. She has moderate left and severe right hip degeneration. Radiographs of the left knee shows degenerative changes without acute pathology. Patient given 2 L NS and 1 g Rocephin to cover for possible sepsis. Urinalysis is pending. Case was discussed with Dr. Gates, on-call for orthopedic surgery who asked that the patient be admitted to the hospitalist service. Case was further discussed with Dr. Ladd, hospitalist, who accepts patient for admission. She was given 4 mg morphine and 4 mg IV Zofran with improvement in pain. She remains HD stable and hypertensive here in the ED. Heart rate has improved to the low 100s after getting IV fluids. Update 1840 hours: Patient's urinalysis is notable for 100-2 WBCs suggesting infection. Urine culture pending. Repeat lactic acid ordered. Consultations Consultation #1: Dr. Gates, orthopedic surgeon who requests admission to hospitalist service Time: 15:30 Consultation #2: Dr. Ladd, hospitalist aceepts pt for admission Time: 15:45 Vital Signs Vital signs: Vital Signs Temperature 99.0 F 10/13/22 13:30 Pulse Rate 117 H 10/13/22 13:30 Respiratory Rate 18 10/13/22 13:30 Blood Pressure 181/92 10/13/22 13:30 Pulse Oximetry (%) 100 10/13/22 13:30 Oxygen Delivery Method Room Air 10/13/22 13:30 Temperature 99.0 F 10/13/22 13:30 Pulse Rate 112 H 10/13/22 18:43 Respiratory Rate 18 10/13/22 13:30 Blood Pressure 166/67 10/13/22 19:01 Pulse Oximetry (%) 94 10/13/22 18:43 Oxygen Delivery Method Room Air 10/13/22 13:30 MDM MDM Narrative Medical decision making narrative: Narrative: Sepsis Sepsis Identified: Yes Date Sepsis Identified: 10/13/22 Time Sepsis Identified: 15:00 Comments: Fluid bolus and abx given, blood cultures pending, source unknown Differential Diagnosis Differential Diagnosis: Left hip fracture, left knee fracture, dehydration, sepsis Medical Records Medical records reviewed: Yes I reviewed the patient's medical records. Lab Data Lab results reviewed: Yes I reviewed the patient's lab results. 10/13/22 14:51 Labs: Lab Results 10/13/22 10/13/22 10/13/22 Range/Units 13:40 13:40 14:51 WBC 14.3 H (4.5-11.0) K/mcL RBC 4.63 (3.59-5.38) M/mcL Hgb 14.7 (11.2-15.7) g/dL Hct 43.4 (34.1-44.9) % POC Hct 47.0 (36-48) MCV 93.7 (80.0-100.0) fL MCH 31.7 (26.0-34.0) pg MCHC 33.9 (31.0-36.0) g/dL RDW 13.9 (11.5-14.5) % Plt Count 310 (140-440) K/mcL MPV 10.7 (8.8-12.5) fL Immature Gran % (Auto) 2.6 H (0.0-0.5) % Neut % (Auto) 64.4 (38.0-78.0) % Lymph % (Auto) 17.1 (15.5-49.0) % Noble % (Auto) 15.1 H (1.0-12.0) % Eos % (Auto) 0 (0.0-7.0) % Baso % (Auto) 0.8 (0.0-2.0) % Lymph # (Auto) 2.44 (1.50-4.80) K/mcL Noble # (Auto) 2.16 H (0.10-0.90) K/mcL Eos # (Auto) 0 (0.00-0.70) K/mcL Baso # (Auto) 0.12 (0.00-0.30) K/mcL Immature Gran # 0.37 H (0.00-0.05) K/mcl Absolute Neutrophils 9.17 H (1.80-8.00) K/mcL POC VBG pH 7.48 H (7.32-7.42) POC VBG pCO2 at Temp 20.8 L (41-51) POC VBG pO2 24 L (25-40) POC VBG HCO3 15.4 L (24-28) POC VBG Total CO2 16.0 L (25-29) POC Venous O2 Sat 50.0 (40-70) POC VBG Base Excess -8.0 L (-2-2) VBG Lactic Acid 4.1 H* (0.5-2) POC Sodium 138 (133-145) POC Potassium 3.8 (3.3-5.1) POC Chloride 102 (96-108) POC Total CO2 16.0 L (22-30) POC Anion Gap 25.0 H (8.0-16.0) POC BUN 17 (6-20) POC Creatinine 0.4 L (0.6-1.2) POC Glucose 178 H (70-105) POC WB Ioniz Calcium 1.19 (1.16-1.32) Total Bilirubin (0.1-1.0) mg/dL Direct Bilirubin (<0.3) mg/dL AST (<32) U/L ALT (<40) U/L Alkaline Phosphatase (39-117) U/L Total Creatine Kinase (24-170) U/L Total Protein (5.9-8.4) gm/dL Albumin (3.2-5.2) gm/dL Globulin (2.2-3.7) gm/dL Beta-Hydroxybutyrate (<0.27) mmol/L Urine Color Urine Appearance (Clear) Urine pH (5.0-9.0) Ur Specific [place] (1.000-1.035) Urine Protein (Negative) mg/dL Urine Glucose (UA) (Negative) mg/dL Urine Ketones (Negative) mg/dL Urine Occult Blood (Negative) mg/dL Urine Nitrate (Negative) Urine Bilirubin (Negative) mg/dL Urine Urobilinogen mg/dL Ur Leukocyte Esterase (Negative) /uL Urine RBC (0-3) /hpf Urine WBC (0-4) /hpf Ur Squamous Epith Cells (0-4) /hpf Urine Bacteria (0) /hpf Ur Culture Indicated? Urine Opiates Screen Ur Oxycodone Screen U Oxycod/Oxymor Confirm Urine Methadone Screen Ur Methadone Confirm Ur Barbiturates Screen Ur Barbiturate Confirm Ur Phencyclidine Scrn Urine PCP Confirm Ur Amphetamines Screen U Amphetamines Confirm U Benzodiazepines Scrn Ur Benzodiazepine, Qnt Urine Cocaine Screen Urine Cocaine Confirm U Cannabinoids Confirm U Marijuana (THC) Screen 10/13/22 10/13/22 10/13/22 Range/Units 14:51 14:51 14:51 WBC (4.5-11.0) K/mcL RBC (3.59-5.38) M/mcL Hgb (11.2-15.7) g/dL Hct (34.1-44.9) % POC Hct (36-48) MCV (80.0-100.0) fL MCH (26.0-34.0) pg MCHC (31.0-36.0) g/dL RDW (11.5-14.5) % Plt Count (140-440) K/mcL MPV (8.8-12.5) fL Immature Gran % (Auto) (0.0-0.5) % Neut % (Auto) (38.0-78.0) % Lymph % (Auto) (15.5-49.0) % Noble % (Auto) (1.0-12.0) % Eos % (Auto) (0.0-7.0) % Baso % (Auto) (0.0-2.0) % Lymph # (Auto) (1.50-4.80) K/mcL Noble # (Auto) (0.10-0.90) K/mcL Eos # (Auto) (0.00-0.70) K/mcL Baso # (Auto) (0.00-0.30) K/mcL Immature Gran # (0.00-0.05) K/mcl Absolute Neutrophils (1.80-8.00) K/mcL POC VBG pH (7.32-7.42) POC VBG pCO2 at Temp (41-51) POC VBG pO2 (25-40) POC VBG HCO3 (24-28) POC VBG Total CO2 (25-29) POC Venous O2 Sat (40-70) POC VBG Base Excess (-2-2) VBG Lactic Acid (0.5-2) POC Sodium (133-145) POC Potassium (3.3-5.1) POC Chloride (96-108) POC Total CO2 (22-30) POC Anion Gap (8.0-16.0) POC BUN (6-20) POC Creatinine (0.6-1.2) POC Glucose (70-105) POC WB Ioniz Calcium (1.16-1.32) Total Bilirubin 0.7 (0.1-1.0) mg/dL Direct Bilirubin 0.3 H (<0.3) mg/dL AST 44 H (<32) U/L ALT 36 (<40) U/L Alkaline Phosphatase 101 (39-117) U/L Total Creatine Kinase 180 H (24-170) U/L Total Protein 8.7 H (5.9-8.4) gm/dL Albumin 4.5 (3.2-5.2) gm/dL Globulin 4.2 H (2.2-3.7) gm/dL Beta-Hydroxybutyrate 5.03 H (<0.27) mmol/L Urine Color Urine Appearance (Clear) Urine pH (5.0-9.0) Ur Specific [place] (1.000-1.035) Urine Protein (Negative) mg/dL Urine Glucose (UA) (Negative) mg/dL Urine Ketones (Negative) mg/dL Urine Occult Blood (Negative) mg/dL Urine Nitrate (Negative) Urine Bilirubin (Negative) mg/dL Urine Urobilinogen mg/dL Ur Leukocyte Esterase (Negative) /uL Urine RBC (0-3) /hpf Urine WBC (0-4) /hpf Ur Squamous Epith Cells (0-4) /hpf Urine Bacteria (0) /hpf Ur Culture Indicated? Urine Opiates Screen Ur Oxycodone Screen U Oxycod/Oxymor Confirm Urine Methadone Screen Ur Methadone Confirm Ur Barbiturates Screen Ur Barbiturate Confirm Ur Phencyclidine Scrn Urine PCP Confirm Ur Amphetamines Screen U Amphetamines Confirm U Benzodiazepines Scrn Ur Benzodiazepine, Qnt Urine Cocaine Screen Urine Cocaine Confirm U Cannabinoids Confirm U Marijuana (THC) Screen 10/13/22 10/13/22 Range/Units 16:12 16:13 WBC (4.5-11.0) K/mcL RBC (3.59-5.38) M/mcL Hgb (11.2-15.7) g/dL Hct (34.1-44.9) % POC Hct (36-48) MCV (80.0-100.0) fL MCH (26.0-34.0) pg MCHC (31.0-36.0) g/dL RDW (11.5-14.5) % Plt Count (140-440) K/mcL MPV (8.8-12.5) fL Immature Gran % (Auto) (0.0-0.5) % Neut % (Auto) (38.0-78.0) % Lymph % (Auto) (15.5-49.0) % Noble % (Auto) (1.0-12.0) % Eos % (Auto) (0.0-7.0) % Baso % (Auto) (0.0-2.0) % Lymph # (Auto) (1.50-4.80) K/mcL Noble # (Auto) (0.10-0.90) K/mcL Eos # (Auto) (0.00-0.70) K/mcL Baso # (Auto) (0.00-0.30) K/mcL Immature Gran # (0.00-0.05) K/mcl Absolute Neutrophils (1.80-8.00) K/mcL POC VBG pH (7.32-7.42) POC VBG pCO2 at Temp (41-51) POC VBG pO2 (25-40) POC VBG HCO3 (24-28) POC VBG Total CO2 (25-29) POC Venous O2 Sat (40-70) POC VBG Base Excess (-2-2) VBG Lactic Acid (0.5-2) POC Sodium (133-145) POC Potassium (3.3-5.1) POC Chloride (96-108) POC Total CO2 (22-30) POC Anion Gap (8.0-16.0) POC BUN (6-20) POC Creatinine (0.6-1.2) POC Glucose (70-105) POC WB Ioniz Calcium (1.16-1.32) Total Bilirubin (0.1-1.0) mg/dL Direct Bilirubin (<0.3) mg/dL AST (<32) U/L ALT (<40) U/L Alkaline Phosphatase (39-117) U/L Total Creatine Kinase (24-170) U/L Total Protein (5.9-8.4) gm/dL Albumin (3.2-5.2) gm/dL Globulin (2.2-3.7) gm/dL Beta-Hydroxybutyrate (<0.27) mmol/L Urine Color Yellow Urine Appearance Cloudy A (Clear) Urine pH 5.0 (5.0-9.0) Ur Specific [place] 1.014 (1.000-1.035) Urine Protein Negative (Negative) mg/dL Urine Glucose (UA) >=500 A (Negative) mg/dL Urine Ketones 80 A (Negative) mg/dL Urine Occult Blood 0.03 (Negative) mg/dL Urine Nitrate Negative (Negative) Urine Bilirubin Negative (Negative) mg/dL Urine Urobilinogen Negative mg/dL Ur Leukocyte Esterase 500 A (Negative) /uL Urine RBC 7 H (0-3) /hpf Urine WBC 152 H (0-4) /hpf Ur Squamous Epith Cells 5 H (0-4) /hpf Urine Bacteria None (0) /hpf Ur Culture Indicated? No Urine Opiates Screen Suspect positive A Ur Oxycodone Screen None detected U Oxycod/Oxymor Confirm TNP Urine Methadone Screen None detected Ur Methadone Confirm TNP Ur Barbiturates Screen None detected Ur Barbiturate Confirm TNP Ur Phencyclidine Scrn None detected Urine PCP Confirm TNP Ur Amphetamines Screen None detected U Amphetamines Confirm TNP U Benzodiazepines Scrn None detected Ur Benzodiazepine, Qnt TNP Urine Cocaine Screen None detected Urine Cocaine Confirm TNP U Cannabinoids Confirm TNP U Marijuana (THC) Screen None detected Radiology Data Radiology results reviewed: Yes I reviewed the patient's radiology results. Radiology results narrative: [facility] NAME: Chelsea Edwards [address] [place] [address] : 1955 [address] Service Date: 10/13/22 Report # [id number] [place] [id number] Nicholas Irvin M.D. MR #: [id number] XRay Report Signed Ordering Physician: Wilmar Ferrara M.D. Date of Service: 10/13/22 Procedure(s): XR hip LT comp 2VW Accession Number(s): [id number] CLINICAL INFORMATION: fall, left hip pain COMPARISON: 04/16/2018 FINDINGS: Transcervical fracture of the left femoral neck appreciated. Distal fragment is displaced 2 cm superiorly. Modest bone loss at the fracture site suggests the possibility of pathologic fracture. Moderate left and severe right hip degeneration noted. A 3 cm calcification in the left true pelvis is likely a calcified fibroid or lymph node. It is unchanged. IMPRESSION: Acute moderately displaced transcervical fracture of the left hip. Extensive bone loss suggest the possibility of pathologic fracture. Moderate left and severe right hip degeneration Interpreted and Authenticated by: Nicholas Irvin 10/13/22 33 33 Jar Filler: <Electronically signed by Nicholas Irvin M.D. in OV> 10/13/22 1436 CC: Nicholas Irvin M.D.; Wilmar Ferrara M.D.~ [facility] NAME: Chelsea Edwards [address] [place] [address] : 1955 [address] Service Date: 10/13/22 Report # [id number] [place] [address] Nicholas Irvin M.D. MR #: [id number] XRay Report Signed Ordering Physician: Wilmar Ferrara M.D. Date of Service: 10/13/22 Procedure(s): XR knee LT 3V Accession Number(s): [id number] CLINICAL INFORMATION: fall, left knee pain COMPARISON: 10/02/2022 FINDINGS: No fracture identified. Mild medial tibiofemoral and mild patellofemoral degeneration noted. Soft tissues are normal. IMPRESSION: No fracture. Degenerative change Interpreted and Authenticated by: Nicholas Irvin 10/13/22 35 35 Jar Filler: <Electronically signed by Nicholas Irvin M.D. in OV> 10/13/221436 CC: Nicholas Irvin M.D.; Wilmar Ferrara M.D.~ [facility] NAME: Chelsea Edwards [address] [place] [address] : 1955 [address] Service Date: 10/13/22 Report # [id number] [place] [address] Nicholas Irvin M.D. MR #: [id number] XRay Report Signed Ordering Physician: Wilmar Ferrara M.D. Date of Service: 10/13/22 Procedure(s): XR chest 1V portable Accession Number(s): [id number] CLINICAL INFORMATION: Trauma COMPARISON: 04/19/2020 TECHNIQUE: Portable FINDINGS: The heart size, mediastinum and pulmonary vessels are unremarkable. The lungs are clear. There are no effusions. The bones and soft tissues are within normal limits. IMPRESSION: Normal chest. Interpreted and Authenticated by: Nicholas Irvin 10/13/22 1442 144 Jar Filler: <Electronically signed by Nicholas Irvin M.D. in OV> 10/13/22 1443 EKG Data EKG #1: EKG attestation: Yes I reviewed and interpreted this EKG. and Yes There are no EKG findings of acute coronary syndrome EKG results narrative: Sinus tachycardia. Rate 115. Normal axis. No ST elevation or depression. QRS hypertrophy indicating LVH. Normal T waves. Discharge Plan Patient/Caregiver Discharge Instructions Pt seen by [employer] LEAD/PA only: No Clinical Impression: Acidosis, lactic, Closed displaced fracture of left femoral neck, Dehydration, Sepsis, UTI (urinary tract infection) Patient Disposition: Xfer As Inpt ([facility]) Condition: Fair Prescriptions: No Action omeprazole 40 mg capsule,delayed release(DR/EC) 40 mg PO QAM Qty: 90 3RF memantine 10 mg tablet 10 mg PO BID Qty: 60 12RF divalproex 500 mg tablet,delayed release (DR/EC) 250 mg PO BID Qty: 60 12RF duloxetine 60 mg capsule,delayed release(DR/EC) 60 mg PO QDAY Qty: 30 12RF amlodipine 5 mg tablet 5 mg PO QDAY Qty: 30 12RF trazodone 50 mg tablet 50 mg PO QHS Qty: 30 12RF atorvastatin 20 MG tablet 20 mg PO DAILY lorazepam 1 MG tablet 1 mg PO DAILYP PRN (Reason: Anxiety) ziprasidone HCl 60 MG capsule 60 mg PO DAILY Rx Instructions: administer with food pioglitazone 30 MG tablet 45 mg PO QDAY calcium carbonate [Calcium 600] 600 mg calcium (1,500 mg) Tablet 600 mg PO BID Januvia 100 mg Tablet 100 mg PO QDAY Invokana 300 mg Tablet 300 mg PO QDAY lisinopril 20 mg tablet 20 mg PO QAM
--- NOTE | 2022-10-13 14:40 | XRay Report ---
CLINICAL INFORMATION: fall, left knee pain COMPARISON: 10/02/2022 FINDINGS: No fracture identified. Mild medial tibiofemoral and mild patellofemoral degeneration noted. Soft tissues are normal. IMPRESSION: No fracture. Degenerative change Interpreted and Authenticated by: Nicholas Irvin 10/13/22
--- NOTE | 2022-10-13 14:40 | XRay Report ---
CLINICAL INFORMATION: fall, left hip pain COMPARISON: 04/16/2018 FINDINGS: Transcervical fracture of the left femoral neck appreciated. Distal fragment is displaced 2 cm superiorly. Modest bone loss at the fracture site suggests the possibility of pathologic fracture. Moderate left and severe right hip degeneration noted. A 3 cm calcification in the left true pelvis is likely a calcified fibroid or lymph node. It is unchanged. IMPRESSION: Acute moderately displaced transcervical fracture of the left hip. Extensive bone loss suggest the possibility of pathologic fracture. Moderate left and severe right hip degeneration Interpreted and Authenticated by: Nicholas Irvin 10/13/22
--- NOTE | 2022-10-13 14:46 | XRay Report ---
CLINICAL INFORMATION: Trauma COMPARISON: 04/19/2020 TECHNIQUE: Portable FINDINGS: The heart size, mediastinum and pulmonary vessels are unremarkable. The lungs are clear. There are no effusions. The bones and soft tissues are within normal limits. IMPRESSION: Normal chest. Interpreted and Authenticated by: Nicholas Irvin 10/13/22
[2022-10-13 15:18] LABS: Creatine Kinase 180 U/L (24-170)
[2022-10-13 15:33] LABS: Basophils # (Auto) 0.12 K/mcL (0.00-0.30); Basophils % (Auto) 0.8 % (0.0-2.0); Eosinophils # (Auto) 0 K/mcL (0.00-0.70); Eosinophils % (Auto) 0 % (0.0-7.0); Hematocrit 43.4 % (34.1-44.9); Hemoglobin 14.7 g/dL (11.2-15.7); Lymphocytes # (Auto) 2.44 K/mcL (1.50-4.80); Lymphocytes % (Auto) 17.1 % (15.5-49.0); Mean Cell Volume 93.7 fL (80.0-100.0); Mean Corpuscular HGB Conc 33.9 g/dL (31.0-36.0); Mean Platelet Volume 10.7 fL (8.8-12.5); Monocytes # (Auto) 2.16 K/mcL (0.10-0.90); Monocytes % (Auto) 15.1 % (1.0-12.0); Neutrophils % (Auto) 64.4 % (38.0-78.0); Platelet Count 310 K/mcL (140-440); RBC 4.63 M/mcL (3.59-5.38); Red Cell Distribution Width 13.9 % (11.5-14.5); WBC 14.3 K/mcL (4.5-11.0)
[2022-10-13] MEDS ORDERED: cefTRIAXone 1 GM VIAL IV ONE (15:44)
[2022-10-13 16:52] LABS: Appearance,Urine CLOUDY (Clear); Bilirubin,Urine Negative (Negative); Color,Urine YELLOW; Culture Indicated,Urine No; Glucose,Urine (UA) >=500 mg/dL (Negative); Ketones,Urine 80 mg/dL (Negative); Leukocyte Esterase,Urine 500 /uL (Negative); Nitrate,Urine Negative (Negative); Protein,Urine Negative (Negative); Specific Gravity,Urine 1.014 (1.000-1.035); Urine Blood 0.03 mg/dL (Negative); Urine RBC 7 /hpf (0-3); Urine Squamous Epithelial Cell 5 /hpf (0-4); Urine WBC 152 /hpf (0-4); Urobilinogen,Urine Negative
--- NOTE | 2022-10-13 16:55 | Internal Med History&Physical ---
HPI History of Present Illness Patient information: Note initiated : 10/13/22 at 4:45 pm Service Date, if different from initiated Date: [] Patient: Chelsea Edwards 67 y/o F admitted on . Chief Complaint: [] History of present illness: Ms. Edwards is a 67 year old F Patient states she fell several weeks ago and was seen in the ED but did not have any fractures at that time. She fell again yesterday and has had a hard time walking since then. She called her sister and [place] who called EMS. Patient denies any recent illnesses. She says she fell because she tripped on her carpet. Vital signs reveal mild tachycardia as well as hypertension. Patient denies any recent illnesses. Denies chest pain shortness of breath headache stomach pain diarrhea. Work-up in the ED revealed a left hip fracture. She also found to have a lactate of 4.1. Chest x-ray was unremarkable and urinalysis pending. also found to have metabolic acidosis with an anion gap. Glucose of 178. Patient started on IV fluid in the ED. Dr. Gates was contacted for orthopedic repair. Patient denies alcohol use but still smokes. Review of Systems: Pertinent positives as above. Denies headache/fever/chills/nausea/vomiting/chest or abdominal pain/cough/dys pnea/diarrhea. Remaining 10 point review of system reviewed negative. PHYSICAL EXAM General: Alert, Awake, No acute Distress Eyes/N/T: EOMI, no scleral icterus, PERRL, dry MM Head/Neck: neck supple, full ROM, normocephalic atraumatic CV: Mildly tacky but regular, No murmurs, normal s1/s2 Pulm: Clear b/l, no wheezing/rhonchi/rales, no respiratory distress Abd: soft, nontender, +BS x4 Ext: no clubbing/cyanosis/edema, nontender Neuro: Alert, CN 2-12 grossly intact, no focal deficits, , sensations intact b/l upper/lower Psychiatric: Skin: warm/dry, normal color PFSH PFSH All Active Problems (Updated 10/13/22 @ 16:15 by Wilmar Ferrara MD) Acute dehydration (Acute) Weakness generalized (Acute) Rhabdomyolysis (Acute) Sepsis (Acute) Fall (Acute) Abrasion (Acute) Acidosis, lactic (Acute) Leukocytosis (Acute) Closed displaced fracture of left femoral neck (Acute) Dehydration (Acute) SIRS (systemic inflammatory response syndrome) (Acute) Abnormal LFTs (liver function tests) (Chronic) Opioid type drug dependence (Chronic) Diabetes mellitus, type II (Chronic) Cervical radiculopathy at C6 (Chronic) Osteopenia (Chronic) Depressive disorder (Chronic) Chronic hepatitis C (Chronic) Medical History (Updated 10/13/22 @ 16:15 by Wilmar Ferrara MD) Abnormal LFTs (liver function tests) chronic (hx chronic hep c although pt denied previously) Adenomatous polyp of colon Altered mental status Cervical radiculopathy at C6 Chronic hepatitis C Recorded 06/15/05; denies 05/05/2019 Concussion Dehydration Depressive disorder Diabetes mellitus, type II Encounter for Health Maintenance Examination in Adult Fall Fall at home Head injury Hypercalcemia Opioid type drug dependence Osteopenia 12/2011 Rhabdomyolysis UTI (urinary tract infection) Weakness Surgical History History of colonoscopy (05/23/17) History of left breast biopsy History of right breast biopsy History of tonsillectomy age 16 Family History Brother Primary malignant neoplasm of bone marrow, Onset Age: 56 lung cancer, metastasized Father Type 2 diabetes mellitus Grandmother (paternal) Family history of malignant neoplasm of breast paternal grandmother when patient's father was 5 years old Sister Hyperthyroidism Social History (Updated 05/26/18 @ 10:20 by Joy Garcia DO) marital status: occupational status: disabled physical activity: other smoking status: Current every day smoker alcohol intake frequency: 0-2 drinks per day MEDS/ALLERGIES Home Medications and Allergies Home Medications Medication Instructions Recorded Confirmed Type trazodone 50 mg tablet 50 mg PO QHS insomnia #30 tabs 03/21/17 04/20/20 Rx omeprazole 40 mg capsule,delayed 40 mg PO QAM #90 caps 05/03/17 04/20/20 Rx release memantine 10 mg tablet 10 mg PO BID #60 tabs 05/23/17 04/20/20 Rx divalproex 250 mg tablet,delayed 250 mg PO BID #60 tabs 05/27/17 04/20/20 Rx release duloxetine 60 mg capsule,delayed 60 mg PO QDAY #30 caps 10/24/17 04/20/20 Rx release amlodipine 5 mg tablet 5 mg PO QDAY #30 tabs 12/31/17 04/20/20 Rx atorvastatin 20 mg tablet 20 mg PO DAILY 04/16/18 04/20/20 History lorazepam 1 mg tablet 1 mg PO DAILYP PRN Anxiety 04/16/18 04/20/20 History pioglitazone 30 mg tablet 45 mg PO QDAY 04/16/18 04/20/20 History ziprasidone HCl 60 mg capsule 60 mg PO DAILY 04/16/18 04/20/20 History calcium carbonate 600 mg calcium 600 mg PO BID 04/20/20 04/20/20 History (1,500 mg) tablet (Calcium) canagliflozin 300 mg tablet 300 mg PO QDAY 04/20/20 04/20/20 History (Invokana) lisinopril 20 mg tablet 20 mg PO QAM 04/20/20 04/20/20 History sitagliptin phosphate 100 mg 100 mg PO QDAY 04/20/20 04/20/20 History tablet (Januvia) Allergies Allergy/AdvReac Type Severity Reaction Status Date / Time No Known Drug Allergies Allergy Verified 04/20/20 10:43 EXAM Constitutional Vitals: Temp Pulse Resp BP Pulse Ox O2 Del Method 99.0 F 108 H 18 182/78 99 Room Air 10/13/22 13:30 10/13/22 16:41 10/13/22 13:30 10/13/22 16:31 10/13/22 16:41 10/13/22 13:30 DATA Data Completed and Pending Labs: Labs from last 24 hours 10/13/22 10/13/22 10/13/22 16:13 16:12 14:51 WBC RBC Hgb Hct POC Hct MCV MCH MCHC RDW Plt Count MPV Immature Gran % (Auto) Neut % (Auto) Lymph % (Auto) [place]ke % (Auto) Eos % (Auto) Baso % (Auto) Lymph # (Auto) [place] # (Auto) Eos # (Auto) Baso # (Auto) Immature Gran # Absolute Neutrophils POC VBG pH POC VBG pCO2 at Temp POC VBG pO2 POC VBG HCO3 POC VBG Total CO2 POC Venous O2 Sat POC VBG Base Excess VBG Lactic Acid POC Sodium POC Potassium POC Chloride POC Total CO2 POC Anion Gap POC BUN POC Creatinine POC Glucose POC WB Ioniz Calcium Total Creatine Kinase 180 H Urine Color Pending Urine Appearance Pending Urine pH Pending Ur Specific [place] Pending Urine Protein Pending Urine Glucose (UA) Pending Urine Ketones Pending Urine Occult Blood Pending Urine Nitrate Pending Urine Bilirubin Pending Urine Urobilinogen Pending Ur Leukocyte Esterase Pending Urine Opiates Screen Pending Ur Opiates Confirm Pending Ur Oxycodone Screen Pending U Oxycod/Oxymor Confirm Pending Urine Methadone Screen Pending Ur Methadone Confirm Pending Ur Barbiturates Screen Pending Ur Barbiturate Confirm Pending Ur Phencyclidine Scrn Pending Urine PCP Confirm Pending Ur Amphetamines Screen Pending U Amphetamines Confirm Pending U Benzodiazepines Scrn Pending Ur Benzodiazepine, Qnt Pending Urine Cocaine Screen Pending Urine Cocaine Confirm Pending U Cannabinoids Confirm Pending U Marijuana (THC) Screen Pending 10/13/22 10/13/22 10/13/22 14:51 13:40 13:40 WBC 14.3 H RBC 4.63 Hgb 14.7 Hct 43.4 POC Hct 47.0 MCV 93.7 MCH 31.7 MCHC 33.9 RDW 13.9 Plt Count 310 MPV 10.7 Immature Gran % (Auto) 2.6 H Neut % (Auto) 64.4 Lymph % (Auto) 17.1 Parke % (Auto) 15.1 H Eos % (Auto) 0 Baso % (Auto) 0.8 Lymph # (Auto) 2.44 [place]ke # (Auto) 2.16 H Eos # (Auto) 0 Baso # (Auto) 0.12 Immature Gran # 0.37 H Absolute Neutrophils 9.17 H POC VBG pH 7.48 H POC VBG pCO2 at Temp 20.8 L POC VBG pO2 24 L POC VBG HCO3 15.4 L POC VBG Total CO2 16.0 L POC Venous O2 Sat 50.0 POC VBG Base Excess -8.0 L VBG Lactic Acid 4.1 H* POC Sodium 138 POC Potassium 3.8 POC Chloride 102 POC Total CO2 16.0 L POC Anion Gap 25.0 H POC BUN 17 POC Creatinine 0.4 L POC Glucose 178 H POC WB Ioniz Calcium 1.19 Total Creatine Kinase Urine Color Urine Appearance Urine pH Ur Specific [place] Urine Protein Urine Glucose (UA) Urine Ketones Urine Occult Blood Urine Nitrate Urine Bilirubin Urine Urobilinogen Ur Leukocyte Esterase Urine Opiates Screen Ur Opiates Confirm Ur Oxycodone Screen U Oxycod/Oxymor Confirm Urine Methadone Screen Ur Methadone Confirm Ur Barbiturates Screen Ur Barbiturate Confirm Ur Phencyclidine Scrn Urine PCP Confirm Ur Amphetamines Screen U Amphetamines Confirm U Benzodiazepines Scrn Ur Benzodiazepine, Qnt Urine Cocaine Screen Urine Cocaine Confirm U Cannabinoids Confirm U Marijuana (THC) Screen A/P Narrative A/P Narrative: A: *Left hip fracture: *Lactic acidosis: 2/2 ?fracture site injury and volume depletion *AG Met Acidosis: 2/2 above vs DKA *Volume depletion: *Generalized weakness/deconditioning: *Dementia: *Diabetes w/neuropathy: with ?DKA *HTN: elevated on admit -on noravasc/ACEI *COPD: *Tobacco Abuse: *GERD: * P: -Dr. Gates for orthopedic repair -IVF and follow-up lactate -pain control -UA and BHB pending -SSI -continue home Norvasc/ACEI, as needed IV medication -Home medication reconciliation -PT/OT -smoking cessation counseling >3 minutes -CM for placement -ppx: SCD and postop per Ortho / home PPI Time Spent With Patient Time: Total time spent is greater than 50% in coordination of care (as documented) at patient's floor/unit and/or counseling patient: Initial: Total time with patient: 75 - 90 minutes
[2022-10-13] MEDS ORDERED: DEXTROSE 31 GM ORAL.SUSP PO PRN ×2 (17:06→19:32)
[2022-10-13] MEDS ORDERED: DEXTROSE 50% 50 ML VIAL IV PRN ×2 (17:06→19:32)
[2022-10-13 17:23] LABS: Amphetamine Screen,Urine None detected; Barbiturate Screen,Urine None detected; Benzodiazepines Screen,Urine None detected; Cannabinoid Screen,Urine None detected; Cocaine Screen,Urine None detected; Opiate Screen,Urine Suspect Positive; Oxycodone, Urine Screen None detected; Phencyclidine Screen,Urine None detected
[2022-10-13 17:45] LABS: Albumin 4.5 gm/dL (3.2-5.2); Bilirubin,Direct 0.3 mg/dL (<0.3); Bilirubin,Total 0.7 mg/dL (0.1-1.0); Globulin 4.2 gm/dL (2.2-3.7)
[2022-10-13] MEDS ORDERED: POLYETHYLENE GLYCOL 3350 17 GM PACKET PO PRN ×2 (19:32→21:00)
[2022-10-13] MEDS ORDERED: POTASSIUM CHLORIDE 40 MEQ in DEXTROSE 5% IN WATER 500 ML IV PRN (19:32)
[2022-10-13] MEDS ORDERED: MAGNESIUM SULFATE 2 GM/50 ML BAG IV PRN (19:32)
[2022-10-13] MEDS ORDERED: morphine 4 MG/ML VIAL IV PRN (19:32)
[2022-10-13] MEDS ORDERED: hydrALAZINE 20 MG/ML VIAL IV PRN (19:32)
[2022-10-13] MEDS ORDERED: IPRATROPIUM/ALBUTEROL 3 ML AMPUL.NEB NEB PRN ×2 (19:32→21:34)
[2022-10-13] MEDS ORDERED: 0.9 % SODIUM CHLORIDE 1,000 ML IV SCH (19:32)
[2022-10-13] MEDS ORDERED: HYDROcodone/APAP 5/325MG TABLET PO PRN (19:32)
[2022-10-13] MEDS ORDERED: LABETALOL 5 MG/ML ML IV PRN ×2 (19:32→22:23)
[2022-10-13] MEDS ORDERED: SENNOSIDES 1 TABLET PO PRN (19:32)
[2022-10-13] MEDS ORDERED: POTASSIUM CHLORIDE 20 MEQ TABLET PO PRN ×2 (19:32)
[2022-10-13] MEDS ORDERED: ONDANSETRON 4 MG/2 ML VIAL IV PRN ×2 (19:32→21:34)
--- NOTE | 2022-10-13 19:48 | History and Physical Report ---
DATE OF ADMISSION: 10/13/2022 IDENTIFICATION: The patient is a 67-year-old female. CHIEF COMPLAINT: Left hip fracture. HISTORY: Chelsea had a fall 2 weeks ago. She then sustained another fall today, had pain and was unable to bear weight. She presented to the emergency room with this complaint and has been diagnosed with a left femoral neck fracture by radiographs. She has other comorbidities, hypertension, dementia. She has lactic acidosis and there was some concern about could she possibly have an early sepsis. PAST MEDICAL HISTORY: Diabetes, depressive disorder, hepatitis C, hypertension. Apparently some early dementia. PAST SURGICAL HISTORY: Is not presently contributory. MEDICATIONS: Atorvastatin, lorazepam, pioglitazone, ziprasidone, canagliflozin, lisinopril, and Januvia. ALLERGIES: None. PHYSICAL EXAMINATION: GENERAL: Shows she is awake. She is resting more or less comfortably. HEENT: Head atraumatic. Pupils round and reactive. NECK: Supple without pain on range of motion. HEART: Regular. LUNGS: Clear. ABDOMEN: Benign. NEUROVASCULAR: She seems to be neurovascularly intact. Her radiographs demonstrated a femoral neck fracture, which is a markedly displaced. IMPRESSION: Femoral neck fracture. PLAN: The patient was admitted to the hospitalist because she does have other comorbidities, a metabolic acidosis. We will plan to proceed with a hemiarthroplasty when cleared by hospitalist service. This has been discussed with the patient. She seems to understand the discussion, risks, complications, limitations and wishes to proceed. GDD:man Job ID: [id number] Doc ID: [id number] Pino Gates MD
[2022-10-13] MEDS ORDERED: ACETAMINOPHEN 1,000 MG/100 ML BAG IV ONE ×2 (20:22→21:34)
[2022-10-13] MEDS ORDERED: VANCOMYCIN 1,000 MG in 0.9 % SODIUM CHLORIDE 250 ML IV SCH ×2 (20:45→21:00)
[2022-10-13] MEDS ORDERED: MUPIROCIN OINT 2% 22GM NARES SCH (21:00)
[2022-10-13] MEDS ORDERED: DOCUSATE SODIUM 100 MG CAPSULE PO SCH (21:00)
[2022-10-13] MEDS ORDERED: BISACODYL 10 MG SUPP.RECT PR PRN (21:00)
[2022-10-13] MEDS ORDERED: FLEETS ADULT ENEMA PR PRN (21:00)
[2022-10-13] MEDS ORDERED: INSULIN LISPRO 1 UNIT/0.01 ML UNIT SQ SCH (21:00)
[2022-10-13] MEDS ORDERED: BENZOCAINE/MENTHOL 1 LOZENGE PO PRN (21:00)
[2022-10-13] MEDS ORDERED: MAGNESIUM HYDROXIDE 30 ML ORAL.SUSP PO PRN (21:00)
[2022-10-13] MEDS ORDERED: 0.45 % SODIUM CHLORIDE 1,000 ML IV SCH (21:00)
--- NOTE | 2022-10-13 21:00 | Brief Operative Note ---
Brief Operative Note Date of procedure: 10/13/22 Pre-op diagnosis: Left hip fracture Post-op diagnosis: same Procedure: hemiarthroplasty Anesthesia: GETA Findings: stable hip Complications: none Surgeon: Pino Gates Pet Groomer: Alli Fang Estimated blood loss (cc): 75 Specimens Removed/Pathology: none sent Condition: stable Disposition: PACU
[2022-10-13] MEDS ORDERED: TRANEXAMIC ACID 1,000 MG/10 ML VIAL ONE (21:04)
[2022-10-13] MEDS ORDERED: DEXAMETHASONE 10 MG/ML VIAL ONE (21:04)
[2022-10-13] MEDS ORDERED: MAGNESIUM SULFATE 2 GM/50 ML BAG IV ONE (21:04)
[2022-10-13] MEDS ORDERED: fentaNYL 100 MCG/2 ML VIAL IV ONE (21:04)
[2022-10-13] MEDS ORDERED: ONDANSETRON 4 MG/2 ML VIAL ONE (21:04)
[2022-10-13] MEDS ORDERED: PROPOFOL 200 MG/20 ML VIAL IV ONE (21:04)
[2022-10-13] MEDS ORDERED: LIDOCAINE HCL/PF 100 MG/5 ML SYRINGE IV ONE (21:04)
[2022-10-13] MEDS ORDERED: KETAMINE 50 MG/ML Syringe IV ONE (21:04)
[2022-10-13] MEDS ORDERED: LACTATED RINGERS 250 ML IV PRN (21:34)
[2022-10-13] MEDS ORDERED: diphenhydrAMINE 50 MG/ML VIAL IV PRN (21:34)
[2022-10-13] MEDS ORDERED: PROMETHAZINE 25 MG/ML VIAL IV PRN (21:34)
[2022-10-13] MEDS ORDERED: METHOCARBAMOL 1,000 MG/10 ML VIAL IV PRN (21:34)
[2022-10-13] MEDS ORDERED: HYDROmorphone 0.5 MG/0.5 ML SYRINGE IV PRN (21:34)
[2022-10-13] MEDS ORDERED: NALOXONE HCL 0.4 MG/ML VIAL IV PRN (21:34)
[2022-10-13] MEDS ORDERED: MEPERIDINE 25 MG/ML VIAL IV PRN (21:34)
[2022-10-13] MEDS ORDERED: fentaNYL 100 MCG/2 ML VIAL IV PRN (21:34)
[2022-10-13] MEDS ORDERED: LACTATED RINGERS 1,000 ML IV SCH (21:45)
[2022-10-13] MEDS: INSULIN LISPRO 1 UNIT/0.01 ML UNIT SQ SCH ×2 (21:50→22:20)
[2022-10-13] MEDS ORDERED: VANCOMYCIN 1 GM VIAL TOPICAL SCH (22:00)
[2022-10-13] MEDS ORDERED: 0.9 % SODIUM CHLORIDE 10 ML SYRINGE IV SCH (22:00)
[2022-10-13] MEDS ORDERED: LABETALOL 5 MG/ML ML IV ONE (22:29)
[2022-10-13] MEDS: DOCUSATE SODIUM 100 MG CAPSULE PO SCH (23:20)
[2022-10-13] MEDS: SENNOSIDES 1 TABLET PO SCH (23:21)
[2022-10-13] MEDS: 0.9 % SODIUM CHLORIDE 10 ML SYRINGE IV SCH (23:22)
[2022-10-14] MEDS: HYDROCODONE/APAP 7.5/325MG TABLET PO PRN ×5 (00:31→23:24)
[2022-10-14] MEDS: 0.9 % SODIUM CHLORIDE 10 ML SYRINGE IV SCH ×3 (06:34→23:25)
[2022-10-14 07:11] LABS: INR 1.1 (0.9-1.1); Prothrombin Time 14.5 sec (11.9-14.5)
--- NOTE | 2022-10-14 07:46 | Internal Med Progress Note ---
SUBJECTIVE Subjective Patient information: Note initiated : 10/14/22 at 7:43 am Service Date, if different from initiated Date: [] Patient: Chelsea Edwards 67 y/o F admitted on 10/13/22. Chief Complaint: [] Interval history: History of present illness: Ms. Edwards is a 67 year old F Patient states she fell several weeks ago and was seen in the ED but did not have any fractures at that time. She fell again yesterday and has had a hard time walking since then. She called her sister and [place] who called EMS. Patient denies any recent illnesses. She says she fell because she tripped on her carpet. Vital signs reveal mild tachycardia as well as hypertension. Patient denies any recent illnesses. Denies chest pain shortness of breath hea dache stomach pain diarrhea. Work-up in the ED revealed a left hip fracture. She also found to have a lactate of 4.1. Chest x-ray was unremarkable and urinalysis pending. also found to have metabolic acidosis with an anion gap. Glucose of 178. Patient started on IV fluid in the ED. Dr. Gates was contacted for orthopedic repair. Patient denies alcohol use but still smokes. 10/14 Patient had ORIF of the left hip yesterday. Patient says she has had poor oral intake at home given her lab findings suspect fasting ketosis. Awaiting follow- up labs today. IV fluids on board. And will DC now that she has good oral intake Review of Systems: Pertinent positives as above. Denies heada dony/fever/chills/nausea/vomiting/chest or abdominal pain/cough/dyspnea/diarrhea. Remaining 10 point review of system reviewed negative. PHYSICAL EXAM General: Alert, Awake, No acute Distress Eyes/N/T: EOMI, no scleral icterus, Head/Neck: neck supple, full ROM, CV: RRR, No murmurs, Pulm: Clear b/l, no wheezing/rhonchi/rales, no respiratory distress Abd: soft, nontender, +BS x4 Ext: no clubbing/cyanosis/edema, nontender, left hip dressings Neuro: Alert, , no focal deficits, , sensations intact b/l upper/lower Psychiatric: Skin: warm/dry, normal color Constitutional Vitals: Vital Signs Temp Pulse Resp BP Pulse Ox O2 Del Method O2 Flow Rate 98.1 F 77 16 136/66 96 Room Air 5 10/14/22 04:00 10/14/22 05:27 10/13/22 23:47 10/14/22 05:27 10/14/22 05:27 10/14/22 05:27 10/13/22 22:21 Period Temp Pulse Resp BP Sys/Farris Pulse Ox O2 Del Method O2 Flow Rate Last 24 Hr 98.1 F-99.1 F 73-119 9-21 130-210/62-123 92-100 Oxymask-Room A ir 5-6 Intake and Output 10/13/22 10/14/22 10/14/22 19:59 03:59 11:59 Intake Total 1000 1350 Output Total 650 251 Balance 1000 700 -251 Weight 69.853 kg 63.503 kg Intake & Output: Intake & Output 10/13/22 10/14/22 10/14/22 19:59 03:59 11:59 Intake Total 1000 1350 Output Total 650 251 Balance 1000 700 -251 Weight 69.853 kg 63.503 kg Intake: IV 1000 350 Sodium Chloride 0.9% 1,000 ml @ 1000 Wide Open IV BOLUS ONE Rx#: [id number] Vancomycin 1,000 mg In Sodium 250 Chloride 0.9% 250 ml @ 250 mls/ hr IV PREOP CEM Rx#:[id number] IV - Manual Only 1000 Output: Urine Catheter Amount 550 250 Uretheral ([place]) 550 # of times incontinent of urine 1 1 Estimated Blood Loss 99 Other: Urine Appearance Uretheral ([place]) Clear Clear Urine Color Yellow Uretheral ([place]) Yellow Yellow OBJ DATA Labs 10/14/22 09:08 10/14/22 09:08 Labs: Abnormal Lab Results 10/13/22 10/13/22 10/13/22 19:17 16:13 16:12 WBC Immature Gran % (Auto) Wake % (Auto) Wake # (Auto) Immature Gran # Absolute Neutrophils POC VBG pH POC VBG pCO2 at Temp 24.4 L POC VBG pO2 60 H POC VBG HCO3 14.6 L POC VBG Total CO2 15.0 L POC Venous O2 Sat 91.0 H POC VBG Base Excess -10.0 L VBG Lactic Acid POC Total CO2 POC Anion Gap POC Creatinine POC Glucose Direct Bilirubin AST Total Creatine Kinase Total Protein Globulin Beta-Hydroxybutyrate Urine Appearance Cloudy A Urine Glucose (UA) >=500 A Urine Ketones 80 A Ur Leukocyte Esterase 500 A Urine RBC 7 H Urine WBC 152 H Ur Squamous Epith Cells 5 H Urine Opiates Screen Suspect positive A 10/13/22 10/13/22 10/13/22 14:51 14:51 14:51 WBC Immature Gran % (Auto) Wake % (Auto) [place] # (Auto) Immature Gran # Absolute Neutrophils POC VBG pH POC VBG pCO2 at Temp POC VBG pO2 POC VBG HCO3 POC VBG Total CO2 POC Venous O2 Sat POC VBG Base Excess VBG Lactic Acid POC Total CO2 POC Anion Gap POC Creatinine POC Glucose Direct Bilirubin 0.3 H AST 44 H Total Creatine Kinase 180 H Total Protein 8.7 H Globulin 4.2 H Beta-Hydroxybutyrate 5.03 H Urine Appearance Urine Glucose (UA) Urine Ketones Ur Leukocyte Esterase Urine RBC Urine WBC Ur Squamous Epith Cells Urine Opiates Screen 10/13/22 10/13/22 10/13/22 14:51 13:40 13:40 WBC 14.3 H Immature Gran % (Auto) 2.6 H Wake % (Auto) 15.1 H Wake # (Auto) 2.16 H Immature Gran # 0.37 H Absolute Neutrophils 9.17 H POC VBG pH 7.48 H POC VBG pCO2 at Temp 20.8 L POC VBG pO2 24 L POC VBG HCO3 15.4 L POC VBG Total CO2 16.0 L POC Venous O2 Sat POC VBG Base Excess -8.0 L VBG Lactic Acid 4.1 H* POC Total CO2 16.0 L POC Anion Gap 25.0 H POC Creatinine 0.4 L POC Glucose 178 H Direct Bilirubin AST Total Creatine Kinase Total Protein Globulin Beta-Hydroxybutyrate Urine Appearance Urine Glucose (UA) Urine Ketones Ur Leukocyte Esterase Urine RBC Urine WBC Ur Squamous Epith Cells Urine Opiates Screen Meds: Medications Acetaminophen (Acetaminophen 325 Mg Tablet) 650 mg PO Q6HP PRN; Protocol PRN Reason: Per Pain Protocol/Fever > 101 Hydrocodone Bitart/Acetaminophen (Hydrocodone/Apap 7.5/325mg Tablet) 0 tab PO Q4HP PRN; Protocol PRN Reason: Per Pain Protocol Last Admin: 10/14/22 04:34 Dose: 2 tab Albuterol/Ipratropium (Ipratropium/Albuterol 3 Ml Ampul.Neb) 3 ml NEB Q4HP PRN PRN Reason: Shortness Of Breath Aspirin (Aspirin 81 Mg Tab.Chew) 81 mg PO BID CEM Bisacodyl (Bisacodyl 10 Mg Supp.Rect) 10 mg TN Q2-3DAYS PRN PRN Reason: Constipation Dextrose (Dextrose 50% 50 Ml Vial) 0 ml IV UD PRN PRN Reason: Per Sliding Scale Diagnostic Test (Pha) (Accu-Chek 1 Each Strip) 1 each FS ACHS CEM Last Admin: 10/13/22 22:19 Dose: 1 each Docusate Sodium (Docusate Sodium 100 Mg Capsule) 100 mg PO BID CEM Last Admin: 10/13/22 23:20 Dose: Not Given Glucose (Dextrose 31 Gm Oral.Susp) 15 gm PO PRN PRN PRN Reason: Hypoglycemia Hydralazine HCl (Hydralazine 20 Mg/Ml Vial) 0 mg IV Q2HP PRN PRN Reason: Hypertension Potassium Chloride 40 meq/ (Dextrose) 520 mls @ 130 mls/hr IV UD PRN PRN Reason: Potassium < 3 Magnesium Sulfate (Magnesium Sulfate) 2 gm in 50 mls @ 50 mls/hr IV UD PRN PRN Reason: Magnesium </= 1.6 Sodium Chloride (Sodium Chloride 0.9%) 1,000 mls @ 75 mls/hr IV .[id number] CEM Stop: 10/14/22 08:51 Last Admin: 10/13/22 23:21 Dose: Not Given Sodium Chloride (Sodium Chloride 0.45%) 1,000 mls @ 75 mls/hr IV .[id number] [facility] Last Admin: 10/13/22 23:26 Dose: 75 mls/hr Vancomycin HCl 1,000 mg/ (Sodium Chloride) 250 mls @ 250 mls/hr IV ONCE CEM; Pr otocol Stop: 10/14/22 12:00 Insulin Human Lispro (Insulin Lispro 1 Unit/0.01 Ml Unit) 0 unit SQ ACHS CEM; Protocol Last Admin: 10/13/22 22:20 Dose: Not Given Labetalol HCl (Labetalol 5 Mg/Ml Ml) 0 mg IV Q2HP PRN PRN Reason: Hypertension Magnesium Hydroxide (Magnesium Hydroxide 30 Ml Oral.Susp) 30 ml PO BIDP PRN PRN Reason: Constipation Methocarbamol (Methocarbamol 750 Mg Tablet) 750 mg PO Q6HP PRN PRN Reason: Muscle Spasm Morphine Sulfate (Morphine 4 Mg/Ml Vial) 0 mg IV Q1HP PRN; Protocol PRN Reason: Per Pain Protocol Mupirocin (Mupirocin Oint 2% 22gm) 1 dose NARES BID [facility] Stop: 10/18/22 20:59 Last Admin: 10/14/22 00:31 Dose: Not Given Ondansetron HCl (Ondansetron 4 Mg/2 Ml Vial) 4 mg IV Q4HP PRN PRN Reason: Nausea And Vomiting Polyethylene Glycol (Polyethylene Glycol 3350 17 Gm Packet) 17 gm PO DAILYP PRN PRN Reason: Constipation Potassium Chloride (Potassium Chloride 20 Meq Tablet) 40 meq PO UD PRN PRN Reason: Potssium is 3-3.5 Potassium Chloride (Potassium Chloride 20 Meq Tablet) 40 meq PO UD PRN PRN Reason: Potassium < 3 Senna (Sennosides 1 Tablet) 2 tab PO DAILYP PRN PRN Reason: Constipation Senna (Sennosides 1 Tablet) 2 tab PO [facility] Last Admin: 10/13/22 23:21 Dose: Not Given Sodium Biphosphate/Sodium Phosphate (Fleets Adult Enema) 1 dose TN Q3-4DAYS PRN PRN Reason: Constipation Sodium Chloride (0.9 % Sodium Chloride 10 Ml Syringe) 10 ml IV Q8 [facility] Last Admin: 10/14/22 06:34 Dose: Not Given Throat Lozenges (Benzocaine/Menthol 1 Lozenge) 1 lozenge PO PRN PRN PRN Reason: Sore Throat A/P Narrative A/P Narrative: A: *Left hip fracture: s/p ORIF (10/13) *Lactic acidosis: 2/2 ?fracture site injury and volume depletion, resolved *AG Met Acidosis w/ketones: 2/2 above vs starvation ketosis *Volume depletion: *Generalized weakness/deconditioning: *Dementia: *Diabetes w/neuropathy: *HTN: elevated on admit likely 2/2 pain, improved -on noravasc/ACEI *COPD: *Tobacco Abuse: *GERD: *MRSA decolonization P: -Dr. Gates for orthopedic repair -IVF d/c -pain control -SSI -continue home Norvasc/ACEI, as needed IV medication -Home medication reconciliation -PT/OT -smoking cessation counseling -CM for placement -ppx: SCD and postop per Ortho asa 81mg bid / home PPI Time Spent With Patient Time: Total time spent is greater than 50% in coordination of care (as documented) at patient's floor/unit and/or counseling patient: Subsequent: Total time with patient: 50 - 65 Minutes QUALITY VTE Deep Vein Thrombosis/Pulmonary Embolism Present on Admission: No
[2022-10-14] MEDS: INSULIN LISPRO 1 UNIT/0.01 ML UNIT SQ SCH ×4 (07:47→21:56)
[2022-10-14] MEDS: morphine 4 MG/ML VIAL IV PRN ×2 (07:48→11:59)
[2022-10-14] MEDS ORDERED: CHLORHEXIDINE GLUCONATE 0.12% TOPICAL SCH (08:00)
[2022-10-14] MEDS: DOCUSATE SODIUM 100 MG CAPSULE PO SCH ×2 (08:54→21:23)
[2022-10-14] MEDS: MUPIROCIN OINT 2% 22GM NARES SCH ×2 (08:54→21:24)
[2022-10-14] MEDS: ASPIRIN 81 MG TAB.CHEW PO SCH ×2 (08:54→21:23)
[2022-10-14] MEDS ORDERED: VANCOMYCIN 1,000 MG in 0.9 % SODIUM CHLORIDE 250 ML IV SCH (09:00)
[2022-10-14 09:34] LABS: Basophils # (Auto) 0.12 K/mcL (0.00-0.30); Basophils % (Auto) 0.7 % (0.0-2.0); Eosinophils # (Auto) 0 K/mcL (0.00-0.70); Eosinophils % (Auto) 0 % (0.0-7.0); Hematocrit 41.9 % (34.1-44.9); Hemoglobin 13.1 g/dL (11.2-15.7); Lymphocytes # (Auto) 3.01 K/mcL (1.50-4.80); Lymphocytes % (Auto) 17.7 % (15.5-49.0); Mean Cell Volume 101.5 fL (80.0-100.0); Mean Corpuscular HGB Conc 31.3 g/dL (31.0-36.0); Monocytes # (Auto) 1.68 K/mcL (0.10-0.90); Monocytes % (Auto) 9.9 % (1.0-12.0); Neutrophils % (Auto) 66.8 % (38.0-78.0); Platelet Count 285 K/mcL (140-440); RBC 4.13 M/mcL (3.59-5.38); Red Cell Distribution Width 14.2 % (11.5-14.5)
[2022-10-14 09:51] LABS: ALT/SGPT 30 U/L (<40); AST/SGOT 34 U/L (<32); Albumin 3.9 gm/dL (3.2-5.2); Alkaline Phosphatase 78 U/L (39-117); Bilirubin,Direct 0.2 mg/dL (<0.3); Bilirubin,Total 0.5 mg/dL (0.1-1.0); Blood Urea Nitrogen 19 mg/dL (8-23); Calcium 8.6 mg/dL (8.6-10.4); Carbon Dioxide 13 mmol/L (22-30); Chloride 96 mmol/L (96-108); Globulin 3.8 gm/dL (2.2-3.7); Glomerular Filtration Rate 75; Glucose 249 mg/dL (70-105); Lactate Dehydrogenase 313 U/L (135-225); Phosphorous 3.6 mg/dL (2.5-4.5); Triglycerides 84 mg/dL (<150)
[2022-10-14 10:33] LABS: Band Neutrophils % 21 % (0-10); Lymphocytes % 18 % (15-49); Macrocytosis 1+ (None Seen); Metamyelocytes % 1 %; Monocytes % (Manual) 11 % (1-12); Myelocytes % 6 %; Platelet Estimate NORMAL (Normal); RBC Morphology ABNORMAL (Normal); Reactive Lymphocytes 1 % (0-2); Segmented Neutrophils % 42 % (38-78)
[2022-10-14] MEDS ORDERED: SODIUM BICARBONATE VIAL 150 MEQ in WATER FOR INJECTION,STERILE 1,000 ML IV SCH (11:00)
[2022-10-14] MEDS ORDERED: VANCOMYCIN PER PHARMACY IV SCH (11:03)
[2022-10-14] MEDS: cefTRIAXone 2 GM in DEXTROSE 5% IN WATER 50 ML IV SCH (11:25)
[2022-10-14] MEDS: METHOCARBAMOL 750 MG TABLET PO PRN ×2 (12:00→21:23)
[2022-10-14] MEDS: SODIUM BICARBONATE 650 MG TABLET PO SCH ×3 (12:00→21:23)
--- NOTE | 2022-10-14 12:06 | General Surgery Progress Note ---
SUBJECTIVE Subjective Patient information: Note initiated : 10/14/22 at 12:04 pm Service Date, if different from initiated Date: [] Patient: Chelsea Edwards 67 y/o F admitted on 10/13/22. Chief Complaint: [] Principal diagnosis: no new ortho complaints Constitutional Vitals: Vital Signs Temp Pulse Resp BP Pulse Ox O2 Del Method O2 Flow Rate 98.2 F 98 H 16 148/68 97 Room Air 5 10/14/22 08:51 10/14/22 08:51 10/14/22 08:51 10/14/22 09:00 10/14/22 08:51 10/14/22 08:51 10/13/22 22:21 Period Temp Pulse Resp BP Sys/Farris Pulse Ox O2 Del Method O2 Flow Rate Last 24 Hr 98.1 F-99.1 F 73-119 9-21 130-210/60-123 92-100 Oxymask-Room Air 5-6 Intake and Output 10/14/22 10/14/22 10/14/22 03:59 11:59 19:59 Intake Total 1350 50 Output Total 650 251 Balance 700 -201 Weight 140 lb Intake & Output: Intake & Output 10/14/22 10/14/22 10/14/22 03:59 11:59 19:59 Intake Total 1350 50 Output Total 650 251 Balance 700 -201 Weight 140 lb Intake: IV 350 50 Vancomycin 1,000 mg In Sodium 250 Chloride 0.9% 250 ml @ 250 mls/ hr IV PREOP CEM Rx#:[id number] Rocephin 2 gm In Dextrose 5% in 50 Water 50 ml @ 100 mls/hr IV Q24H CEM Rx#:[id number] IV - Manual Only 1000 Output: Urine Catheter Amount 550 250 Uretheral ([place]) 550 # of times incontinent of urine 1 1 Estimated Blood Loss 99 Other: Urine Appearance Uretheral ([place]) Clear Urine Color Yellow Uretheral ([place]) Yellow Extremities Exam Extremities exam: Present neurovascular intact A/P Assessment and plan (1) Closed displaced fracture of left femoral neck: Assessment and plan: status post maria luisa arthroplasty Plan: dc planning Status: Acute Plan dc planning Time Spent With Patient Time: Total time spent is greater than 50% in coordination of care (as documented) at patient's floor/unit and/or counseling patient:
[2022-10-14 14:01] LABS: Appearance,Urine CLOUDY (Clear); Bacteria,Urine FEW /hpf (0); Bilirubin,Urine Negative (Negative); Color,Urine YELLOW; Culture Indicated,Urine No; Glucose,Urine (UA) >=500 mg/dL (Negative); Ketones,Urine 80 mg/dL (Negative); Leukocyte Esterase,Urine 250 /uL (Negative); Mucus,Urine FEW /hpf; Nitrate,Urine Negative (Negative); Protein,Urine Negative (Negative); Specific Gravity,Urine 1.023 (1.000-1.035); Urine Blood Negative (Negative); Urine Budding Yeast MANY /hpf; Urine Hyaline Cast 1 /lph (0-2); Urine RBC 7 /hpf (0-3); Urine Squamous Epithelial Cell 5 /hpf (0-4); Urine Transitional Epi Cells < 1 /hpf (0-2); Urine WBC 111 /hpf (0-4); Urobilinogen,Urine Negative
[2022-10-14] MEDS: SENNOSIDES 1 TABLET PO SCH (21:23)
[2022-10-14] MEDS: ACETAMINOPHEN 325 MG TABLET PO PRN (21:24)
[2022-10-15] MEDS: 0.9 % SODIUM CHLORIDE 10 ML SYRINGE IV SCH ×3 (06:11→21:39)
[2022-10-15 06:37] LABS: Hemoglobin 11.4 g/dL (11.2-15.7); Mean Cell Volume 93.7 fL (80.0-100.0); Mean Corpuscular HGB Conc 33.5 g/dL (31.0-36.0); Mean Platelet Volume 10.4 fL (8.8-12.5); Platelet Count 248 K/mcL (140-440); RBC 3.63 M/mcL (3.59-5.38); WBC 15.1 K/mcL (4.5-11.0)
[2022-10-15 06:52] LABS: Prothrombin Time 13.1 sec (11.9-14.5)
[2022-10-15 07:03] LABS: ALT/SGPT 22 U/L (<40); AST/SGOT 26 U/L (<32); Albumin 3.2 gm/dL (3.2-5.2); Alkaline Phosphatase 65 U/L (39-117); Bilirubin,Direct 0.2 mg/dL (<0.3); Bilirubin,Total 0.5 mg/dL (0.1-1.0); Blood Urea Nitrogen 15 mg/dL (8-23); Calcium 8.2 mg/dL (8.6-10.4); Carbon Dioxide 19 mmol/L (22-30); Chloride 96 mmol/L (96-108); Globulin 3.1 gm/dL (2.2-3.7); Glomerular Filtration Rate 93; Glucose 212 mg/dL (70-105); Lactate Dehydrogenase 262 U/L (135-225); Phosphorous 1.5 mg/dL (2.5-4.5); Triglycerides 119 mg/dL (<150); Uric Acid 5.1 mg/dL (2.5-8.0)
--- NOTE | 2022-10-15 07:09 | Orthopedic Progress Note ---
SUBJECTIVE Subjective Patient information: Note initiated : 10/15/22 at 7:07 am Service Date, if different from initiated Date: [] Patient: Chelsea Edwards 67 y/o F admitted on 10/13/22. Chief Complaint: [S/p left hip hemiarthroplasty] Patient is doing well. She does have postoperative left hip pain. Otherwise, no complaints. Principal diagnosis: no new ortho complaints Constitutional Vitals: Vital Signs Temp Pulse Resp BP Pulse Ox O2 Del Method O2 Flow Rate 99.3 F H 101 H 22 144/61 99 Room Air 5 10/15/22 04:35 10/15/22 04:35 10/15/22 04:35 10/15/22 04:35 10/15/22 04:35 10/15/22 04:35 10/13/22 22:21 Period Temp Pulse Resp BP Sys/Farris Pulse Ox O2 Del Method O2 Flow Rate Last 24 Hr 98.2 F-99.3 F 98-108 14-26 144-168/47-84 97-100 Room Air-Room Air Intake and Output 10/14/22 10/15/22 10/15/22 19:59 03:59 11:59 Intake Total 200 120 360 Output Total 355 Balance 200 120 5 Weight 136 lb 11.2 oz Intake & Output: Intake & Output 10/14/22 10/15/22 10/15/22 19:59 03:59 11:59 Intake Total 200 120 360 Output Total 355 Balance 200 120 5 Weight 136 lb 11.2 oz Intake: Oral 200 120 360 Output: Urine Catheter Amount 350 Void Amount 2 # of times incontinent of urine 3 Other: Meal Dinner Percent of Meal Consumed 100% Urine Appearance Clear Urine Odor Normal General appearance: no acute distress Head Head exam: Present atraumatic Extremities Exam Extremities exam: Present calf tenderness (negative bilat), Jeanie's sign (negative bilat) and neurovascular intact OBJ DATA Labs 10/15/22 06:00 10/15/22 06:00 Labs: Abnormal Lab Results 10/15/22 10/15/22 10/15/22 06:00 06:00 06:00 WBC 15.1 H Hct 34.0 L MCV Immature Gran % (Auto) [place] % (Auto) [place] # (Auto) Band Neutrophils % Immature Gran # Absolute Neutrophils RBC Morphology Macrocytosis POC VBG pH POC VBG pCO2 at Temp POC VBG pO2 POC VBG HCO3 POC VBG Total CO2 POC Venous O2 Sat POC VBG Base Excess VBG Lactic Acid Sodium Carbon Dioxide 19 L POC Total CO2 Anion Gap 18.0 H POC Anion Gap POC Creatinine Glucose 212 H POC Glucose Calcium 8.2 L Phosphorus 1.5 L Direct Bilirubin GGT 107 H AST Lactate Dehydrogenase 262 H Total Creatine Kinase Total Protein Globulin Beta-Hydroxybutyrate 4.46 H Urine Appearance Urine Glucose (UA) Urine Ketones Ur Leukocyte Esterase Urine RBC Urine WBC Ur Squamous Epith Cells Urine Bacteria Urine Mucus Urine Yeast (Budding) Urine Opiates Screen 10/14/22 10/14/22 10/14/22 13:15 09:08 09:08 WBC Hct MCV Immature Gran % (Auto) [place] % (Auto) [place] # (Auto) Band Neutrophils % 21 H Immature Gran # Absolute Neutrophils RBC Morphology Abnormal A Macrocytosis 1+ A POC VBG pH POC VBG pCO2 at Temp POC VBG pO2 POC VBG HCO3 POC VBG Total CO2 POC Venous O2 Sat POC VBG Base Excess VBG Lactic Acid Sodium 131 L Carbon Dioxide 13 L POC Total CO2 Anion Gap 22.0 H POC Anion Gap POC Creatinine Glucose 249 H POC Glucose Calcium Phosphorus Direct Bilirubin GGT 138 H AST 34 H Lactate Dehydrogenase 313 H Total Creatine Kinase Total Protein Globulin 3.8 H Beta-Hydroxybutyrate Urine Appearance Cloudy A Urine Glucose (UA) >=500 A Urine Ketones 80 A Ur Leukocyte Esterase 250 A Urine RBC 7 H Urine WBC 111 H Ur Squamous Epith Cells 5 H Urine Bacteria Few A Urine Mucus Few A Urine Yeast (Budding) Many A Urine Opiates Screen 10/14/22 10/14/22 10/13/22 09:08 09:08 19:17 WBC 17.0 H Hct MCV 101.5 H Immature Gran % (Auto) 4.9 H Mill[place] % (Auto) [place] # (Auto) 1.68 H Band Neutrophils % Immature Gran # 0.84 H Absolute Neutrophils 11.36 H RBC Morphology Macrocytosis POC VBG pH POC VBG pCO2 at Temp 24.4 L POC VBG pO2 60 H POC VBG HCO3 14.6 L POC VBG Total CO2 15.0 L POC Venous O2 Sat 91.0 H POC VBG Base Excess -10.0 L VBG Lactic Acid Sodium Carbon Dioxide POC Total CO2 Anion Gap POC Anion Gap POC Creatinine Glucose POC Glucose Calcium Phosphorus Direct Bilirubin GGT AST Lactate Dehydrogenase Total Creatine Kinase Total Protein Globulin Beta-Hydroxybutyrate 5.24 H Urine Appearance Urine Glucose (UA) Urine Ketones Ur Leukocyte Esterase Urine RBC Urine WBC Ur Squamous Epith Cells Urine Bacteria Urine Mucus Urine Yeast (Budding) Urine Opiates Screen 10/13/22 10/13/22 10/13/22 16:13 16:12 14:51 WBC Hct MCV Immature Gran % (Auto) [place] % (Auto) [place] # (Auto) Band Neutrophils % Immature Gran # Absolute Neutrophils RBC Morphology Macrocytosis POC VBG pH POC VBG pCO2 at Temp POC VBG pO2 POC VBG HCO3 POC VBG Total CO2 POC Venous O2 Sat POC VBG Base Excess VBG Lactic Acid Sodium Carbon Dioxide POC Total CO2 Anion Gap POC Anion Gap POC Creatinine Glucose POC Glucose Calcium Phosphorus Direct Bilirubin GGT AST Lactate Dehydrogenase Total Creatine Kinase Total Protein Globulin Beta-Hydroxybutyrate 5.03 H Urine Appearance Cloudy A Urine Glucose (UA) >=500 A Urine Ketones 80 A Ur Leukocyte Esterase 500 A Urine RBC 7 H Urine WBC 152 H Ur Squamous Epith Cells 5 H Urine Bacteria Urine Mucus Urine Yeast (Budding) Urine Opiates Screen Suspect positive A 10/13/22 10/13/22 10/13/22 14:51 14:51 14:51 WBC 14.3 H Hct MCV Immature Gran % (Auto) 2.6 H Millard % (Auto) 15.1 H [place] # (Auto) 2.16 H Band Neutrophils % Immature Gran # 0.37 H Absolute Neutrophils 9.17 H RBC Morphology Macrocytosis POC VBG pH POC VBG pCO2 at Temp POC VBG pO2 POC VBG HCO3 POC VBG Total CO2 POC Venous O2 Sat POC VBG Base Excess VBG Lactic Acid Sodium Carbon Dioxide POC Total CO2 Anion Gap POC Anion Gap POC Creatinine Glucose POC Glucose Calcium Phosphorus Direct Bilirubin 0.3 H GGT AST 44 H Lactate Dehydrogenase Total Creatine Kinase 180 H Total Protein 8.7 H Globulin 4.2 H Beta-Hydroxybutyrate Urine Appearance Urine Glucose (UA) Urine Ketones Ur Leukocyte Esterase Urine RBC Urine WBC Ur Squamous Epith Cells Urine Bacteria Urine Mucus Urine Yeast (Budding) Urine Opiates Screen 10/13/22 10/13/22 13:40 13:40 WBC Hct MCV Immature Gran % (Auto) [place] % (Auto) [place] # (Auto) Band Neutrophils % Immature Gran # Absolute Neutrophils RBC Morphology Macrocytosis POC VBG pH 7.48 H POC VBG pCO2 at Temp 20.8 L POC VBG pO2 24 L POC VBG HCO3 15.4 L POC VBG Total CO2 16.0 L POC Venous O2 Sat POC VBG Base Excess -8.0 L VBG Lactic Acid 4.1 H* Sodium Carbon Dioxide POC Total CO2 16.0 L Anion Gap POC Anion Gap 25.0 H POC Creatinine 0.4 L Glucose POC Glucose 178 H Calcium Phosphorus Direct Bilirubin GGT AST Lactate Dehydrogenase Total Creatine Kinase Total Protein Globulin Beta-Hydroxybutyrate Urine Appearance Urine Glucose (UA) Urine Ketones Ur Leukocyte Esterase Urine RBC Urine WBC Ur Squamous Epith Cells Urine Bacteria Urine Mucus Urine Yeast (Budding) Urine Opiates Screen Meds: Medications Acetaminophen (Acetaminophen 325 Mg Tablet) 650 mg PO Q6HP PRN; Protocol PRN Reason: Per Pain Protocol/Fever > 101 Last Admin: 10/14/22 21:24 Dose: 650 mg Hydrocodone Bitart/Acetaminophen (Hydrocodone/Apap 7.5/325mg Tablet) 0 tab PO Q4HP PRN; Protocol PRN Reason: Per Pain Protocol Last Admin: 10/14/22 23:24 Dose: 2 tab Albuterol/Ipratropium (Ipratropium/Albuterol 3 Ml Ampul.Neb) 3 ml NEB Q4HP PRN PRN Reason: Shortness Of Breath Aspirin (Aspirin 81 Mg Tab.Chew) 81 mg PO BID [facility] Last Admin: 10/14/22 21:23 Dose: 81 mg Bisacodyl (Bisacodyl 10 Mg Supp.Rect) 10 mg CA Q2-3DAYS PRN PRN Reason: Constipation Chlorhexidine Gluconate (Chlorhexidine Gluconate 473 Ml Bottle) 60 ml TOPICAL UD CEM Dextrose (Dextrose 50% 50 Ml Vial) 0 ml IV UD PRN PRN Reason: Per Sliding Scale Diagnostic Test (Pha) (Accu-Chek 1 Each Strip) 1 each FS ACHS [facility] Last Admin: 10/14/22 21:29 Dose: 1 each Docusate Sodium (Docusate Sodium 100 Mg Capsule) 100 mg PO BID [facility] Last Admin: 10/14/22 21:23 Dose: 100 mg Glucose (Dextrose 31 Gm Oral.Susp) 15 gm PO PRN PRN PRN Reason: Hypoglycemia Hydralazine HCl (Hydralazine 20 Mg/Ml Vial) 0 mg IV Q2HP PRN PRN Reason: Hypertension Last Admin: 10/14/22 21:24 Dose: 10 mg Potassium Chloride 40 meq/ (Dextrose) 520 mls @ 130 mls/hr IV UD PRN PRN Reason: Potassium < 3 Magnesium Sulfate (Magnesium Sulfate) 2 gm in 50 mls @ 50 mls/hr IV UD PRN PRN Reason: Magnesium </= 1.6 Ceftriaxone Sodium 2 gm/ (Dextrose) 50 mls @ 100 mls/hr IV Q24H [facility]; Protocol Last Infusion: 10/14/22 11:55 Dose: Infused Vancomycin HCl 500 mg/ Sodium (Chloride) 100 mls @ 100 mls/hr IV Q12H [facility] Insulin Human Lispro (Insulin Lispro 1 Unit/0.01 Ml Unit) 0 unit SQ ACHS [facility]; Protocol Last Admin: 10/14/22 21:56 Dose: 6 unit Labetalol HCl (Labetalol 5 Mg/Ml Ml) 0 mg IV Q2HP PRN PRN Reason: Hypertension Magnesium Hydroxide (Magnesium Hydroxide 30 Ml Oral.Susp) 30 ml PO BIDP PRN PRN Reason: Constipation Methocarbamol (Methocarbamol 750 Mg Tablet) 750 mg PO Q6HP PRN PRN Reason: Muscle Spasm Last Admin: 10/14/22 21:23 Dose: 750 mg Morphine Sulfate (Morphine 4 Mg/Ml Vial) 0 mg IV Q1HP PRN; Protocol PRN Reason: Per Pain Protocol Last Admin: 10/14/22 11:59 Dose: 4 mg Mupirocin (Mupirocin Oint 2% 22gm) 1 dose NARES BID [facility] Last Admin: 10/14/22 21:24 Dose: 1 dose Ondansetron HCl (Ondansetron 4 Mg/2 Ml Vial) 4 mg IV Q4HP PRN PRN Reason: Nausea And Vomiting Polyethylene Glycol (Polyethylene Glycol 3350 17 Gm Packet) 17 gm PO DAILYP PRN PRN Reason: Constipation Potassium Chloride (Potassium Chloride 20 Meq Tablet) 40 meq PO UD PRN PRN Reason: Potssium is 3-3.5 Potassium Chloride (Potassium Chloride 20 Meq Tablet) 40 meq PO UD PRN PRN Reason: Potassium < 3 Senna (Sennosides 1 Tablet) 2 tab PO DAILYP PRN PRN Reason: Constipation Senna (Sennosides 1 Tablet) 2 tab PO HS [facility] Last Admin: 10/14/22 21:23 Dose: 2 tab Sodium Bicarbonate (Sodium Bicarbonate 650 Mg Tablet) 1,300 mg PO TID [facility] Stop: 10/15/22 21:01 Last Admin: 10/14/22 21:23 Dose: 1,300 mg Sodium Biphosphate/Sodium Phosphate (Fleets Adult Enema) 1 dose CA Q3-4DAYS PRN PRN Reason: Constipation Sodium Chloride (0.9 % Sodium Chloride 10 Ml Syringe) 10 ml IV Q8 [facility] Last Admin: 10/15/22 06:11 Dose: Not Given Throat Lozenges (Benzocaine/Menthol 1 Lozenge) 1 lozenge PO PRN PRN PRN Reason: Sore Throat Vancomycin HCl (Vancomycin Per Pharmacy) 1 order IV UD [facility]; Protocol A/P Assessment and plan (1) Closed displaced fracture of left femoral neck: Assessment and plan: Likely discharge to SNF today per hospitalist. F/u with [facility] in 2 weeks. Status: Acute Time Spent With Patient Time: Total time spent is greater than 50% in coordination of care (as documented) at patient's floor/unit and/or counseling patient:
--- NOTE | 2022-10-15 07:17 | Internal Med Progress Note ---
SUBJECTIVE Subjective Patient information: Note initiated : 10/15/22 at 7:16 am Service Date, if different from initiated Date: [] Patient: Chelsea Edwards 67 y/o F admitted on 10/13/22. Chief Complaint: [] Principal diagnosis: no new ortho complaints Interval history: History of present illness: Ms. Edwards is a 67 year old F Patient states she fell several weeks ago and was seen in the ED but did not have any fractures at that time. She fell again yesterday and has had a hard time walking since then. She called her sister and [place] who called EMS. Patient denies any recent illnesses. She says she fell because she tripped on her carpet. Vital signs reveal mild tachycardia as well as hypertension. Patient denies any recent illnesses. Denies chest pain shortness of breath headache stomach pain diarrhea. Work-up in the ED revealed a left hip fracture. She also found to have a lactate of 4.1. Chest x-ray was unremarkable and urinalysis pending. also found to have metabolic acidosis with an anion gap. Glucose of 178. Patient started on IV fluid in the ED. Dr. Gates was contacted for orthopedic repair. Patient denies alcohol use but still smokes. 10/14 Patient had ORIF of the left hip yesterday. Patient says she has had poor oral intake at home given her lab findings suspect fasting ketosis. Awaiting follow- up labs today. IV fluids on board. And will DC now that she has good oral i ntake 10/15 Patient slept okay. She does have some hip pain today. Leukocytosis is slowly improving and did show 21% bands yesterday, manual differential pending today. Blood and urine culture still pending. MRSA screen positive. Hypophosphatemia. Awaiting home meds to be reconciled. Review of Systems: Pertinent positives as above. Denies headache/fever/chills/nausea/vomiting/chest or abdominal pain/cough/dyspnea/diarrhea. PHYSICAL EXAM General: Alert, Awake, No acute Distress Eyes/N/T: EOMI, no scleral icterus, Head/Neck: neck supple, full ROM, CV: RRR, No murmurs, Pulm: Clear b/l, no wheezing/rhonchi/rales, no respiratory distress Abd: soft, nontender, +BS x4 Ext: no clubbing/cyanosis/edema, nontender, left hip dressings Neuro: Alert, , no focal deficits, , sensations intact b/l upper/lower Psychiatric: Skin: warm/dry, normal color Constitutional Vitals: Vital Signs Temp Pulse Resp BP Pulse Ox O2 Del Method O2 Flow Rate 99.3 F H 101 H 22 144/61 99 Room Air 5 10/15/22 04:35 10/15/22 04:35 10/15/22 04:35 10/15/22 04:35 10/15/22 04:35 10/15/22 04:35 10/13/22 22:21 Period Temp Pulse Resp BP Sys/Farris Pulse Ox O2 Del Method O2 Flow Rate Last 24 Hr 98.2 F-99.3 F 98-108 14-26 144-168/47-84 97-100 Room Air-Room Air Intake and Output 10/14/22 10/15/22 10/15/22 19:59 03:59 11:59 Intake Total 200 120 360 Output Total 355 Balance 200 120 5 Weight 62.006 kg Intake & Output: Intake & Output 10/14/22 10/15/22 10/15/22 19:59 03:59 11:59 Intake Total 200 120 360 Output Total 355 Balance 200 120 5 Weight 62.006 kg Intake: Oral 200 120 360 Output: Urine Catheter Amount 350 Void Amount 2 # of times incontinent of urine 3 Other: Meal Dinner Percent of Meal Consumed 100% Urine Appearance Clear Urine Odor Normal OBJ DATA Labs 10/15/22 06:00 10/15/22 06:00 Labs: Abnormal Lab Results 10/15/22 10/15/22 10/15/22 06:00 06:00 06:00 WBC 15.1 H Hct 34.0 L MCV Immature Gran % (Auto) [place] % (Auto) [place] # (Auto) Band Neutrophils % Immature Gran # Absolute Neutrophils RBC Morphology Macrocytosis POC VBG pH POC VBG pCO2 at Temp POC VBG pO2 POC VBG HCO3 POC VBG Total CO2 POC Venous O2 Sat POC VBG Base Excess VBG Lactic Acid Sodium Carbon Dioxide 19 L POC Total CO2 Anion Gap 18.0 H POC Anion Gap POC Creatinine Glucose 212 H POC Glucose Calcium 8.2 L Phosphorus 1.5 L Direct Bilirubin GGT 107 H AST Lactate Dehydrogenase 262 H Total Creatine Kinase Total Protein Globulin Beta-Hydroxybutyrate 4.46 H Urine Appearance Urine Glucose (UA) Urine Ketones Ur Leukocyte Esterase Urine RBC Urine WBC Ur Squamous Epith Cells Urine Bacteria Urine Mucus Urine Yeast (Budding) Urine Opiates Screen 10/14/22 10/14/22 10/14/22 13:15 09:08 09:08 WBC Hct MCV Immature Gran % (Auto) [place] % (Auto) [place] # (Auto) Band Neutrophils % 21 H Immature Gran # Absolute Neutrophils RBC Morphology Abnormal A Macrocytosis 1+ A POC VBG pH POC VBG pCO2 at Temp POC VBG pO2 POC VBG HCO3 POC VBG Total CO2 POC Venous O2 Sat POC VBG Base Excess VBG Lactic Acid Sodium 131 L Carbon Dioxide 13 L POC Total CO2 Anion Gap 22.0 H POC Anion Gap POC Creatinine Glucose 249 H POC Glucose Calcium Phosphorus Direct Bilirubin GGT 138 H AST 34 H Lactate Dehydrogenase 313 H Total Creatine Kinase Total Protein Globulin 3.8 H Beta-Hydroxybutyrate Urine Appearance Cloudy A Urine Glucose (UA) >=500 A Urine Ketones 80 A Ur Leukocyte Esterase 250 A Urine RBC 7 H Urine WBC 111 H Ur Squamous Epith Cells 5 H Urine Bacteria Few A Urine Mucus Few A Urine Yeast (Budding) Many A Urine Opiates Screen 10/14/22 10/14/22 10/13/22 09:08 09:08 19:17 WBC 17.0 H Hct MCV 101.5 H Immature Gran % (Auto) 4.9 H [place] % (Auto) [place] # (Auto) 1.68 H Band Neutrophils % Immature Gran # 0.84 H Absolute Neutrophils 11.36 H RBC Morphology Macrocytosis POC VBG pH POC VBG pCO2 at Temp 24.4 L POC VBG pO2 60 H POC VBG HCO3 14.6 L POC VBG Total CO2 15.0 L POC Venous O2 Sat 91.0 H POC VBG Base Excess -10.0 L VBG Lactic Acid Sodium Carbon Dioxide POC Total CO2 Anion Gap POC Anion Gap POC Creatinine Glucose POC Glucose Calcium Phosphorus Direct Bilirubin GGT AST Lactate Dehydrogenase Total Creatine Kinase Total Protein Globulin Beta-Hydroxybutyrate 5.24 H Urine Appearance Urine Glucose (UA) Urine Ketones Ur Leukocyte Esterase Urine RBC Urine WBC Ur Squamous Epith Cells Urine Bacteria Urine Mucus Urine Yeast (Budding) Urine Opiates Screen 10/13/22 10/13/22 10/13/22 16:13 16:12 14:51 WBC Hct MCV Immature Gran % (Auto) [place] % (Auto) [place] # (Auto) Band Neutrophils % Immature Gran # Absolute Neutrophils RBC Morphology Macrocytosis POC VBG pH POC VBG pCO2 at Temp POC VBG pO2 POC VBG HCO3 POC VBG Total CO2 POC Venous O2 Sat POC VBG Base Excess VBG Lactic Acid Sodium Carbon Dioxide POC Total CO2 Anion Gap POC Anion Gap POC Creatinine Glucose POC Glucose Calcium Phosphorus Direct Bilirubin GGT AST Lactate Dehydrogenase Total Creatine Kinase Total Protein Globulin Beta-Hydroxybutyrate 5.03 H Urine Appearance Cloudy A Urine Glucose (UA) >=500 A Urine Ketones 80 A Ur Leukocyte Esterase 500 A Urine RBC 7 H Urine WBC 152 H Ur Squamous Epith Cells 5 H Urine Bacteria Urine Mucus Urine Yeast (Budding) Urine Opiates Screen Suspect positive A 10/13/22 10/13/22 10/13/22 14:51 14:51 14:51 WBC 14.3 H Hct MCV Immature Gran % (Auto) 2.6 H [place] % (Auto) 15.1 H [place] # (Auto) 2.16 H Band Neutrophils % Immature Gran # 0.37 H Absolute Neutrophils 9.17 H RBC Morphology Macrocytosis POC VBG pH POC VBG pCO2 at Temp POC VBG pO2 POC VBG HCO3 POC VBG Total CO2 POC Venous O2 Sat POC VBG Base Excess VBG Lactic Acid Sodium Carbon Dioxide POC Total CO2 Anion Gap POC Anion Gap POC Creatinine Glucose POC Glucose Calcium Phosphorus Direct Bilirubin 0.3 H GGT AST 44 H Lactate Dehydrogenase Total Creatine Kinase 180 H Total Protein 8.7 H Globulin 4.2 H Beta-Hydroxybutyrate Urine Appearance Urine Glucose (UA) Urine Ketones Ur Leukocyte Esterase Urine RBC Urine WBC Ur Squamous Epith Cells Urine Bacteria Urine Mucus Urine Yeast (Budding) Urine Opiates Screen 10/13/22 10/13/22 13:40 13:40 WBC Hct MCV Immature Gran % (Auto) [place] % (Auto) [place] # (Auto) Band Neutrophils % Immature Gran # Absolute Neutrophils RBC Morphology Macrocytosis POC VBG pH 7.48 H POC VBG pCO2 at Temp 20.8 L POC VBG pO2 24 L POC VBG HCO3 15.4 L POC VBG Total CO2 16.0 L POC Venous O2 Sat POC VBG Base Excess -8.0 L VBG Lactic Acid 4.1 H* Sodium Carbon Dioxide POC Total CO2 16.0 L Anion Gap POC Anion Gap 25.0 H POC Creatinine 0.4 L Glucose POC Glucose 178 H Calcium Phosphorus Direct Bilirubin GGT AST Lactate Dehydrogenase Total Creatine Kinase Total Protein Globulin Beta-Hydroxybutyrate Urine Appearance Urine Glucose (UA) Urine Ketones Ur Leukocyte Esterase Urine RBC Urine WBC Ur Squamous Epith Cells Urine Bacteria Urine Mucus Urine Yeast (Budding) Urine Opiates Screen Meds: Medications Acetaminophen (Acetaminophen 325 Mg Tablet) 650 mg PO Q6HP PRN; Protocol PRN Reason: Per Pain Protocol/Fever > 101 Last Admin: 10/14/22 21:24 Dose: 650 mg Hydrocodone Bitart/Acetaminophen (Hydrocodone/Apap 7.5/325mg Tablet) 0 tab PO Q4HP PRN; Protocol PRN Reason: Per Pain Protocol Last Admin: 10/14/22 23:24 Dose: 2 tab Albuterol/Ipratropium (Ipratropium/Albuterol 3 Ml Ampul.Neb) 3 ml NEB Q4HP PRN PRN Reason: Shortness Of Breath Aspirin (Aspirin 81 Mg Tab.Chew) 81 mg PO BID [facility] Last Admin: 10/14/22 21:23 Dose: 81 mg Bisacodyl (Bisacodyl 10 Mg Supp.Rect) 10 mg CO Q2-3DAYS PRN PRN Reason: Constipation Chlorhexidine Gluconate (Chlorhexidine Gluconate 473 Ml Bottle) 60 ml TOPICAL UD [facility] Dextrose (Dextrose 50% 50 Ml Vial) 0 ml IV UD PRN PRN Reason: Per Sliding Scale Diagnostic Test (Pha) (Accu-Chek 1 Each Strip) 1 each FS ACHS [facility] Last Admin: 10/14/22 21:29 Dose: 1 each Docusate Sodium (Docusate Sodium 100 Mg Capsule) 100 mg PO BID [facility] Last Admin: 10/14/22 21:23 Dose: 100 mg Glucose (Dextrose 31 Gm Oral.Susp) 15 gm PO PRN PRN PRN Reason: Hypoglycemia Hydralazine HCl (Hydralazine 20 Mg/Ml Vial) 0 mg IV Q2HP PRN PRN Reason: Hypertension Last Admin: 10/14/22 21:24 Dose: 10 mg Potassium Chloride 40 meq/ (Dextrose) 520 mls @ 130 mls/hr IV UD PRN PRN Reason: Potassium < 3 Magnesium Sulfate (Magnesium Sulfate) 2 gm in 50 mls @ 50 mls/hr IV UD PRN PRN Reason: Magnesium </= 1.6 Ceftriaxone Sodium 2 gm/ (Dextrose) 50 mls @ 100 mls/hr IV Q24H [facility]; Protocol Last Infusion: 10/14/22 11:55 Dose: Infused Vancomycin HCl 500 mg/ Sodium (Chloride) 100 mls @ 100 mls/hr IV Q12H [facility] Insulin Human Lispro (Insulin Lispro 1 Unit/0.01 Ml Unit) 0 unit SQ ACHS [facility]; Protocol Last Admin: 10/14/22 21:56 Dose: 6 unit Labetalol HCl (Labetalol 5 Mg/Ml Ml) 0 mg IV Q2HP PRN PRN Reason: Hypertension Magnesium Hydroxide (Magnesium Hydroxide 30 Ml Oral.Susp) 30 ml PO BIDP PRN PRN Reason: Constipation Methocarbamol (Methocarbamol 750 Mg Tablet) 750 mg PO Q6HP PRN PRN Reason: Muscle Spasm Last Admin: 10/14/22 21:23 Dose: 750 mg Morphine Sulfate (Morphine 4 Mg/Ml Vial) 0 mg IV Q1HP PRN; Protocol PRN Reason: Per Pain Protocol Last Admin: 10/14/22 11:59 Dose: 4 mg Mupirocin (Mupirocin Oint 2% 22gm) 1 dose NARES BID [facility] Last Admin: 10/14/22 21:24 Dose: 1 dose Ondansetron HCl (Ondansetron 4 Mg/2 Ml Vial) 4 mg IV Q4HP PRN PRN Reason: Nausea And Vomiting Polyethylene Glycol (Polyethylene Glycol 3350 17 Gm Packet) 17 gm PO DAILYP PRN PRN Reason: Constipation Potassium Chloride (Potassium Chloride 20 Meq Tablet) 40 meq PO UD PRN PRN Reason: Potssium is 3-3.5 Potassium Chloride (Potassium Chloride 20 Meq Tablet) 40 meq PO UD PRN PRN Reason: Potassium < 3 Senna (Sennosides 1 Tablet) 2 tab PO DAILYP PRN PRN Reason: Constipation Senna (Sennosides 1 Tablet) 2 tab PO HS [facility] Last Admin: 10/14/22 21:23 Dose: 2 tab Sodium Bicarbonate (Sodium Bicarbonate 650 Mg Tablet) 1,300 mg PO TID [facility] Stop: 10/15/22 21:01 Last Admin: 10/14/22 21:23 Dose: 1,300 mg Sodium Biphosphate/Sodium Phosphate (Fleets Adult Enema) 1 dose CO Q3-4DAYS PRN PRN Reason: Constipation Sodium Chloride (0.9 % Sodium Chloride 10 Ml Syringe) 10 ml IV Q8 [facility] Last Admin: 10/15/22 06:11 Dose: Not Given Throat Lozenges (Benzocaine/Menthol 1 Lozenge) 1 lozenge PO PRN PRN PRN Reason: Sore Throat Vancomycin HCl (Vancomycin Per Pharmacy) 1 order IV UD [facility]; Protocol A/P Narrative A/P Narrative: A: *Left hip fracture: s/p ORIF (10/13) *Lactic acidosis: 2/2 ?fracture site injury and volume depletion, resolved *AG Met Acidosis w/ketones: 2/2 above vs starvation ketosis, does not clinically look like dka -vbg with wnl pH *Volume depletion: improved *?UTI: *Sepsis: 2/2 above -leukocytosis w/bandemia *Generalized weakness/deconditioning: *Dementia: *Diabetes w/neuropathy: a1c 8.4 *HTN: elevated on admit likely 2/2 pain, improved -on noravasc/ACEI *COPD: *Tobacco Abuse: *GERD: *MRSA decolonization P: -Dr. Gates for orthopedic repair -pain control -SSI -empric abx pending BC/UC, mrsa screen positive -continue home Norvasc/ACEI, as needed IV medication -Home medication reconciliation -PT/OT -smoking cessation counseling -CM for placement -ppx: per Ortho asa 81mg bid / home PPI Time Spent With Patient Time: Total time spent is greater than 50% in coordination of care (as documented) at patient's floor/unit and/or counseling patient: Subsequent: Total time with patient: 50 - 65 Minutes QUALITY VTE Deep Vein Thrombosis/Pulmonary Embolism Present on Admission: No
[2022-10-15] MEDS ORDERED: POTASSIUM PHOSPHATE 40 MEQ in DEXTROSE 5% IN WATER 500 ML IV ONE (07:20)
--- NOTE | 2022-10-15 07:33 | EKG ---
[facility] Test Date: 2022-10-13 Pat Name: Chelsea Edwards Department: ED Room: Gender: Female [employer] Operator: DENNIS : 1955 Requested By: Wilmar Ferrara Order Number: [id number] Reading MD: Nicholas Gaines M.D. Measurements Intervals [place] Rate: 115 P: 72 VA: 152 QRS: 53 QRSD: 78 T: 37 QT: 344 QTc: 475 Interpretive Statements Sinus tachycardia Electronically Signed On 10-15-2022 7:33:22 PDT by Nicholas Gaines M.D. /[id number]
[2022-10-15] MEDS: HYDROCODONE/APAP 7.5/325MG TABLET PO PRN ×4 (07:44→21:40)
[2022-10-15] MEDS: INSULIN GLARGINE, HUMAN 1 UNIT/0.01 ML SQ SCH (08:39)
[2022-10-15] MEDS: INSULIN LISPRO 1 UNIT/0.01 ML UNIT SQ SCH ×4 (08:40→21:55)
[2022-10-15 09:09] LABS: Basophils % (Manual) 1 % (0-2); Hypochromasia 1+ (None Seen); Lymphocytes % 27 % (15-49); Monocytes % (Manual) 17 % (1-12); Platelet Estimate NORMAL (Normal); RBC Morphology ABNORMAL (Normal); Segmented Neutrophils % 55 % (38-78)
[2022-10-15 10:04] LABS: Hemoglobin A1C 8.4 % Hgb (4.0-6.0)
[2022-10-15] MEDS: MUPIROCIN OINT 2% 22GM NARES SCH ×2 (10:52→21:39)
[2022-10-15] MEDS: SODIUM BICARBONATE 650 MG TABLET PO SCH ×3 (10:52→21:40)
[2022-10-15] MEDS: ASPIRIN 81 MG TAB.CHEW PO SCH ×2 (10:52→21:40)
[2022-10-15] MEDS: DOCUSATE SODIUM 100 MG CAPSULE PO SCH ×2 (10:52→21:40)
[2022-10-15] MEDS: cefTRIAXone 2 GM in DEXTROSE 5% IN WATER 50 ML IV SCH (10:52)
[2022-10-15] MEDS: VANCOMYCIN 500 MG in 0.9 % SODIUM CHLORIDE 100 ML IV SCH ×2 (11:39→21:51)
[2022-10-15] MEDS ORDERED: LORazepam 0.5 MG TABLET PO PRN (13:17)
[2022-10-15] MEDS: DIVALPROEX SODIUM 250 MG TABLET PO SCH ×2 (13:29→21:47)
[2022-10-15] MEDS: LISINOPRIL 20 MG TABLET PO SCH (13:30)
[2022-10-15] MEDS: amLODIPine 5 MG TABLET PO SCH (13:30)
[2022-10-15] MEDS ORDERED: traZODone HCL 50 MG TABLET PO SCH (21:00)
[2022-10-15] MEDS: MEMANTINE 10 MG TABLET PO SCH (21:40)
[2022-10-15] MEDS: SENNOSIDES 1 TABLET PO SCH (21:40)
--- NOTE | 2022-10-15 21:44 | Discharge Summary ---
Discharge Provider Provider IMPORTANT FOLLOW-UP INFORMATION FOR PCP: Patient information: Note initiated : 10/15/22 at 9:42 pm Service Date, if different from initiated Date: [] Patient: Chelsea Edwards 67 y/o F admitted on 10/13/22. Chief Complaint: [] Date of admission: 10/13/22 19:29 Discharge date: 10/16/22 Consults: 10/13/22 15:44 Consult to Physician [CONS] Stat Comment: Consulting Provider: Pino Gates Reason For Exam: Physician to Consult 10/13/22 16:05 Consult to Physician [CONS] Stat Comment: Consulting Provider: Mauri Ladd Reason For Exam: Physician to Consult COURSE Hospital Course Hospital course: History of present illness: Ms. Edwards is a 67 year old F Patient states she fell several weeks ago and was seen in the ED but did not have any fractures at that time. She fell again yesterday and has had a hard time walking since then. She called her sister and [place] who called EMS. Patient denies any recent illnesses. She says she fell because she tripped on her carpet. Vital signs reveal mild tachycardia as well as hypertension. Patient denies any recent illnesses. Denies chest pain shortness of breath headache stomach pain diarrhea. Work-up in the ED revealed a left hip fracture. She also found to have a lactate of 4.1. Chest x-ray was unremarkable and urinalysis pending. also found to have metabolic acidosis with an anion gap. Glucose of 178. Patient started on IV fluid in the ED. Dr. Gates was contacted for orthopedic repair. Patient denies alcohol use but still smokes. 10/14 Patient had ORIF of the left hip yesterday. Patient says she has had poor oral intake at home given her lab findings suspect fasting ketosis. Awaiting follow- up labs today. IV fluids on board. And will DC now that she has good oral intake 10/15 Patient slept okay. She does have some hip pain today. Leukocytosis is slowly improving and did show 21% bands yesterday, manual differential pending today. Blood and urine culture still pending. MRSA screen positive. Hypophosphatemia. Awaiting home meds to be reconciled. 10/16 No overnight event or new complaints. Leukocytosis almost resolved, no bandemia. Pending urine cultures and blood cultures are negative thus far. A: *Left hip fracture: s/p ORIF (10/13) *Lactic acidosis: 2/2 ?fracture site injury and volume depletion, resolved *AG Met Acidosis w/ketones: 2/2 above vs fasting ketosis *Volume depletion: improved *?UTI: *Sepsis: 2/2 above *Generalized weakness/deconditioning: *Dementia: *Diabetes w/neuropathy: a1c 8.4 *HTN: elevated on admit likely 2/2 pain, improved -on noravasc/ACEI *COPD: *Tobacco Abuse: *GERD: *MRSA decolonization P: -Dr. Gates follow up -abx pending BC/UC, mrsa screen positive Discharge diagnosis: Hip fracture metabolic acidosis with a lactic acidosis from depletion UTI s Secondary discharge diagnosis: Dementia diabetes hypertension COPD tobacco abuse GERD Time Spent with Patient Time attestation: Total time spent providing and/or coordinating discharge services: Time spent: Greater than 30 minutes EXAM Constitutional Vitals: Temp Pulse Resp BP Pulse Ox O2 Del Method O2 Flow Rate 98.1 F 98 H 12 140/57 96 Room Air 5 10/15/22 19:16 10/15/22 19:16 10/15/22 19:16 10/15/22 19:16 10/15/22 19:16 10/15/22 19:16 10/13/22 22:21 Discharge Data Data Completed and Pending Labs on day of discharge: Labs from last 24 hours 10/15/22 10/15/22 10/15/22 08:13 07:32 06:00 WBC 15.1 H RBC 3.63 Hgb 11.4 Hct 34.0 L MCV 93.7 MCH 31.4 MCHC 33.5 RDW 14.0 Plt Count 248 MPV 10.4 Seg Neutrophils % 55 Lymphocytes % 27 Monocytes % (Manual) 17 H Basophils % (Manual) 1 Platelet Estimate Normal RBC Morphology Abnormal A Hypochromasia 1+ A PT INR Sodium Potassium Chloride Carbon Dioxide Anion Gap BUN Creatinine GFR Calculation Glucose Hemoglobin A1c 8.4 H Estim Average Glucose 194 Uric Acid Calcium Phosphorus Magnesium Total Bilirubin Direct Bilirubin GGT AST ALT Alkaline Phosphatase Lactate Dehydrogenase Total Protein Albumin Globulin Albumin/Globulin Ratio Triglycerides Beta-Hydroxybutyrate Vancomycin Trough 4.5 10/15/22 10/15/22 10/15/22 06:00 06:00 06:00 WBC RBC Hgb Hct MCV MCH MCHC RDW Plt Count MPV Seg Neutrophils % Lymphocytes % Monocytes % (Manual) Basophils % (Manual) Platelet Estimate RBC Morphology Hypochromasia PT 13.1 INR 1.0 Sodium 133 Potassium 3.6 Chloride 96 Carbon Dioxide 19 L Anion Gap 18.0 H BUN 15 Creatinine 0.6 GFR Calculation 93 Glucose 212 H Hemoglobin A1c Estim Average Glucose Uric Acid 5.1 Calcium 8.2 L Phosphorus 1.5 L Magnesium 2.0 Total Bilirubin 0.5 Direct Bilirubin 0.2 GGT 107 H AST 26 ALT 22 Alkaline Phosphatase 65 Lactate Dehydrogenase 262 H Total Protein 6.3 Albumin 3.2 Globulin 3.1 Albumin/Globulin Ratio 1.0 Triglycerides 119 Beta-Hydroxybutyrate 4.46 H Vancomycin Trough Preliminary micro results at discharge 10/13/22 14:50 Blood Culture - Preliminary Blood 10/13/22 14:45 Blood Culture - Preliminary Blood Discharge Plan Patient/Caregiver Discharge Instructions Activity: ambulate only with your walker Diet: Consistent Carbohydrate Activity Restrictions/Additional Instructions: May remove dressing prior to showering and replace with dry dressing after showers. WBAT with walker. Prescriptions: New Aspirin 81 mg PO BID 30 Days 0RF hydrocodone-acetaminophen 7.5-325 mg Tablet 1 - 2 tab PO Q4HP PRN (Reason: Per Pain Protocol) Qty: 50 0RF cefpodoxime 200 mg tablet 200 mg PO BID Qty: 9 0RF Rx Instructions: must administer with a meal/food. Start on 10/17/2022 Continued omeprazole 40 mg capsule,delayed release(DR/EC) 40 mg PO QAM Qty: 90 3RF memantine 10 mg tablet 10 mg PO BID Qty: 60 12RF divalproex 500 mg tablet,delayed release (DR/EC) 250 mg PO BID Qty: 60 12RF duloxetine 60 mg capsule,delayed release(DR/EC) 60 mg PO QDAY Qty: 30 12RF amlodipine 5 mg tablet 5 mg PO QDAY Qty: 30 12RF trazodone 50 mg tablet 50 mg PO QHS Qty: 30 12RF atorvastatin 20 MG tablet 20 mg PO DAILY lorazepam 1 MG tablet 0.5 mg PO DAILYP PRN (Reason: Anxiety) ziprasidone HCl 60 MG capsule 60 mg PO DAILY Rx Instructions: administer with food pioglitazone 30 MG tablet 45 mg PO QDAY calcium carbonate [Calcium 600] 600 mg calcium (1,500 mg) Tablet 600 mg PO BID Januvia 100 mg Tablet 100 mg PO QDAY Invokana 300 mg Tablet 300 mg PO QDAY lisinopril 20 mg tablet 20 mg PO QAM Follow Up Plan Follow up with: Alli Fang PA-C [Physician Geography Faculty Member] - Patient Disposition: Home Health Service Prognosis: Fair Rehab Potential: Fair I certify that the patient requires SNF services: Yes Overall status at discharge: patient is progressing back to baseline Discharge Orders: Discharge Order (Routine); Ordered 10/16/22 Ordered By: Mauri Ladd [facility] VTE Deep Vein Thrombosis/Pulmonary Embolism Present on Admission: No
[2022-10-16] MEDS: INSULIN LISPRO 1 UNIT/0.01 ML UNIT SQ SCH ×4 (00:28→12:26)
[2022-10-16] MEDS: HYDROCODONE/APAP 7.5/325MG TABLET PO PRN ×3 (03:45→11:34)
[2022-10-16] MEDS: 0.9 % SODIUM CHLORIDE 10 ML SYRINGE IV SCH (05:51)
[2022-10-16 06:33] LABS: Hematocrit 33.5 % (34.1-44.9); Mean Cell Volume 95.4 fL (80.0-100.0); Mean Corpuscular HGB Conc 32.8 g/dL (31.0-36.0); Mean Platelet Volume 10.5 fL (8.8-12.5); Platelet Count 230 K/mcL (140-440); RBC 3.51 M/mcL (3.59-5.38); Red Cell Distribution Width 14.6 % (11.5-14.5); WBC 11.8 K/mcL (4.5-11.0)
[2022-10-16 06:43] LABS: INR 0.9 (0.9-1.1); Prothrombin Time 12.6 sec (11.9-14.5)
[2022-10-16 07:01] LABS: Blood Urea Nitrogen 11 mg/dL (8-23); Calcium 8.7 mg/dL (8.6-10.4); Carbon Dioxide 27 mmol/L (22-30); Chloride 101 mmol/L (96-108); Glomerular Filtration Rate 106; Glucose 147 mg/dL (70-105)
[2022-10-16] MEDS ORDERED: OMEPRAZOLE 20 MG CAPSULE PO SCH (07:30)
[2022-10-16 07:35] LABS: Band Neutrophils % 1 % (0-10); Lymphocytes % 30 % (15-49); Monocytes % (Manual) 17 % (1-12); Platelet Estimate NORMAL (Normal); RBC Morphology NORMAL (Normal); Segmented Neutrophils % 52 % (38-78)
[2022-10-16 07:43] VITALS: TEMP 98.6
--- NOTE | 2022-10-16 08:03 | Internal Med Progress Note ---
SUBJECTIVE Subjective Patient information: Note initiated : 10/16/22 at 7:58 am Service Date, if different from initiated Date: [] Patient: Chelsea Edwards 67 y/o F admitted on 10/13/22. Chief Complaint: [] Principal diagnosis: no new ortho complaints Interval history: History of present illness: Ms. Edwards is a 67 year old F Patient states she fell several weeks ago and was seen in the ED but did not have any fractures at that time. She fell again yesterday and has had a hard time walking since then. She called her sister and [place] who called EMS. Patient denies any recent illnesses. She says she fell because she tripped on her carpet. Vital signs reveal mild tachycardia as well as hypertension. Patient denies any recent illnesses. Denies chest pain shortness of breath headache stomach pain diarrhea. Work-up in the ED revealed a left hip fracture. She also found to have a lactate of 4.1. Chest x-ray was unremarkable and urinalysis pending. also found to have metabolic acidosis with an anion gap. Glucose of 178. Patient started on IV fluid in the ED. Dr. Gates was contacted for orthopedic repair. Patient denies alcohol use but still smokes. 10/14 Patient had ORIF of the left hip yesterday. Patient says she has had poor oral intake at home given her lab findings suspect fasting ketosis. Awaiting follow- up labs today. IV fluids on board. And will DC now that she has good oral i ntake 10/15 Patient slept okay. She does have some hip pain today. Leukocytosis is slowly improving and did show 21% bands yesterday, manual differential pending today. Blood and urine culture still pending. MRSA screen positive. Hypophosphatemia. Awaiting home meds to be reconciled. 10/16 No overnight event or new complaints. Leukocytosis almost resolved, no bandemia. Pending urine cultures and blood cultures are negative thus far. Review of Systems: Pertinent positives as above. Denies headache/fever/chills/nausea/vomiting/chest or abdominal pain/cough/dyspnea/diarrhea. PHYSICAL EXAM General: Alert, Awake, No acute Distress Eyes/N/T: EOMI, no scleral icterus, Head/Neck: neck supple, full ROM, CV: RRR, No murmurs, Pulm: Clear b/l, no wheezing/rhonchi/rales, no respiratory distress Abd: soft, nontender, +BS x4 Ext: no clubbing/cyanosis/edema, nontender, left hip dressings Neuro: Alert, , no focal deficits, , sensations intact b/l upper/lower Psychiatric: Skin: warm/dry, normal color Constitutional Vitals: Vital Signs Temp Pulse Resp BP Pulse Ox O2 Del Method O2 Flow Rate 98.6 F 97 H 12 158/54 98 Room Air 5 10/16/22 07:42 10/16/22 07:42 10/16/22 07:42 10/16/22 07:42 10/16/22 07:42 10/16/22 07:42 10/13/22 22:21 Period Temp Pulse Resp BP Sys/Farris Pulse Ox O2 Del Method O2 Flow Rate Last 24 Hr 97.9 F-99.1 F 90-106 12-18 133-158/47-62 95-100 Room Air-Room Air Intake and Output 10/15/22 10/16/22 10/16/22 19:59 03:59 11:59 Intake Total 760 340 Output Total 750 153 Balance 10 187 Weight 63.14 kg Intake & Output: Intake & Output 10/15/22 10/16/22 10/16/22 19:59 03:59 11:59 Intake Total 760 340 Output Total 750 153 Balance 10 187 Weight 63.14 kg Intake: IV 100 100 Vancomycin 500 mg In Sodium 100 100 Chloride 0.9% 100 ml @ 100 mls/ hr IV Q12H [facility] Rx#:[id number] Oral 660 240 Output: Void Amount 750 150 # of times incontinent of urine 3 Other: Meal Dinner Percent of Meal Consumed 100% Urine Appearance Clear Urine Color Yellow OBJ DATA Labs 10/16/22 05:24 10/16/22 05:24 Labs: Abnormal Lab Results 10/16/22 10/16/22 10/15/22 05:24 05:24 07:32 WBC 11.8 H RBC 3.51 L Hgb 11.0 L Hct 33.5 L MCV RDW 14.6 H Immature Gran % (Auto) Rock % (Auto) Rock # (Auto) Band Neutrophils % Monocytes % (Manual) 17 H Immature Gran # Absolute Neutrophils RBC Morphology Hypochromasia Macrocytosis POC VBG pH POC VBG pCO2 at Temp POC VBG pO2 POC VBG HCO3 POC VBG Total CO2 POC Venous O2 Sat POC VBG Base Excess VBG Lactic Acid Sodium Potassium 3.2 L Carbon Dioxide POC Total CO2 Anion Gap POC Anion Gap Creatinine 0.4 L POC Creatinine Glucose 147 H POC Glucose Hemoglobin A1c 8.4 H Calcium Phosphorus Direct Bilirubin GGT AST Lactate Dehydrogenase Total Creatine Kinase Total Protein Globulin Beta-Hydroxybutyrate Urine Appearance Urine Glucose (UA) Urine Ketones Ur Leukocyte Esterase Urine RBC Urine WBC Ur Squamous Epith Cells Urine Bacteria Urine Mucus Urine Yeast (Budding) Urine Opiates Screen 10/15/22 10/15/22 10/15/22 06:00 06:00 06:00 WBC 15.1 H RBC Hgb Hct 34.0 L MCV RDW Immature Gran % (Auto) Rock % (Auto) Rock # (Auto) Band Neutrophils % Monocytes % (Manual) 17 H Immature Gran # Absolute Neutrophils RBC Morphology Abnormal A Hypochromasia 1+ A Macrocytosis POC VBG pH POC VBG pCO2 at Temp POC VBG pO2 POC VBG HCO3 POC VBG Total CO2 POC Venous O2 Sat POC VBG Base Excess VBG Lactic Acid Sodium Potassium Carbon Dioxide 19 L POC Total CO2 Anion Gap 18.0 H POC Anion Gap Creatinine POC Creatinine Glucose 212 H POC Glucose Hemoglobin A1c Calcium 8.2 L Phosphorus 1.5 L Direct Bilirubin GGT 107 H AST Lactate Dehydrogenase 262 H Total Creatine Kinase Total Protein Globulin Beta-Hydroxybutyrate 4.46 H Urine Appearance Urine Glucose (UA) Urine Ketones Ur Leukocyte Esterase Urine RBC Urine WBC Ur Squamous Epith Cells Urine Bacteria Urine Mucus Urine Yeast (Budding) Urine Opiates Screen 10/14/22 10/14/22 10/14/22 13:15 09:08 09:08 WBC RBC Hgb Hct MCV RDW Immature Gran % (Auto) Rock % (Auto) Rock # (Auto) Band Neutrophils % 21 H Monocytes % (Manual) Immature Gran # Absolute Neutrophils RBC Morphology Abnormal A Hypochromasia Macrocytosis 1+ A POC VBG pH POC VBG pCO2 at Temp POC VBG pO2 POC VBG HCO3 POC VBG Total CO2 POC Venous O2 Sat POC VBG Base Excess VBG Lactic Acid Sodium 131 L Potassium Carbon Dioxide 13 L POC Total CO2 Anion Gap 22.0 H POC Anion Gap Creatinine POC Creatinine Glucose 249 H POC Glucose Hemoglobin A1c Calcium Phosphorus Direct Bilirubin GGT 138 H AST 34 H Lactate Dehydrogenase 313 H Total Creatine Kinase Total Protein Globulin 3.8 H Beta-Hydroxybutyrate Urine Appearance Cloudy A Urine Glucose (UA) >=500 A Urine Ketones 80 A Ur Leukocyte Esterase 250 A Urine RBC 7 H Urine WBC 111 H Ur Squamous Epith Cells 5 H Urine Bacteria Few A Urine Mucus Few A Urine Yeast (Budding) Many A Urine Opiates Screen 10/14/22 10/14/22 10/13/22 09:08 09:08 19:17 WBC 17.0 H RBC Hgb Hct MCV 101.5 H RDW Immature Gran % (Auto) 4.9 H Rock % (Auto) Rock # (Auto) 1.68 H Band Neutrophils % Monocytes % (Manual) Immature Gran # 0.84 H Absolute Neutrophils 11.36 H RBC Morphology Hypochromasia Macrocytosis POC VBG pH POC VBG pCO2 at Temp 24.4 L POC VBG pO2 60 H POC VBG HCO3 14.6 L POC VBG Total CO2 15.0 L POC Venous O2 Sat 91.0 H POC VBG Base Excess -10.0 L VBG Lactic Acid Sodium Potassium Carbon Dioxide POC Total CO2 Anion Gap POC Anion Gap Creatinine POC Creatinine Glucose POC Glucose Hemoglobin A1c Calcium Phosphorus Direct Bilirubin GGT AST Lactate Dehydrogenase Total Creatine Kinase Total Protein Globulin Beta-Hydroxybutyrate 5.24 H Urine Appearance Urine Glucose (UA) Urine Ketones Ur Leukocyte Esterase Urine RBC Urine WBC Ur Squamous Epith Cells Urine Bacteria Urine Mucus Urine Yeast (Budding) Urine Opiates Screen 10/13/22 10/13/22 10/13/22 16:13 16:12 14:51 WBC RBC Hgb Hct MCV RDW Immature Gran % (Auto) Rock % (Auto) Rock # (Auto) Band Neutrophils % Monocytes % (Manual) Immature Gran # Absolute Neutrophils RBC Morphology Hypochromasia Macrocytosis POC VBG pH POC VBG pCO2 at Temp POC VBG pO2 POC VBG HCO3 POC VBG Total CO2 POC Venous O2 Sat POC VBG Base Excess VBG Lactic Acid Sodium Potassium Carbon Dioxide POC Total CO2 Anion Gap POC Anion Gap Creatinine POC Creatinine Glucose POC Glucose Hemoglobin A1c Calcium Phosphorus Direct Bilirubin GGT AST Lactate Dehydrogenase Total Creatine Kinase Total Protein Globulin Beta-Hydroxybutyrate 5.03 H Urine Appearance Cloudy A Urine Glucose (UA) >=500 A Urine Ketones 80 A Ur Leukocyte Esterase 500 A Urine RBC 7 H Urine WBC 152 H Ur Squamous Epith Cells 5 H Urine Bacteria Urine Mucus Urine Yeast (Budding) Urine Opiates Screen Suspect positive A 10/13/22 10/13/22 10/13/22 14:51 14:51 14:51 WBC 14.3 H RBC Hgb Hct MCV RDW Immature Gran % (Auto) 2.6 H Rock % (Auto) 15.1 H Rock # (Auto) 2.16 H Band Neutrophils % Monocytes % (Manual) Immature Gran # 0.37 H Absolute Neutrophils 9.17 H RBC Morphology Hypochromasia Macrocytosis POC VBG pH POC VBG pCO2 at Temp POC VBG pO2 POC VBG HCO3 POC VBG Total CO2 POC Venous O2 Sat POC VBG Base Excess VBG Lactic Acid Sodium Potassium Carbon Dioxide POC Total CO2 Anion Gap POC Anion Gap Creatinine POC Creatinine Glucose POC Glucose Hemoglobin A1c Calcium Phosphorus Direct Bilirubin 0.3 H GGT AST 44 H Lactate Dehydrogenase Total Creatine Kinase 180 H Total Protein 8.7 H Globulin 4.2 H Beta-Hydroxybutyrate Urine Appearance Urine Glucose (UA) Urine Ketones Ur Leukocyte Esterase Urine RBC Urine WBC Ur Squamous Epith Cells Urine Bacteria Urine Mucus Urine Yeast (Budding) Urine Opiates Screen 10/13/22 10/13/22 13:40 13:40 WBC RBC Hgb Hct MCV RDW Immature Gran % (Auto) Rock % (Auto) Rock # (Auto) Band Neutrophils % Monocytes % (Manual) Immature Gran # Absolute Neutrophils RBC Morphology Hypochromasia Macrocytosis POC VBG pH 7.48 H POC VBG pCO2 at Temp 20.8 L POC VBG pO2 24 L POC VBG HCO3 15.4 L POC VBG Total CO2 16.0 L POC Venous O2 Sat POC VBG Base Excess -8.0 L VBG Lactic Acid 4.1 H* Sodium Potassium Carbon Dioxide POC Total CO2 16.0 L Anion Gap POC Anion Gap 25.0 H Creatinine POC Creatinine 0.4 L Glucose POC Glucose 178 H Hemoglobin A1c Calcium Phosphorus Direct Bilirubin GGT AST Lactate Dehydrogenase Total Creatine Kinase Total Protein Globulin Beta-Hydroxybutyrate Urine Appearance Urine Glucose (UA) Urine Ketones Ur Leukocyte Esterase Urine RBC Urine WBC Ur Squamous Epith Cells Urine Bacteria Urine Mucus Urine Yeast (Budding) Urine Opiates Screen Meds: Medications Acetaminophen (Acetaminophen 325 Mg Tablet) 650 mg PO Q6HP PRN; Protocol PRN Reason: Per Pain Protocol/Fever > 101 Last Admin: 10/14/22 21:24 Dose: 650 mg Hydrocodone Bitart/Acetaminophen (Hydrocodone/Apap 7.5/325mg Tablet) 0 tab PO Q4HP PRN; Protocol PRN Reason: Per Pain Protocol Last Admin: 10/16/22 07:19 Dose: 1 tab Albuterol/Ipratropium (Ipratropium/Albuterol 3 Ml Ampul.Neb) 3 ml NEB Q4HP PRN PRN Reason: Shortness Of Breath Amlodipine Besylate (Amlodipine 5 Mg Tablet) 5 mg PO QDAY [facility] Last Admin: 10/15/22 13:30 Dose: 5 mg Aspirin (Aspirin 81 Mg Tab.Chew) 81 mg PO BID [facility] Last Admin: 10/15/22 21:40 Dose: 81 mg Atorvastatin Calcium (Atorvastatin 20 Mg Tablet) 20 mg PO DAILY [facility]EM Bisacodyl (Bisacodyl 10 Mg Supp.Rect) 10 mg [place] Q2-3DAYS PRN PRN Reason: Constipation Chlorhexidine Gluconate (Chlorhexidine Gluconate 473 Ml Bottle) 60 ml TOPICAL UD [facility]EM Dextrose (Dextrose 50% 50 Ml Vial) 0 ml IV UD PRN PRN Reason: Per Sliding Scale Diagnostic Test (Pha) (Accu-Chek 1 Each Strip) 1 each FS Q4 [facility]EM Last Admin: 10/16/22 03:38 Dose: 1 each Divalproex Sodium (Divalproex Sodium 250 Mg Tablet) 250 mg PO BID [facility] Last Admin: 10/15/22 21:47 Dose: 250 mg Docusate Sodium (Docusate Sodium 100 Mg Capsule) 100 mg PO BID [facility] Last Admin: 10/15/22 21:40 Dose: 100 mg Duloxetine HCl (Duloxetine 30 Mg Capsule) 60 mg PO DAILY [facility] Glucose (Dextrose 31 Gm Oral.Susp) 15 gm PO PRN PRN PRN Reason: Hypoglycemia Hydralazine HCl (Hydralazine 20 Mg/Ml Vial) 0 mg IV Q2HP PRN PRN Reason: Hypertension Last Admin: 10/14/22 21:24 Dose: 10 mg Potassium Chloride 40 meq/ (Dextrose) 520 mls @ 130 mls/hr IV UD PRN PRN Reason: Potassium < 3 Magnesium Sulfate (Magnesium Sulfate) 2 gm in 50 mls @ 50 mls/hr IV UD PRN PRN Reason: Magnesium </= 1.6 Ceftriaxone Sodium 2 gm/ (Dextrose) 50 mls @ 100 mls/hr IV Q24H [facility]; Protocol Last Infusion: 10/15/22 11:25 Dose: Infused Vancomycin HCl 500 mg/ Sodium (Chloride) 100 mls @ 100 mls/hr IV Q12H [facility] Last Infusion: 10/15/22 22:55 Dose: Infused Insulin Glargine (Insulin Glargine, Human 1 Unit/0.01 Ml) 5 unit SQ DAILY [facility] Last Admin: 10/15/22 08:39 Dose: 5 unit Insulin Human Lispro (Insulin Lispro 1 Unit/0.01 Ml Unit) 0 unit SQ Q4 [facility]; Protocol Last Admin: 10/16/22 03:42 Dose: 4 unit Labetalol HCl (Labetalol 5 Mg/Ml Ml) 0 mg IV Q2HP PRN PRN Reason: Hypertension Lisinopril (Lisinopril 20 Mg Tablet) 20 mg PO QAM [facility] Last Admin: 10/15/22 13:30 Dose: 20 mg Lorazepam (Lorazepam 0.5 Mg Tablet) 0.5 mg PO DAILYP PRN PRN Reason: ANXIETY/SEDATION Magnesium Hydroxide (Magnesium Hydroxide 30 Ml Oral.Susp) 30 ml PO BIDP PRN PRN Reason: Constipation Memantine (Memantine 10 Mg Tablet) 10 mg PO BID [facility] Last Admin: 10/15/22 21:40 Dose: 10 mg Methocarbamol (Methocarbamol 750 Mg Tablet) 750 mg PO Q6HP PRN PRN Reason: Muscle Spasm Last Admin: 10/14/22 21:23 Dose: 750 mg Morphine Sulfate (Morphine 4 Mg/Ml Vial) 0 mg IV Q1HP PRN; Protocol PRN Reason: Per Pain Protocol Last Admin: 10/14/22 11:59 Dose: 4 mg Mupirocin (Mupirocin Oint 2% 22gm) 1 dose NARES BID [facility] Last Admin: 10/15/22 21:39 Dose: 1 dose Omeprazole (Omeprazole 20 Mg Capsule) 40 mg PO ACB [facility] Last Admin: 10/16/22 07:14 Dose: 40 mg Ondansetron HCl (Ondansetron 4 Mg/2 Ml Vial) 4 mg IV Q4HP PRN PRN Reason: Nausea And Vomiting Canagliflozin [ Invokana] 300 Mg Tablet 1 dose PO QDAY [facility] Last Admin: 10/15/22 16:13 Dose: Not Given Ziprasidone [Geodon] (Hcl 60 Mg Capsule) 1 dose PO DAILY [facility] Pioglitazone HCl (Pioglitazone 15 Mg Tablet) 45 mg PO DAILY [facility] Polyethylene Glycol (Polyethylene Glycol 3350 17 Gm Packet) 17 gm PO DAILYP PRN PRN Reason: Constipation Potassium Chloride (Potassium Chloride 20 Meq Tablet) 40 meq PO UD PRN PRN Reason: Potssium is 3-3.5 Potassium Chloride (Potassium Chloride 20 Meq Tablet) 40 meq PO UD PRN PRN Reason: Potassium < 3 Senna (Sennosides 1 Tablet) 2 tab PO DAILYP PRN PRN Reason: Constipation Senna (Sennosides 1 Tablet) 2 tab PO HS [facility] Last Admin: 10/15/22 21:40 Dose: 2 tab Sitagliptin Phosphate (Sitagliptin 100 Mg Tablet) 100 mg PO QDAY [facility] Sodium Biphosphate/Sodium Phosphate (Fleets Adult Enema) 1 dose [place] Q3-4DAYS PRN PRN Reason: Constipation Sodium Chloride (0.9 % Sodium Chloride 10 Ml Syringe) 10 ml IV Q8 [facility] Last Admin: 10/16/22 05:51 Dose: 10 ml Throat Lozenges (Benzocaine/Menthol 1 Lozenge) 1 lozenge PO PRN PRN PRN Reason: Sore Throat Trazodone HCl (Trazodone Hcl 50 Mg Tablet) 50 mg PO QHS [facility] Last Admin: 10/15/22 21:40 Dose: 50 mg Vancomycin HCl (Vancomycin Per Pharmacy) 1 order IV UD [facility]; Protocol A/P Narrative A/P Narrative: A: *Left hip fracture: s/p ORIF (10/13) *Lactic acidosis: 2/2 ?fracture site injury and volume depletion, resolved *AG Met Acidosis w/ketones: 2/2 above vs starvation ketosis, does not clinically look like dka, resolved -vbg with wnl pH *Volume depletion: improved *UTI( ): *Sepsis: 2/2 above. resolved -leukocytosis w/bandemia resolved *Generalized weakness/deconditioning: *Dementia: *Diabetes w/neuropathy: a1c 8.4 *HTN: elevated on admit likely 2/2 pain, improved -on noravasc/ACEI *COPD: *Tobacco Abuse: *GERD: *MRSA decolonization P: -Dr. Gates for orthopedic repair -pain control -SSI -empric abx pending BC/UC, mrsa screen positive -continue home Norvasc/ACEI, as needed IV medication -PT/OT -smoking cessation counseling -CM for placement -ppx: per Ortho asa 81mg bid / home PPI Time Spent With Patient Time: Total time spent is greater than 50% in coordination of care (as documented) at patient's floor/unit and/or counseling patient: Subsequent: Total time with patient: 35 - 49 minutes QUALITY VTE Deep Vein Thrombosis/Pulmonary Embolism Present on Admission: No
[2022-10-16] MEDS ORDERED: PIOGLITAZONE 15 MG TABLET PO SCH (09:00)
[2022-10-16] MEDS ORDERED: SULFAMETHOXAZOLE/TRIMETHOPRIM 1 TABLET PO SCH (09:00)
[2022-10-16] MEDS ORDERED: DULoxetine 30 MG CAPSULE PO SCH (09:00)
[2022-10-16] MEDS ORDERED: ATORVASTATIN 20 MG TABLET PO SCH (09:00)
[2022-10-16] MEDS ORDERED: HCL PO SCH (09:00)
[2022-10-16] MEDS ORDERED: sitaGLIPtin 100 MG TABLET PO SCH (09:00)
[2022-10-16] MEDS ORDERED: ZIPRASIDONE PO SCH (09:00)
[2022-10-16] MEDS: cefTRIAXone 2 GM in DEXTROSE 5% IN WATER 50 ML IV SCH (09:43)
[2022-10-16] MEDS: MUPIROCIN OINT 2% 22GM NARES SCH (09:43)
[2022-10-16] MEDS: INSULIN GLARGINE, HUMAN 1 UNIT/0.01 ML SQ SCH (09:44)
[2022-10-16] MEDS: LISINOPRIL 20 MG TABLET PO SCH (09:44)
[2022-10-16] MEDS: amLODIPine 5 MG TABLET PO SCH (09:44)
[2022-10-16] MEDS: ASPIRIN 81 MG TAB.CHEW PO SCH (09:45)
[2022-10-16] MEDS: DIVALPROEX SODIUM 250 MG TABLET PO SCH (09:45)
[2022-10-16] MEDS: MEMANTINE 10 MG TABLET PO SCH (09:46)
[2022-10-16] MEDS: DOCUSATE SODIUM 100 MG CAPSULE PO SCH (09:46)
[2022-10-16] MEDS: ACETAMINOPHEN 325 MG TABLET PO PRN (10:28)
[2022-10-16] MEDS: METHOCARBAMOL 750 MG TABLET PO PRN (10:29)
[2022-10-16 11:59] VITALS: O2SAT 100
--- NOTE | 2022-10-25 13:05 | Operative Note ---
DATE OF OPERATION: 10/13/2022 PREOPERATIVE DIAGNOSIS: Left subcapital femoral neck fracture. POSTOPERATIVE DIAGNOSIS: Left subcapital femoral neck fracture. OPERATION PROPOSED: Left total hip arthroplasty. OPERATION PERFORMED: Same. SURGEON: Pino Gates M.D. DIRECT SALES CONSULTANT: Alli Fang PA-C. The assistance of the PA was required for the safe and efficient completion of the entire case. The expertise and technical skill of this provider were required throughout the case. The PA assisted with preoperative coordination, intraoperative retraction, limb manipulation, wound closure, dressing application, as well as postoperative documentation and care coordination. INDICATIONS: This is a lady who has had fracture of the femoral neck, which is significantly displaced. She is in need of operative treatment. DESCRIPTION OF PROCEDURE: Informed consent was obtained. She was taken to the operating room where she was provided with appropriate anesthetic and prophylactic antibiotic. She was carefully positioned. Her hip was prepped sterilely. A standard posterior approach to the hip was performed. I dissected through the iliotibial band. I cut and released short external rotators and the hip capsule was cut and T'd. Femoral neck cut was performed and the napkin ring of bone was removed. Femoral head was removed and sized. I reamed and broached the canal. I cemented in place a fracture stem from [employer]. This was paired with an appropriate size head ball. This was reduced into position. The hip capsule closed. The wounds were irrigated extensively and I closed the iliotibial band with 2-0 inverted deep dermal sutures and ted in the skin. Procedure was tolerated well. No complications. ESTIMATED BLOOD LOSS: 50 mL. GDD:rebecca Job ID: [id number] Doc ID: [id number] Pino Gates MD
== END 2022-10-16 12:45 | disposition home health service (06) | DRG 521 ==
LOC: ED 13:29 → MEDSUR 19:29
PROVIDERS: ADMIT Internal Medicine; ATTEND Internal Medicine